=== PATIENT | female | born 1960 | race Caucasian/White ===

== ENCOUNTER 2016-06-09 12:05 | Inpatient (IN) | payer OTHER ==
[~2016-06-09] VITALS: Ht 165.1 cm; Wt 110.5 kg
[2016-06-09] VITALS (10 sets, daily range): BP systolic 129–184; BP diastolic 62–92; PULSE 62–98; RESP 18–23; TEMP 96.6–98.3; O2SAT 95–98
[~2016-06-09 12:05] MED LIST: GLIP5 PO; GLUM500T PO; HYDR-3535 PO; IBUP800T23 PO; LOSA50TA PO; OMEP20TA39 PO; TAMS0.4C67 PO; ZOFR4TAB3 SL
[2016-06-09] MEDS ORDERED: ASPIRIN 81 MG CHEW TAB PO ONE (12:30)
--- NOTE | 2016-06-09 12:34 | PD ---
HPI Chief Complaint: Chest Pain Time Seen by Provider: 12:31 Travel History International Travel<30 days: No Contact w/Intl Traveler<30days: No Traveled to known affect area: No History of Present Illness HPI 55-year-old female presents to the emergency department for evaluation of anterior chest pain that started 2 days ago. She states it only occurs with movement. She reports associated shortness of breath. Patient with history of hypertension, hyperlipidemia, diabetes, aortic stenosis. Her heat treater apprentice is Dr. Crespo. Primary care physician is Dr. Galan. She states she has not had a recent stress test or cardiac catheterization. She denies any history of [place]. Patient denies any recent surgery or travel. No leg edema. No hemoptysis. No history DVT/PE. Patient states she has not had this pain before. She took a baby aspirin last night, but has not had any aspirin today. Patient was a previous tobacco smoker, quit 2 years ago. PFSH Past Medical History Hx Anticoagulant Therapy: Yes (ASA ) Blood Disorders: No Depression: Yes Heart Rhythm Problems: Yes (HAD HEART MURMUR AND PALPITATIONS) Cancer: No Cardiac Catheterization: Yes (X2) Cardiovascular Problems: Yes (AORTIC STENOSIS , HTN ) High Cholesterol: Yes Chemotherapy: No Chest Pain: Yes Diabetes: Yes Diminished Hearing: No Endocrine: No GERD: Yes Headaches: Yes Hiatal Hernia: Yes Hypertension: Yes Kidney Stones: Yes Musculoskeletal: No Respiratory: No Radiation Therapy: No Menopausal: Yes Past Surgical History Abdominal Surgery: Yes (C SECTION, GALLBLADDER) Section: Yes Cholecystectomy: Yes Tonsillectomy: Yes Other Surgery: Yes ("NOSE & CHEEK ANANYA") Social History Alcohol Use: Yes (OCCASIONAL) Tobacco Use: Yes Substance Use: No Allergies-Medications (Allergen,Severity, Reaction): Coded Allergies: No Known Allergies (Verified , 06/29/15) Reported Meds & Prescriptions Reported Meds & Active Scripts Active Reported Metformin ER (Metformin HCl) 750 Mg Perfecto 750 Mg PO DAILY With evening meal Glimepiride 4 Mg Tab 4 Mg PO BIDAC Losartan (Losartan Potassium) 50 Mg Tab 50 Mg PO DAILY Review of Systems Except as stated in HPI: all other systems reviewed are Neg Physical Exam Narrative GENERAL: Well-nourished, well-developed female patient, ambulatory. Afebrile. SKIN: Focused skin assessment warm/dry. HEAD: Normocephalic. Atraumatic. EYES: No scleral icterus. No injection or drainage. NECK: Supple, trachea midline. No JVD or lymphadenopathy. CARDIOVASCULAR: Regular rate and rhythm without murmurs, gallops, or rubs. Bilateral radial and pedal pulses 2+. RESPIRATORY: Breath sounds equal bilaterally. No accessory muscle use. Lungs sounds clear to auscultation. GASTROINTESTINAL: Abdomen soft, non-tender, nondistended. MUSCULOSKELETAL: No cyanosis, or edema. Anterior chest pain is reproducible with palpation. BACK: Nontender without obvious deformity. No CVA tenderness. Data Data Last Documented VS Vital Signs Date Time Temp Pulse Resp B/P Pulse Ox O2 Delivery O2 Flow Rate FiO2 06/09/16 12:33 96 06/09/16 12:33 06/09/16 12:10 98.2 98 18 Orders Electrocardiogram (06/09/16 12:30) Basic Metabolic Panel (Bmp) (06/09/16 12:30) Ckmb (Isoenzyme) Profile (06/09/16 12:30) Complete Blood Count With Diff (06/09/16 12:30) Magnesium (Mg) (06/09/16 12:30) Prothrombin Time / Inr (Pt) (06/09/16 12:30) Act Partial Throm Time (Ptt) (06/09/16 12:30) Troponin I (06/09/16 12:30) Chest, Single Ap (06/09/16 12:30) Ecg Monitoring (06/09/16 12:30) Bilateral Bp Monitoring (06/09/16 12:30) Iv Access Insert/Monitor (06/09/16 12:30) Oximetry (06/09/16 12:30) Oxygen Administration (06/09/16 12:30) Aspirin Chew (Aspirin Chew) (06/09/16 12:30) Sodium Chloride 0.9% Flush (Ns Flush) (06/09/16 12:30) Admit Order (Ed Use Only) (06/09/16 13:50) Labs Laboratory Tests Test 06/09/16 12:30 White Blood Count 11.7 TH/MM3 Red Blood Count 4.24 MIL/MM3 Hemoglobin 11.0 GM/DL Hematocrit 33.2 % Mean Corpuscular Volume 78.4 FL Mean Corpuscular Hemoglobin 25.9 PG Mean Corpuscular Hemoglobin 33.0 % Concent Red Cell Distribution Width 17.1 % Platelet Count 411 TH/MM3 Mean Platelet Volume 7.5 FL Neutrophils (%) (Auto) 61.3 % Lymphocytes (%) (Auto) 29.4 % Monocytes (%) (Auto) 6.1 % Eosinophils (%) (Auto) 1.9 % Basophils (%) (Auto) 1.3 % Neutrophils # (Auto) 7.2 TH/MM3 Lymphocytes # (Auto) 3.4 TH/MM3 Monocytes # (Auto) 0.7 TH/MM3 Eosinophils # (Auto) 0.2 TH/MM3 Basophils # (Auto) 0.2 TH/MM3 CBC Comment DIFF FINAL Differential Comment Prothrombin Time 10.1 SEC Prothromb Time International 0.9 RATIO Ratio Activated Partial 25.0 SEC Thromboplast Time Sodium Level 139 MEQ/L Potassium Level 4.0 MEQ/L Chloride Level 106 MEQ/L Carbon Dioxide Level 22.6 MEQ/L Anion Gap 10 MEQ/L Blood Urea Nitrogen 18 MG/DL Creatinine 0.70 MG/DL Estimat Glomerular Filtration 87 ML/MIN Rate Random Glucose 225 MG/DL Calcium Level 9.3 MG/DL Magnesium Level 1.8 MG/DL Total Creatine Kinase 87 U/L Troponin I LESS THAN 0.02 NG/ML [facility] Medical Decision Making Medical Screen Exam Complete: Yes Emergency Medical Condition: Yes Medical Record Reviewed: Yes Interpretation(s) chest x-ray - CONCLUSION: No acute cardiopulmonary abnormality is identified. There is atelectasis at the lung bases. Differential Diagnosis ACS versus chest wall pain versus pleurisy versus pneumonia versus pneumothorax Narrative Course 55-year-old female presents to the emergency department for evaluation of anterior chest pain with movement. She has no pain at rest and denies any pain at this time. EKG shows sinus bradycardia, heart rate 51. CBC, BMP, CK, troponin, magnesium, PTT, PTT/INR, chest x-ray ordered and pending. Patient is given aspirin 162 mg by mouth. CBC shows leukocytosis of 11.7, hemoglobin 11.0, hematocrit 33.2. BMP shows elevated glucose 225. CK is 87. Troponin is less than 0.02. Magnesium is 1.8. Coags are unremarkable. Chest x-ray shows no acute cardiopulmonary abnormality is identified. There is atelectasis at the lung bases. I discussed the case with my attending physician, Dr. Alonso, who agrees with plan and disposition. Patient will be brought into the [facility] for further evaluation. Dr. Ahuja, heat treater apprentice, saw patient who would like patient to be admitted to the hospital. He spoke to Dr. Crespo who will see the patient. Diagnosis Primary Impression: Chest pain Qualified Code: R07.9 - Chest pain, unspecified type Admitting Information Admitting Physician Requests: Admit Roxie Carbajal June 09, 2016 12:34 Roxie Carbajal June 09, 2016 12:34
[2016-06-09 12:47] LABS: AUTOMATED NEUTROPHIL # 7.2 TH/MM3 (1.8-7.7); BASOPHIL # 0.2 TH/MM3 (0-0.2); BASOPHIL % 1.3 % (0.0-2.0); EOSINOPHIL # 0.2 TH/MM3 (0-0.4); EOSINOPHIL % 1.9 % (0.0-4.0); HEMATOCRIT 33.2 % (35.0-46.0); HEMO FLAGS DIFF FINAL; LYMPH % 29.4 % (9.0-44.0); LYMPHOCYTE # 3.4 TH/MM3 (1.0-4.8); MEAN CELL VOLUME 78.4 FL (80.0-100.0); MEAN CORPUSCULAR HEMOGLOBIN 25.9 PG (27.0-34.0); MONO % 6.1 % (0.0-8.0); NEUT % 61.3 % (16.0-70.0); PLATELET COUNT 411 TH/MM3 (150-450); RED BLOOD COUNT 4.24 MIL/MM3 (4.00-5.30); RED CELL DISTRIBUTION WIDTH 17.1 % (11.6-17.2); WHITE BLOOD COUNT 11.7 TH/MM3 (4.0-11.0)
[2016-06-09 12:59] LABS: INTERNATIONAL NORMALIZED RATIO 0.9 RATIO; PROTHROMBIN TIME - PATIENT 10.1 SEC (9.8-11.6)
[2016-06-09 13:01] LABS: ANION GAP 10 MEQ/L (5-15); BICARBONATE 22.6 MEQ/L (21.0-32.0); BLOOD UREA NITROGEN 18 MG/DL (7-18); CHLORIDE 106 MEQ/L (98-107); GLOMERULAR FILTRATION RATE 87 ML/MIN (>89); MAGNESIUM 1.8 MG/DL (1.5-2.5); SODIUM (NA) 139 MEQ/L (136-145)
[2016-06-09 13:13] LABS: CREATINE KINASE 87 U/L (26-192)
--- NOTE | 2016-06-09 13:22 | RADRPT ---
EXAM DATE/TIME: 06/09/2016 12:37 [place] COMPARISON: No previous studies available for comparison. INDICATIONS : Chest pain, shortness of breath. MEDICAL HISTORY : Hypertension. Diabetes mellitus type II. Smoker. SURGICAL HISTORY : None. ENCOUNTER: Initial ACUITY: 1 day PAIN SCORE: 3/10 LOCATION: Bilateral chest FINDINGS: Portable AP view of the chest demonstrates a normal-sized cardiac silhouette. Multiple EKG lines over lie the patient. Lungs are underinflated with likely atelectasis at the bases. No effusion, consolida tion, or pneumothorax is visualized. The bones and soft tissues demonstrate no acute finding. CONCLUSION: No acute cardiopulmonary abnormality is identified. There is atelectasis at the lung bases. John Jaime MD on June 09, 2016 at 13:19 Board Certified Radiologist. This report was verified electronically.
[2016-06-09] MEDS ORDERED: OMEP20TA PO (15:25)
[2016-06-09] MEDS ORDERED: ASPI1TAB69 PO (15:25)
[2016-06-09] MEDS ORDERED: GLIM4TAB PO (15:25)
[2016-06-09] MEDS ORDERED: LOSA50TA PO (15:25)
[2016-06-09] MEDS ORDERED: METF750T PO (15:25)
[2016-06-09] MEDS ORDERED: CARV6.252 PO (15:25)
[2016-06-09] MEDS ORDERED: ERGO1CAP10 PO (15:25)
[2016-06-09] MEDS ORDERED: NITROGLYCERIN 2% OINT 1 GM PACKET TOPICAL ONE (15:45)
[2016-06-09] MEDS: NITROGLYCERIN 2% OINT 1 GM PACKET TOPICAL SCH (16:28)
[2016-06-09] MEDS ORDERED: INSU1INJ14 SQ (18:19)
[2016-06-09] MEDS ORDERED: cloNIDine HCL 0.1 MG TAB PO PRN (18:30)
--- NOTE | 2016-06-09 18:30 | HHI.HP ---
HPI Service [facility] Hospitalists Primary Care Physician Cee Ortiz MD Admission Diagnosis chest pain Chief Complaint: cp Travel History International Travel<30 Days: No Contact w/Intl Traveler <30 Da: No Traveled to Known Affected Are: No History of Present Illness Pt is 55 yo with dm, htn, gives hx of at least mod AVS follows with dr Crespo. Over past 3 days was having more ant chest pressure and sob with minimal exertion. no vomiting. Seen in ED and initially was going to center. Her card doffer was contacted and she is admitted for [facility] on Sunday. Review of Systems Other ant chest pressure sob with exertion. Past Family Social History Past Medical History AVS. "mod" htn dm 2 right arthroscopic knee cholecystectomy obesity. abdomen wall hernia kidney stones c section Reported Medications Tresiba Flextouch Pen Inj (Insulin Degludec Inj) 300 unit/3 ML Pen 14 Units SQ DAILY Vitamin D (Ergocalciferol) 50,000 Unit Cap 50,000 Units PO Q7D Aspirin 81 Mg Tabdr 81 Mg PO DAILY Carvedilol 6.25 Mg Tab 6.25 Mg PO BID Omeprazole 20 Mg Tab 20 Mg PO DAILY Losartan (Losartan Potassium) 50 Mg Tab 50 Mg PO DAILY Metformin ER (Metformin HCl) 750 Mg Perfecto 750 Mg PO DAILY With evening meal Glimepiride 4 Mg Tab 4 Mg PO BIDAC Allergies: Coded Allergies: No Known Allergies (Verified , 06/29/15) Family History nc Social History 1/2 ppd off/on for at least 25yrs. not smoking now. Physical Exam Vital Signs heart reg. anni AV area lung cta abd s/nt ext no edema Vital Signs Date Time Temp Pulse Resp B/P Pulse Ox O2 Delivery O2 Flow Rate FiO2 06/09/16 17:25 98.3 81 23 173/79 95 06/09/16 16:45 85 18 166/72 97 06/09/16 16:00 77 18 184/92 98 06/09/16 14:00 89 18 171/76 97 06/09/16 12:33 96 06/09/16 12:33 96 06/09/16 12:10 98.2 98 18 164/74 97 Laboratory Laboratory Tests Test 06/09/16 12:30 White Blood Count 11.7 Red Blood Count 4.24 Hemoglobin 11.0 Hematocrit 33.2 Mean Corpuscular Volume 78.4 Mean Corpuscular Hemoglobin 25.9 Mean Corpuscular Hemoglobin 33.0 Concent Red Cell Distribution Width 17.1 Platelet Count 411 Mean Platelet Volume 7.5 Neutrophils (%) (Auto) 61.3 Lymphocytes (%) (Auto) 29.4 Monocytes (%) (Auto) 6.1 Eosinophils (%) (Auto) 1.9 Basophils (%) (Auto) 1.3 Neutrophils # (Auto) 7.2 Lymphocytes # (Auto) 3.4 Monocytes # (Auto) 0.7 Eosinophils # (Auto) 0.2 Basophils # (Auto) 0.2 CBC Comment DIFF FINAL Differential Comment Prothrombin Time 10.1 Prothromb Time International 0.9 Ratio Activated Partial 25.0 Thromboplast Time Sodium Level 139 Potassium Level 4.0 Chloride Level 106 Carbon Dioxide Level 22.6 Anion Gap 10 Blood Urea Nitrogen 18 Creatinine 0.70 Estimat Glomerular Filtration 87 Rate Random Glucose 225 Calcium Level 9.3 Magnesium Level 1.8 Total Creatine Kinase 87 Troponin I LESS THAN 0.02 Result Diagram: 06/09/16 1230 06/09/16 1230 Assessment and Plan Problem List: (1) Chest pain Status: Acute Plan: Pt is 55 yo with dm, htn, AVS. presents with chest pressure/sob with exertion x 3 days mild microcytic anemia on admitting labs. Pt's card doffer contacted. [facility] planned on Sunday cont home meds prn ntg dvt prophylaxis telemetry. iron studies. check stool guiac.\\ ssi prn bp control (2) Aortic valve stenosis Status: Chronic (3) DM (diabetes mellitus) Status: Chronic Plan: see above (4) HTN (hypertension) Status: Chronic Plan: see above Physician Certification 2 Midnight Certification Type: Admission for Inpatient Services Order for Inpatient Services 3The services are ordered in accordance with Medicare regulations or non- Medicare payer requirements, as applicable. In the case of services not specified as inpatient-only, they are appropriately provided as inpatient services in accordance with the 2-midnight benchmark. Estimated LOS (days): 3 3 days is the estimated time the patient will need to remain in the hospital, assuming treatment plan goals are met and no additional complications. Post-Hospital Plan: Home Problem Qualifiers (1) Chest pain: Qualified Code: R07.9 - Chest pain, unspecified type Jayme Yu MD June 09, 2016 18:30
[2016-06-09] MEDS ORDERED: NITROGLYCERIN 0.4 MG SL 25 TABS/BTL SL PRN (19:30)
[2016-06-09] MEDS: CARVEDILOL 6.25 MG TAB PO SCH (19:57)
[2016-06-10] VITALS (8 sets, daily range): BP systolic 119–147; BP diastolic 58–74; PULSE 69–105; RESP 16–19; TEMP 96.6–98.6; O2SAT 95–99
[2016-06-10] MEDS: NITROGLYCERIN 2% OINT 1 GM PACKET TOPICAL SCH ×4 (00:05→17:16)
[2016-06-10] MEDS: INSULIN ASPART SUPPLEMENTAL SCALE SQ SCH ×3 (00:08→23:06)
[2016-06-10] MEDS: ACETAMINOPHEN 325 MG TAB PO PRN ×3 (00:54→19:59)
[2016-06-10 08:04] LABS: FERRITIN 11 NG/ML (8-252); TRANSFERRIN IRON PROFILE 312 MG/DL (200-360)
[2016-06-10] MEDS: INSULIN DETEMIR 100 UNITS/ML VIAL SQ SCH ×2 (09:00→23:08)
[2016-06-10] MEDS: LOSARTAN 50 MG TAB PO SCH (09:32)
[2016-06-10] MEDS: PANTOPRAZOLE SOD 20 MG DELAYED RELEASE TAB PO SCH (09:32)
[2016-06-10] MEDS: GLIMEPIRIDE 4 MG TAB PO SCH ×2 (09:32→17:09)
[2016-06-10] MEDS: CARVEDILOL 6.25 MG TAB PO SCH ×2 (09:32→20:00)
[2016-06-10] MEDS: ASPIRIN EC 81 MG TABEC PO SCH ×2 (09:32→11:51)
[2016-06-10] MEDS: ENOXAPARIN SODIUM 40 MG/0.4 ML SYRINGE SQ SCH (09:34)
--- NOTE | 2016-06-10 10:13 | HHI.PR ---
Subjective Remarks No events overnight. Objective Vitals heart . anni lung cta abd s/nt ext no edema Vital Signs Date Time Temp Pulse Resp B/P Pulse Ox O2 Delivery O2 Flow Rate FiO2 06/10/16 08:02 96.6 69 18 120/61 99 06/10/16 04:00 96.9 100 18 119/58 97 06/10/16 01:57 20 06/10/16 00:00 96.7 105 17 124/66 95 06/09/16 21:00 62 06/09/16 20:00 96.6 62 18 129/62 96 168/70 06/09/16 19:01 70 179/78 06/09/16 18:30 70 06/09/16 17:25 98.3 81 23 173/79 95 06/09/16 16:45 85 18 166/72 97 06/09/16 16:00 77 18 184/92 98 06/09/16 14:00 89 18 171/76 97 06/09/16 12:33 96 06/09/16 12:33 96 06/09/16 12:10 98.2 98 18 164/74 97 06/09/16 06/09/16 06/10/16 15:00 23:00 07:00 Intake Total 480 ml 480 ml Balance 480 ml 480 ml Intake Oral 480 ml 480 ml # Voids 4 3 # Bowel Movements 1 Result Diagram: 06/09/16 1230 06/09/16 1230 A/P Problem List: (1) Chest pain Status: Acute Plan: Pt is 55 yo with dm, htn, AVS. presents with chest pressure/sob with exertion x 3 days mild microcytic anemia on admitting labs. 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 [facility] planned on Sunday cont home meds prn ntg dvt prophylaxis telemetry. holter ordered. some arrhythmia/ectopy overnight. iron studies show iron def . stool guiac neg. ssi. basal insulin added. titrate prn bp control (2) Aortic valve stenosis Status: Chronic (3) DM (diabetes mellitus) Status: Chronic Plan: see above (4) HTN (hypertension) Status: Chronic Plan: see above Problem Qualifiers (1) Chest pain: Qualified Code: R07.9 - Chest pain, unspecified type Jayme Yu MD June 10, 2016 10:13
[2016-06-10 13:42] LABS: HEMOGLOBIN A1a 1.2 %; HEMOGLOBIN A1b 1.5 %; HEMOGLOBIN Ao 78.2 %; HEMOGLOBIN F 1.5 %; HEMOGLOBIN LA1C 2.8 %; HEMOGLOBIN P3 4.8 %
[2016-06-10] MEDS ORDERED: GLUCAGON 1 MG/ML VIAL OTHER PRN (17:30)
[2016-06-10] MEDS ORDERED: DEXTROSE 50% IN WATER 50 ML VIAL(D50) IV PUSH PRN (17:30)
--- NOTE | 2016-06-10 21:58 | EKG ---
Date Performed: 06/10/2016 Time Performed: 09:51:40 PTAGE: 55 years EKG: Sinus rhythm WITH OCCASIONAL VENTRICULAR PREMATURE COMPLEXES WITH OCCASIONAL SUPRAVENTRICULAR PREMATURE COMPLEXES BORDERLINE ECG PREVIOUS TRACING : 06/09/2016 12.25 DOCTOR: Carlo Doyle Interpretating Date/Time 06/10/2016 21:52:04
--- NOTE | 2016-06-10 22:01 | EKG ---
Date Performed: 06/09/2016 Time Performed: 12:25:02 PTAGE: 55 years EKG: SINUS BRADYCARDIA POSSIBLE LEFT ATRIAL ENLARGEMENT POSSIBLE LEFT VENTRICULAR HYPERTROPHY MO DERATE ST DEPRESSION ABNORMAL ECG PREVIOUS TRACING : 08/19/2012 14.45 DOCTOR: Carlo Doyle Interpretating Date/Time 06/10/2016 21:53:19
[2016-06-11] VITALS (8 sets, daily range): BP systolic 106–147; BP diastolic 55–85; PULSE 80–100; RESP 17–19; TEMP 96.3–97.5; O2SAT 94–99
[2016-06-11] MEDS: NITROGLYCERIN 2% OINT 1 GM PACKET TOPICAL SCH ×4 (00:13→17:41)
[2016-06-11] MEDS: ACETAMINOPHEN/HYDROcodone 325 MG/5 MG TAB PO PRN ×3 (00:46→15:27)
[2016-06-11 02:34] LABS: BACTERIA, URINE RARE /hpf; BLOOD, URINE MOD (NEG); COMMENT (UR) CULTURE INDICATED; CULTURE IF INDICATED CULTURE INDICATED; GLUCOSE,URINE NEG (NEG); KETONE, URINE NEG (NEG); MUCUS URINE FEW /lpf (OCC); NITRITE,URINE NEG (NEG); SQUAMOUS EPITHELIAL CELL URINE 1 /hpf (0-5); URINE COLOR LIGHT-YELLOW (YELLW/STRAW)
[2016-06-11] MEDS: ACETAMINOPHEN 325 MG TAB PO PRN (05:48)
[2016-06-11] MEDS: INSULIN ASPART SUPPLEMENTAL SCALE SQ SCH ×4 (05:52→20:34)
[2016-06-11] MEDS: INSULIN DETEMIR 100 UNITS/ML VIAL SQ SCH ×2 (09:04→20:34)
[2016-06-11] MEDS: PANTOPRAZOLE SOD 20 MG DELAYED RELEASE TAB PO SCH (09:04)
[2016-06-11] MEDS: GLIMEPIRIDE 4 MG TAB PO SCH ×2 (09:04→15:27)
[2016-06-11] MEDS: CARVEDILOL 6.25 MG TAB PO SCH ×2 (09:04→20:34)
[2016-06-11] MEDS: LOSARTAN 50 MG TAB PO SCH (09:04)
[2016-06-11] MEDS: SODIUM CHLORIDE 0.9% FLUSH 10 ML FLUSH IVF PRN ×2 (09:06→20:36)
[2016-06-11] MEDS: ASPIRIN EC 81 MG TABEC PO SCH (09:06)
[2016-06-11] MEDS: ENOXAPARIN SODIUM 40 MG/0.4 ML SYRINGE SQ SCH (09:13)
--- NOTE | 2016-06-11 11:59 | HHI.PR ---
Subjective Remarks increase urinary frequency no blood in stool. no vaginal bleeding Objective Vitals heart reg.anni lung cta abd s/nt ext no edema Vital Signs Date Time Temp Pulse Resp B/P Pulse Ox O2 Delivery O2 Flow Rate FiO2 06/11/16 10:32 86 06/11/16 08:00 80 145/72 97 06/11/16 04:00 97.0 88 17 106/55 97 06/11/16 02:38 19 06/11/16 00:00 97.2 97 18 136/85 94 06/10/16 21:00 98 06/10/16 21:00 20 06/10/16 19:59 98.6 98 19 138/70 96 06/10/16 16:02 98.1 98 16 147/74 97 06/10/16 12:20 98.2 86 16 137/65 96 06/10/16 06/10/16 06/11/16 15:00 23:00 07:00 Intake Total 360 ml 960 ml 240 ml Balance 360 ml 960 ml 240 ml Intake Oral 360 ml 960 ml 240 ml IV Total 0 ml # Voids 2 5 2 # Bowel Movements 1 1 Result Diagram: 06/09/16 1230 06/09/16 1230 A/P Problem List: (1) Chest pain Status: Acute Plan: Pt is 55 yo with dm, htn, AVS. presents with chest pressure/sob with exertion x 3 days mild microcytic anemia on admitting labs. no gib/vaginal bleed.guiac neg. uti Pt's hospital cna contacted. [facility] planned on Sunday cont home meds prn ntg dvt prophylaxis telemetry. holter ordered. some arrhythmia/ectopy iron studies show iron def . stool guiac neg. ssi. basal insulin added. titrate prn bp control cipro for uti. f/u cx (2) Aortic valve stenosis Status: Chronic (3) DM (diabetes mellitus) Status: Chronic Plan: see above (4) HTN (hypertension) Status: Chronic Plan: see above Problem Qualifiers (1) Chest pain: Qualified Code: R07.9 - Chest pain, unspecified type Jayme Yu MD June 11, 2016 11:59
[2016-06-11] MEDS ORDERED: CIPROFLOXACIN 250 MG TAB PO ONE (13:00)
[2016-06-11] MEDS: CIPROFLOXACIN 250 MG TAB PO SCH (20:34)
[2016-06-12] VITALS: BP 132/63; PULSE 98; RESP 18; TEMP 97.2; O2SAT 96
[2016-06-12 00:15] VITALS: BP 120/67; PULSE 102; RESP 18; TEMP 96.9; O2SAT 96
[2016-06-12] MEDS: NITROGLYCERIN 2% OINT 1 GM PACKET TOPICAL SCH ×4 (00:26→17:24)
[2016-06-12] MEDS: ACETAMINOPHEN/HYDROcodone 325 MG/5 MG TAB PO PRN ×2 (01:24→11:21)
[2016-06-12 04:00] VITALS: BP 110/57; PULSE 98; RESP 19; TEMP 96.6; O2SAT 96
[2016-06-12] MEDS: INSULIN ASPART SUPPLEMENTAL SCALE SQ SCH ×4 (06:20→21:42)
[2016-06-12] MEDS: GLIMEPIRIDE 4 MG TAB PO SCH ×2 (07:00→17:24)
[2016-06-12] MEDS ORDERED: HEPARIN-NS/PF INJ 500 ML ONE (07:13)
[2016-06-12] MEDS ORDERED: MIDAZOLAM HCL 2 MG/2 ML VIAL ONE (07:13)
[2016-06-12] MEDS ORDERED: NITROGLYCERIN INJ 5 ML ONE (07:14)
[2016-06-12] MEDS ORDERED: HEPARIN SODIUM - IV 10,000 UNITS/10 ML VIAL ONE (07:14)
[2016-06-12] MEDS ORDERED: BIVALIRUDIN 250 MG VIAL ONE (07:40)
[2016-06-12] MEDS ORDERED: CLOPIDOGREL 300 MG TAB ONE (07:52)
[2016-06-12] MEDS ORDERED: BIVALIRUDIN INJ 250 MG in SODIUM CHLORIDE 0.9% INJ 50 ML IV SCH (07:58)
[2016-06-12] MEDS ORDERED: LIDOCAINE 2% JELLY 30 ML TUBE TOP PRN (08:00)
[2016-06-12] MEDS ORDERED: MORPHINE SULFATE 4 MG/ML INJ IV PUSH PRN (08:00)
[2016-06-12] MEDS ORDERED: CLOPIDOGREL 300 MG TAB PO ONE (08:00)
[2016-06-12] MEDS ORDERED: MISC INFORMATION XX ONE (08:00)
--- NOTE | 2016-06-12 08:03 | CATHPROC ---
[email or web address] HIS Report Study Information Study Number Admission Scheduled Start Study Start [id number] 06/09/2016 06/12/2016 Jun 12 2016 6:50AM Referring Institution Admit Source Facility Department 1 Emergency department [facility] - Radar Technician Physician and Clinical Staff Initial Maikel Dunlap Diesel Bus Mechanic Claudia Walsh,RN Recorder Nayely Cadet RCIS TECH2 Recorder Harshil Ritter,PRATIK Scrub Jillian Jones,CRAB MEAT PROCESSOR TECH2 Procedures Performed Procedure Location (Site) Vessel Name Coronary Angiograms LCA Left Coronary Coronary Angiograms RCA Right Coronary Drug Eluting Inflatio RCA Mid Right Coronary PTCA RCA Mid Right Coronary Wire insertion Radial (right) Radial Art. Equipment Time Installers Mechanical Description Size Mfg Part Number Used/Scraped TRANSDUCER, TRUWAVE 07:19 [employer] * [id number] Used W/eIQnetworks CONCEPT DRAPE, RADIAL FEMORAL FULL 07:19 * [id number] Used DEVELOPMENT BODY 07:19 Frugoton PACK, CCL CUSTOM * [id number] Used 07:19 [employer]rugoton SUPPORT, ARTERIAL ADULT [id number] Used 07:19 Clone PACER PEN, SKIN DUAL W/ RULER * [id number] Used 07:48 MEDTRONIC BALLOON, 2.5 X 15MM EUPHORA 15MM [id number] Used STENT, 3.0 22 RESOLUTE 07:50 MEDTRONIC 3.0 22 [id number] Used INTEGRITY RX [id number] 07:48 Health Plotter 30 YOLIS INDEFLATOR Used *[id number] SHEATH, FR6 RADIAL PRELUDE 07:19 Health Plotter FR 6 [id number] Used EASE 11CM 07:19 Myreks MEDICAL WIRE, EXCHANGE 260CM 3MMJ 260CM [id number] Used 07:19 NYCOMED OMNIPAQUE, 350 MG, 100ML 100ML [id number] Used 07:19 NYE MEDICAL BLANKET,WARM AIR CCL * [id number] Used BAND, RADIAL COMPRESSION TR 07:19 TERAgentPiggy 29CM [id number] Used LARGE WIRE, RUNTHROUGH NS FLOPPY 07:44 TERUMO MEDICAL 180CM [id number] Used .014 180CM Equipment Model, Serial, Lot Number and Expiration Data Description Model Number Serial Number Lot Number Expiration Date STENT, 3.0 22 RESOLUTE [id number] 04-14-2018 INTEGRITY RX History: Allergies Allergy Reaction No Known Allergies History: Risk Factors Family History of Hypertension Dyslipidemia Previous NC Previous Heart Failure Premature CAD Yes Yes No No No Prior Valve Prior PCI Prior CABG Surgery No No No Cerebrovascular Peripheral Artery Chronic Lung On Dialysis Diabetes Diabetes Therapy Disease Disease Disease No No No No Yes Oral History: Risk Factors Selection Items Current Smoker History: Symptoms/Diagnosis Selection Items Chest pain GRACE History: Stress Tests Stress or Imaging Studies Performed No History: Other Disease Selection Items HTN History: Other Current Smoker Method Packs a Day Years Used Pack Years Yes Cigarettes 1 25 25 Labs Hgb (g/dl) Hct (%) WBC (l/cumm) Platelets (thousands) 12.00-18.00 37.00-55.00 4.80-10.80 140.00-450.00 11.0 33.2 11.7 411 Glucose (mg/dl) BUN (mg/dl) Creatinine (mg/dl) BUN:Creatinine (1:x) 60.00-110.00 8.00-20.00 0.10-9.00 10.00-20.00 225 18 0.7 25.7 Na (meq/l) K (meq/l) 138.00-146.00 3.80-5.10 139 4 INR (PTT:PT) 0.50-2.00 0.9 CPK-MB (ng/ML) 0.00-7.00 Not Drawn Medication Medication Total Dose (Bolus/Oral) Medication Total Dosage/Unit 1% XYLOCAINE 10 mL ANGIOMAX BOLUS 16.5 mL FENTANYL 50 mcg HEPARIN 5000 units NTG (IC) 200 mcg PLAVIX 600 mg VERSED 2 mg Medications (Bolus/Oral) Medication Time Given Dosage/Unit Administered By Reason VERSED 06/12/2016 7:28:00 AM 2 mg Claudia Walsh 2 mg VERSED given in lab by Claudia Walsh, RN via Peripheral IV. FENTANYL 06/12/2016 7:29:00 AM 50 mcg Claudia Walsh 50 mcg FENTANYL given in lab by Claudia Walsh, RN via Peripheral IV. 1% XYLOCAINE 06/12/2016 7:32:08 AM 10 mL Maikel Crespo 10 mL 1% XYLOCAINE given in lab by Maikel Crespo in Right Radial via Subcutaneous. NTG (IC) 06/12/2016 7:33:19 AM 200 mcg Maikel Crespo 200 mcg NTG (IC) given in lab by Maikel Crespo via Intra-arterial. HEPARIN 06/12/2016 7:33:39 AM 5000 units Claudia Walsh 5000 units HEPARIN given in lab by Claudia Walsh RN via Peripheral IV. ANGIOMAX BOLUS 06/12/2016 7:44:00 AM 16.5 mL Claudia Walsh 16.5 mL ANGIOMAX BOLUS given in lab by Claudia Walsh RN via Peripheral IV. PLAVIX 06/12/2016 7:55:49 AM 600 mg Claudia Walsh 600 mg PLAVIX given in lab by Claudia Walsh RN via Oral. Medication (Drip) Medication Time Given Dosage/Unit Concentration/Unit Diluent (ml) Solution ANGIOMAX DRIP 06/12/2016 7:46:06 AM 1.75 mg/kg/hr 250 mg 50 NaCl .9 1.75 mg/kg/hr ANGIOMAX DRIP given in lab by Claudia Walsh RN via Peripheral IV. Pump/Drip Flow = 38.5 ml/hr using NaCl .9 with a concentration of 250 mg in 50 ml. IV Solutions 06/12/2016 7:13:25 AM 0 mL (IV) 500 NaCl .9 Patient arrived on IV Solutions in Left Hand via Peripheral IV. Pump/Drip Flow = 20 ml/hr using NaCl .9. Initial Case Assessment Cardiovascular HR Rhythm NIBP Chest Pain 96 SR 123/69 0 Neurological State Oriented to time-place- Alert Moves all extremities person Respiration - General Respiration Rate SpO2 (%) (B/min) 15 97 Final Case Assessment Cardiovascular HR Rhythm Chest Pain 80 sr 0 Edema Present Skin color Skin None Normal Warm Dry Circulatory - Right Pulses Dorsalis Pedis Femoral Radial 3 3 3 Scale (0,1,2,3,4,d) Scale (0,1,2,3,4,d) Neurological State Oriented to time-place- Alert Moves all extremities person Respiration - General Respiration Rate SpO2 (%) O2 (lpm) (B/min) 18 100 0 Chronological Log Time Study Chronological Log 7:05:54 Patient arrived via Bed. 7:05:59 Patient Name, D.O.B, / Armband Verified By R.N. 7:06:20 Pre-op and post- op instructions given; patient acknowledges understanding of instructions. 7:12:49 MD arrived. 7:12:58 A # 20 IV was noted in the Hand (left). Grade = patent 7:13:25 Patient arrived on IV Solutions in Left Hand via Peripheral IV. Pump/Drip Flow = 20 ml/hr u sing NaCl .9. 7:13:51 History and physical on the chart or being dictated. Vitals capture started with the following parameters, Patient=Adult, Interval=5 min, Initial Pr ykueby=784 mmHg, 7:18:49 Deflation Rate=5 mmHg 7:19:42 HR=97 bpm, GXKI=263/69 mmhg, SpO2=97.0 %, Resp=15 B/min 7:20:33 Allens test performed on the right radial and ulnar artery. 7:20:38 Patient has been NPO for More than 6Hrs. 7:20:39 Skin Breakdown-none 7:20:41 Talno Prominences Protected Assessment: Initial Case, HR=96 BPM, Rhythm=SR, MZWE=468/69 mmhg, Chest Pain=0 7:21:09 Neurological: State=Alert, Ox3, COLLADO Respiration: Resp=15 B/min, SpO2=97 % 7:22:11 Right wrist and right groin prepped with 2% chlorhexidine, and draped after a 3 min. waiting time. 7:24:43 HR=93 bpm, MLER=737/65 mmhg, SpO2=98.0 %, Resp=18 B/min, Pain=0, Pawan=10, Mahmood=2 7:26:19 Reference ECG taken 7:28:00 2 mg VERSED given in lab by Claudia Walsh, PRATIK via Peripheral IV. 7:29:00 50 mcg FENTANYL given in lab by Claudia Walsh, PRATIK via Peripheral IV. 7:29:10 Pressure channel 1 zero failed. 7:29:25 Pressure channel 1 zero failed. 7:29:37 Pressure channel 1 zeroed. 7:29:42 HR=95 bpm, JBBB=704/66 mmhg, SpO2=94.0 %, Resp=20 B/min, Pain=0, Pawan=10, Mahmood=2 Time Out. Correct patient, correct procedure,correct physician, ,power injector loaded or not lo aded with contrast with 7:31:34 surgical team present. Time Out Concurred by MD, individual staff and APARTMENT GROUNDSKEEPER in procedure 7:31:35 Case Start 7:32:08 10 mL 1% XYLOCAINE given in lab by Maikel Crespo in Right Radial via Subcutaneous. 7:33:19 200 mcg NTG (IC) given in lab by Maikel Crespo via Intra-arterial. 7:33:39 5000 units HEPARIN given in lab by Claudia Walsh, RN via Peripheral IV. A SHEATH, FR6 RADIAL PRELUDE EASE 11CM FR 6 was advanced into the Radial (right) using the Modif ied Seldinger 7:34:44 technique. 7:34:45 HR=98 bpm, CMEP=145/62 mmhg, SpO2=94.0 %, Resp=22 B/min, Pain=0, Pawan=10, Mahmood=2 A JR 5.0 INFINITI CATHETER FR 6 was advanced over a wire. OMNIPAQUE, 350 MG, 100ML 100ML was use d for 7:34:50 injections. Recorded Pressure: LV, HR=92, Condition=Condition 1 7:35:05 (Left Ventricle) LV 168/6/12 Recorded Pressure: LV, Ao, HR=92, Condition=Condition 1 7:36:22 (Left Ventricle) LV 179/9/18, (Aorta) Ao 118/74/92 7:37:13 The RCA was injected and visualized at various angles. OMNIPAQUE, 350 MG, 100ML 100ML used. After removing the current catheter a JL 3.5 INFINITI CATHETER FR 6 was advanced over a WIRE, EX CHANGE 260CM 7:39:26 3MMJ 260CM. 7:40:27 HR=91 bpm, PRRX=610/68 mmhg, SpO2=93.0 %, Resp=27 B/min, Pain=0, Pawan=10, Mahmood=2 7:40:37 The LCA was injected and visualized at various angles. OMNIPAQUE, 350 MG, 100ML 100ML used. 7:44:00 16.5 mL ANGIOMAX BOLUS given in lab by Claudia Walsh, RN via Peripheral IV. After removing the current catheter a JR 5.0 GUIDE CATHETER FR 6 was advanced over a WIRE, EXCHA NGE 260CM 7:44:12 3MMJ 260CM. 7:44:43 HR=94 bpm, LTBG=064/61 mmhg, SpO2=95.0 %, Resp=41 B/min, Mahmood=2 7:45:39 A WIRE, RUNTHROUGH NS FLOPPY .014 180CM 180CM was inserted via Radial (right). 1.75 mg/kg/hr ANGIOMAX DRIP given in lab by Claudia Walsh, RN via Peripheral IV. Pump/Drip F low = 38.5 7:46:06 ml/hr using NaCl .9 with a concentration of 250 mg in 50 ml. 7:47:08 Interventional wire has crossed the lesion A BALLOON, 2.5 X 15MM EUPHORA 15MM was inserted over WIRE, RUNTHROUGH NS FLOPPY .014 180CM 180CM via 7:47:53 the RCA Mid. A BALLOON, 2.5 X 15MM EUPHORA 15MM over a WIRE, RUNTHROUGH NS FLOPPY .014 180CM 180CM in the RCA Mid 7:48:09 was inflated using a 30 YOLIS INDEFLATOR at 10 yolis for 20 sec. A BALLOON, 2.5 X 15MM EUPHORA 15MM over a WIRE, RUNTHROUGH NS FLOPPY .014 180CM 180CM in the R CA Mid 7:48:38 was inflated using a 30 YOLIS INDEFLATOR at 12 yolis for 20 sec. 7:49:12 Balloon Removed. 7:49:40 HR=95 bpm, RNMY=558/64 mmhg, SpO2=95.0 %, Resp=46 B/min, Mahmood=2 A STENT, 3.0 22 RESOLUTE INTEGRITY RX 3.0 22 was advanced through a JR 5.0 GUIDE CATHETER FR 6 over a WIRE, 7:50:54 RUNTHROUGH NS FLOPPY .014 180CM 180CM. A STENT, 3.0 22 RESOLUTE INTEGRITY RX 3.0 22 was deployed using a 30 YOLIS INDEFLATOR at 16 atmo spheres for 7:51:09 20 seconds in the RCA Mid. 7:52:24 Wire removed 7:52:26 Catheter was removed OTW. 7:54:39 HR=96 bpm, QITP=402/61 mmhg, SpO2=97.0 %, Resp=27 B/min, Mahmood=2 7:55:49 600 mg PLAVIX given in lab by Claudia Walsh, RN via Oral. Assessment: Final Case, HR=80 BPM, Rhythm=sr, Chest Pain=0, Edema=None, Color=Normal, Skin = W arm, Dry Right Pulses: Jayro Ped=3, Femoral=3, Radial=3 7:59:21 Neurological: State=Alert, Ox3, COLLADO Respiration: Resp=18 B/min, XhV7=229 %, O2=0 lpm 8:00:00 Catheter(s) removed without difficulty Radial Compression Device Used. 12 mLs of air placed in BAND, RADIAL COMPRESSION TR LARGE 29CM . Affected hand 8:00:03 95 % O2 saturation. 8:00:23 Case End 8:00:25 No case complications noted. 8:00:27 Cine recording checked. 8:00:29 Bedside Report will be given. 8:00:35 Implantable Device card placed in patient's chart. 8:00:38 Contrast Scanned 8:00:51 Patient moved to stretcher End Study - Contrast Media Used In Study Contrast Total Opened (mL) Total Used (mL) Total Wasted (mL) Omnipaque 110 110 0 End Study - Maximum Contrast Load Max Contrast Load (mL) 785.7 End Study - Radiation Exposure Fluoro Time (minutes) 4.7 End Study - Patient Disposition Complications Transferred To Interventional Outcome No Telemetry Bed successful
--- NOTE | 2016-06-12 08:09 | PD.CARD.PN ---
Subjective Subjective Remarks doing well no complaints Objective Medications Active Medications Atorvastatin Calcium (Lipitor) 40 mg HS PO; Start 06/12/16 at 21:00; Status UNV Bacitracin (Bacitracin Oint Packet) 0.9 gm ONCE ONCE TOP; Start 06/12/16 at 08: 00; Stop 06/12/16 at 08:01; Status UNV Bivalirudin (Angiomax Inj) 250 mg STK-MED ONCE .ROUTE; Start 06/12/16 at 07:40; Stop 06/12/16 at 07:41; Status DC Bivalirudin/ Sodium Chloride (Angiomax Inj/NS Inj) 50 ml @ 0 mls/hr Q0M IV; Start 06/12/16 at 07:58; Stop 06/12/16 at 11:57; Status UNV Ciprofloxacin (Cipro) 250 mg Q12HR PO Last administered on 06/11/16t 20:34; Admin Dose 250 MG; Start 06/11/16 at 21:00 Ciprofloxacin 250 mg 250 mg ONCE ONCE PO Last administered on 06/11/16t 15:27; Admin Dose 250 MG; Start 06/11/16 at 13:00; Stop 06/11/16 at 13:01; Status DC Clopidogrel Bisulfate (Plavix) 75 mg DAILY PO; Start 06/13/16 at 09:00; Status UNV Clopidogrel Bisulfate (Plavix) 600 mg NOW ONCE PO; Start 06/12/16 at 08:00; Stop 06/12/16 at 08:01; Status UNV Clopidogrel Bisulfate (Plavix) 600 mg STK-MED ONCE .ROUTE; Start 06/12/16 at 07: 52; Stop 06/12/16 at 07:53; Status DC Fentanyl Citrate (fentaNYL INJ) 100 mcg STK-MED ONCE .ROUTE; Start 06/12/16 at 07 :13; Stop 06/12/16 at 07:14; Status DC Heparin Sodium (Porcine) 03627 units 10,000 units STK-MED ONCE .ROUTE; Start 06/12/16 at 07:14; Stop 06/12/16 at 07:15; Status DC Heparin Sodium/ Sodium Chloride (Heparin-NS/Pf Inj) 500 ml @ As Directed STK- MED ONCE .ROUTE; Start 06/12/16 at 07:13; Stop 06/12/16 at 07:14; Status DC Insulin Detemir (Levemir Inj) 10 units Q12HR SQ Last administered on 06/11/16t 20 :34; Admin Dose 10 UNITS; Start 06/11/16 at 09:00 Midazolam HCl (Versed Inj) 2 mg STK-MED ONCE .ROUTE; Start 06/12/16 at 07:13; Stop 06/12/16 at 07:14; Status DC Miscellaneous Information 1 1 ONCE ONCE XX; Start 06/12/16 at 08:00; Stop at 08:01; Status UNV Morphine Sulfate (Morphine Inj) 2 mg Q30M PRN IV PUSH; Start 06/12/16 at 08:00; Status UNV Nitroglycerin (Nitroglycerin Inj) 5 ml @ As Directed STK-MED ONCE .ROUTE; Start 06/12/16 at 07:14; Stop 06/12/16 at 07:15; Status DC Vital Signs / I&O Vital Signs Date Time Temp Pulse Resp B/P Pulse Ox O2 Delivery O2 Flow Rate FiO2 06/12/16 04:00 96.6 98 19 110/57 96 06/12/16 00:15 96.9 102 18 120/67 96 06/12/16 00:00 97.2 98 18 132/63 96 06/11/16 21:09 100 06/11/16 20:00 97.5 94 19 144/73 97 06/11/16 17:00 97.4 91 18 147/71 96 06/11/16 12:00 96.3 88 137/72 99 06/11/16 10:32 86 I/O 06/11/16 06/11/16 06/11/16 06/12/16 06/12/16 06/12/16 07:00 15:00 23:00 07:00 15:00 23:00 Intake Total 240 ml 720 ml 480 ml Balance 240 ml 720 ml 480 ml Intake Oral 240 ml 720 ml 480 ml # Voids 2 3 4 2 # Bowel Movements 1 1 Physical Exam GENERAL: SKIN: Warm and dry. HEAD: Normocephalic. EYES: No scleral icterus. No injection or drainage. NECK: Supple, trachea midline. No JVD or lymphadenopathy. CARDIOVASCULAR: Regular rate and rhythm without murmurs, gallops, or rubs. RESPIRATORY: Breath sounds equal bilaterally. No accessory muscle use. GASTROINTESTINAL: Abdomen soft, non-tender, nondistended. MUSCULOSKELETAL: No cyanosis, or edema. BACK: Nontender without obvious deformity. No CVA tenderness. Imaging Last Impressions Chest X-Ray 06/09/16 1230 Signed Impressions: Service Date/Time: Thursday, June 09, 2016 12:37 - CONCLUSION: No acute cardiopulmonary abnormality is identified. There is atelectasis at the lung bases. John Jaime MD Assessment and Plan Assessment and Plan unstable angina - s/p [facility]. CHAVEZ mid RCA. asa plavix bb statin aortic stenosis - moderate. fu outpatient echo DC planning today Maikel Crespo MD June 12, 2016 08:09
--- NOTE | 2016-06-12 08:52 | MA ---
cc: ALEJANDRA PARRISH DATE: 06/12/2016 PROCEDURE PERFORMED 1. Fluoroscopy with interpretation. 2. Left heart catheterization. 3. Left ventriculography. 4. Coronary angiography. 5. Percutaneous intervention with drug-eluting stent to the mid-right coronary artery. METHOD Risks, benefits and alternatives were discussed with the patient. The patient understood and consented to the procedure. PROCEDURE The patient was brought to the catheterization lab and placed on the catheterization table. The right wrist was prepped and draped in sterile fashion. Right wrist was anesthetized with 2% lidocaine. Right radial artery was cannulated. A 6-Irish 7 cm sheath was placed without difficulty. LEFT HEART CATHETERIZATION A 6-Irish JR-5 catheter was advanced across the aortic valve without difficulty. Intraventricular hemodynamics measured 190/10 mmHg. There was a 50 mmHg [id number] pullback gradient.. This was suggestive of at least moderate aortic stenosis. We had no difficulty crossing the valve with the J wire. LEFT VENTRICULOGRAPHY The left ventriculography was performed in the right anterior oblique view using a 6-Irish JR-5 catheter and a 12 cc contrast injection with good opacification. Left ventricular ejection fraction visually estimated at 65% without regional wall motion abnormalities. CORONARY ANGIOGRAPHY 1. Left main coronary is angiographically normal. 2. Left anterior descending coronary has a 30% stenosis in the mid segment, there is a large diagonal branch at that level of the bifurcation, has a 40% proximal stenosis. The remainder of the left anterior descending and diagonal branch are widely patent. 3. Left circumflex is a codominant vessel giving rise to a large posterior descending and obtuse marginal branch. Left circumflex is angiographically normal. 4. The right coronary is a dominant vessel giving rise to a posterior descending, posterolateral branch. Right coronary has a mid 80% tubular stenosis. PERCUTANEOUS INTERVENTION The right coronary is selectively engaged. A 6-Irish JR-5 catheter 0.014 inch 180 cm [employer] run-through wire was navigated down the distal posterior descending branch. Angiomax was administered throughout the entire procedure to maintain appropriate anticoagulation. A 2.5 x 15 mm RX balloon was deployed in the right coronary artery to 12 atmospheres. Repeat angiography shows severe residual stenosis. 3.0 x 22 mm RX Resolute drug-eluting stent advanced down to the mid-right coronary and deployed. Repeat angiography showed no residual stenosis. Catheter was removed, HemoBand was applied. CONCLUSION 1. Severe single-vessel coronary artery disease involving the mid-right coronary artery. 2. Moderate aortic stenosis. PLAN Hopefully this will translate well with symptomatic improvement. Will monitor closely for any postprocedure complications. Will follow with outpatient echocardiogram. Will monitor the aortic valve in the outpatient setting. MD BIANCA Alford/JESUS /8:13 AM 8:37 AM
[2016-06-12] MEDS ORDERED: BACITRACIN OINT 0.9 GM PKT TOP ONE (09:00)
[2016-06-12] MEDS: INSULIN DETEMIR 100 UNITS/ML VIAL SQ SCH ×2 (09:00→21:42)
[2016-06-12] MEDS: CARVEDILOL 6.25 MG TAB PO SCH ×2 (09:00→21:43)
[2016-06-12] MEDS: CIPROFLOXACIN 250 MG TAB PO SCH ×2 (09:00→21:43)
[2016-06-12] MEDS ORDERED: CIPR250T52 PO (11:21)
[2016-06-12] MEDS ORDERED: PLAV75TA29 PO (11:21)
--- NOTE | 2016-06-12 11:23 | HHI.DCPOC ---
Discharge Care Plan Diagnosis: (1) Chest pain (2) CAD (coronary artery disease) (3) DM (diabetes mellitus) (4) HTN (hypertension) (5) Aortic valve stenosis Goals to Promote Your Health * To prevent worsening of your condition and complications * To maintain your health at the optimal level Directions to Meet Your Goals Take your medications as prescribed Follow your dietary instruction Follow activity as directed Keep your appointments as scheduled Take your immunizations and boosters as scheduled If your symptoms worsen call your PCP, if no PCP go to Urgent Care Center or Emergency Room Smoking is Dangerous to Your Health. Avoid second hand smoke Call the 24-hour hour crisis hotline for domestic abuse at [facility] June 12, 2016 11:23 Luis Enrique Borja DO June 12, 2016 13:21
[2016-06-12] MEDS ORDERED: ATOR40TA16 PO (11:25)
--- NOTE | 2016-06-12 11:31 | HM ---
Date Performed: 06/10/2016 Time Performed: 08:16:00 HOOKUP DATE: 06/10/16 08:16:00 AM Sat ANALYSIS START TIME: 06/10/2016 8:21:00 AM ANALYSIS END TIME: 06/11/2016 8:24:59 AM PATIENT AGE: 55 PATIENT HEIGHT PATIENT WEIGHT DRUG LIST PATIENT DIAGNOSIS: CHEST PAIN TEST NARRATIVE: The patient's average heart rate was 89 BPM. No episodes of tachycardia wer e noted. No episodes of bradycardia were noted. No pauses exceeding 2.0 seconds were noted. 395 ventricular ectopics, which represented < 1% of the total beat count, were noted. The highest ve ntricular ectopic frequency occurred from 12:00 PM to 01:00 PM Sat. During this time 119 VE(s) occur red. Ventricular ectopics were observed as 391 isolated beat(s) and as 1 run(s). 7739 supraventr icular ectopics, which represented 6% of the total beat count, were noted. The highest supraventricu lar ectopic frequency occurred from 09:00 AM to 10:00 AM Sat. During this time 1592 SVE(s) occurred. In channel 1, a single episode of ST depression (defined as -1.0 mm or more) occurred at 02:42:5 7 PM Sat with a maximum depression of -1.7 mm. In channel 2, a single episode of ST depression (defi jacinto as -1.0 mm or more) occurred at 02:45:45 PM Sat with a maximum depression of -1.7 mm. No episode s of ST depression (defined as -1.0 mm or more) were noted in channel 3. TEST INTERPRETATION: Underlying Sinus rhythm Frequest PAC's Signed by : Nate Beck
--- NOTE | 2016-06-12 12:47 | HHI.PR ---
Subjective Remarks Pt had LHC today with Dr. Crespo and was found to have severe single-vessel coronary artery disease involving the mid-right coronary artery s/p CHAVEZ placement and moderate aortic stenosis Pt apprehensive about bleeding post-procedurally. Objective Vitals Vital Signs Date Time Temp Pulse Resp B/P Pulse Ox O2 Delivery O2 Flow Rate FiO2 06/12/16 08:08 95 Room Air 06/12/16 04:00 96.6 98 19 110/57 96 06/12/16 00:15 96.9 102 18 120/67 96 06/12/16 00:00 97.2 98 18 132/63 96 06/11/16 21:09 100 06/11/16 20:00 97.5 94 19 144/73 97 06/11/16 17:00 97.4 91 18 147/71 96 06/11/16 06/11/16 06/12/16 15:00 23:00 07:00 Intake Total 720 ml 480 ml Balance 720 ml 480 ml Intake Oral 720 ml 480 ml # Voids 3 4 2 # Bowel Movements 1 Result Diagram: 06/09/16 1230 06/09/16 1230 Other Results Laboratory Tests Test 06/11/16 00:50 Urine Color LIGHT-YELLOW Urine Turbidity HAZY Urine pH 5.0 Urine Specific [place] 1.021 Urine Protein 30 mg/dL Urine Glucose (UA) NEG mg/dL Urine Ketones NEG mg/dL Urine Occult Blood MOD Urine Nitrite NEG Urine Bilirubin NEG Urine Urobilinogen LESS THAN 2.0 MG/DL Urine Leukocyte Esterase LARGE Urine RBC 30 /hpf Urine WBC /hpf Urine Squamous Epithelial 1 /hpf Cells Urine Bacteria RARE /hpf Urine Mucus FEW /lpf Urine Yeast (Budding) OCC Microscopic Urinalysis Comment CULTURE INDICATED Imaging Last Impressions Chest X-Ray 06/09/16 1230 Signed Impressions: Service Date/Time: Thursday, June 09, 2016 12:37 - CONCLUSION: No acute cardiopulmonary abnormality is identified. There is atelectasis at the lung bases. John Jaime MD Objective Remarks General: NAD, AAOx3 Chest: CTA Cardiac: Regular Abd: +BS, soft ND/NT Ext: No edema, right wrist stabilizer in place. A/P Problem List: (1) Chest pain Status: Acute Plan: - Pt is 55 yo with DM, HTN, and AVS. - She presented with chest pressure/sob with exertion x 3 days - Pt noted to have mild microcytic anemia on admitting labs. No GIB/vaginal bleed and noted to be Guaiac neg. 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 - [facility] planned on Sunday which noted severe single-vessel coronary artery disease involving the mid-right coronary artery s/p CHAVEZ and moderate aortic stenosis. - BB/ARB/Statin/Plavix/ASA - NTG PRN - Holter pending. - Cont. telemetry - DVT prophylaxis (2) Aortic valve stenosis Status: Chronic Plan: - To be further assessed outpt per Cardiology (3) DM (diabetes mellitus) Status: Chronic Plan: - NovoLog SSI - Levemir 10 units Q12H - Accu checks (4) HTN (hypertension) Status: Chronic Plan: - See above Assessment and Plan Patient examined. Assessment and plan formulated with [facility] PA-C. I agree with the above. Pt will be home alone upon discharge. Pt concerned about possibility of bleed from site of [facility]. Will observe overnight. Anticipate d/c to home in AM 06/13/16 Problem Qualifiers (1) Chest pain: Qualified Code: R07.9 - Chest pain, unspecified type [facility] June 12, 2016 12:47 Luis Enrique Borja DO June 12, 2016 13:22
[2016-06-12] MEDS: PANTOPRAZOLE SOD 20 MG DELAYED RELEASE TAB PO SCH (14:39)
[2016-06-12] MEDS: ASPIRIN EC 81 MG TABEC PO SCH (14:39)
[2016-06-12] MEDS ORDERED: IOHEXOL 350 MG/ML 100 ML BTL (for Cath Lab) OTHER ONE (15:26)
[2016-06-12 16:00] VITALS: BP 136/79; PULSE 101; RESP 20; TEMP 97.5; O2SAT 95
[2016-06-12] MEDS: LOSARTAN 50 MG TAB PO SCH (17:24)
[2016-06-12] MEDS: ACETAMINOPHEN 325 MG TAB PO PRN (17:30)
[2016-06-12 20:00] VITALS: BP 139/70; PULSE 100; RESP 18; TEMP 99.4; O2SAT 97
[2016-06-12] MEDS ORDERED: ATORVASTATIN 40 MG TAB PO SCH (21:00)
[2016-06-13] VITALS: BP 135/71; PULSE 99; RESP 18; TEMP 97.2; O2SAT 96
[2016-06-13] MEDS: NITROGLYCERIN 2% OINT 1 GM PACKET TOPICAL SCH ×3 (00:14→12:00)
[2016-06-13 04:00] VITALS: BP 120/58; PULSE 92; RESP 16; TEMP 97.5; O2SAT 97
[2016-06-13 04:43] LABS: AUTOMATED NEUTROPHIL # 7.4 TH/MM3 (1.8-7.7); BASOPHIL # 0.1 TH/MM3 (0-0.2); BASOPHIL % 0.5 % (0.0-2.0); EOSINOPHIL # 0.3 TH/MM3 (0-0.4); EOSINOPHIL % 2.7 % (0.0-4.0); HEMATOCRIT 31.4 % (35.0-46.0); HEMO FLAGS DIFF FINAL; LYMPH % 27.6 % (9.0-44.0); LYMPHOCYTE # 3.2 TH/MM3 (1.0-4.8); MEAN CELL VOLUME 79.2 FL (80.0-100.0); MEAN CORPUSCULAR HEMOGLOBIN 26.2 PG (27.0-34.0); MONO % 6.4 % (0.0-8.0); NEUT % 62.8 % (16.0-70.0); PLATELET COUNT 391 TH/MM3 (150-450); RED BLOOD COUNT 3.97 MIL/MM3 (4.00-5.30); RED CELL DISTRIBUTION WIDTH 16.9 % (11.6-17.2); WHITE BLOOD COUNT 11.8 TH/MM3 (4.0-11.0)
[2016-06-13 05:08] LABS: BICARBONATE 24.7 MEQ/L (21.0-32.0); HDL CHOLESTEROL 25.7 MG/DL (40.0-60.0); POTASSIUM 3.8 MEQ/L (3.5-5.1)
[2016-06-13] MEDS: INSULIN ASPART SUPPLEMENTAL SCALE SQ SCH ×3 (06:17→16:22)
[2016-06-13] MEDS: GLIMEPIRIDE 4 MG TAB PO SCH ×2 (06:17→16:20)
[2016-06-13 08:00] VITALS: BP 119/65; PULSE 91; RESP 18; TEMP 96.7; O2SAT 95
--- NOTE | 2016-06-13 08:16 | PD.CARD.PN ---
Subjective Subjective Remarks no complaints doing well Objective Medications Active Medications Atorvastatin Calcium (Lipitor) 40 mg HS PO Last administered on 06/12/16t 21:43; Admin Dose 40 MG; Start 06/12/16 at 21:00 Bacitracin (Bacitracin Oint Packet) 0.9 gm ONCE ONCE TOP; Start 06/12/16 at 09: 00; Stop 06/12/16 at 09:01; Status DC Clopidogrel Bisulfate (Plavix) 75 mg DAILY PO; Start 06/13/16 at 09:00 Iohexol (OMNIPAQUE 350 INJ (Ingot Buggy Operator)) 100 ml STK-MED ONCE OTHER; Start 06/12/16 at 15:26; Stop 06/12/16 at 15:27; Status DC Vital Signs / I&O Vital Signs Date Time Temp Pulse Resp B/P Pulse Ox O2 Delivery O2 Flow Rate FiO2 06/13/16 04:00 97.5 92 16 120/58 97 06/13/16 00:00 97.2 99 18 135/71 96 06/12/16 20:00 99.4 100 18 139/70 97 06/12/16 16:00 97.5 101 20 136/79 95 I/O 06/12/16 06/12/16 06/12/16 06/13/16 06/13/16 06/13/16 07:00 15:00 23:00 07:00 15:00 23:00 Intake Total 1440 ml 480 ml Balance 1440 ml 480 ml Intake Oral 1440 ml 480 ml # Voids 2 4 1 Physical Exam GENERAL: SKIN: Warm and dry. HEAD: Normocephalic. EYES: No scleral icterus. No injection or drainage. NECK: Supple, trachea midline. No JVD or lymphadenopathy. CARDIOVASCULAR: Regular rate and rhythm 3/6 SM RESPIRATORY: Breath sounds equal bilaterally. No accessory muscle use. GASTROINTESTINAL: Abdomen soft, non-tender, nondistended. MUSCULOSKELETAL: No cyanosis, or edema. BACK: Nontender without obvious deformity. No CVA tenderness. Laboratory Laboratory Tests Test 06/13/16 04:24 White Blood Count 11.8 TH/MM3 Red Blood Count 3.97 MIL/MM3 Hemoglobin 10.4 GM/DL Hematocrit 31.4 % Mean Corpuscular Volume 79.2 FL Mean Corpuscular Hemoglobin 26.2 PG Mean Corpuscular Hemoglobin 33.0 % Concent Red Cell Distribution Width 16.9 % Platelet Count 391 TH/MM3 Mean Platelet Volume 7.2 FL Neutrophils (%) (Auto) 62.8 % Lymphocytes (%) (Auto) 27.6 % Monocytes (%) (Auto) 6.4 % Eosinophils (%) (Auto) 2.7 % Basophils (%) (Auto) 0.5 % Neutrophils # (Auto) 7.4 TH/MM3 Lymphocytes # (Auto) 3.2 TH/MM3 Monocytes # (Auto) 0.8 TH/MM3 Eosinophils # (Auto) 0.3 TH/MM3 Basophils # (Auto) 0.1 TH/MM3 CBC Comment DIFF FINAL Differential Comment Sodium Level 138 MEQ/L Potassium Level 3.8 MEQ/L Chloride Level 105 MEQ/L Carbon Dioxide Level 24.7 MEQ/L Anion Gap 8 MEQ/L Blood Urea Nitrogen 19 MG/DL Creatinine 0.64 MG/DL Estimat Glomerular Filtration 97 ML/MIN Rate Random Glucose 186 MG/DL Calcium Level 8.4 MG/DL Total Creatine Kinase 74 U/L Triglycerides Level 378 MG/DL Cholesterol Level 165 MG/DL LDL Cholesterol 64 MG/DL HDL Cholesterol 25.7 MG/DL Cholesterol/HDL Ratio 6.42 RATIO Imaging Last Impressions Chest X-Ray 06/09/16 1230 Signed Impressions: Service Date/Time: Thursday, June 09, 2016 12:37 - CONCLUSION: No acute cardiopulmonary abnormality is identified. There is atelectasis at the lung bases. John Jaime MD Assessment and Plan Assessment and Plan unstable angina - s/p LHC. CHAVEZ mid RCA. asa plavix bb statin aortic stenosis - moderate. fu outpatient echo DC planning today Maikel Crespo MD June 13, 2016 08:16
[2016-06-13] MEDS: CIPROFLOXACIN 250 MG TAB PO SCH (08:39)
[2016-06-13] MEDS: CARVEDILOL 6.25 MG TAB PO SCH (08:40)
[2016-06-13] MEDS: LOSARTAN 50 MG TAB PO SCH (08:40)
[2016-06-13] MEDS: ASPIRIN EC 81 MG TABEC PO SCH (08:40)
[2016-06-13] MEDS: PANTOPRAZOLE SOD 20 MG DELAYED RELEASE TAB PO SCH (08:40)
[2016-06-13] MEDS: INSULIN DETEMIR 100 UNITS/ML VIAL SQ SCH (08:45)
[2016-06-13] MEDS ORDERED: CLOPIDOGREL 75 MG TAB PO SCH (09:00)
--- NOTE | 2016-06-13 10:57 | HHI.DS ---
Discharge Summary Admission Date June 09, 2016 at 18:32 Discharge Date: June 13, 2016 Admitting Diagnosis chest pain (1) CAD (coronary artery disease) Diagnosis: Principal (2) Chest pain Diagnosis: Principal (3) Aortic valve stenosis Diagnosis: Secondary (4) DM (diabetes mellitus) Diagnosis: Secondary (5) HTN (hypertension) Diagnosis: Secondary Consultants Dr. Maikel Crespo - Cardiology Brief History Pt is 55 yo with dm, htn, gives hx of at least mod AVS follows with dr Crespo. Over past 3 days was having more ant chest pressure and sob with minimal exertion. no vomiting. Seen in ED and initially was going to center. Her lumber handler was contacted and she is admitted for [facility] on Sunday. CBC/BMP: 06/13/16 0424 06/13/16 0424 Significant Findings Laboratory Tests Test 06/11/16 06/13/16 00:50 04:24 Urine Turbidity HAZY (CLEAR) Urine Protein 30 mg/dL (NEG-TRACE) Urine Occult Blood MOD (NEG) Urine Leukocyte Esterase LARGE (NEG) Urine RBC 30 /hpf (0-3) Urine Bacteria RARE /hpf (NONE) Urine Mucus FEW /lpf (OCC) Urine Yeast (Budding) OCC (NONE) White Blood Count 11.8 TH/MM3 (4.0-11.0) Red Blood Count 3.97 MIL/MM3 (4.00-5.30) Hemoglobin 10.4 GM/DL (11.6-15.3) Hematocrit 31.4 % (35.0-46.0) Mean Corpuscular Volume 79.2 FL (80.0-100.0) Mean Corpuscular Hemoglobin 26.2 PG (27.0-34.0) Blood Urea Nitrogen 19 MG/DL (7-18) Random Glucose 186 MG/DL (74-106) Calcium Level 8.4 MG/DL (8.5-10.1) Triglycerides Level 378 MG/DL (42-150) HDL Cholesterol 25.7 MG/DL (40.0-60.0) Imaging Last Impressions Chest X-Ray 06/09/16 1230 Signed Impressions: Service Date/Time: Thursday, June 09, 2016 12:37 - CONCLUSION: No acute cardiopulmonary abnormality is identified. There is atelectasis at the lung bases. John Jaime MD PE at Discharge General: NAD, AAOx3 Chest: CTA Cardiac: Regular Abd: +BS, soft ND/NT Ext: No edema, right wrist stabilizer in place. Hospital Course Pt is 55 yo with DM, HTN, and AVS. She presented with chest pressure/sob with exertion x 3 days. Pt was noted to have mild microcytic anemia on admitting labs. There was no reported GIB/vaginal bleed and pt was noted to be Guaiac negative. Pt's lumber handler was contacted. Pt underwent LHC on 06/12/16 which noted severe single-vessel coronary artery disease involving the mid-right coronary artery s/p CHAVEZ and moderate aortic stenosis.. Pt will be continued on BB/ARB/Statin/Plavix/ASA and NTG PRN. Holter noted Underlying sinus rhythm with frequent PACs. Per Cardiology notes the pts aortic stenosis will be further assessed outpt. Pt was noted ot have an abnormal UA during admission but culture grew out probable contaminants. She was treated with Cipro 250mg po BID from 06/11-06/13. She will not be discharged on antibiotics. Pt will resume Metformin on 06/14 Pt will need to followup with Dr. Crespo in 1 week and will need outpt 2D echo. She will need to followup with her PCP, Dr. Cee Ortiz, in 1 week. Pt Condition on Discharge: Stable Discharge Disposition: Discharge Home Discharge Instructions DIET: Follow Instructions for: Heart Healthy Diet Activities you can perform: Regular-No Restrictions Other Activity Instructions: Any restriction per Dr. Crespo post-procedure protochol Follow up Referrals: Cardiology - [address] Crespo PCP Follow-up - [address] Cee Ortiz New Medications: Atorvastatin (Atorvastatin) 40 Mg Tab 40 MG PO HS CAD #30 TAB Clopidogrel (Plavix) 75 Mg Tab 75 MG PO DAILY CAD #30 TAB Continued Medications: Aspirin (Aspirin) 81 Mg Tabdr 81 MG PO DAILY TAB Carvedilol (Carvedilol) 6.25 Mg Tab 6.25 MG PO BID #60 Ref 0 TAB Ergocalciferol (Vitamin D) 50,000 Unit Cap 29900 UNITS PO Q7D Nutritional Supplement #30 Ref 0 CAP Glimepiride (Glimepiride) 4 Mg Tab 4 MG PO BIDAC Blood Sugar Management #60 Ref 0 TAB Insulin Degludec Inj (Tresiba Flextouch Pen Inj) 300 unit/3 ML Pen 14 UNITS SQ DAILY Blood Sugar Management #15 Ref 0 ML Losartan (Losartan) 50 Mg Tab 50 MG PO DAILY Blood Pressure Management #30 Ref 0 TAB Metformin ER (Metformin ER) 750 Mg Perfecto 750 MG PO DAILY With evening meal Blood Sugar Management Ref 0 TAB Omeprazole (Omeprazole) 20 Mg Tab 20 MG PO DAILY #30 Ref 0 TAB Additional Information Patient examined. Assessment and plan formulated with Simran Plaza PA-C. I agree with the above. Pt denied any chest pain, palpitations, sob, or n/v. Pt eager for discharge. Pt understands that she must take plavix daily. Pt unsure if she would take lipitor, she believes that she may have had difficulties tolerating this in the past. Pt wanted to ask Dr. Crespo about using an older statin, but could NOT recall the name. Pt to discuss this with Dr. Crespo at her f/u appointment. Simran Plaza June 13, 2016 10:57 Luis Enrique Borja DO June 13, 2016 11:57
[2016-06-13 12:00] VITALS: BP 145/69; PULSE 90; RESP 18; TEMP 97.2; O2SAT 94
--- NOTE | 2016-06-13 15:45 | EKG ---
Date Performed: 06/13/2016 Time Performed: 07:14:17 PTAGE: 55 years EKG: Sinus rhythm MODERATE VOLTAGE CRITERIA FOR LVH, CONSIDER NORMAL VARIANT Compared to prior tracing no significant change BORDERLINE ECG PREVIOUS TRACING : 06/10/2016 09.51 DOCTOR: Susy Cid Interpretating Date/Time 06/13/2016 15:44:07
[2016-06-13 16:00] VITALS: BP 148/67; PULSE 99; RESP 18; TEMP 98.7; O2SAT 97
[2016-06-13 19:15] VITALS: BP 155/80; PULSE 99; RESP 18; TEMP 97.5; O2SAT 95
== END 2016-06-13 19:30 | disposition home or self-care (01) | DRG 247 ==
LOC: NEPC 12:05 → NEDA 13:51 → HOCA 17:10 → OBSVTOIN 18:32
PROVIDERS: ADMIT Hospitalist; ATTEND Hospitalist
PROC: 4A023N7 Measurement of Cardiac Sampling and Pressure, Left Heart, Percutaneous Approach (ICD-10-PCS; 2016-06-12)
PROC: B2151ZZ Fluoroscopy of Left Heart using Low Osmolar Contrast (ICD-10-PCS; 2016-06-12)
PROC: B2111ZZ Fluoroscopy of Multiple Coronary Arteries using Low Osmolar Contrast (ICD-10-PCS; 2016-06-12)
PROC: B3101ZZ Fluoroscopy of Thoracic Aorta using Low Osmolar Contrast (ICD-10-PCS; 2016-06-12)
PROC: 027034Z Dilation of Coronary Artery, One Artery with Drug-eluting Intraluminal Device, Percutaneous Approach (ICD-10-PCS; principal; 2016-06-12 07:15)
DX: I25.110 Atherosclerotic heart disease of native coronary artery with unstable angina pectoris (principal); Z68.41 Body mass index [BMI] 40.0-44.9, adult; I10 Essential (primary) hypertension; R82.71 Bacteriuria; E11.9 Type 2 diabetes mellitus without complications; D50.9 Iron deficiency anemia, unspecified; E66.9 Obesity, unspecified; Z79.4 Long term (current) use of insulin; Z79.84 Long term (current) use of oral hypoglycemic drugs; I35.0 Nonrheumatic aortic (valve) stenosis; Z79.82 Long term (current) use of aspirin; Z87.891 Personal history of nicotine dependence
CPT/HCPCS: 71010; 80048; 80061; 81001; 82272; 82550; 82728; 82948; 83036; 83540; 83550; 83735; 84484; 85025; 85610; 85730; 87086; 92928; 93005; 93225; 93226; 93458; C1725; C1769; C1874; C1887; C1893; J0583; J1644; J1650; J1815; J2250; J3010; Q9967

== ENCOUNTER 2016-11-28 06:09 | Day surgery (SDC) | payer OTHER ==
[~2016-11-28] VITALS: Ht 165.1 cm; Wt 107.6 kg
[~2016-11-28 06:09] MED LIST changes: +ASPI-110 PO; +ATOR40TA16 PO; +CARV6.252 PO; +ERGO1CAP30 PO; +GLIM4TAB PO; -GLIP5 PO; -GLUM500T PO; -HYDR-3535 PO; -IBUP800T23 PO; +INSU1INJ14 SQ; +METF750T PO; +OMEP20TA PO; -OMEP20TA39 PO; +PLAV75TA29 PO; -TAMS0.4C67 PO; -ZOFR4TAB3 SL
[2016-11-28] MEDS ORDERED: IOHEXOL 350 MG/ML 50 ML BTL (for Cath Lab) OTHER ONE (06:10)
[2016-11-28] MEDS ORDERED: IOHEXOL 350 MG/ML 10 ML VIAL (for RAD DIAG) IVCONTRAST ONE (06:10)
[2016-11-28] MEDS ORDERED: NS 1000P @30 MLS/HR (KVO) IV SCH (06:30)
[2016-11-28 06:53] VITALS: BP 148/80; PULSE 97; RESP 17; TEMP 98.8; O2SAT 94
[2016-11-28] MEDS ORDERED: VITA250T3 PO (06:58)
[2016-11-28] MEDS ORDERED: ASPI81TA5 PO (06:58)
[2016-11-28] MEDS ORDERED: OMEGCAP PO (06:58)
[2016-11-28] MEDS ORDERED: VITATAB43 PO (06:58)
[2016-11-28] MEDS ORDERED: GARL400T4 PO (06:58)
[2016-11-28] MEDS ORDERED: FERR325C PO (06:58)
[2016-11-28] MEDS ORDERED: DULA10IN SQ (06:58)
[2016-11-28] MEDS ORDERED: PANT20TA2 PO (06:58)
[2016-11-28] MEDS ORDERED: FLAV3.7O PO (06:58)
[2016-11-28] MEDS ORDERED: LOSA100T PO (06:58)
[2016-11-28] MEDS ORDERED: NITR0.4S SL (06:58)
[2016-11-28] MEDS ORDERED: ERGO1CAP30 PO (07:00)
[2016-11-28] MEDS ORDERED: MAGN250T11 PO (07:01)
[2016-11-28] MEDS ORDERED: HEPARIN-NS/PF INJ 1,000 ML ONE (09:22)
[2016-11-28] MEDS ORDERED: SODIUM CHLORID 0.9% 500 ML INJ 500 ML ONE (09:22)
[2016-11-28] MEDS ORDERED: MIDAZOLAM HCL 2 MG/2 ML VIAL ONE ×2 (09:23→10:19)
[2016-11-28] MEDS ORDERED: BACITRACIN OINT 0.9 GM PKT TOP ONE (10:30)
[2016-11-28] MEDS ORDERED: SODIUM CHLOR 0.9% 250 ML INJ 250 ML IV PRN (10:30)
[2016-11-28] MEDS ORDERED: ATROPINE SULFATE 1 MG/ML VIAL IV PUSH PRN (10:30)
[2016-11-28] MEDS ORDERED: LORazepam 2 MG/ML VIAL IV PUSH PRN (10:30)
[2016-11-28] MEDS ORDERED: LIDOCAINE HCL 1% 50 ML VIAL INFIL PRN (10:30)
[2016-11-28] MEDS ORDERED: MISC INFORMATION XX ONE (10:30)
--- NOTE | 2016-11-28 10:34 | CATHPROC ---
[facility] HIS Report Study Information Study Number Admission Scheduled Start Study Start [id number] Nov 28 2016 6:09AM 11/28/2016 Nov 28 2016 9:19AM [facility] Cardiac Catheterization Admit Source Facility Department Other [facility] - Elevator Pilot Physician and Clinical Staff Initial Maikel Dunlap Digital Media Buyer Doroteo Martinez Recorder Nayely Cadet RCIS TECH2 Scrub Nnamdi Hook RCIS(BS) Procedures Performed Procedure Location (Site) Vessel Name Coronary Angiograms LCA Left Coronary Coronary Angiograms RCA Right Coronary Wire insertion Fem Art (right) Femoral Art Wire insertion Fem Vein (right) Femoral Vein Equipment Time Parole Hearing Officer Description Size Mfg Part Number Used/Scraped ARROW INTERNATIONAL CATHETER, FR.7 BALLOON [id number] 09:20 FR 7 Used INC. WEDGE PRESSURE *[id number] TRANSDUCER, TRIndependent SpaceAVE [id number] 09:20 SUAZO MEAD * Used W/STOCKCOCK *[id number] 10:18 CARDIVA MEDICAL VASCADE, FR6 CLOSURE SYSTEM FR 6\7 Used *[id number] [id number] *[id number] [id number] *[id number] [id number] *[id number] [id number] *[id number] 10:16 DAIG/ST. ITZEL MEDICAL ANGIOSEAL, FR6 VIP FR 6 Used *[id number] 09:20 MEDLINE INDUSTRIES PACK, CCL CUSTOM * Used *[id number] 09:20 MEDLINE PACER PEN, SKIN DUAL W/ RULER * Used *[id number] 09:20 [employer] MEDICAL WIRE, 3MMJ .035 180CM 180CM Used *[id number] 10:06 [employer] MEDICAL WIRE, EXCHANGE 260CM 3MMJ 260CM Used *[id number] 09:57 [employer] MEDICAL WIRE, STRAIGHT TIP .035 * Used *[id number] 09:20 NAMIC MANIFOLD, 2 PORT * Used *[id number] 09:20 NAMIC MANIFOLD, 4 PORT * Used *[id number] 09:20 NYCOMED OMNIPAQUE, 350 MG, 150ML 150ML [id number] Used [id number] 09:20 NYE MEDICAL BLANKET,WARM AIR CCL * Used *[id number] 09:20 TERUMO MEDICAL SHEATH, FR5 TERUMO (10CM) FR 5 Used *[id number] 09:43 TERUMO MEDICAL SHEATH, FR5 TERUMO (10CM) FR 5 Used *[id number] 09:20 TERUMO MEDICAL SHEATH, FR7 TERUMO (10CM) FR 7 Used *[id number] Equipment Model, Serial, Lot Number and Expiration Data Description Model Number Serial Number Lot Number Expiration Date ANGIOSEAL, FR6 VIP [id number] 09-04-2017 WIRE, EXCHANGE 260CM 3MMJ [id number] 11-05-2019 History: Current Medications Medication Dosage/Unit Route Frequency Last Date/Time Taken ASA Statins (any) CARVEDILOL PLAVIX Glucophage COZAAR NTG SL VITAMIN D History: Allergies Allergy Reaction No Known Allergies History: Risk Factors Family History of Hypertension Dyslipidemia Previous DE Previous Heart Failure Premature CAD Yes Yes No No No Prior Valve Prior PCI Prior PCIDate Prior CABG Surgery No Yes 06/05/2016 No Cerebrovascular Peripheral Artery Chronic Lung On Dialysis Diabetes Diabetes Therapy Disease Disease Disease No No No No Yes Oral History: Stress Tests Stress or Imaging Studies Performed No History: Other Disease Selection Items Gerd History: Other Current Smoker Method Quit Packs a Day Years Used Pack Years No Cigarettes 1 Years Ago 1 20 20 Labs Hgb (g/dl) Hct (%) WBC (l/cumm) Platelets (thousands) 11.60-17.00 35.00-51.00 4.00-11.00 150.00-450.00 10.4 34.2 12.6 441 Glucose (mg/dl) BUN (mg/dl) Creatinine (mg/dl) BUN:Creatinine (1:x) 74.00-106.00 7.00-18.00 0.50-1.30 10.00-20.00 215 25 0.8 31.3 Na (meq/l) K (meq/l) 136.00-145.00 3.50-5.10 137 4.5 INR (PTT:PT) 0.90-1.10 0.9 CPK-MB (ng/ML) 0.50-3.60 Not Drawn Medication Medication Total Dose (Bolus/Oral) Medication Total Dosage/Unit 1% XYLOCAINE 20 mL FENTANYL 100 mcg VERSED 3 mg Medications (Bolus/Oral) Medication Time Given Dosage/Unit Administered By Reason VERSED 11/28/2016 9:45:53 AM 1.5 mg Doroteo Martinez 1.5 mg VERSED given in lab by Doroteo Martinez in Left Forearm via Peripheral IV. Ordered by Phil Crespo. FENTANYL 11/28/2016 9:46:54 AM 25 mcg Doroteo Martinez 25 mcg FENTANYL given in lab by Doroteo Martinez in Left Forearm via Peripheral IV. Ordered by Maikel Crespo. 1% XYLOCAINE 11/28/2016 9:48:50 AM 20 mL Maikel Crespo 20 mL 1% XYLOCAINE given in lab by Maikel Crespo in Right Groin via Subcutaneous. Ordered by Maikel Crespo. VERSED 11/28/2016 9:50:40 AM 0.5 mg Doroteo Martinez 0.5 mg VERSED given in lab by Doroteo Martinez in Left Forearm via Peripheral IV. Ordered by Phil Crespo. FENTANYL 11/28/2016 9:51:07 AM 50 mcg Doroteo Martinez 50 mcg FENTANYL given in lab by Doroteo Martinez in Left Forearm via Peripheral IV. Ordered by Maikel Crespo. 11/28/2016 10:21:34 VERSED 1 mg Doroteo Martinez AM 1 mg VERSED given in lab by Doroteo Martinez in Left Forearm via Peripheral IV. Ordered by Kana Crespo. 11/28/2016 10:22:45 FENTANYL 25 mcg Doroteo Martinez AM 25 mcg FENTANYL given in lab by Doroteo Martinez in Left Forearm via Peripheral IV. Ordered by Maikel Crespo. Medication (Drip) Medication Time Given Dosage/Unit Concentration/Unit Diluent (ml) Solution IV Solutions 11/28/2016 9:23:23 AM 0 mL (IV) 500 NaCl .9 Patient arrived on IV Solutions in Left Forearm via Peripheral IV. Pump/Drip Flow = 20 ml/hr using Na Cl .9. Initial Case Assessment Cardiovascular HR Rhythm NIBP Chest Pain 91 sr 144/95 0 Circulatory - Right Pulses Dorsalis Pedis Femoral 1 2 Scale (0,1,2,3,4,d) Circulatory - Left Pulses Dorsalis Pedis Femoral 1 2 Scale (0,1,2,3,4,d) Neurological State Oriented to time-place- Alert Moves all extremities person Respiration - General Respiration Rate SpO2 (%) (B/min) 13 98 Final Case Assessment Cardiovascular HR Rhythm NIBP Chest Pain 94 sr 131/76 0 Circulatory - Right Pulses Dorsalis Pedis Femoral 1 2 Scale (0,1,2,3,4,d) Circulatory - Left Pulses Dorsalis Pedis Femoral 1 2 Scale (0,1,2,3,4,d) Neurological State Oriented to time-place- Alert Moves all extremities person Respiration - General Respiration Rate SpO2 (%) (B/min) 11 92 Chronological Log Time Study Chronological Log 9:15:07 Patient arrived via Bed. 9:15:09 Patient Name, D.O.B, / Armband Verified By R.N. Vitals capture started with the following parameters, Patient=Adult, Interval=5 min, Initial Pre sskse=723 mmHg, 9:15:25 Deflation Rate=5 mmHg, Cuff placed on Left Arm 9:16:10 Pre-op and post- op instructions given; patient acknowledges understanding of instructions. 9:16:11 Verbal Stimulation=2 Physical Stimulation=2 Airway=2 Respiration=2 TOTAL=8. (0=absent, 1=gutiérrez ited, 2=present) 9:16:19 Consent signed by the physician and the patient and verified by the Elevator Pilot staff. 9:17:13 Presedation assessment performed by Elevator Pilot RN. 9:23:15 Patient has been NPO for More than 6Hrs. 9:23:17 Skin Breakdown-none 9:23:19 Talon Prominences Protected 9:23:22 A # 20 IV was noted in the Forearm (left). Grade = 0 9:23:23 Patient arrived on IV Solutions in Left Forearm via Peripheral IV. Pump/Drip Flow = 20 ml/hr using NaCl .9. 9:23:24 History and physical on the chart or being dictated. 9:24:27 HR=91 bpm, NTCG=660/95 mmhg, SpO2=95.0 %, Resp=12 B/min, Pain=0, Pawan=10, Mahmood=2 Assessment: Initial Case, HR=91 BPM, Rhythm=sr, YDRF=099/95 mmhg, Chest Pain=0 Right Pulses: Jayro Ped=1, Femoral=2 9:24:37 Left Pulses: Jayro Ped=1, Femoral=2 Neurological: State=Alert, Ox3, COLLADO Respiration: Resp=13 B/min, SpO2=98 % 9:28:49 HR=93 bpm, RKHT=293/87 mmhg, SpO2=95.0 %, Resp=8 B/min 9:33:20 Bilateral groins prepped with 2% chlorhexidine, and draped after a 3 minute waiting time. 9:33:50 HR=94 bpm, FGJN=013/83 mmhg, SpO2=97.0 %, Resp=16 B/min 9:34:44 Pressure channel 1 zeroed. 9:35:03 Reference ECG taken 9:35:07 Reference ECG taken 9:35:08 Reference ECG taken 9:35:54 Pressure channel 2 zeroed. 9:37:39 MD paged 9:38:49 HR=91 bpm, BZXD=368/92 mmhg, SpO2=95.0 %, Resp=16 B/min 9:43:48 HR=96 bpm, PRBZ=156/88 mmhg, SpO2=94.0 %, Resp=18 B/min, Pain=0, Pawan=10, Mahmood=2 9:45:27 MD arrived. Time Out. Correct patient, correct procedure, correct physician, power injector not used, surgic al team present. Time 9:45:32 Out Concurred by MD and individual staff in procedure. 9:45:53 1.5 mg VERSED given in lab by Doroteo Martinez in Left Forearm via Peripheral IV. Ordered by Maikel Crespo. 9:46:54 25 mcg FENTANYL given in lab by Doroteo Martinez in Left Forearm via Peripheral IV. Ordered by Maikel Crespo. 9:48:46 Case Start 9:48:47 KU=606 bpm, KONU=078/87 mmhg, SpO2=93 %, Resp=21 B/min, Pain=0, Pawan=10, Mahmood=2 9:48:50 20 mL 1% XYLOCAINE given in lab by Maikel Crespo in Right Groin via Subcutaneous. Ordered b y Maikel Crespo. 9:50:40 0.5 mg VERSED given in lab by Doroteo Martinez in Left Forearm via Peripheral IV. Ordered by Maikel Crespo. 9:51:07 50 mcg FENTANYL given in lab by Doroteo Martinez in Left Forearm via Peripheral IV. Ordered by Maikel Crespo. 9:52:46 Access site was Right Femoral Vein. 9:53:01 A WIRE, 3MMJ .035 180CM 180CM was inserted via Fem Vein (right). 9:53:51 HR=98 bpm, VNRT=361/80 mmhg, SpO2=91.0 %, Resp=33 B/min 9:55:34 Access site was Right Femoral Artery. 9:55:42 A SHEATH, FR5 TERUMO (10CM) FR 5 was advanced into the Fem Art (right) using the Percutaneou s technique. 9:55:59 A SHEATH, FR7 TERUMO (10CM) FR 7 was advanced into the Fem Vein (right) using the Percutaneo us technique. 9:57:45 A CATHETER, FR.7 BALLOON WEDGE PRESSURE FR 7 was inserted via Fem Vein (right) Recorded Pressure: RA, HR=97, Condition=Condition 1 9:58:38 (Right Atrium) RA 17/11 9:58:48 HR=99 bpm, ZMPP=146/94 mmhg, SpO2=93.0 %, Resp=27 B/min Recorded Pressure: RV, HR=97, Condition=Condition 1 9:59:09 (Right Ventricle) RV 46/914 Recorded Pressure: MPA, HR=99, Condition=Condition 1 10:00:10 (Main Pulmonary Artery) MPA 44/17/32 Recorded Pressure: PCW, HR=96, Condition=Condition 1 10:00:44 (Pulmonary Capillary Wedge) PCW 30 10:01:12 Saturation: Site=Ao (Aorta) , O2=94.5 %, Hgb=10.4 gm/dl, Condition=Condition 1. Used in essie culation. 10:02:33 Saturation: Site=PA (Pulmonary Artery) , O2=67.3 %, Hgb=10.4 gm/dl, Condition=Condition 1. Used in calculation. A AL 1 INFINITI CATHETER FR 5 was advanced over a wire. OMNIPAQUE, 350 MG, 150ML 150ML was used for 10:02:55 injections. 10:03:38 A WIRE, STRAIGHT TIP .035 * was inserted via Fem Art (right). 10:03:49 HR=98 bpm, GTVK=270/83 mmhg, SpO2=91.0 %, Pain=0, Pawan=10, Mahmood=2 10:04:12 Wire removed Recorded Pressure: Ao, HR=92, Condition=Condition 1 10:04:56 (Aorta) Ao 120/74/93 10:05:13 A WIRE, STRAIGHT TIP .035 * was inserted via Fem Art (right). 10:06:06 The previous wire was exchanged for a WIRE, EXCHANGE 260CM 3MMJ 260CM. A PIGTAIL ANG. INFINITI CATHETER FR 5 was advanced over a wire. OMNIPAQUE, 350 MG, 150ML 150ML was used 10:07:41 for injections. 10:07:49 [place] Aiden Catheter Removed 10:08:46 HR=92 bpm, XTQY=929/81 mmhg, SpO2=94 %, Resp=24 B/min Recorded Pressure: LV, HR=99, Condition=Condition 1 10:08:49 (Left Ventricle) LV 183/12/18 Recorded Pressure: LV, Ao, HR=98, Condition=Condition 1 10:09:07 (Left Ventricle) LV 176/10/17, (Aorta) Ao 150/82/111 10:09:51 Catheter was removed A JL 4.0 INFINITI CATHETER FR 5 was advanced over a wire. OMNIPAQUE, 350 MG, 150ML 150ML was us ed for 10:10:47 injections. 10:11:32 The LCA was injected and visualized at various angles. OMNIPAQUE, 350 MG, 150ML 150ML used . After removing the current catheter a JR 4.0 INFINITI CATHETER FR 5 was advanced over a WIRE, 3 MMJ .035 180CM 10:13:26 180CM. 10:13:47 HR=94 bpm, ASWL=699/79 mmhg, SpO2=93 %, Resp=23 B/min, Pain=0, Pawan=10, Mahmood=2 10:14:29 The RCA was injected and visualized at various angles. OMNIPAQUE, 350 MG, 150ML 150ML used . 10:15:04 Catheter was removed 10:16:56 ANGIOSEAL, FR6 VIP FR 6 placement in the Fem Art (right) 10:18:00 VASCADE, FR6 CLOSURE SYSTEM FR 6\7 placement in the Fem Vein (right) 10:18:50 HR=93 bpm, TCCU=881/87 mmhg, SpO2=94 %, Pain=0, Pawan=10, Mahmood=2 10:19:47 Case End 10:21:34 1 mg VERSED given in lab by Doroteo Martinez in Left Forearm via Peripheral IV. Ordered by Maikel Crespo. 10:22:45 25 mcg FENTANYL given in lab by Doroteo Martinez in Left Forearm via Peripheral IV. Ordere d by Maikel Crespo. 10:23:51 HR=94 bpm, QSLZ=875/76 mmhg, SpO2=92.0 %, Resp=11 B/min, Pain=0, Pawan=10, Mahmood=2 10:25:02 Sterile dressing applied to site 10:28:27 Vitals capture stopped. 10:29:15 No case complications noted. 10:29:16 Cine recording checked. 10:29:17 Bedside Report will be given. Assessment: Final Case, HR=94 BPM, Rhythm=sr, GSSV=773/76 mmhg, Chest Pain=0 Right Pulses: Jayro Ped=1, Femoral=2 10:29:22 Left Pulses: Jayro Ped=1, Femoral=2 Neurological: State=Alert, Ox3, COLLADO Respiration: Resp=11 B/min, SpO2=92 % 10:30:57 Patient transported to DOCU End Study - Contrast Media Used In Study Contrast Total Opened (mL) Total Used (mL) Total Wasted (mL) Omnipaque 45 45 0 End Study - Maximum Contrast Load Max Contrast Load (mL) 672.4 End Study - Radiation Exposure Fluoro Time (minutes) 5.9 End Study - Sheaths Sheaths Pulled By Sheath Hold Time (min) Maikel Crespo End Study - Patient Disposition Complications Transferred To Interventional Outcome No Telemetry Bed No attempt made
--- NOTE | 2016-11-28 10:52 | MA ---
cc: ALEJANDRA PARRISH DATE 11/28/2016 INDICATION Aortic stenosis. PROCEDURE PERFORMED 1. Fluoroscopy with interpretation. 2. Right heart catheterization. 3. Left heart catheterization. 4. Coronary angiography. METHOD The risks, benefits and alternatives were discussed with the patient. The patient understood and consented to the procedure. PROCEDURE The patient was brought into the catheterization lab, placed on the catheterization table. The right groin was prepped and draped in sterile fashion. The right groin was anesthetized with 2% lidocaine. The common femoral artery was cannulated and the 5-Finnish, 11-cm sheath was placed without difficulty. The right femoral vein was accessed and a 7-Finnish sheath was passed without difficulty. RIGHT HEART CATHETERIZATION 1. Right atrial pressure measured 17 mmHg. 2. Right ventricular pressure measured 46/9 mmHg. 3. Pulmonary arterial pressure measured 44/17 mmHg. CARDIAC OUTPUT 6.9 liters per minute. CARDIAC INDEX 3.2 liters per minute/meter2. LEFT HEART CATHETERIZATION Intraventricular hemodynamics measured 176/10 mmHg with a left end-diastolic pressure of 17 mmHg. Aortic pressure measured at 115/82 mmHg for a mean gradient of 35 mmHg. CORONARY ANGIOGRAPHY 1. Left main coronary is angiographically normal. 2. The left anterior descending coronary artery is angiographically normal. 3. Left circumflex has minor luminal irregularities. 4. Right coronary has minor luminal irregularities. Dominant vessel giving rise to a posterior descending branch. CONCLUSIONS 1. Normal cardiac output and index. 2. Minimal nonobstructive coronary disease. 3. Severe aortic stenosis. 4. Mild pulmonary hypertension. PLAN 1. We will monitor the patient closely for any post-procedural complications. 2. We will get a cardiothoracic surgical evaluation. She is likely a better candidate for traditional surgical aortic valve replacement than for TAVR. MD BIANCA Alford/MAGGY /10:25 AM /10:37 AM
[2016-11-28 11:04] LABS: BACTERIA, URINE OCC /hpf; BLOOD, URINE SMALL (NEG); GLUCOSE,URINE 300 mg/dL (NEG); KETONE, URINE NEG (NEG); MUCUS URINE FEW /lpf (OCC); NITRITE,URINE NEG (NEG); PH, URINE 5.5 (5.0-8.5); SQUAMOUS EPITHELIAL CELL URINE 1 /hpf (0-5); URINE COLOR YELLOW (YELLW/STRAW)
[2016-11-28 11:08] LABS: COMMENT (UR) CATH-CULTURE IND; CULTURE IF INDICATED CATH CULTURE IND
[2016-11-28] MEDS ORDERED: NITROGLYCERIN 0.4 MG SL 25 TABS/BTL SL ONE (11:57)
[2016-11-28] MEDS ORDERED: MORPHINE SULFATE 2 MG/ML INJ ONE (12:16)
[2016-11-28] MEDS ORDERED: MORPHINE SULFATE 2 MG/ML INJ IV ONE (12:45)
--- NOTE | 2016-11-28 13:55 | PD.CAR.PN ---
CVT Progress Note Subjective/Hospital Course: sts data discussed with pt RISK SCORES About the STS Risk Calculator Procedure: AV Replacement Risk of Mortality: 1.64% Morbidity or Mortality: 12.32% Long Length of Stay: 5.133% Short Length of Stay: 41.356% Permanent Stroke: 0.586% Prolonged Ventilation: 7.54% DSW Infection: 0.315% Renal Failure: 3.173% Reoperation: 4.894% Objective: Vital Signs Date Time Temp Pulse Resp B/P (MAP) Pulse Ox O2 Delivery O2 Flow Rate FiO2 11/28/16 10:35 96 Room Air 11/28/16 06:53 98.8 97 17 148/80 (102) 94 Labs: Laboratory Tests Test 11/28/16 06:38 11/28/16 09:15 11/28/16 12:20 Random Glucose 278 MG/DL (74-106) Albumin 3.6 GM/DL (3.4-5.0) Urine Color YELLOW (YELLW/STRAW) Urine Turbidity HAZY (CLEAR) Urine pH 5.5 (5.0-8.5) Urine Specific [facility] 1.021 (1.002-1.035) Urine Protein TRACE mg/dL (NEG-TRACE) Urine Glucose (UA) 300 mg/dL (NEG) Urine Ketones NEG mg/dL (NEG) Urine Occult Blood SMALL (NEG) Urine Nitrite NEG (NEG) Urine Bilirubin NEG (NEG) Urine Urobilinogen LESS THAN 2.0 MG/DL (LESS Urine Leukocyte Esterase LARGE (NEG) Urine RBC 25 /hpf (0-3) Urine WBC 98 /hpf (0-5) Urine Squamous Epithelial Cells 1 /hpf (0-5) Urine Bacteria OCC /hpf (NONE) Urine Mucus FEW /lpf (OCC) Urine Yeast (Budding) RARE (NONE) Microscopic Urinalysis Comment CATH-CULTURE IND Result Diagram: 11/28/16 0638 Janeth Villeda Nov 28, 2016 13:55
[2016-11-28 14:14] LABS: MRSA PCR NEGATIVE (NEGATIVE); STAPH AUREUS PCR NEGATIVE (NEGATIVE)
[2016-11-28 15:39] LABS: BACTERIA, URINE OCC /hpf; BLOOD, URINE SMALL (NEG); GLUCOSE,URINE 300 mg/dL (NEG); KETONE, URINE NEG (NEG); NITRITE,URINE NEG (NEG); URINE COLOR LIGHT-YELLOW (YELLW/STRAW)
[2016-11-28 15:41] LABS: COMMENT (UR) CATH-CULTURE IND; CULTURE IF INDICATED CATH CULTURE IND
--- NOTE | 2016-11-28 15:55 | EKG ---
Date Performed: 11/28/2016 Time Performed: 06:52:26 PTAGE: 56 years EKG: Sinus rhythm . Normal ECG Compared to prior tracing no significant change PREVIOUS TRACING : 06/13/2016 07.14 DOCTOR: Isaias Evans Interpretating Date/Time 11/28/2016 15:54:16
--- NOTE | 2016-11-28 17:04 | RADRPT ---
EXAM DATE/TIME: 11/28/2016 16:10 [facility] COMPARISON: No previous studies available for comparison. INDICATIONS : Preop aortic valve replacement. MEDICAL HISTORY : Hypercholesterolemia. Diabetes mellitus type 2. Renal calculi. Coronary artery disease. Aortic stenos is. Headaches. Numbness. Chest pain. Heart murmur and palpitations. Dyspnea. Gallstones. Hiatal herni a. GERD. HTN. Herniated disk. Anticoagulant therapy, Aspirin. SURGICAL HISTORY : Tonsillectomy. section. Cardiac cath x2. Right knee arthroscopy. Genitourinary ostomy. ENCOUNTER: Initial ACUITY: 1 day PAIN SCORE: 0/10 LOCATION: Bilateral neck PEAK SYSTOLIC VELOCITIES (cm/sec): ICA/CCA RATIO: Right: 1.1 Left: 1.2 ICA: Right: 94 Left: 114 CCA: Right: 85 Left: 97 ECA: Right: 86 Left: 122 VERTEBRAL: Right: 68 antegrade Left: 80 antegrade Elevated flow velocities and ICA/CCA ratios have been found to correlate with increased degrees of vessel stenosis, calculated as percentage of diameter relative to a normal segment of distal ICA/CCA FINDINGS: RIGHT CAROTID: Minimal calcified plaquing in the right carotid bulb. The waveforms are within normal limits. LEFT CAROTID: Minimal plaquing in the left carotid bulb extending up into the ICA. The waveforms are within normal limits. VERTEBRAL ARTERIES: Antegrade flow is seen in both vertebral arteries. MISCELLANEOUS: 3.2 x 2.0 x 2.2 cm complex nodule in the left lobe of the thyroid. CONCLUSION: 1. Minimal atherosclerotic calcification in both carotid bulbs with some extension into the proximal left internal. 2. However, no sonographic or Doppler findings of a hemodynamically significant stenosis. Antegrade f low in both vertebrals. 3. A 3.2 x 2.0 x 2.2 cm complex nodule in the left lobe of the thyroid. Findings are nonspecific. Carlito Duran MD on November 28, 2016 at 16:56 Board Certified Radiologist. This report was verified electronically.
[2016-11-28 17:48] LABS: AUTOMATED NEUTROPHIL # 6.7 TH/MM3 (1.8-7.7); BASOPHIL # 0.1 TH/MM3 (0-0.2); BASOPHIL % 0.5 % (0.0-2.0); EOSINOPHIL # 0.3 TH/MM3 (0-0.4); EOSINOPHIL % 2.6 % (0.0-4.0); HEMATOCRIT 31.5 % (35.0-46.0); HEMO FLAGS DIFF FINAL; LYMPH % 25.5 % (9.0-44.0); LYMPHOCYTE # 2.7 TH/MM3 (1.0-4.8); MEAN CELL VOLUME 80.6 FL (80.0-100.0); MEAN CORPUSCULAR HEMOGLOBIN 25.6 PG (27.0-34.0); MEAN CORPUSCULAR HGB CONC 31.8 % (32.0-36.0); MONO % 7.4 % (0.0-8.0); PLATELET COUNT 407 TH/MM3 (150-450); RED BLOOD COUNT 3.91 MIL/MM3 (4.00-5.30); RED CELL DISTRIBUTION WIDTH 22.4 % (11.6-17.2); WHITE BLOOD COUNT 10.5 TH/MM3 (4.0-11.0)
[2016-11-28 17:49] LABS: INTERNATIONAL NORMALIZED RATIO 0.9 RATIO; PROTHROMBIN TIME - PATIENT 10.3 SEC (9.8-11.6)
[2016-11-28] MEDS ORDERED: BACT800T5 PO (17:50)
[2016-11-28 18:00] LABS: ALKALINE PHOSPHATASE 123 U/L (45-117); TOTAL BILIRUBIN ADULT 0.3 MG/DL (0.2-1.0)
[2016-11-28 18:27] LABS: ALT (GPT) 24 U/L (10-53); ANION GAP 7 MEQ/L (5-15); AST (GOT) 20 U/L (15-37); BLOOD UREA NITROGEN 18 MG/DL (7-18); CHLORIDE 105 MEQ/L (98-107); GLOMERULAR FILTRATION RATE 83 ML/MIN (>89); SODIUM (NA) 138 MEQ/L (136-145)
--- NOTE | 2016-11-28 18:38 | MB ---
cc: LENORE LEACH MD DATE OF CONSULTATION 11/28/16 HISTORY OF PRESENT ILLNESS A 56-year-old female of Dr. Cee Ortiz, also patient of Dr. Crespo, who apparently started having some shortness of breath off and on for the past eight or nine months. After walking about 15 feet, she has to stop and catch her breath, also some chest tightness with or without exertion. She recently underwent a PCI with stent to the RCA in June of 2016. She was brought in after undergoing echocardiogram which showed aortic valve area 0.87, mean gradient of 45, EF of 60%, mild to moderately dilated left atrium, trace aortic insufficiency, mild tricuspid valve regurgitation, PA pressures of 40, mild left ventricular hypertrophy. She underwent a cardiac cath today which showed the RCA had 20% stenosis, otherwise, nonobstructive disease. The stent was open. PAST MEDICAL HISTORY 1. Aortic stenosis, 2. Coronary artery disease, 3. Hypertension, 4. Hyperlipidemia, 5. Morbid obesity with a BMI of 40, 6. Diabetes mellitus, 7. Gastroesophageal reflux disease, 8. Irritable bowel syndrome 9. History of kidney stones, 10. Chronic back pain. 11. Prior history of UTI. 12. She has had some chronic anemia. She is followed by Dr. Sanders as an outpatient ALLERGIES No known allergies MEDICATIONS Home include. 1. Ferrous sulfate. 2. Plavix 75 mg. 3. Atorvastatin 40. 4. Nitro. 5. Coreg. 6. Losartan. 7. Aspirin. 8. Magnesium oxide. 9. Protonix. 10. Metformin 11. Trulicity injectable. 12. Trazeba injectable. 13. Glimepiride 14. Vitamin C. FAMILY HISTORY Estranged from the father. Mother has history of lung cancer, history of recently diagnosed brain cancer. 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 Smoked for 20 years remotely quit a year ago. Rare alcohol fairly sedentary. REVIEW OF SYSTEMS GENERAL: No night sweats, fever, heat and cold intolerance. SKIN: No psoriasis, itching or hives. HEENT: No blurred vision, hearing loss. RESPIRATORY: Positive for shortness of breath. CARDIOVASCULAR: Positive as above in HPI. GASTROINTESTINAL: Occasional diarrhea, constipation. GENITOURINARY: Occasional UTI ENDOCRINOLOGY: Positive for diabetes. PHYSICAL EXAMINATION VITAL SIGNS: Blood pressure 140/80, heart rate 90, temperature max 98.8. GENERAL: Patient is awake, alert in no acute distress. HEENT: Head is normocephalic, atraumatic. Pupils equal and reactive. Oral mucosa pink, moist. NECK: Supple. No JVD. HEART: Sounds S1-S2, grade 3/6 systolic murmur best heard at left sternal border. LUNGS: Clear to auscultation, no wheezes, rales or rhonchi. ABDOMEN: Soft, nontender. No masses or organomegaly. EXTREMITIES: No cyanosis, clubbing or edema. LABORATORY DATA FEV-1 is 1.35. Urinalysis did have large amount of leuko esterase. Culture indicated.. INR 0.9, albumin 3.6, hemoglobin 10, hematocrit of 34, white cell count of 12, platelet count 441. Sodium 137, potassium 4.5, BUN 25, creatinine 0.79. IMAGING STUDIES Carotid ultrasound shows 3 x 2 x 2 x 2 complex nodule in left lobe of the thyroid and some calcification both carotid bulbs, no hemodynamically significant stenosis. CT transaortic valve replacement protocol still pending. Her frailty score is 2/4, BMI is 40. Her risk of mortality 1.64, morbidity mortality 12.32. Her comorbidities include the morbid obesity with a BMI of 40, her diabetes mellitus, history of coronary artery disease. At this time, the patient will be further evaluated by Dr. Lenore Leach. She has a relatively low STS and frailty score that she may not be a candidate for transcatheter aortic valve replacement and would be more beneficial from a minimally invasive aortic valve replacement. However, the final plan will be made by Dr. Lenore Leach. Dictated by THANG Blount MD PALMIRA Asencio/ /5:39 PM /8:05 AM
[2016-11-28 18:47] LABS: POTASSIUM 4.5 MEQ/L (3.5-5.1)
--- NOTE | 2016-11-28 19:13 | RADRPT ---
EXAM DATE/TIME: 11/28/2016 18:55 [facility] COMPARISON: No previous studies available for comparison. INDICATIONS : Evaluate for pneumothorax, pneumonia and communicable disease. Pre-op for valve replacement. MEDICAL HISTORY : Hypertension. Diabetes mellitus type II. Smoker. SURGICAL HISTORY : Cholecystectomy. ENCOUNTER: Initial ACUITY: 1 day PAIN SCORE: 0/10 LOCATION: Bilateral chest FINDINGS: The lungs are clear without infiltrate, nodule, or mass except for slight linear scar and/or atelecta sis in both lungs. There is no appreciable pleural effusion for technique. Heart and mediastinum ar e unremarkable. CONCLUSION: No acute cardiopulmonary disease. Neda Andre MD on November 28, 2016 at 19:11 Board Certified Radiologist. This report was verified electronically.
--- NOTE | 2016-11-28 20:39 | RADRPT ---
EXAM DATE/TIME: 11/28/2016 18:34 [facility] COMPARISON: No previous studies available for comparison. INDICATIONS : Aortic valve IV CONTRAST: 100 cc Omnipaque 350 (iohexol) IV RADIATION DOSE: 12.38 CTDIvol (mGy) MEDICAL HISTORY : Cardiovascular disease. Hypertension. Diabetes mellitus type 2. SURGICAL HISTORY : None. ENCOUNTER: Initial ACUITY: 1 day PAIN SCALE: 0/10 LOCATION: TAVR TECHNIQUE: Volumetric scanning was performed using a multi-row detector CT scanner. The data was post processed with a variety of visualization algorithms including full volume maximum intensity projection, multi -planar sliding thin slab reformation, curved planar reformation, and surface rendering techniques. Using automated exposure control and adjustment of the mA and/or kV according to patient size, radiat ion dose was kept as low as reasonably achievable to obtain optimal diagnostic quality images. DIC OM format image data is available electronically for review and comparison. FINDINGS: CARDIAC: The coronary system is left sided dominant. There are calcifications involving the LAD and parts of t he RCA. AORTIC ROOT/VALVE: There are calcifications involving the aortic. The aortic root measures 2.7cm. Mid thoracic aorta measures 3.4 x 2.7 with no calcifications. THORACIC AORTA: Origin of the great vessels is normal. No evidence of aneurysm, mural thrombus, dissection, mural ca lcification, or stenosis. ABDOMINAL AORTA: No evidence of aneurysm, mural thrombus, dissection, mural calcification, or stenosis. CELIAC ARTERY: Celiac artery is widely patent. SMA: Superior mesenteric artery is widely patent. RIGHT RENAL ARTERY: Right renal artery is widely patent. LEFT RENAL ARTERY: Left renal artery is widely patent. RIGHT COMMON ILIAC: No evidence of aneurysm, mural thrombus, dissection or, mural calcification, or stenosis. The common femoral measures 8mm. LEFT COMMON ILIAC: No evidence of aneurysm, mural thrombus, dissection, mural calcification, or stenosis. The common fe moral measures 8mm. THORAX: Multinodular goiter is present the largest mass in the left lobe measures 2.7 cm. Scar and/or atelect asis and/or infiltrate is present in right middle lobe and lingula. There is a tiny 4 mm left lung ba se nodule. ABDOMEN: There are 2 stones in the left renal pelvis measuring 9 mm each. PELVIS: Chronic bilateral spondylolysis L5 is identified. There are cysts in the left kidney the largest prob ably 2 small cysts adjacent to one another and measure 2.6 cm conglomerate size. CONCLUSION: 1. Multinodular goiter. 2. There are 2 stones in the left renal pelvis. 3. Scar and/or atelectasis and/or infiltrate in right middle lobe and lingula with a tiny 4 mm left l ower lobe nodule and repeat noncontrast chest CT is suggested in 6 months. 4. Left renal cyst and chronic spondylolysis L5 bilaterally. Neda Andre MD on November 28, 2016 at 20:26 Board Certified Radiologist. This report was verified electronically.
[2016-11-28 21:10] LABS: HEMOGLOBIN A1a 1.2 %; HEMOGLOBIN A1b 1.2 %; HEMOGLOBIN Ao 79.1 %; HEMOGLOBIN F 1.7 %; HEMOGLOBIN LA1C 3.1 %; HEMOGLOBIN P3 6.4 %
--- NOTE | 2016-11-28 22:12 | EKG ---
Date Performed: 11/28/2016 Time Performed: 11:46:06 PTAGE: 56 years EKG: Sinus rhythm . Normal ECG PREVIOUS TRACING : 11/28/2016 06.52 Compared to prior tracing no significant change DOCTOR: Raul Rubio Interpretating Date/Time 11/28/2016 22:11:57
--- NOTE | 2016-11-30 09:41 | RSPPFT ---
DATE OF PROCEDURE: 11/28/16 COMMENTS: Spirometry with FVC of 1.6 at 51% of predicted, FEV1 of 1.3 at 52%, FEV1/FVC ratio is normal. Flow is decreased at FEF 25, FEF 50, FEF 75. Flow volume loops indicate a restrictive pattern. IMPRESSION: 1. Study is suggestive of restrictive lung disease. 2. Post-bronchodilator study was not performed. 3. Patient will need a complete pulmonary function study for further evaluation.
== END 2016-11-28 19:26 | disposition home or self-care (01) ==
LOC: HDOC 06:09 → HDIC 06:09 → HDOC 19:26
PROVIDERS: ATTEND Internal Medicine
DX: I35.0 Nonrheumatic aortic (valve) stenosis (principal); I25.10 Atherosclerotic heart disease of native coronary artery without angina pectoris; I10 Essential (primary) hypertension; K21.9 Gastro-esophageal reflux disease without esophagitis; R06.02 Shortness of breath; Z87.891 Personal history of nicotine dependence; Z98.61 Coronary angioplasty status; Z79.02 Long term (current) use of antithrombotics/antiplatelets; R82.99 Other abnormal findings in urine; I27.20 Pulmonary hypertension, unspecified; E78.00 Pure hypercholesterolemia, unspecified; Z79.01 Long term (current) use of anticoagulants; Z79.82 Long term (current) use of aspirin; D64.9 Anemia, unspecified; I70.0 Atherosclerosis of aorta; E11.40 Type 2 diabetes mellitus with diabetic neuropathy, unspecified; E05.20 Thyrotoxicosis with toxic multinodular goiter without thyrotoxic crisis or storm; R74.8 Abnormal levels of other serum enzymes; E11.21 Type 2 diabetes mellitus with diabetic nephropathy; E55.9 Vitamin D deficiency, unspecified; D47.3 Essential (hemorrhagic) thrombocythemia; G43.909 Migraine, unspecified, not intractable, without status migrainosus; E04.2 Nontoxic multinodular goiter; R42 Dizziness and giddiness; R20.0 Anesthesia of skin; R07.89 Other chest pain; G89.29 Other chronic pain; Z68.41 Body mass index [BMI] 40.0-44.9, adult; E66.01 Morbid (severe) obesity due to excess calories; K58.9 Irritable bowel syndrome, unspecified
CPT/HCPCS: 71020; 74174; 80053; 81001; 82040; 82810; 82947; 82948; 83036; 85025; 85610; 86850; 86900; 86901; 87086; 87640; 87641; 93005; 93456; 93880; 94010; 99152; 99153; C1760; C1769; C1893; G0269; J1644; J2250; J2270; J3010; J7040; Q9967

== ENCOUNTER 2017-01-03 21:50 | Emergency (ER) | payer OTHER ==
[~2017-01-03 21:50] MED LIST changes: -ASPI-110 PO; +BACT800T5 PO; +DULA10IN SQ; +ECASA81 PO; -ERGO1CAP30 PO; +FERR325C PO; +FLAV3.7O PO; +GARL400T4 PO; +LOSA100T PO; -LOSA50TA PO; +MAGN250T11 PO; +NITR0.4S SL; +OMEGCAP PO; -OMEP20TA PO; +PANT20TA2 PO; +VITA250T3 PO; +VITA500012 PO; +VITATAB43 PO
[2017-01-03 21:52] VITALS: BP 194/94; PULSE 100; RESP 16; TEMP 98.5; O2SAT 98
[2017-01-10] MEDS ORDERED: FERR325T18 PO (08:49)
== END 2017-01-03 22:25 | disposition left against medical advice (07) ==
LOC: NED 21:50
DX: Z04.1 Encounter for examination and observation following transport accident (principal); Z53.21 Procedure and treatment not carried out due to patient leaving prior to being seen by health care provider
CPT/HCPCS: 99281

== ENCOUNTER 2017-01-03 22:44 | Observation (INO) | payer OTHER ==
[~2017-01-03] VITALS: Ht 165.1 cm; Wt 106.4 kg
[2017-01-03 22:50] VITALS: BP 157/80; PULSE 94; RESP 18; TEMP 99.3; O2SAT 97
[2017-01-03 23:21] VITALS: BP 153/74; PULSE 95; RESP 16; O2SAT 94
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
[2017-01-03 23:22] LABS: AUTOMATED NEUTROPHIL # 9.6 TH/MM3 (1.8-7.7); BASOPHIL # 0.1 TH/MM3 (0-0.2); BASOPHIL % 0.6 % (0.0-2.0); EOSINOPHIL # 0.3 TH/MM3 (0-0.4); HEMATOCRIT 35.4 % (35.0-46.0); HEMO FLAGS DIFF FINAL; LYMPH % 18.8 % (9.0-44.0); LYMPHOCYTE # 2.5 TH/MM3 (1.0-4.8); MEAN CELL VOLUME 79.6 FL (80.0-100.0); MEAN CORPUSCULAR HGB CONC 32.7 % (32.0-36.0); MONO % 5.7 % (0.0-8.0); NEUT % 72.9 % (16.0-70.0); PLATELET COUNT 451 TH/MM3 (150-450); RED BLOOD COUNT 4.45 MIL/MM3 (4.00-5.30); RED CELL DISTRIBUTION WIDTH 16.8 % (11.6-17.2); WHITE BLOOD COUNT 13.3 TH/MM3 (4.0-11.0)
[2017-01-03 23:31] VITALS: O2SAT 97
[2017-01-03 23:31] LABS: CHLORIDE 106 MEQ/L (98-107); SODIUM (NA) 139 MEQ/L (136-145)
--- NOTE | 2017-01-03 23:31 | RADRPT ---
EXAM DATE/TIME: 01/03/2017 23:06 [facility] COMPARISON: CHEST SINGLE AP, June 09, 2016, 12:37. INDICATIONS : Chest pain. MEDICAL HISTORY : Hypertension. Diabetes mellitus type II. Smoker. SURGICAL HISTORY : Cholecystectomy. ENCOUNTER: Initial ACUITY: 1 day PAIN SCORE: 5/10 LOCATION: Bilateral chest FINDINGS: The heart size is borderline enlarged. There is linear suspected scarring or atelectasis seen at the lateral left mid chest and the lower right chest. These findings were present previously. A focal con solidation is not seen. No effusion is seen. CONCLUSION: No acute cardiopulmonary process. John Vila MD on January 03, 2017 at 23:29 Board Certified Radiologist. This report was verified electronically.
[2017-01-03 23:34] LABS: ANION GAP 10 MEQ/L (5-15); BICARBONATE 22.9 MEQ/L (21.0-32.0); BLOOD UREA NITROGEN 21 MG/DL (7-18)
[2017-01-03 23:37] LABS: GLOMERULAR FILTRATION RATE 76 ML/MIN (>89)
[2017-01-03 23:42] LABS: CREATINE KINASE 88 U/L (26-192)
[2017-01-04] VITALS (9 sets, daily range): BP systolic 118–160; BP diastolic 61–86; PULSE 89–98; RESP 16–20; TEMP 97.9–98.8; O2SAT 95–97
[2017-01-04] MEDS ORDERED: MORPHINE SULFATE 4 MG/ML INJ IV PUSH ONE
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
[2017-01-04] MEDS ORDERED: MORPHINE SULFATE 2 MG/ML INJ IV PUSH ONE (01:00)
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
[2017-01-04] MEDS ORDERED: SODIUM CHLORIDE 0.9% FLUSH 10 ML FLUSH IV FLUSH PRN (01:15)
[2017-01-04 03:04] LABS: CREATINE KINASE 76 U/L (26-192)
[2017-01-04] MEDS ORDERED: ACETAMINOPHEN 500 MG CPLT PO ONE (04:45)
[2017-01-04 05:52] LABS: CREATINE KINASE 67 U/L (26-192)
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
--- NOTE | 2017-01-04 08:53 | HHI.DCPOC ---
Discharge Care Plan Diagnosis: (1) Chest pain (2) CAD (coronary artery disease) (3) HTN (hypertension) (4) DM (diabetes mellitus) (5) Dyslipidemia (6) Aortic valve stenosis Your Health Problems Are: Chest Pain Goals to Promote Your Health * To prevent worsening of your condition and complications * To maintain your health at the optimal level Directions to Meet Your Goals Take your medications as prescribed Follow your dietary instruction Follow activity as directed Keep your appointments as scheduled Take your immunizations and boosters as scheduled If your symptoms worsen call your PCP, if no PCP go to Urgent Care Center or Emergency Room Smoking is Dangerous to Your Health. Avoid second hand smoke Call the 24-hour hour crisis hotline for domestic abuse at Anne Borrego Jan 04, 2017 08:53
[2017-01-04] MEDS ORDERED: ASPIRIN EC 81 MG TABEC PO SCH (09:00)
[2017-01-04] MEDS ORDERED: CYANOCOBALAMIN 1,000 MCG TAB PO SCH (09:00)
[2017-01-04] MEDS ORDERED: SODIUM CHLORIDE 0.9% FLUSH 10 ML FLUSH IV FLUSH SCH (09:00)
[2017-01-04] MEDS ORDERED: METFORMIN 750 MG PO SCH (09:00)
[2017-01-04] MEDS ORDERED: NON-FORMULARY DRUG (Fish Oil-Cholecalciferol (Omega-3 Fish Oil/Vitamin) 1 CAP) PO SCH (09:00)
[2017-01-04] MEDS ORDERED: TRULICITY 0.75 MG SQ SCH (09:00)
[2017-01-04] MEDS ORDERED: GLIMEPIRIDE 4 MG TAB PO SCH (09:00)
[2017-01-04] MEDS ORDERED: CARVEDILOL 6.25 MG TAB PO SCH (09:00)
[2017-01-04] MEDS ORDERED: FERROUS SULFATE 325 MG (65 MG ELEMENTAL IRON) TAB PO SCH (09:00)
[2017-01-04] MEDS ORDERED: LOSARTAN 50 MG TAB PO SCH (09:00)
[2017-01-04] MEDS ORDERED: CLOPIDOGREL 75 MG TAB PO SCH (09:00)
[2017-01-04] MEDS ORDERED: FOLIC ACID 1 MG TAB PO SCH (09:00)
[2017-01-04] MEDS ORDERED: PANTOPRAZOLE SOD 20 MG DELAYED RELEASE TAB PO SCH (09:00)
--- NOTE | 2017-01-04 16:21 | EKG ---
Date Performed: 01/03/2017 Time Performed: 23:21:31 PTAGE: 56 years EKG: Sinus rhythm VOLTAGE CRITERIA FOR LVH ABNORMAL ECG Since PREVIOUS TRACING , no significant change noted PREVIOUS TRACIN11/28/2016 11.46 DOCTOR: Susy Cid Interpretating Date/Time 01/04/2017 16:19:44
--- NOTE | 2017-01-04 16:22 | EKG ---
Date Performed: 01/04/2017 Time Performed: 05:24:54 PTAGE: 56 years EKG: Sinus rhythm MINIMAL VOLTAGE CRITERIA FOR LVH, CONSIDER NORMAL VARIANT BORDERLINE ECG Since PREVIOUS TRACING , no significant change noted PREVIOUS TRACIN01/04/2017 02.30 DOCTOR: Susy Cid Interpretating Date/Time 01/04/2017 16:20:21
--- NOTE | 2017-01-04 16:22 | EKG ---
Date Performed: 01/04/2017 Time Performed: 02:30:32 PTAGE: 56 years EKG: SINUS TACHYCARDIA VOLTAGE CRITERIA FOR LVH ABNORMAL ECG Since PREVIOUS TRACING , no significant change noted PREVIOUS TRACIN01/03/2017 23.21 DOCTOR: Susy Cid Interpretating Date/Time 01/04/2017 16:20:02
[2017-01-04] MEDS ORDERED: ATORVASTATIN 40 MG TAB PO SCH (21:00)
[2017-01-10] MEDS ORDERED: FERR325T18 PO (08:49)
[2017-01-10] MEDS ORDERED: ERGOCALCIFEROL (VIT D2) 50,000 UNIT CAP PO SCH (09:00)
== END 2017-01-04 13:06 | disposition home or self-care (01) ==
LOC: PHED 22:44 → PHEDA 01-04 01:14 → PHEDH 01-04 05:14 → PH3B 01-04 08:02
PROVIDERS: ADMIT Hospitalist; ATTEND Hospitalist
DX: I35.0 Nonrheumatic aortic (valve) stenosis (principal); I10 Essential (primary) hypertension; E11.9 Type 2 diabetes mellitus without complications; Y92.410 Unspecified street and highway as the place of occurrence of the external cause; V43.52XA Car driver injured in collision with other type car in traffic accident, initial encounter; M51.27 Other intervertebral disc displacement, lumbosacral region; R51 Headache; M54.2 Cervicalgia; M54.30 Sciatica, unspecified side; Z79.01 Long term (current) use of anticoagulants; R01.1 Cardiac murmur, unspecified; R00.2 Palpitations; E78.00 Pure hypercholesterolemia, unspecified; K21.9 Gastro-esophageal reflux disease without esophagitis; K44.9 Diaphragmatic hernia without obstruction or gangrene; Z79.899 Other long term (current) drug therapy; J32.0 Chronic maxillary sinusitis; E04.1 Nontoxic single thyroid nodule; I25.10 Atherosclerotic heart disease of native coronary artery without angina pectoris; Z95.5 Presence of coronary angioplasty implant and graft; R94.31 Abnormal electrocardiogram [ECG] [EKG]; Z79.4 Long term (current) use of insulin
CPT/HCPCS: 70450; 71010; 72125; 72131; 80048; 82550; 84484; 85025; 93005; 96374; 96376; 99285; G0378; J2270

== ENCOUNTER → 2017-01-10 | Outpatient (CLI) | payer OTHER ==
[~2017-01-10] MED LIST changes: +AMIO200T PO; -BACT800T5 PO; +CARV3.125 PO; +DOCU1CAP39 PO; +FERR325T18 PO; +OXYC1TAB63 PO; -VITA250T3 PO
[2017-01-10 12:30] LABS: AUTOMATED NEUTROPHIL # 7.4 TH/MM3 (1.8-7.7); BASOPHIL # 0.1 TH/MM3 (0-0.2); BASOPHIL % 0.6 % (0.0-2.0); EOSINOPHIL # 0.3 TH/MM3 (0-0.4); EOSINOPHIL % 2.5 % (0.0-4.0); HEMATOCRIT 33.6 % (35.0-46.0); HEMO FLAGS DIFF FINAL; LYMPH % 23.2 % (9.0-44.0); LYMPHOCYTE # 2.6 TH/MM3 (1.0-4.8); MEAN CELL VOLUME 81.3 FL (80.0-100.0); MONO % 6.8 % (0.0-8.0); NEUT % 66.9 % (16.0-70.0); PLATELET COUNT 461 TH/MM3 (150-450); RED BLOOD COUNT 4.14 MIL/MM3 (4.00-5.30); RED CELL DISTRIBUTION WIDTH 17.8 % (11.6-17.2); WHITE BLOOD COUNT 11.1 TH/MM3 (4.0-11.0)
[2017-01-10 12:39] LABS: APTT (PATIENT) 25.4 SEC (24.3-30.1); PROTHROMBIN TIME - PATIENT 9.7 SEC (9.8-11.6)
[2017-01-10 13:03] LABS: ANION GAP 11 MEQ/L (5-15); BICARBONATE 25.5 MEQ/L (21.0-32.0); BLOOD UREA NITROGEN 18 MG/DL (7-18); CHLORIDE 102 MEQ/L (98-107); GLOMERULAR FILTRATION RATE 63 ML/MIN (>89); GLUCOSE,FASTING 265 MG/DL (74-99); POTASSIUM 3.8 MEQ/L (3.5-5.1); SODIUM (NA) 138 MEQ/L (136-145)
[2017-01-10 13:27] LABS: BACTERIA, URINE RARE /hpf; BLOOD, URINE MOD (NEG); COMMENT (UR) CULTURE INDICATED; CULTURE IF INDICATED CULTURE INDICATED; GLUCOSE,URINE 300 mg/dL (NEG); KETONE, URINE TRACE mg/dL (NEG); MUCUS URINE FEW /lpf (OCC); NITRITE,URINE NEG (NEG); PH, URINE 5.5 (5.0-8.5); SQUAMOUS EPITHELIAL CELL URINE 3 /hpf (0-5); URINE COLOR YELLOW (YELLW/STRAW)
[2017-01-10 16:34] LABS: MRSA PCR NEGATIVE (NEGATIVE); STAPH AUREUS PCR NEGATIVE (NEGATIVE)
[2017-01-10 17:11] LABS: HEMOGLOBIN A1a 1.3 %; HEMOGLOBIN A1b 1.3 %; HEMOGLOBIN Ao 77.6 %; HEMOGLOBIN F 1.8 %; HEMOGLOBIN LA1C 3.2 %; HEMOGLOBIN P3 5.1 %
== END ==
LOC: CPRE 11:00
PROVIDERS: ATTEND Thoracic Surgery (Cardiothoracic Vascular Surgery)
DX: Z01.810 Encounter for preprocedural cardiovascular examination (principal); Z01.811 Encounter for preprocedural respiratory examination; Z01.812 Encounter for preprocedural laboratory examination; I35.0 Nonrheumatic aortic (valve) stenosis; R82.99 Other abnormal findings in urine
CPT/HCPCS: 36415; 80048; 81001; 83036; 85025; 85610; 85730; 86850; 86900; 86901; 87086; 87640; 87641

== ENCOUNTER 2017-01-16 06:28 | Inpatient (IN) | payer OTHER ==
[2017-01-16] VITALS (14 sets, daily range): BP systolic 111–148; BP diastolic 57–74; PULSE 93–112; RESP 18–26; TEMP 98–98.5; O2SAT 93–96
[~2017-01-16] VITALS: Ht 165.1 cm; Wt 110.5 kg
[~2017-01-16 06:28] MED LIST changes: -AMIO200T PO; -CARV3.125 PO; -DOCU1CAP39 PO; -FERR325C PO; -OXYC1TAB63 PO
[2017-01-16] MEDS ORDERED: POVIDONE IODINE 5% (ANTISEPSIS KIT) 4 APPLICATIONS EACH NARE PRN (07:00)
[2017-01-16] MEDS ORDERED: SODIUM CHLORIDE 0.9% FLUSH 10 ML FLUSH IV FLUSH PRN ×3 (07:00→14:00)
[2017-01-16] MEDS ORDERED: ceFAZolin 2 GM PREMIX 50 ML IV SCH (07:00)
[2017-01-16] MEDS ORDERED: SODIUM CHLORID 0.9% 500 ML IV PRN (07:00)
[2017-01-16] MEDS ORDERED: CEFAZOLIN 500 MG in NS IRR BTL 500 ML IRRIGATION SCH (07:00)
[2017-01-16] MEDS ORDERED: INSULIN REGULAR 100 UNITS in NS 100 ML IV PRN (07:00)
[2017-01-16] MEDS ORDERED: DEXTROSE 50% IN WATER 50 ML VIAL(D50) IV PUSH PRN ×2 (07:00→14:00)
[2017-01-16] MEDS ORDERED: CHLORHEXIDINE GLUCONATE 4% SOLN 120 ML BTL TOPICAL SCH (07:00)
[2017-01-16] MEDS ORDERED: METOPROLOL TARTRATE 25 MG TAB PO SCH (07:00)
[2017-01-16] MEDS ORDERED: CHLORHEXIDINE GLUCONATE 2 % 1 PACK (2 CLOTHS) TOPICAL PRN (07:00)
[2017-01-16] MEDS: LACTATED RINGER'S 1000 ML IV PRN ×2 (07:30→15:09)
[2017-01-16] MEDS ORDERED: HEPARIN SODIUM - SQ 10,000 UNITS/ML VIAL ONE (07:36)
[2017-01-16] MEDS ORDERED: methylPREDNISolone SOD SUCC 125 MG/2 ML VIAL ONE (07:36)
[2017-01-16] MEDS ORDERED: ceFAZolin 2 GM PREMIX 50 ML ONE (07:36)
[2017-01-16] MEDS ORDERED: DEXMEDETOMIDINE HCL 200 MCG/2 ML VIAL ONE (07:54)
[2017-01-16] MEDS ORDERED: ACETAMINOPHEN 1000 MG/100 ML 100 ML IV ONE (07:54)
[2017-01-16] MEDS ORDERED: CUSTODIOL HTK IRR SOLN 2,000 ML ONE (08:16)
[2017-01-16] MEDS ORDERED: POTASSIUM CHLORIDE 40 MEQ/20 ML VIAL ONE (08:16)
[2017-01-16] MEDS ORDERED: MANNITOL INJ 100 ML ONE (08:17)
[2017-01-16] MEDS ORDERED: ALBUMIN 25% INJ 50 ML IV ONE (08:17)
[2017-01-16] MEDS ORDERED: SODIUM BICARBONATE 8.4% INJ 150 ML ONE (08:18)
[2017-01-16] MEDS ORDERED: HEPARIN SODIUM - IV 10,000 UNITS/10 ML VIAL ONE (08:18)
[2017-01-16] MEDS ORDERED: INSULIN HUMAN REGULAR 1,000 UNITS/10 ML VIAL ONE (08:21)
[2017-01-16] MEDS: MUPIROCIN 2% OINT 22 GM TUBE EACH NARE SCH ×2 (09:00→21:00)
[2017-01-16] MEDS ORDERED: VECURONIUM BROMIDE 10 MG VIAL IV ONE (12:00)
[2017-01-16] MEDS ORDERED: HEPARIN SODIUM - SQ 10,000 UNITS/ML VIAL OTHER ONE (12:00)
[2017-01-16] MEDS ORDERED: GLYCOPYRROLATE 1 MG/5 ML SYRINGE IV PUSH ONE (12:00)
[2017-01-16] MEDS ORDERED: PHENYLEPHRINE HCL 10 MG/ML VIAL IV ONE (12:00)
[2017-01-16] MEDS ORDERED: LIDOCAINE HCL 1% PF 5 ML SYRINGE OTHER ONE (12:00)
[2017-01-16] MEDS ORDERED: fentaNYL CITRATE 1000 MCG/20 ML VIAL IV ONE (12:00)
[2017-01-16] MEDS ORDERED: NEOSTIGMINE 5 MG/5 ML SYRINGE IV PUSH ONE (12:00)
[2017-01-16] MEDS ORDERED: MAGNESIUM SULFATE 1 GM/2 ML VIAL IV ONE (12:00)
[2017-01-16] MEDS ORDERED: VECURONIUM BROMIDE 20 MG VIAL IV ONE (12:00)
[2017-01-16] MEDS ORDERED: TRANEXAMIC ACID INJ 1,000 MG/10 ML AMP IV ONE (12:00)
[2017-01-16] MEDS ORDERED: PROTAMINE SULFATE 250 MG/25 ML VIAL IV ONE (12:00)
[2017-01-16] MEDS ORDERED: CALCIUM CHLORIDE 10% SOLN 1 GRAM/10 ML SYR IV ONE (12:00)
[2017-01-16] MEDS ORDERED: SODIUM CHLOR 0.9% 250 ML INJ 250 ML IV ONE (12:00)
[2017-01-16] MEDS ORDERED: SUCCINYLCHOLINE CHLORIDE 100 MG/5 ML SYRINGE IV PUSH ONE (12:00)
[2017-01-16] MEDS ORDERED: MIDAZOLAM HCL 2 MG/2 ML VIAL IV ONE (12:00)
[2017-01-16] MEDS ORDERED: PROPOFOL 200 MG/20 ML AMP IV ONE (12:00)
[2017-01-16] MEDS ORDERED: SODIUM CHLORID 0.9% 500 ML INJ 500 ML IV ONE (12:00)
[2017-01-16] MEDS ORDERED: ePHEDrine/NS 25 MG/5 ML SYRINGE IV ONE ×2 (12:00)
[2017-01-16] MEDS ORDERED: NORMOSOL R INJ 1,000 ML IV ONE (12:00)
[2017-01-16] MEDS ORDERED: PHENYLEPH/NS 1000 MCG/10 ML SYR IV ONE ×2 (12:00)
[2017-01-16] MEDS ORDERED: LACTATED RINGER'S 1000 ML INJ 2,000 ML IV ONE (12:00)
[2017-01-16] MEDS ORDERED: ceFAZolin INJ 1,000 MG VIAL ONE (12:34)
[2017-01-16] MEDS ORDERED: BUPIVACAINE HCL PF 0.5% 30 ML VIAL ONE (13:11)
[2017-01-16] MEDS ORDERED: LACTATED RINGER'S 1000 ML INJ 500 ML IV PRN (13:55)
[2017-01-16] MEDS ORDERED: ALBUMIN 5% INJ 250 ML IV PRN (14:00)
[2017-01-16] MEDS ORDERED: INSULIN REGULAR (IV INFUSION) 100 UNITS in SODIUM CHLORIDE 0.9% INJ 99 ML IV PRN (14:00)
[2017-01-16] MEDS ORDERED: CALCIUM CHLORIDE INJ 1 GM in SODIUM CHLORIDE 0.9% INJ 100 ML IV PRN (14:00)
[2017-01-16] MEDS ORDERED: ACETAMINOPHEN 650 MG SUPP RECTAL PRN (14:00)
[2017-01-16] MEDS ORDERED: DEXMEDETOMIDINE INJ 200 MCG in SODIUM CHLORIDE 0.9% INJ 50 ML IV PRN (14:00)
[2017-01-16] MEDS ORDERED: RESP: ALBUTEROL 2.5 MG/IPRATROPIUM 0.5 MG NEB (PRN) NEB (14:00)
[2017-01-16] MEDS ORDERED: hydrALAZINE HCL 20 MG/ML VIAL IV PUSH PRN (14:00)
[2017-01-16] MEDS ORDERED: POTASSIUM CHLOR 20 MEQ PREMIX 100 ML IV PRN ×3 (14:00)
[2017-01-16] MEDS ORDERED: Post-op Orders (for Pharmacy) OTHER ONE (14:00)
[2017-01-16] MEDS ORDERED: ACETAMINOPHEN 325 MG TAB PO PRN (14:00)
[2017-01-16] MEDS ORDERED: RESP: RACEPINEPHRINE 2.25% 0.5 ML NEB NEB PRN (14:00)
[2017-01-16] MEDS ORDERED: MEPERIDINE HCL 25 MG/ML VIAL IV PUSH PRN (14:00)
[2017-01-16] MEDS ORDERED: METOPROLOL TARTRATE 5 MG/5 ML VIAL IV PUSH PRN (14:00)
[2017-01-16] MEDS ORDERED: MAGNESIUM SULFATE INJ 2 GM in SODIUM CHLORIDE 0.9% INJ 100 ML IV PRN ×4 (14:00)
[2017-01-16] MEDS: AMIODARONE 200 MG TAB PO SCH ×2 (14:00→23:13)
[2017-01-16] MEDS ORDERED: POTASSIUM CHLORIDE 20 MEQ CONTROLLED RELEASE TAB PO PRN ×2 (14:00)
[2017-01-16] MEDS ORDERED: SODIUM BICARBONATE 8.4% SOLN 50 MEQ/50 ML VIAL IV PUSH PRN ×2 (14:00)
[2017-01-16] MEDS ORDERED: CALCIUM CHLORIDE 10% 1 GRAM/10 ML VIAL IV PUSH PRN (14:00)
--- NOTE | 2017-01-16 14:07 | PD.OP ---
cc: Lenore Leach MD; Maikel Crespo MD Operative Report Date of Surgery: Jan 16, 2017 Preoperative Diagnosis: (1) Diastolic CHF due to valvular disease (2) Aortic valve stenosis Postoperative Diagnosis: same Procedure: Minimally invasive AVR with a 19 Intuity tissue valve Ultrasound-guided percutaneous femoral artery and vein access with Perclose closure of the artery KYLAH Anesthesia: Dr. Gonzalez Surgeon: Lenore Leach It Compliance Analyst(s): DEBBY De Los Santos Operation and Findings: The risks, benefits, complications, treatment options, and expected outcomes were discussed with the patient. The possibilities of reaction to medication, pulmonary aspiration, perforation of viscus, bleeding, recurrent infection, the need for additional procedures, failure to diagnose a condition, and creating a complication requiring transfusion or operation were discussed with the patient. The patient concurred with the proposed plan, giving informed consent. The site of surgery properly noted/marked. The patient was taken to Operating Room, identified as Azra Hodgson and the procedure verified as Minimally Invasive Aortic Valve Replacement. A Time Out was held and the above information confirmed. Standard monitoring lines and Garcia catheter were placed. General anesthesia was induced. The patient was prepped and draped in a sterile fashion. A 6 cm right anterior thoracotomy was performed and the 3rd rib was shingled. The right internal mammary artery and vein were ligated and divided. An Rafael retractor was placed followed by a small chest retractor. The pericardium was opened and a pericardial sling was created using interrupted 0 silk sutures. A small 1 cm incision was made at the 6th intercostal space and an LV vent and pericardial suction were placed through this access port. The aorta was dissected posteriorly for crossclamp placement. The left femoral artery and vein were percutaneously accessed using ultrasound guidance. The patient was heparinized for cardiopulmonary bypass. The left femoral artery was cannulated with a 17F [employer] arterial cannula. The left femoral vein was cannulated with a 21 [employer] cannula under KYLAH guidance. Three Perclose devices were placed in the artery for later closure. Antegrade Custodiol cardioplegia was employed. The patient was placed on cardiopulmonary bypass. An aortic cross-clamp was applied and the heart was arrested using cold Custodiol cardioplegia delivered through a 14F catheter. The aorta was opened above the sinotubular ridge and the aortic valve was exposed. On opening the aorta, the valve appeared rheumatic with moderate calcification. The valve was resected as well as all annular calcification, sized for a 19 mm Intuity tissue valve which was placed with 3, 2-0 Tycron valve sutures. The valve seated well, and was balloon deployed to 4.5 annie. The aorta was closed with running 4-0 Prolene suture. The patient systemically rewarmed and placed in Trendelenburg position. The heart was vigorously deaired with a clamp on. The clamp was removed, deairing continued. The patient was easily weaned from cardiopulmonary bypass. Decannulation was carried out without incident and both artery was secured with the Perclose sutures. The vein was controlled with manual compression. Protamine was given. There was no adverse reaction. Intraoperative KYLAH following the procedure showed a well-seated aortic valve with no perivalvular leak and preserved ventricular function. Wound was checked for hemostasis was obtained using electrocautery. A 32F right pleural chest tube was placed and secured to the skin with a 0 silk suture. The fascia and pectoralis were closed with 0 Vicryl. The subcutaneous tissue was closed using a running 3-0 Monocryl suture. The skin was closed with 4-0 Monocryl. Sterile dressings were placed. At the end of the operation, all sponge, instruments, and needle counts were correct. The patient was transferred to the CVICU in stable condition. Lenore Leach MD Jan 16, 2017 14:07
--- NOTE | 2017-01-16 14:47 | RADRPT ---
EXAM DATE/TIME: 01/16/2017 14:16 [facility] COMPARISON: CHEST SINGLE AP, January 03, 2017, 23:06. INDICATIONS : Post mini AVR. MEDICAL HISTORY : Hypertension. HNP. SURGICAL HISTORY : None. ENCOUNTER: Initial ACUITY: 1 day PAIN SCORE: Non-responsive. LOCATION: Bilateral chest FINDINGS: There is an ETT 3 sinus above the kel. There is an NGT with tip near the fundus and side hole in t he distal esophagus. There is a left subclavian catheter with tip in the proximal SVC. There is a rig ht-sided apical chest tube in place. Increased lucency in the left lung base concerning for a loculat ed subpleural pneumothorax. Bilateral lower lung zone central airspace consolidation. Remainder of ex am is unchanged. CONCLUSION: 1. Tubes and lines, as above. 2. Left lung base lucency concerning for loculated subpleural pneumothorax. 3. Bilateral lower lung zone Central airspace consolidation. Ricky Demarco MD on January 16, 2017 at 14:42 Board Certified Radiologist. This report was verified electronically.
[2017-01-16] MEDS: ACETAMINOPHEN 1000 MG/100 ML 100 ML IV SCH ×2 (15:06→20:25)
[2017-01-16] MEDS: MORPHINE SULFATE 4 MG/ML INJ IV PUSH PRN ×4 (15:27→16:37)
[2017-01-16] MEDS: KETOROLAC TROMETHAMINE 30 MG/ML (IVP) VIAL IV PUSH PRN (16:21)
[2017-01-16] MEDS: RESP: ALBUTEROL 2.5 MG/IPRATROPIUM 0.5 MG NEB (SCH) NEB ×2 (16:46→20:39)
[2017-01-16] MEDS ORDERED: NALOXONE HCL 0.4 MG/ML AMP IV PUSH PRN (17:00)
[2017-01-16] MEDS: MORPHINE SULFATE 30 MG/30 ML PCA IV SCH (17:16)
[2017-01-16] MEDS: FERROUS SULFATE 325 MG (65 MG ELEMENTAL IRON) TAB PO SCH (17:21)
[2017-01-16] MEDS: ATORVASTATIN 40 MG TAB PO SCH (21:00)
[2017-01-16] MEDS: SODIUM CHLORIDE 0.9% FLUSH 10 ML FLUSH IV FLUSH SCH (21:00)
[2017-01-16] MEDS: PCA - TOTAL MG MORPHINE DELIVERED PER SHIFT SCH (22:00)
[2017-01-17] VITALS (18 sets, daily range): BP systolic 89–129; BP diastolic 52–76; PULSE 88–114; RESP 17–20; TEMP 98–98.8; O2SAT 93–98
[2017-01-17] MEDS: ACETAMINOPHEN 1000 MG/100 ML 100 ML IV SCH ×2 (02:10→08:13)
[2017-01-17] MEDS: ONDANSETRON HCL 4 MG/2 ML VIAL IV PUSH PRN ×2 (02:39→08:15)
[2017-01-17] MEDS: KETOROLAC TROMETHAMINE 30 MG/ML (IVP) VIAL IV PUSH PRN ×3 (02:41→18:08)
--- NOTE | 2017-01-17 03:25 | RADRPT ---
EXAM DATE/TIME: 01/17/2017 02:32 [facility] COMPARISON: CHEST SINGLE AP, January 16, 2017, 14:16. INDICATIONS : Short of breath. MEDICAL HISTORY : Hypertension. HNP. SURGICAL HISTORY : None. ENCOUNTER: Subsequent ACUITY: 2 days PAIN SCORE: 0/10 LOCATION: Bilateral chest FINDINGS: Right chest tube stable position the upper right chest. No pneumothorax seen. Left subclavian hema ter tip projects over the proximal superior vena cava. Interval removal of ET and gastric tubes. Pa tchy right perihilar and infrahilar and left lower lung infiltrates without consolidation. Both elisa diaphragms are well delineated. CONCLUSION: Patchy infiltrates in the right infrahilar and left lower lung. Right chest tube stable in position; no pneumothorax seen. Lalo Louise MD on January 17, 2017 at 3:22 Board Certified Radiologist. This report was verified electronically.
[2017-01-17] MEDS: RESP: ALBUTEROL 2.5 MG/IPRATROPIUM 0.5 MG NEB (SCH) NEB ×4 (03:40→20:06)
[2017-01-17] MEDS: MORPHINE SULFATE 30 MG/30 ML PCA IV SCH (04:33)
[2017-01-17] MEDS: PCA - TOTAL MG MORPHINE DELIVERED PER SHIFT SCH ×3 (05:24→22:00)
[2017-01-17] MEDS: PANTOPRAZOLE SOD 40 MG DELAYED RELEASE TAB PO SCH (05:35)
[2017-01-17] MEDS: AMIODARONE 200 MG TAB PO SCH ×3 (05:35→21:17)
[2017-01-17 06:54] LABS: HEMATOCRIT 30.5 % (35.0-46.0); MEAN CELL VOLUME 82.5 FL (80.0-100.0); MEAN CORPUSCULAR HEMOGLOBIN 26.2 PG (27.0-34.0); MEAN CORPUSCULAR HGB CONC 31.7 % (32.0-36.0); PLATELET COUNT 332 TH/MM3 (150-450); RED BLOOD COUNT 3.69 MIL/MM3 (4.00-5.30); RED CELL DISTRIBUTION WIDTH 17.8 % (11.6-17.2); REVIEW FLAG FINAL; WHITE BLOOD COUNT 20.2 TH/MM3 (4.0-11.0)
[2017-01-17 07:13] LABS: BICARBONATE 25.7 MEQ/L (21.0-32.0); MAGNESIUM 2.1 MG/DL (1.5-2.5)
[2017-01-17] MEDS: FERROUS SULFATE 325 MG (65 MG ELEMENTAL IRON) TAB PO SCH ×2 (08:14→17:35)
[2017-01-17] MEDS: ASPIRIN EC 81 MG TABEC PO SCH (08:14)
[2017-01-17] MEDS: MAGNESIUM OXIDE 400 MG TAB PO SCH (08:14)
[2017-01-17] MEDS: oxyCODONE/ACETAMINOPHEN 5 MG/325 MG TAB PO PRN (08:15)
[2017-01-17] MEDS: SODIUM CHLORIDE 0.9% FLUSH 10 ML FLUSH IV FLUSH SCH ×2 (08:16→20:22)
[2017-01-17] MEDS: MUPIROCIN 2% OINT 22 GM TUBE EACH NARE SCH (08:16)
[2017-01-17] MEDS ORDERED: PANTOPRAZOLE SOD 20 MG DELAYED RELEASE TAB PO SCH (09:00)
[2017-01-17] MEDS ORDERED: NON-FORMULARY DRUG (Fish Oil-Cholecalciferol (Omega-3 Fish Oil/Vitamin) 1 CAP) PO SCH (09:00)
[2017-01-17] MEDS ORDERED: DEXTROSE 50% IN WATER 50 ML VIAL(D50) IV PUSH PRN (09:30)
[2017-01-17] MEDS ORDERED: BISACODYL 10 MG SUPP RECTAL PRN (09:30)
[2017-01-17] MEDS ORDERED: GLUCAGON 1 MG/ML VIAL OTHER PRN (09:30)
[2017-01-17] MEDS ORDERED: INSULIN DETEMIR 100 UNITS/ML VIAL SQ ONE (09:45)
[2017-01-17] MEDS: CLOPIDOGREL 75 MG TAB PO SCH (09:57)
[2017-01-17] MEDS: INSULIN ASPART SUPPLEMENTAL SCALE SQ SCH ×4 (09:58→22:57)
--- NOTE | 2017-01-17 11:33 | PD.CARD.PN ---
Subjective Subjective Remarks up to chair doing well Objective Medications Current Medications Medications (Trade) Dose Ordered Sig/Rain Route Start Time Stop Time Status Last Admin Sodium Chloride 500 ml @ 30 mls/hr [id number] PRN IV 01/16/17 07:00 01/19/17 06:59 (NS Flush) 2 ml BID IV FLUSH 01/16/17 21:00 01/16/17 21:00 (NS Flush) 2 ml UNSCH PRN IV FLUSH 01/16/17 14:00 Cefazolin Sodium 1000 mg/Sodium Chloride 100 ml @ 200 mls/hr Q8H IV 01/16/17 18:00 01/18/17 02:29 01/17/17 08:14 (Protonix) 40 mg DAILY@06 PO 01/17/17 06:00 01/17/17 05:35 (Cordarone) 400 mg Q8HR PO 01/16/17 14:00 01/17/17 05:35 (Tylenol) 650 mg Q4H PRN PO 01/16/17 14:00 (Morphine Inj) 1 mg Q10M PRN IV PUSH 01/16/17 14:00 01/16/17 16:37 (Percocet 5-325 Mg) 1 tab Q3H PRN PO 01/16/17 14:00 01/17/17 08:15 (Toradol Inj) 15 mg Q6H PRN IV PUSH 01/16/17 14:00 01/18/17 13:59 01/17/17 08:15 (Zofran Inj) 4 mg Q6H PRN IV PUSH 01/16/17 14:00 01/17/17 08:15 (Apresoline Inj) 10 mg Q4H PRN IV PUSH 01/16/17 14:00 (Duoneb Neb) 1 ampule Q2HR NEB PRN NEB 01/16/17 14:00 (Ecotrin Ec) 81 mg DAILY PO 01/17/17 09:00 01/17/17 08:14 (Lipitor) 40 mg HS PO 01/16/17 21:00 (Ferrous Sulfate) 325 mg BIDPC PO 01/16/17 18:00 01/17/17 08:14 (Mag-Ox) 200 mg DAILY PO 01/17/17 09:00 01/17/17 08:14 (Morphine 1 Mg/ ml CERTIFIED MEDICAL BILLER) 30 mg UNSCH IV 01/16/17 17:00 01/17/17 04:33 CERTIFIED MEDICAL BILLER Dosage Infused (Pha) 1 Q8HR .XX 01/16/17 22:00 01/17/17 05:24 (Narcan Inj) 0.4 mg UNSCH PRN IV PUSH 01/16/17 17:00 (Duoneb Neb) 1 ampule Q6HR WHILE AWAKE NEB NEB 01/17/17 14:00 01/19/17 13:59 (Colace) 100 mg BID PO 01/17/17 21:00 (Plavix) 75 mg DAILY PO 01/17/17 10:00 01/17/17 09:57 (Theragran M Tab) 1 tab DAILY PO 01/18/17 09:00 (Milk Of Magnesia Liq) 30 ml DAILY PO 01/18/17 09:00 (Dulcolax Supp) 10 mg UNSCH PRN RECTAL 01/17/17 09:30 (Miralax) 17 gm DAILY PO 01/18/17 09:00 (Senokot) 8.6 mg HS PO 01/17/17 21:00 (Fleets Enema (Adult)) 118 ml UNSCH PRN RECTAL 01/19/17 06:00 (NovoLOG SUPPLEMENTAL SCALE) 1 02,06,10,14,18,22 SQ 01/17/17 10:00 01/18/17 06:01 (D50w (Vial) Inj) 50 ml UNSCH PRN IV PUSH 01/17/17 09:30 (Glucagon Inj) 1 mg UNSCH PRN OTHER 01/17/17 09:30 (Levemir Inj) 5 units Q12HR SQ 01/17/17 21:00 (Coreg) 3.125 mg Q12HR PO 01/17/17 21:00 (NovoLOG SUPPLEMENTAL SCALE) 1 ACHS SLIDING SCALE SQ 01/18/17 12:00 Vital Signs / I&O Vital Signs Date Time Temp Pulse Resp B/P (MAP) Pulse Ox O2 Delivery O2 Flow Rate FiO2 01/17/17 11:00 98.8 102 20 118/69 (85) 95 01/17/17 11:00 102 01/17/17 09:26 98.8 103 18 101/54 (70) 97 01/17/17 08:38 95 Nasal Cannula 4.00 01/17/17 08:00 Nasal Cannula 4.00 01/17/17 07:00 102 01/17/17 07:00 98.8 102 20 118/69 (85) 95 01/17/17 05:24 20 01/17/17 04:40 20 01/17/17 04:33 20 01/17/17 04:00 98.7 92 20 107/59 (75) 96 01/17/17 04:00 95 Nasal Cannula 4.00 01/17/17 03:45 20 01/17/17 03:00 91 01/17/17 02:45 20 01/17/17 00:30 98 01/17/17 00:30 98.0 112 20 116/63 (80) 97 01/17/17 00:00 95 Nasal Cannula 4.00 01/16/17 22:00 20 01/16/17 20:39 96 Nasal Cannula 5.00 01/16/17 19:30 92 Nasal Cannula 5.00 01/16/17 19:00 107 01/16/17 19:00 98.0 112 18 111/57 (75) 94 01/16/17 17:59 98.5 105 18 132/69 (90) 94 01/16/17 17:16 25 01/16/17 16:59 98.5 100 26 148/74 (98) 01/16/17 16:33 93 Nasal Cannula 5.00 01/16/17 16:33 93 Nasal Cannula 5 01/16/17 16:00 98.5 01/16/17 16:00 100 01/16/17 16:00 Nasal Cannula 5.00 01/16/17 15:59 98.5 100 26 148/74 (98) 95 01/16/17 15:26 94 60 01/16/17 15:00 93 01/16/17 15:00 93 01/16/17 14:59 98.5 93 26 135/71 (92) 93 01/16/17 14:30 98.5 01/16/17 14:06 94 60 01/16/17 14:00 93 01/16/17 13:59 98.5 93 18 130/66 (87) 93 I/O 01/16/17 01/16/17 01/16/17 01/17/17 01/17/17 01/17/17 06:59 14:59 22:59 06:59 14:59 22:59 Intake Total 3500 ml 1210 ml 1120 ml 200 ml Output Total 1450 ml 540 ml 1160 ml Balance 2050 ml 670 ml -40 ml 200 ml Intake Oral 920 ml IV Total 1210 ml 200 ml 200 ml Autotransfusion 500 ml Other 3000 ml Output Urine Total 450 ml 450 ml 880 ml Emesis 100 ml Chest Tube Drainage Total 90 ml 180 ml Estimated Blood Loss 1000 ml # Bowel Movements 0 Physical Exam NECK: Supple, trachea midline. No JVD or lymphadenopathy. CARDIOVASCULAR: Regular rate and rhythm 1/6 SM RESPIRATORY: Breath sounds equal bilaterally. No accessory muscle use. GASTROINTESTINAL: Abdomen soft, non-tender, nondistended. Laboratory Laboratory Tests Test 01/17/17 05:15 White Blood Count 20.2 TH/MM3 Red Blood Count 3.69 MIL/MM3 Hemoglobin 9.7 GM/DL Hematocrit 30.5 % Mean Corpuscular Volume 82.5 FL Mean Corpuscular Hemoglobin 26.2 PG Mean Corpuscular Hemoglobin Concent 31.7 % Red Cell Distribution Width 17.8 % Platelet Count 332 TH/MM3 Mean Platelet Volume 7.3 FL Blood Urea Nitrogen 18 MG/DL Creatinine 0.68 MG/DL Random Glucose 128 MG/DL Calcium Level 8.4 MG/DL Magnesium Level 2.1 MG/DL Sodium Level 140 MEQ/L Potassium Level 4.0 MEQ/L Chloride Level 107 MEQ/L Carbon Dioxide Level 25.7 MEQ/L Anion Gap 7 MEQ/L Estimat Glomerular Filtration Rate 90 ML/MIN Imaging Last 24 hours Impressions Chest X-Ray 01/17/17 0500 Signed Impressions: Service Date/Time: Tuesday, January 17, 2017 02:32 - CONCLUSION: Patchy infiltrates in the right infrahilar and left lower lung. Right chest tube stable in position; no pneumothorax seen. Lalo Louise MD Assessment and Plan Assessment and Plan --------- severe - s/p mini AVR. stable. POD #1. CAD - PCI 06/[address] [facility]KG with [address] elevation compared to preoperative EKGs no complaints. probably inflammatory. repeat ekg. 2d echo for regional wall motion abnormality. Maikel Crespo MD Jan 17, 2017 11:33
--- NOTE | 2017-01-17 11:44 | HHI.FF ---
Face to Face Verification Diagnosis: (1) S/P AVR (aortic valve replacement) Home Health Nursing Order: Signs/symptoms of disease process Diabetic education Medication education-adverse effect Wound care and dressing changes Nursing assessment with vital signs Instructions: Heart and Vascular Surgery patients *Special attention to sternal dressing Mandatory frequency Assess and evaluation, 4 days in a row The next week 3X week 2 times a week for 4 weeks 1 time a week for 5 weeks Schedule Heart and Vascular patients for full 60 day certification period Initial visit Review Open Heart Surgery Discharge Instructions (Sternal precautions, Activity, Elastic hose, Incision care, Driving, Incentive spirometry, Smoking, [place], Work and other) Need Betadine to paint incision Medication reconciliation Importance of follow up care/ check on appointments Make calendar record temperature daily When to call [facility] at Home nurse, review instructions, phone list Incentive Spirometry, demonstration Visit 1- Begin discharge instruction for patient family and/ or caregiver using teach back method- Signs and symptoms of infection Disease characteristics Medicines and side effects Foods and nutrition/ appetite Infection control/ hand washing/ hygiene Visit 2- Continue teaching Discharge instructions- include additional information on smoking cessation , sternal dressing (sternal vac) Visit 3- Continue teaching- Cough and deep breathing, incision monitoring. Choose my plate Visit 4- Continue teaching- Discuss limitations Discuss how they are feeling Discuss progress toward goals Remaining visits- continue teaching and monitoring Incentive spirometry Q1 hr x 10, while awake, also use acapella device hourly whole awake Sternal Breast Bone Precautions: NO pushing or pulling, ( pt must use sternal pillow to support chest with all activities and with coughing ( takes up to 3 months breast bone to heal ) All females to wear sternal bra , launder as needed Daily incision care: ok to shower daily, no tub bath. Wash all incisions with liquid dial soap, clean wash cloth to each site, rinse and pat dry. Observe for any signs of infection, such as drainage which is dark yellow, arellano, green or foul smelling. Immediately report to the surgeon any drainage from the chest incision, or legs, and for any abnormal drainage from the chest tube sites. Notify surgeon if any temp >101.5 degrees F. When specialty dressing removed/ or if you do not have one, continue to shower daily as above, then rinse and pat incision dry and paint with betadine daily x 5 days. Allow steri strips to fall off if you have any. Avoid lotions, creams, salves, oils, etc. for the first month For Dr. Leach patients , please obtain CBC, BMP, PA & Lat CXR in 2 weeks, results to Dr. Leach ( prescription will be given) ( ) (Tele: [phone]) , Valve replacement pts will need 2decho in 2 weeks with results to Dr. Leach . Please obtain 2 d echo at your dye range tender office if possible F/U appointment: as per DC instructions: PCP in 2 weeks, CV surgeon 2 weeks, Outsole Beveler 3-4 weeks For any questions regarding incisions/ dressing / meds / post op care or above Symptoms, Sunday 8am-5pm Heart & Vascular Surgery Office ( Dr. Borrero & Dr. Leach), After Hours / Nights (5pm -8am) Weekends and Holidays Please call [facility] ([facility]) Charge Nurse I have seen patient Azra Hodgson on 01/17/17. My clinical findings support the need for the requested home health care services because: Deconditioned w/ increased weakness I certify that my clinical findings support that this patient is homebound because: Post-op weakness Janeth Villeda Jan 17, 2017 11:44
--- NOTE | 2017-01-17 12:10 | PD.CAR.PN ---
CVT Progress Note Subjective/Hospital Course: 56-year-old female of Dr. Cee Ortiz, also patient of Dr. Crespo, who we saw after Heart cath 11/28/16 who apparently started having some shortness of breath off and on for the past eight or nine months. After walking about 15 feet , she has to stop and catch her breath, also some chest tightness with or without exertion. She underwent a PCI with stent to the RCA in June of 2016. She was brought in after undergoing echocardiogram which showed aortic valve area 0.87, mean gradient of 45, EF of 60%, mild to moderately dilated left atrium, trace aortic insufficiency, mild tricuspid valve regurgitation, PA pressures of 40, mild left ventricular hypertrophy. She underwent a cardiac cath today which showed the RCA had 20% stenosis, otherwise, nonobstructive disease. The stent was open. She required eval by dentistry and underwent teeth extraction prior to eval for surgery PAST MEDICAL HISTORY: Aortic stenosis, Coronary artery disease ( stent ) Hypertension, Hyperlipidemia, Morbid obesity with a BMI of 40, Diabetes mellitus ( Hgb A1c 9.2) Gastroesophageal reflux disease, 8. 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 repeat ekg. 2d echo for regional wall motion abnormality/ discussed with Dr Crespo has HX of drug eluting stent 06/24/16 to RCA ,will restart plavix continue pulm toileting / OOB ambulate DC IV insulin gtt, start Levemir Bid , resume po meds in am / HGB Aic 9.2/ will need hematology nurse educator transfer to stepdown Objective: Vital Signs Date Time Temp Pulse Resp B/P (MAP) Pulse Ox O2 Delivery O2 Flow Rate FiO2 01/17/17 11:00 98.8 102 20 118/69 (85) 95 01/17/17 11:00 102 01/17/17 09:26 98.8 103 18 101/54 (70) 97 01/17/17 08:38 95 Nasal Cannula 4.00 12/13/17 08:00 Nasal Cannula 4.00 01/17/17 07:00 102 01/17/17 07:00 98.8 102 20 118/69 (85) 95 01/17/17 05:24 20 01/17/17 04:40 20 01/17/17 04:33 20 01/17/17 04:00 98.7 92 20 107/59 (75) 96 01/17/17 04:00 95 Nasal Cannula 4.00 01/17/17 03:45 20 01/17/17 03:00 91 01/17/17 02:45 20 01/17/17 00:30 98 01/17/17 00:30 98.0 112 20 116/63 (80) 97 01/17/17 00:00 95 Nasal Cannula 4.00 01/16/17 22:00 20 01/16/17 20:39 96 Nasal Cannula 5.00 01/16/17 19:30 92 Nasal Cannula 5.00 01/16/17 19:00 107 01/16/17 19:00 98.0 112 18 111/57 (75) 94 01/16/17 17:59 98.5 105 18 132/69 (90) 94 01/16/17 17:16 25 01/16/17 16:59 98.5 100 26 148/74 (98) 01/16/17 16:33 93 Nasal Cannula 5.00 01/16/17 16:33 93 Nasal Cannula 5 01/16/17 16:00 98.5 01/16/17 16:00 100 01/16/17 16:00 Nasal Cannula 5.00 01/16/17 15:59 98.5 100 26 148/74 (98) 95 01/16/17 15:26 94 60 01/16/17 15:00 93 01/16/17 15:00 93 01/16/17 14:59 98.5 93 26 135/71 (92) 93 01/16/17 14:30 98.5 01/16/17 14:06 94 60 01/16/17 14:00 93 01/16/17 13:59 98.5 93 18 130/66 (87) 93 Labs: Laboratory Tests Test 01/17/17 05:15 White Blood Count 20.2 TH/MM3 (4.0-11.0) Red Blood Count 3.69 MIL/MM3 (4.00-5.30) Hemoglobin 9.7 GM/DL (11.6-15.3) Hematocrit 30.5 % (35.0-46.0) Mean Corpuscular Volume 82.5 FL (80.0-100.0) Mean Corpuscular Hemoglobin 26.2 PG (27.0-34.0) Mean Corpuscular Hemoglobin Concent 31.7 % (32.0-36.0) Red Cell Distribution Width 17.8 % (11.6-17.2) Platelet Count 332 TH/MM3 (150-450) Mean Platelet Volume 7.3 FL (7.0-11.0) Blood Urea Nitrogen 18 MG/DL (7-18) Creatinine 0.68 MG/DL (0.50-1.00) Random Glucose 128 MG/DL (74-106) Calcium Level 8.4 MG/DL (8.5-10.1) Magnesium Level 2.1 MG/DL (1.5-2.5) Sodium Level 140 MEQ/L (136-145) Potassium Level 4.0 MEQ/L (3.5-5.1) Chloride Level 107 MEQ/L (98-107) Carbon Dioxide Level 25.7 MEQ/L (21.0-32.0) Anion Gap 7 MEQ/L (5-15) Estimat Glomerular Filtration Rate 90 ML/MIN (>89) Result Diagram: 01/17/1751401/17/17514 Telemetry: NSR (1) CAD (coronary artery disease) Plan: hx of drug eluting stent to RCA 06/24/16 st elevation in Inf leads/ ? inflammatory will resume plavix, 2d echo for wall motion abnormality on ASA, statin , BB (2) Aortic valve stenosis Plan: on amiodarone OOB , ambulate pulm toileting nebs , ezpap acapella (3) HTN (hypertension) Plan: controlled (4) S/P AVR (aortic valve replacement) (5) DM (diabetes mellitus) Plan: consult hematology nurse educator resume po meds in am on levemir (6) Diastolic CHF due to valvular disease (7) Chronic anemia Plan: resume ferrous sulfate Janeth Villeda Jan 17, 2017 12:10
--- NOTE | 2017-01-17 15:06 | EKG ---
Date Performed: 01/17/2017 Time Performed: 05:13:18 PTAGE: 56 years EKG: CONSIDER ACUTE ST ELEVATION LA Sinus tachycardia QRS changes V3/V4 may be due to LV H but cannot rule out anterior infarct Extensive ST elevation, CONSIDER ACUTE INFARCT Abnormal ECG PREVIOUS TRACING : 01/04/2017 05.24 DOCTOR: Maikel Crespo Interpretating Date/Time 01/17/2017 15:05:30
--- NOTE | 2017-01-17 15:26 | ECHRPT ---
Indication: Wall motion abnormality CONCLUSIONS The left ventricular systolic function is normal with an estimated ejection fraction in the range of 55-60%. Wall thickness is normal. Normal left ventricular size. There is mild tricuspid valve regurgitation. The estimated pulmonary arterial pressure is 35 mmHg. Status-post percutaneous aortic valve replacement, normal valve function. BP: 118 / 69 HR: 97 Rhythm: Sinus MEASUREMENTS (Male / Female) Normal Values Technical Quality:Good 2D ECHO LV Diastolic Diameter PLAX 4.7 cm 4.2 - 5.9 / 3.9 - 5.3 cm LV Systolic Diameter PLAX 3.5 cm IVS Diastolic Thickness 1.1 cm 0.6 - 1.0 / 0.6 - 0.9 cm LVPW Diastolic Thickness 1.1 cm 0.6 - 1.0 / 0.6 - 0.9 cm LV Relative Wall Thickness 0.5 LVOT Diameter 2.0 cm M-MODE Aortic Root Diameter MM 2.3 cm LA Systolic Diameter MM 4.3 cm LA Ao Ratio MM 1.9 AV Cusp Separation MM 1.6 cm DOPPLER AV Peak Velocity 269.0 cm/s AV Peak Gradient 28.9 mmHg AV Mean Gradient 16.7 mmHg AV Velocity Time Integral 48.2 cm LVOT Peak Velocity 51.7 cm/s LVOT Peak Gradient 1.1 mmHg AV Area Cont Eq pk 0.6 cm Mitral E Point Velocity 120.0 cm/s Mitral A Point Velocity 70.6 cm/s Mitral E to A Ratio 1.7 LV E' Lateral Velocity 7.8 cm/s Mitral E to LV E' Lateral Ratio 15.4 TR Peak Velocity 248.0 cm/s TR Peak Gradient 24.6 mmHg Right Atrial Pressure 10.0 mmHg Pulmonary Artery Systolic Pressu 34.6 mmHg Right Ventricular Systolic Press 34.6 mmHg PV Peak Velocity 113.0 cm/s PV Peak Gradient 5.1 mmHg FINDINGS LEFT VENTRICLE The left ventricular systolic function is normal with an estimated ejection fraction in the range of 55-60%. Wall thickness is normal. Normal left ventricular size. RIGHT VENTRICLE Normal right ventricular size and systolic function. LEFT ATRIUM The left atrial size is normal. RIGHT ATRIUM The right atrial size is normal. ATRIAL SEPTUM Normal atrial septal thickness without atrial level shunting by limited color doppler interrogation. AORTA The aortic root and proximal ascending aorta are normal in size on limited imaging. MITRAL VALVE Structurally normal mitral valve. No mitral valve stenosis or regurgitation. AORTIC VALVE Status-post percutaneous aortic valve replacement. TRICUSPID VALVE There is mild tricuspid valve regurgitation. The estimated pulmonary arterial pressure is 34.6 mmHg. PULMONARY VALVE No pulmonary valve regurgitation or stenosis. VESSELS The inferior vena cava is normal in size. PERICARDIUM No pericardial effusion. Raul Rubio MD, FACC (Electronically Signed) Final Date:17 January 2017 15:26
[2017-01-17] MEDS: ATORVASTATIN 40 MG TAB PO SCH (20:21)
[2017-01-17] MEDS: INSULIN DETEMIR 100 UNITS/ML VIAL SQ SCH (20:22)
[2017-01-17] MEDS: CARVEDILOL 3.125 MG TAB PO SCH (20:22)
[2017-01-17] MEDS: SENNOSIDES 8.6 MG TAB PO SCH (20:22)
[2017-01-17] MEDS: DOCUSATE SODIUM 100 MG CAP PO SCH (20:22)
[2017-01-18] VITALS (30 sets, daily range): BP systolic 92–110; BP diastolic 53–63; PULSE 80–102; RESP 16–20; TEMP 97.2–99.1; O2SAT 92–95
[2017-01-18] MEDS: KETOROLAC TROMETHAMINE 30 MG/ML (IVP) VIAL IV PUSH PRN ×2 (00:05→12:03)
[2017-01-18] MEDS: INSULIN ASPART SUPPLEMENTAL SCALE SQ SCH ×5 (02:55→20:55)
[2017-01-18 04:13] LABS: AUTOMATED NEUTROPHIL # 10.1 TH/MM3 (1.8-7.7); BASOPHIL % 0.2 % (0.0-2.0); EOSINOPHIL # 0.1 TH/MM3 (0-0.4); EOSINOPHIL % 0.9 % (0.0-4.0); HEMO FLAGS DIFF FINAL; LYMPH % 18.2 % (9.0-44.0); LYMPHOCYTE # 2.6 TH/MM3 (1.0-4.8); MEAN CORPUSCULAR HEMOGLOBIN 26.1 PG (27.0-34.0); MEAN CORPUSCULAR HGB CONC 31.8 % (32.0-36.0); MONO % 8.8 % (0.0-8.0); NEUT % 71.9 % (16.0-70.0); PLATELET COUNT 268 TH/MM3 (150-450); RED BLOOD COUNT 3.18 MIL/MM3 (4.00-5.30); RED CELL DISTRIBUTION WIDTH 18.1 % (11.6-17.2); WHITE BLOOD COUNT 14.1 TH/MM3 (4.0-11.0)
[2017-01-18 04:50] LABS: BICARBONATE 25.7 MEQ/L (21.0-32.0); POTASSIUM 3.9 MEQ/L (3.5-5.1)
[2017-01-18] MEDS: PCA - TOTAL MG MORPHINE DELIVERED PER SHIFT SCH (06:00)
[2017-01-18] MEDS: AMIODARONE 200 MG TAB PO SCH ×3 (06:31→20:57)
[2017-01-18] MEDS: PANTOPRAZOLE SOD 40 MG DELAYED RELEASE TAB PO SCH (06:31)
[2017-01-18] MEDS: RESP: ALBUTEROL 2.5 MG/IPRATROPIUM 0.5 MG NEB (SCH) NEB ×3 (08:12→19:49)
--- NOTE | 2017-01-18 08:17 | PD.CARD.PN ---
Subjective Subjective Remarks feeling sore to chest and back. Sitting up out out of bed. breathing well. Objective Medications Current Medications Medications (Trade) Dose Ordered Sig/Rain Route Start Time Stop Time Status Last Admin Sodium Chloride 500 ml @ 30 mls/hr [id number] PRN IV 01/16/17 07:00 01/19/17 06:59 (NS Flush) 2 ml BID IV FLUSH 01/16/17 21:00 01/17/17 20:22 (NS Flush) 2 ml UNSCH PRN IV FLUSH 01/16/17 14:00 (Protonix) 40 mg DAILY@06 PO 01/17/17 06:00 01/18/17 06:31 (Cordarone) 400 mg Q8HR PO 01/16/17 14:00 01/18/17 06:31 (Tylenol) 650 mg Q4H PRN PO 01/16/17 14:00 (Morphine Inj) 1 mg Q10M PRN IV PUSH 01/16/17 14:00 01/16/17 16:37 (Percocet 5-325 Mg) 1 tab Q3H PRN PO 01/16/17 14:00 01/17/17 08:15 (Toradol Inj) 15 mg Q6H PRN IV PUSH 01/16/17 14:00 01/18/17 13:59 01/18/17 00:05 (Zofran Inj) 4 mg Q6H PRN IV PUSH 01/16/17 14:00 01/17/17 08:15 (Apresoline Inj) 10 mg Q4H PRN IV PUSH 01/16/17 14:00 (Duoneb Neb) 1 ampule Q2HR NEB PRN NEB 01/16/17 14:00 01/17/17 18:18 (Ecotrin Ec) 81 mg DAILY PO 01/17/17 09:00 01/17/17 08:14 (Lipitor) 40 mg HS PO 01/16/17 21:00 01/17/17 20:21 (Ferrous Sulfate) 325 mg BIDPC PO 01/16/17 18:00 01/17/17 17:35 (Mag-Ox) 200 mg DAILY PO 01/17/17 09:00 01/17/17 08:14 (Morphine 1 Mg/ ml X RAY CONSULTANT) 30 mg UNSCH IV 01/16/17 17:00 01/17/17 04:33 X RAY CONSULTANT Dosage Infused (Pha) 1 Q8HR .XX 01/16/17 22:00 01/18/17 06:00 (Narcan Inj) 0.4 mg UNSCH PRN IV PUSH 01/16/17 17:00 (Duoneb Neb) 1 ampule Q6HR WHILE AWAKE NEB NEB 01/17/17 14:00 01/19/17 13:59 01/17/17 20:06 (Colace) 100 mg BID PO 01/17/17 21:00 01/17/17 20:22 (Plavix) 75 mg DAILY PO 01/17/17 10:00 01/17/17 09:57 (Theragran M Tab) 1 tab DAILY PO 01/18/17 09:00 (Milk Of Magnesia Liq) 30 ml DAILY PO 01/18/17 09:00 (Dulcolax Supp) 10 mg UNSCH PRN RECTAL 01/17/17 09:30 (Miralax) 17 gm DAILY PO 01/18/17 09:00 (Senokot) 8.6 mg HS PO 01/17/17 21:00 01/17/17 20:22 (Fleets Enema (Adult)) 118 ml UNSCH PRN RECTAL 01/19/17 06:00 (D50w (Vial) Inj) 50 ml UNSCH PRN IV PUSH 01/17/17 09:30 (Glucagon Inj) 1 mg UNSCH PRN OTHER 01/17/17 09:30 (Levemir Inj) 5 units Q12HR SQ 01/17/17 21:00 01/17/17 20:22 (Coreg) 3.125 mg Q12HR PO 01/17/17 21:00 01/17/17 20:22 (NovoLOG SUPPLEMENTAL SCALE) 1 ACHS SLIDING SCALE SQ 01/18/17 12:00 Vital Signs / I&O Vital Signs Date Time Temp Pulse Resp B/P (MAP) Pulse Ox O2 Delivery O2 Flow Rate FiO2 01/18/17 06:19 96 01/18/17 06:00 19 01/18/17 05:16 94 01/18/17 04:23 94 01/18/17 03:16 89 01/18/17 03:16 98.4 95 17 92/56 (68) 95 01/18/17 03:16 92 Room Air 01/18/17 02:20 94 01/18/17 01:16 102 01/18/17 00:22 99 01/17/17 23:50 98.6 103 18 89/52 (64) 93 01/17/17 23:50 93 Room Air 01/17/17 23:00 101 01/17/17 22:00 114 01/17/17 22:00 18 01/17/17 21:00 90 01/17/17 20:12 94 01/17/17 20:00 88 01/17/17 19:30 105 01/17/17 19:30 98.6 96 17 117/58 (77) 98 01/17/17 18:00 88 01/17/17 16:59 95 Nasal Cannula 2.00 01/17/17 16:00 99 01/17/17 15:58 99 17 129/74 (92) 95 01/17/17 15:00 102 01/17/17 14:00 18 01/17/17 12:00 Nasal Cannula 4.00 01/17/17 11:00 98.8 102 20 118/69 (85) 95 01/17/17 11:00 102 01/17/17 11:00 98.0 106 20 128/76 (93) 96 01/17/17 09:26 98.8 103 18 101/54 (70) 97 01/17/17 08:38 95 Nasal Cannula 4.00 I/O 01/17/17 01/17/17 01/17/17 01/18/17 01/18/17 01/18/17 07:00 15:00 23:00 07:00 15:00 23:00 Intake Total 1120 ml 200 ml 480 ml 580 ml Output Total 1160 ml 195 ml 530 ml Balance -40 ml 200 ml 285 ml 50 ml Intake Oral 920 ml 480 ml 480 ml IV Total 200 ml 200 ml 100 ml Output Urine Total 880 ml 15 ml 400 ml Emesis 100 ml Chest Tube Drainage Total 180 ml 180 ml 130 ml Bladder Scan Volume Amount 70 ml # Voids 3 # Bowel Movements 0 0 Physical Exam GENERAL: SKIN: Warm and dry. HEAD: Atraumatic. Normocephalic. EYES: Pupils equal and round. No scleral icterus. No injection or drainage. ENT: No nasal bleeding or discharge. NECK: Trachea midline. No JVD. CARDIOVASCULAR: Regular rate and rhythm. systolic murmur RESPIRATORY: No accessory muscle use. Clear to auscultation. Breath sounds equal bilaterally. GASTROINTESTINAL: Abdomen soft, non-tender, nondistended. MUSCULOSKELETAL: Extremities without clubbing, cyanosis, or edema. No obvious deformities. NEUROLOGICAL: Awake and alert. No obvious cranial nerve deficits. Normal speech. PSYCHIATRIC: Appropriate mood and affect; insight and judgment normal. Laboratory Laboratory Tests Test 01/18/17 03:55 White Blood Count 14.1 TH/MM3 Red Blood Count 3.18 MIL/MM3 Hemoglobin 8.3 GM/DL Hematocrit 26.0 % Mean Corpuscular Volume 82.0 FL Mean Corpuscular Hemoglobin 26.1 PG Mean Corpuscular Hemoglobin Concent 31.8 % Red Cell Distribution Width 18.1 % Platelet Count 268 TH/MM3 Mean Platelet Volume 7.1 FL Neutrophils (%) (Auto) 71.9 % Lymphocytes (%) (Auto) 18.2 % Monocytes (%) (Auto) 8.8 % Eosinophils (%) (Auto) 0.9 % Basophils (%) (Auto) 0.2 % Neutrophils # (Auto) 10.1 TH/MM3 Lymphocytes # (Auto) 2.6 TH/MM3 Monocytes # (Auto) 1.2 TH/MM3 Eosinophils # (Auto) 0.1 TH/MM3 Basophils # (Auto) 0.0 TH/MM3 CBC Comment DIFF FINAL Differential Comment Blood Urea Nitrogen 29 MG/DL Creatinine 0.76 MG/DL Random Glucose 230 MG/DL Calcium Level 8.0 MG/DL Magnesium Level 2.0 MG/DL Sodium Level 136 MEQ/L Potassium Level 3.9 MEQ/L Chloride Level 103 MEQ/L Carbon Dioxide Level 25.7 MEQ/L Anion Gap 7 MEQ/L Estimat Glomerular Filtration Rate 79 ML/MIN Assessment and Plan Problem List: (1) CAD (coronary artery disease) ICD Codes: I25.10 - Atherosclerotic heart disease of [place] coronary artery without angina pectoris Status: Acute (2) Aortic valve stenosis ICD Codes: I35.0 - Nonrheumatic aortic (valve) stenosis Status: Chronic (3) HTN (hypertension) ICD Codes: I10 - Essential (primary) hypertension Status: Chronic (4) S/P AVR (aortic valve replacement) ICD Codes: Z95.2 - Presence of prosthetic heart valve (5) DM (diabetes mellitus) ICD Codes: E11.9 - Type 2 diabetes mellitus without complications Status: Chronic (6) Diastolic CHF due to valvular disease ICD Codes: I38 - Endocarditis, valve unspecified; I50.30 - Unspecified diastolic (congestive) heart failure (7) Chronic anemia ICD Codes: D64.9 - Anemia, unspecified Assessment and Plan 56 yo F with history of CAD s/p CHAVEZ RCA (06/2016), HTN, HLD and diabetes s/p minimally invasive aortic valve replacement on 01/16/17 severe aortic stenosis- s/p minimally invasive AVR, POD #2, doing well. CAD- PCI CHAVEZ RCA (06/2016), EKG shows ST elevation, likely inflammatory. echo shows EF 55-60% will sign off. call with questions. Kami Gamez Jan 18, 2017 08:17
[2017-01-18] MEDS: INSULIN DETEMIR 100 UNITS/ML VIAL SQ SCH ×2 (09:17→20:55)
[2017-01-18] MEDS: POLYETHYLENE GLYCOL 17 GM PKG PO SCH (09:17)
[2017-01-18] MEDS: MAGNESIUM HYDROXIDE SUSP 30 ML CUP PO SCH (09:17)
[2017-01-18] MEDS: CARVEDILOL 3.125 MG TAB PO SCH ×2 (09:18→20:57)
[2017-01-18] MEDS: DOCUSATE SODIUM 100 MG CAP PO SCH ×2 (09:18→20:54)
[2017-01-18] MEDS: MULTIVITAMINS/MINERALS THERAPEUTIC TAB PO SCH (09:19)
[2017-01-18] MEDS: CLOPIDOGREL 75 MG TAB PO SCH (09:19)
[2017-01-18] MEDS: MAGNESIUM OXIDE 400 MG TAB PO SCH (09:19)
[2017-01-18] MEDS: ASPIRIN EC 81 MG TABEC PO SCH (09:19)
[2017-01-18] MEDS: FERROUS SULFATE 325 MG (65 MG ELEMENTAL IRON) TAB PO SCH ×2 (09:19→17:02)
[2017-01-18] MEDS: SODIUM CHLORIDE 0.9% FLUSH 10 ML FLUSH IV FLUSH SCH ×2 (09:22→21:00)
--- NOTE | 2017-01-18 10:25 | PD.CAR.PN ---
CVT Progress Note Subjective/Hospital Course: 56-year-old female of Dr. Cee Ortiz, also patient of Dr. Crespo, who we saw after Heart cath 11/28/16 who apparently started having some shortness of breath off and on for the past eight or nine months. After walking about 15 feet , she has to stop and catch her breath, also some chest tightness with or without exertion. She underwent a PCI with stent to the RCA in June of 2016. She was brought in after undergoing echocardiogram which showed aortic valve area 0.87, mean gradient of 45, EF of 60%, mild to moderately dilated left atrium, trace aortic insufficiency, mild tricuspid valve regurgitation, PA pressures of 40, mild left ventricular hypertrophy. She underwent a cardiac cath today which showed the RCA had 20% stenosis, otherwise, nonobstructive disease. The stent was open. She required eval by dentistry and underwent teeth extraction prior to eval for surgery PAST MEDICAL HISTORY: Aortic stenosis, Coronary artery disease ( stent ) Hypertension, Hyperlipidemia, Morbid obesity with a BMI of 40, Diabetes mellitus ( Hgb A1c 9.2) Gastroesophageal reflux disease, 8. Irritable bowel syndrome, History of kidney stones, Chronic back pain, frequent UTI's , chronic anemia, diastolic CHF 2/2 valvular disease surgery: 01/16 Minimally invasive AVR with a 19 Intuity tissue valve Ultrasound-guided percutaneous femoral artery and vein access with Perclose closure of the artery KYLAH crystalloid 3000cc, 500cc cell saver, EBL 1000cc 01/17 pt very painful last pm / [employer] morphine started EKG with inferior ST elevation compared to preoperative EKGs, probably inflammatory. repeat ekg. 2d echo for regional wall motion abnormality/ discussed with Dr Crespo has HX of drug eluting stent 06/24/16 to RCA ,will restart plavix continue pulm toileting / OOB ambulate DC IV insulin gtt, start Levemir Bid , resume po meds in am / HGB Aic 9.2/ will need school vocational educator transfer to stepdown 01/18 remains in NSR very painful, using [employer] eval for chest tube removal later today will need walker at discharge ECHO noted, normal aortic valve function, Normal EF 60% need aggressive pulm toileting Objective: GENERAL: SKIN: Warm and dry. incision intact right upper chest wall HEAD: Normocephalic. EYES: No scleral icterus. No injection or drainage. NECK: Supple, trachea midline. No JVD or lymphadenopathy. CARDIOVASCULAR: Regular rate and rhythm without murmurs, gallops, or rubs. RESPIRATORY: Breath sounds equal bilaterally. No accessory muscle use. chest tube in place, no air leak / drained 130cc/ 12 hrs GASTROINTESTINAL: Abdomen soft, non-tender, nondistended. MUSCULOSKELETAL: No cyanosis, or edema. BACK: Nontender without obvious deformity. No CVA tenderness. Vital Signs Date Time Temp Pulse Resp B/P (MAP) Pulse Ox O2 Delivery O2 Flow Rate FiO2 01/18/17 09:15 110/57 (74) 01/18/17 08:21 94 Nasal Cannula 2.00 01/18/17 07:35 99.1 92 16 94/53 (67) 93 01/18/17 06:19 96 01/18/17 06:00 19 01/18/17 05:16 94 01/18/17 04:23 94 01/18/17 03:16 89 01/18/17 03:16 98.4 95 17 92/56 (68) 95 01/18/17 03:16 92 Room Air 01/18/17 02:20 94 01/18/17 01:16 102 01/18/17 00:22 99 01/17/17 23:50 98.6 103 18 89/52 (64) 93 01/17/17 23:50 93 Room Air 01/17/17 23:00 101 01/17/17 22:00 114 01/17/17 22:00 18 01/17/17 21:00 90 01/17/17 20:12 94 01/17/17 20:00 88 01/17/17 19:30 105 01/17/17 19:30 98.6 96 17 117/58 (77) 98 01/17/17 18:00 88 01/17/17 16:59 95 Nasal Cannula 2.00 01/17/17 16:00 99 01/17/17 15:58 99 17 129/74 (92) 95 01/17/17 15:00 102 01/17/17 14:00 18 01/17/17 12:00 Nasal Cannula 4.00 01/17/17 11:00 98.8 102 20 118/69 (85) 95 01/17/17 11:00 102 01/17/17 11:00 98.0 106 20 128/76 (93) 96 Labs: Laboratory Tests Test 01/18/17 03:55 White Blood Count 14.1 TH/MM3 (4.0-11.0) Red Blood Count 3.18 MIL/MM3 (4.00-5.30) Hemoglobin 8.3 GM/DL (11.6-15.3) Hematocrit 26.0 % (35.0-46.0) Mean Corpuscular Volume 82.0 FL (80.0-100.0) Mean Corpuscular Hemoglobin 26.1 PG (27.0-34.0) Mean Corpuscular Hemoglobin Concent 31.8 % (32.0-36.0) Red Cell Distribution Width 18.1 % (11.6-17.2) Platelet Count 268 TH/MM3 (150-450) Mean Platelet Volume 7.1 FL (7.0-11.0) Neutrophils (%) (Auto) 71.9 % (16.0-70.0) Lymphocytes (%) (Auto) 18.2 % (9.0-44.0) Monocytes (%) (Auto) 8.8 % (0.0-8.0) Eosinophils (%) (Auto) 0.9 % (0.0-4.0) Basophils (%) (Auto) 0.2 % (0.0-2.0) Neutrophils # (Auto) 10.1 TH/MM3 (1.8-7.7) Lymphocytes # (Auto) 2.6 TH/MM3 (1.0-4.8) Monocytes # (Auto) 1.2 TH/MM3 (0-0.9) Eosinophils # (Auto) 0.1 TH/MM3 (0-0.4) Basophils # (Auto) 0.0 TH/MM3 (0-0.2) CBC Comment DIFF FINAL Differential Comment Blood Urea Nitrogen 29 MG/DL (7-18) Creatinine 0.76 MG/DL (0.50-1.00) Random Glucose 230 MG/DL (74-106) Calcium Level 8.0 MG/DL (8.5-10.1) Magnesium Level 2.0 MG/DL (1.5-2.5) Sodium Level 136 MEQ/L (136-145) Potassium Level 3.9 MEQ/L (3.5-5.1) Chloride Level 103 MEQ/L (98-107) Carbon Dioxide Level 25.7 MEQ/L (21.0-32.0) Anion Gap 7 MEQ/L (5-15) Estimat Glomerular Filtration Rate 79 ML/MIN (>89) Result Diagram: 01/18/17 03501/18/17 035 Telemetry: NSR (1) CAD (coronary artery disease) Plan: hx of drug eluting stent to RCA 06/24/16 st elevation in Inf leads/ ? inflammatory plavix, 2d echo stable on ASA, statin , BB (2) Aortic valve stenosis Plan: on amiodarone OOB , ambulate pulm toileting nebs , ezpap acapella (3) HTN (hypertension) Plan: controlled (4) S/P AVR (aortic valve replacement) (5) DM (diabetes mellitus) Plan: consult school vocational educator on levemir , resume po meds (6) Diastolic CHF due to valvular disease (7) Chronic anemia Plan: resume ferrous sulfate Janeth Villeda Jan 18, 2017 10:25
[2017-01-18] MEDS: MORPHINE SULFATE 30 MG/30 ML PCA IV SCH (11:11)
[2017-01-18] MEDS: GLIMEPIRIDE 4 MG TAB PO SCH ×2 (12:05→17:02)
[2017-01-18] MEDS: oxyCODONE/ACETAMINOPHEN 5 MG/325 MG TAB PO PRN ×2 (15:10→20:57)
[2017-01-18] MEDS: metFORMIN HCL 500 MG TAB PO SCH (17:02)
[2017-01-18] MEDS: SENNOSIDES 8.6 MG TAB PO SCH (20:54)
[2017-01-18] MEDS: ATORVASTATIN 40 MG TAB PO SCH (20:54)
[2017-01-19] VITALS (27 sets, daily range): BP systolic 87–128; BP diastolic 50–70; PULSE 78–94; RESP 16–18; TEMP 97.7–98.2; O2SAT 92–96
[2017-01-19] MEDS: oxyCODONE/ACETAMINOPHEN 5 MG/325 MG TAB PO PRN ×4 (03:33→20:25)
[2017-01-19] MEDS: PANTOPRAZOLE SOD 40 MG DELAYED RELEASE TAB PO SCH (05:25)
[2017-01-19] MEDS: AMIODARONE 200 MG TAB PO SCH ×3 (05:25→21:59)
[2017-01-19] MEDS ORDERED: SOD PHOSPHATE/SOD BIPHOSPHATE (ADULT) ENEMA 133ML RECTAL PRN (06:00)
[2017-01-19] MEDS: GLIMEPIRIDE 4 MG TAB PO SCH ×2 (06:12→16:28)
[2017-01-19] MEDS: RESP: ALBUTEROL 2.5 MG/IPRATROPIUM 0.5 MG NEB (SCH) NEB (07:52)
[2017-01-19] MEDS: INSULIN DETEMIR 100 UNITS/ML VIAL SQ SCH ×2 (08:27→21:59)
[2017-01-19] MEDS: INSULIN ASPART SUPPLEMENTAL SCALE SQ SCH ×4 (08:27→22:00)
[2017-01-19] MEDS: ASPIRIN EC 81 MG TABEC PO SCH (08:27)
[2017-01-19] MEDS: DOCUSATE SODIUM 100 MG CAP PO SCH ×2 (08:27→20:25)
[2017-01-19] MEDS: FERROUS SULFATE 325 MG (65 MG ELEMENTAL IRON) TAB PO SCH ×2 (08:28→17:23)
[2017-01-19] MEDS: MAGNESIUM OXIDE 400 MG TAB PO SCH (08:28)
[2017-01-19] MEDS: POLYETHYLENE GLYCOL 17 GM PKG PO SCH (08:28)
[2017-01-19] MEDS: CARVEDILOL 3.125 MG TAB PO SCH ×2 (08:28→20:25)
[2017-01-19] MEDS: CLOPIDOGREL 75 MG TAB PO SCH (08:28)
[2017-01-19] MEDS: MAGNESIUM HYDROXIDE SUSP 30 ML CUP PO SCH (08:28)
[2017-01-19] MEDS: SODIUM CHLORIDE 0.9% FLUSH 10 ML FLUSH IV FLUSH SCH ×2 (08:28→20:25)
[2017-01-19] MEDS: MULTIVITAMINS/MINERALS THERAPEUTIC TAB PO SCH (08:28)
[2017-01-19] MEDS: metFORMIN HCL 500 MG TAB PO SCH ×2 (08:34→17:21)
--- NOTE | 2017-01-19 10:10 | RADRPT ---
EXAM DATE/TIME: 01/19/2017 09:08 [facility] COMPARISON: CHEST SINGLE AP, January 17, 2017, 2:32. INDICATIONS : Difficulty breathing. MEDICAL HISTORY : Hypertension. HNP SURGICAL HISTORY : None. ENCOUNTER: Subsequent ACUITY: 3 days PAIN SCORE: 0/10 LOCATION: Bilateral chest FINDINGS: There is a tiny 2 mm pneumothorax upper right apex. There are multiple bilateral linear infiltrates t hroughout both lung zhou suggestive of atelectasis. No definite pleural effusions. The heart size i s mildly enlarged but stable. The previously noted right-sided chest tube has been removed. The left- sided central line has been removed. The bony structures are stable. CONCLUSION: 1. Tiny 2 mm right apical pneumothorax. 2. Bilateral linear infiltrates characteristic of atelectasis. Charles Salinas MD on January 19, 2017 at 10:07 Board Certified Radiologist. This report was verified electronically.
--- NOTE | 2017-01-19 15:41 | PD.CAR.PN ---
CVT Progress Note Subjective/Hospital Course: 56-year-old female of Dr. Cee Ortiz, also patient of Dr. Crespo, who we saw after Heart cath 11/28/16 who apparently started having some shortness of breath off and on for the past eight or nine months. After walking about 15 feet , she has to stop and catch her breath, also some chest tightness with or without exertion. She underwent a PCI with stent to the RCA in June of 2016. She was brought in after undergoing echocardiogram which showed aortic valve area 0.87, mean gradient of 45, EF of 60%, mild to moderately dilated left atrium, trace aortic insufficiency, mild tricuspid valve regurgitation, PA pressures of 40, mild left ventricular hypertrophy. She underwent a cardiac cath today which showed the RCA had 20% stenosis, otherwise, nonobstructive disease. The stent was open. She required eval by dentistry and underwent teeth extraction prior to eval for surgery PAST MEDICAL HISTORY: Aortic stenosis, Coronary artery disease ( stent ) Hypertension, Hyperlipidemia, Morbid obesity with a BMI of 40, Diabetes mellitus ( Hgb A1c 9.2) Gastroesophageal reflux disease, 8. Irritable bowel syndrome, History of kidney stones, Chronic back pain, frequent UTI's , chronic anemia, diastolic CHF 2/2 valvular disease surgery: 01/16 Minimally invasive AVR with a 19 Intuity tissue valve Ultrasound-guided percutaneous femoral artery and vein access with Perclose closure of the artery KYLAH crystalloid 3000cc, 500cc cell saver, EBL 1000cc 01/17 pt very painful last pm / [employer] morphine started EKG with inferior ST elevation compared to preoperative EKGs, probably inflammatory. repeat ekg. 2d echo for regional wall motion abnormality/ discussed with Dr Crespo has HX of drug eluting stent 06/24/16 to RCA ,will restart plavix continue pulm toileting / OOB ambulate DC IV insulin gtt, start Levemir Bid , resume po meds in am / HGB Aic 9.2/ will need clinical educator transfer to stepdown 01/18 remains in NSR very painful, using [employer] eval for chest tube removal later today will need walker at discharge ECHO noted, normal aortic valve function, Normal EF 60% need aggressive pulm toileting 01/19 CXR noted, tiny right right apical 2mm PTX/ f/u CXR in am will eval for dc in am gentle diuresis HGB noted 8.3/ on ferrous sulfate f/u CBC in am Objective: GENERAL: SKIN: Warm and dry.incision intact and well approximated right upper chest wall , dressing in place over chest tube rig site engineer: Normocephalic. EYES: No scleral icterus. No injection or drainage. NECK: Supple, trachea midline. No JVD or lymphadenopathy. CARDIOVASCULAR: Regular rate and rhythm without murmurs, gallops, or rubs. RESPIRATORY: Breath sounds equal bilaterally. No accessory muscle use. GASTROINTESTINAL: Abdomen soft, non-tender, nondistended. MUSCULOSKELETAL: No cyanosis, or edema. BACK: Nontender without obvious deformity. No CVA tenderness. Vital Signs Date Time Temp Pulse Resp B/P (MAP) Pulse Ox O2 Delivery O2 Flow Rate FiO2 01/19/17 15:00 98.1 92 18 113/56 (75) 92 01/19/17 15:00 87 01/19/17 14:00 82 01/19/17 13:00 86 01/19/17 12:00 87 01/19/17 11:00 98.1 91 18 90/54 (66) 93 01/19/17 11:00 87 01/19/17 10:00 88 01/19/17 09:00 92 01/19/17 08:03 94 Nasal Cannula 1.00 01/19/17 08:00 88 01/19/17 07:00 97.9 93 16 105/55 (72) 93 01/19/17 07:00 87 01/19/17 06:06 90 01/19/17 05:03 91 01/19/17 04:21 87 01/19/17 03:36 89 01/19/17 03:36 97.9 91 17 92/50 (64) 93 01/19/17 02:11 94 01/19/17 01:35 85 01/19/17 00:42 89 01/18/17 23:55 98.0 89 18 101/63 (76) 95 01/18/17 23:55 86 01/18/17 23:55 95 Room Air 01/18/17 22:37 87 01/18/17 21:00 80 01/18/17 20:00 88 01/18/17 19:51 94 21 01/18/17 19:00 91 01/18/17 19:00 97.2 90 19 99/53 (68) 93 01/18/17 19:00 93 Room Air 01/18/17 18:18 92 01/18/17 17:34 90 01/18/17 16:28 88 Result Diagram: 01/18/17 0355 01/18/17 0355 (1) CAD (coronary artery disease) Plan: hx of drug eluting stent to RCA 06/24/16 st elevation in Inf leads/ ? inflammatory plavix, 2d echo stable on ASA, statin , BB (2) Aortic valve stenosis Plan: on amiodarone OOB , ambulate pulm toileting nebs , ezpap acapella (3) HTN (hypertension) Plan: controlled (4) S/P AVR (aortic valve replacement) (5) DM (diabetes mellitus) Plan: pt seen by clinical educator, glucometer given to pt on tresiba at home increase metformin , increase levemir (6) Diastolic CHF due to valvular disease (7) Chronic anemia Plan: resume ferrous sulfate Janeth Villeda Jan 19, 2017 15:41
[2017-01-19] MEDS ORDERED: FUROSEMIDE 40 MG/4 ML VIAL IV PUSH ONE (15:45)
[2017-01-19] MEDS ORDERED: POTASSIUM CHLORIDE 10 MEQ CONTROLLED RELEASE TAB PO ONE (15:45)
[2017-01-19] MEDS ORDERED: AMIO200T PO (15:53)
[2017-01-19] MEDS ORDERED: OXYC1TAB63 PO (15:53)
[2017-01-19] MEDS ORDERED: CARV3.125 PO (15:53)
[2017-01-19] MEDS ORDERED: DOCU1CAP39 PO (15:53)
--- NOTE | 2017-01-19 16:03 | HHI.DS ---
Discharge Summary Admission Date Jan 16, 2017 at 06:28 Discharge Date: Jan 20, 2017 Admitting Diagnosis severe aortic stenosis (1) Dyslipidemia ICD Codes: E78.5 - Hyperlipidemia, unspecified (2) Aortic valve stenosis ICD Codes: I35.0 - Nonrheumatic aortic (valve) stenosis Status: Chronic (3) Diastolic CHF due to valvular disease ICD Codes: I38 - Endocarditis, valve unspecified; I50.30 - Unspecified diastolic (congestive) heart failure (4) Chest pain ICD Codes: R07.9 - Chest pain, unspecified Status: Acute (5) CAD (coronary artery disease) ICD Codes: I25.10 - Atherosclerotic heart disease of [place] coronary artery without angina pectoris Status: Acute (6) HTN (hypertension) ICD Codes: I10 - Essential (primary) hypertension Status: Chronic (7) DM (diabetes mellitus) ICD Codes: E11.9 - Type 2 diabetes mellitus without complications Status: Chronic (8) Chronic anemia ICD Codes: D64.9 - Anemia, unspecified (9) S/P AVR (aortic valve replacement) Diagnosis: Secondary ICD Codes: Z95.2 - Presence of prosthetic heart valve Procedures Minimally invasive AVR with a 19 Intuity tissue valve 01/16 Ultrasound-guided percutaneous femoral artery and vein access with Perclose closure of the artery KYLAH Brief History 56-year-old female of Dr. Cee Ortiz, also patient of Dr. Crespo, who we saw after Heart cath 11/28/16 who apparently started having some shortness of breath off and on for the past eight or nine months. After walking about 15 feet , she has to stop and catch her breath, also some chest tightness with or without exertion. She underwent a PCI with stent to the RCA in June of 2016. She was brought in after undergoing echocardiogram which showed aortic valve area 0.87, mean gradient of 45, EF of 60%, mild to moderately dilated left atrium, trace aortic insufficiency, mild tricuspid valve regurgitation, PA pressures of 40, mild left ventricular hypertrophy. She underwent a cardiac cath today which showed the RCA had 20% stenosis, otherwise, nonobstructive disease. The stent was open. She required eval by dentistry and underwent teeth extraction prior to eval for surgery PAST MEDICAL HISTORY: Aortic stenosis, Coronary artery disease ( stent ) Hypertension, Hyperlipidemia, Morbid obesity with a BMI of 40, Diabetes mellitus ( Hgb A1c 9.2) Gastroesophageal reflux disease, 8. Irritable bowel syndrome, History of kidney stones, Chronic back pain, frequent UTI's , chronic anemia, diastolic CHF 2/2 valvular disease CBC/BMP: 01/18/17 0355 01/18/17 0355 Significant Findings Laboratory Tests Test 01/17/17 05:15 01/18/17 03:55 White Blood Count 20.2 TH/MM3 (4.0-11.0) 14.1 TH/MM3 (4.0-11.0) Red Blood Count 3.69 MIL/MM3 (4.00-5.30) 3.18 MIL/MM3 (4.00-5.30) Hemoglobin 9.7 GM/DL (11.6-15.3) 8.3 GM/DL (11.6-15.3) Hematocrit 30.5 % (35.0-46.0) 26.0 % (35.0-46.0) Mean Corpuscular Hemoglobin 26.2 PG (27.0-34.0) 26.1 PG (27.0-34.0) Mean Corpuscular Hemoglobin Concent 31.7 % (32.0-36.0) 31.8 % (32.0-36.0) Red Cell Distribution Width 17.8 % (11.6-17.2) 18.1 % (11.6-17.2) Random Glucose 128 MG/DL (74-106) 230 MG/DL (74-106) Calcium Level 8.4 MG/DL (8.5-10.1) 8.0 MG/DL (8.5-10.1) Neutrophils (%) (Auto) 71.9 % (16.0-70.0) Monocytes (%) (Auto) 8.8 % (0.0-8.0) Neutrophils # (Auto) 10.1 TH/MM3 (1.8-7.7) Monocytes # (Auto) 1.2 TH/MM3 (0-0.9) Blood Urea Nitrogen 29 MG/DL (7-18) Estimat Glomerular Filtration Rate 79 ML/MIN (>89) Imaging Last Impressions Chest X-Ray 01/19/17 0600 Signed Impressions: Service Date/Time: Thursday, January 19, 2017 09:08 - CONCLUSION: 1. Tiny 2 mm right apical pneumothorax. 2. Bilateral linear infiltrates characteristic of atelectasis. Charles Salinas MD PE at Discharge GENERAL: SKIN: Warm and dry. incision intact and well approximated right upper chest wall HEAD: Normocephalic. EYES: No scleral icterus. No injection or drainage. NECK: Supple, trachea midline. No JVD or lymphadenopathy. CARDIOVASCULAR: Regular rate and rhythm without murmurs, gallops, or rubs. RESPIRATORY: Breath sounds equal bilaterally. No accessory muscle use. GASTROINTESTINAL: Abdomen soft, non-tender, nondistended. MUSCULOSKELETAL: No cyanosis, or edema. BACK: Nontender without obvious deformity. No CVA tenderness. Hospital Course surgery: 01/16 Minimally invasive AVR with a 19 Intuity tissue valve Ultrasound-guided percutaneous femoral artery and vein access with Perclose closure of the artery KYLAH crystalloid 3000cc, 500cc cell saver, EBL 1000cc 01/17 pt very painful last pm / [employer] morphine started EKG with inferior ST elevation compared to preoperative EKGs, probably inflammatory. repeat ekg. 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 f/u cxr in am for dc needs HGB 8.3, on ferrous sulfate, gentle diuresis , f/u CBC in am eval for dc in am OOB ambulate Pt Condition on Discharge: Good Discharge Disposition: Disch w/ Home Health Serv Discharge Instructions DIET: Follow Instructions for: Diabetic Diet Activities you can perform: Full Weight Bearing, Shower Only-No Bath Activities to avoid: Strenuous Activity, Driving Additional Activity Instructio: no lifting > 8 lbs or gallon of milk Follow up Referrals: Cardiology - 4 Weeks with Maikel Crespo MD PCP Follow-up - 2 Weeks with Cee Ortiz MD Surgical - 2 Weeks with Christiana,Janeth R. [facility] CONSULTANT New Orders: 2D ECHO - 2 Weeks BASIC METABOLIC PROF - 2 Weeks CBC NO DIFF - 2 Weeks X-RAY CHEST PA & LAT - 2 Weeks New Medications: Amiodarone (Amiodarone) 200 Mg Tab 200 MG PO Q12HR for heart rhythm, #28 TAB 0 Refills Carvedilol (Coreg) 3.125 Mg Tab 3.125 MG PO Q12HR for Blood Pressure Management, #60 TAB 2 Refills Docusate Sodium (Dok) 100 Mg Cap 100 MG PO BID for Constipation, #60 CAP 0 Refills Oxycodone HCl/Acetaminophen (Oxycodone-Acetaminophen 5-325) 5 Mg-325 Mg Tablet 1 TAB PO Q4HR PRN for PAIN SCALE 1 TO 5, #40 TAB 0 Refills Continued Medications: Aspirin DR (Aspirin DR) 81 Mg Tabdr 81 MG PO DAILY, TAB 0 Refills Atorvastatin (Atorvastatin) 40 Mg Tab 40 MG PO HS for CAD, #30 TAB Clopidogrel (Plavix) 75 Mg Tab 75 MG PO DAILY for CAD, #30 TAB Cobalamine Combinations (Vitamin W17-Gxdll Acid) 500-400 Mcg Tab 1 TAB PO DAILY for Nutritional Supplement, TAB 0 Refills Dulaglutide Inj (Trulicity Inj) 0.75 Mg/0.5 Ml Pen 0.75 MG SQ Q7D for Blood Sugar Management, #4 PEN 0 Refills Ferrous Sulfate (Ferrous Sulfate) 325 Mg (65 Mg Iron) Tablet 325 MG PO BIDPC for Nutritional Supplement, #60 TAB 0 Refills Fish Oil-Cholecalciferol ([place]-3 Fish Oil/Vitamin) 1,000-1,000 Mg Cap 1 CAP PO DAILY for Nutritional Supplement, CAP 0 Refills Flavoring Agent (Cinnamon) 3.7 Ml Oil 1 MG PO DAILY Garlic (Garlique) 5,000 Mcg Tab 1 MG PO DAILY Glimepiride (Glimepiride) 4 Mg Tab 4 MG PO BIDAC for Blood Sugar Management, #60 TAB 0 Refills Insulin Degludec Inj (Tresiba Flextouch Pen Inj) 300 unit/3 ML Pen 14 UNITS SQ DAILY for Blood Sugar Management, #15 ML 0 Refills Magnesium Oxide (Magnesium Oxide) 250 Mg Tab 250 MG PO DAILY, TAB 0 Refills Metformin ER (Metformin ER) 750 Mg Perfecto 750 MG PO BID for Blood Sugar Management, TAB 0 Refills Resume on 06/14/16 Pantoprazole (Pantoprazole) 20 Mg Tab 20 MG PO DAILY for Reflux, #30 TAB 0 Refills Discontinued Medications: Carvedilol (Carvedilol) 6.25 Mg Tab 6.25 MG PO BID, #60 TAB 0 Refills Losartan (Losartan) 100 Mg Tab 100 MG PO DAILY for Blood Pressure Management, #30 TAB 0 Refills Janeth Villeda Jan 19, 2017 16:03
[2017-01-19] MEDS: ATORVASTATIN 40 MG TAB PO SCH (20:25)
[2017-01-19] MEDS: SENNOSIDES 8.6 MG TAB PO SCH (20:25)
[2017-01-20] VITALS (24 sets, daily range): BP systolic 90–154; BP diastolic 52–69; PULSE 68–91; RESP 18–20; TEMP 98.2–98.4; O2SAT 93–96
[2017-01-20] MEDS: oxyCODONE/ACETAMINOPHEN 5 MG/325 MG TAB PO PRN ×2 (03:26→11:33)
[2017-01-20] MEDS: AMIODARONE 200 MG TAB PO SCH ×2 (05:50→13:22)
[2017-01-20] MEDS: PANTOPRAZOLE SOD 40 MG DELAYED RELEASE TAB PO SCH (05:50)
--- NOTE | 2017-01-20 06:21 | RADRPT ---
EXAM DATE/TIME: 01/20/2017 05:35 [facility] COMPARISON: CHEST SINGLE AP, January 19, 2017, 9:08. INDICATIONS : Evaluate for pneumothorax MEDICAL HISTORY : Hypertension. HNP SURGICAL HISTORY : None. ENCOUNTER: Subsequent ACUITY: 4 - 6 days PAIN SCORE: 7/10 LOCATION: Bilateral chest FINDINGS: Single AP view of the chest. Linear opacity lung bases unchanged. Cardiomediastinal silhouette unchan ged. No evidence of pleural effusion or pneumothorax. CONCLUSION: No significant interval change with persistent bilateral lower lung zone atelectasis. Franklyn Solano MD on January 20, 2017 at 6:18 Board Certified Radiologist. This report was verified electronically.
[2017-01-20 06:30] LABS: HEMATOCRIT 26.1 % (35.0-46.0); MEAN CELL VOLUME 82.7 FL (80.0-100.0); MEAN CORPUSCULAR HEMOGLOBIN 26.3 PG (27.0-34.0); MEAN CORPUSCULAR HGB CONC 31.9 % (32.0-36.0); PLATELET COUNT 263 TH/MM3 (150-450); RED BLOOD COUNT 3.16 MIL/MM3 (4.00-5.30); RED CELL DISTRIBUTION WIDTH 18.5 % (11.6-17.2); REVIEW FLAG FINAL; WHITE BLOOD COUNT 14.7 TH/MM3 (4.0-11.0)
[2017-01-20] MEDS: GLIMEPIRIDE 4 MG TAB PO SCH ×2 (08:02→15:53)
[2017-01-20] MEDS: MAGNESIUM HYDROXIDE SUSP 30 ML CUP PO SCH (09:00)
[2017-01-20] MEDS: INSULIN ASPART SUPPLEMENTAL SCALE SQ SCH ×3 (09:00→17:00)
[2017-01-20] MEDS: DOCUSATE SODIUM 100 MG CAP PO SCH (09:00)
[2017-01-20] MEDS: FERROUS SULFATE 325 MG (65 MG ELEMENTAL IRON) TAB PO SCH ×2 (09:19→17:48)
[2017-01-20] MEDS: POLYETHYLENE GLYCOL 17 GM PKG PO SCH (09:22)
[2017-01-20] MEDS: MAGNESIUM OXIDE 400 MG TAB PO SCH (09:22)
[2017-01-20] MEDS: MULTIVITAMINS/MINERALS THERAPEUTIC TAB PO SCH (09:23)
[2017-01-20] MEDS: CLOPIDOGREL 75 MG TAB PO SCH (09:23)
[2017-01-20] MEDS: CARVEDILOL 3.125 MG TAB PO SCH (09:23)
[2017-01-20] MEDS: INSULIN DETEMIR 100 UNITS/ML VIAL SQ SCH (09:24)
[2017-01-20] MEDS: SODIUM CHLORIDE 0.9% FLUSH 10 ML FLUSH IV FLUSH SCH (09:24)
[2017-01-20] MEDS: ASPIRIN EC 81 MG TABEC PO SCH (09:24)
[2017-01-20] MEDS: metFORMIN HCL 500 MG TAB PO SCH ×2 (09:30→17:48)
[2017-01-20] MEDS ORDERED: GETGO ROLLING W1 MI1 ×2 (11:50→11:51)
[2017-01-20] MEDS ORDERED: WALKER WHEELS/F1 MIS (12:15)
[2017-01-20] MEDS ORDERED: WALKER GLIDE WH1 MI2 (12:38)
== END 2017-01-20 19:35 | disposition home health service (06) | DRG 220 ==
LOC: HSDI 06:28 → EDSTATUS 08:30 → HCVI 14:05 → HCPC 01-17 15:33
PROVIDERS: ADMIT Thoracic Surgery (Cardiothoracic Vascular Surgery); ATTEND Thoracic Surgery (Cardiothoracic Vascular Surgery)
PROC: B246ZZ4 Ultrasonography of Right and Left Heart, Transesophageal (ICD-10-PCS; 2017-01-16)
PROC: 02RF08Z Replacement of Aortic Valve with Zooplastic Tissue, Open Approach (ICD-10-PCS; principal; 2017-01-16 08:30)
PROC: 5A1221Z Performance of Cardiac Output, Continuous (ICD-10-PCS; 2017-01-16 08:30)
DX: I06.0 Rheumatic aortic stenosis (principal); Z68.41 Body mass index [BMI] 40.0-44.9, adult; I09.81 Rheumatic heart failure; I50.30 Unspecified diastolic (congestive) heart failure; E11.9 Type 2 diabetes mellitus without complications; D64.9 Anemia, unspecified; E78.5 Hyperlipidemia, unspecified; G89.29 Other chronic pain; I11.0 Hypertensive heart disease with heart failure; I25.10 Atherosclerotic heart disease of native coronary artery without angina pectoris; E66.01 Morbid (severe) obesity due to excess calories; R94.31 Abnormal electrocardiogram [ECG] [EKG]; K21.9 Gastro-esophageal reflux disease without esophagitis; K58.9 Irritable bowel syndrome, unspecified; Z95.5 Presence of coronary angioplasty implant and graft; Z79.84 Long term (current) use of oral hypoglycemic drugs
CPT/HCPCS: 71010; 76937; 80048; 82948; 83735; 85025; 85027; 86850; 86900; 86901; 86920; 88305; 88311; 93005; 93306; 93318; 94002; 94150; 94640; 94664; 94667; 94668; J0131; J0330; J0690; J1644; J1815; J1817; J1885; J1940; J2150; J2250; J2270; J2370; J2405; J2710; J2720; J2930; J3010; J3475; J3480; J7040; J7050; J7120; P9047

== ENCOUNTER 2017-03-23 03:41 | Emergency (ER) | payer OTHER ==
[~2017-03-23] VITALS: Ht 165.1 cm; Wt 104.5 kg
[~2017-03-23 03:41] MED LIST changes: +AMIO200T PO; +CARV3.125 PO; -CARV6.252 PO; +DOCU1CAP39 PO; +GETGO ROLLING W1 MI1; -LOSA100T PO; -NITR0.4S SL; +OXYC1TAB63 PO; -VITA500012 PO; +WALKER GLIDE WH1 MI2; +WALKER WHEELS/F1 MIS
[2017-03-23 03:43] VITALS: BP 230/110; PULSE 114; RESP 20; TEMP 99; O2SAT 97
[2017-03-23] MEDS ORDERED: SODIUM CHLOR 0.9% 1000 ML INJ 1,000 ML IV ONE ×2 (04:15→06:15)
[2017-03-23] MEDS ORDERED: ONDANSETRON HCL 4 MG/2 ML VIAL IV PUSH ONE (04:15)
[2017-03-23] MEDS ORDERED: KETOROLAC TROMETHAMINE 30 MG/ML (IVP) VIAL IV PUSH ONE (04:15)
[2017-03-23] MEDS ORDERED: MORPHINE SULFATE 2 MG/ML INJ IV PUSH ONE ×2 (04:15→06:15)
[2017-03-23] MEDS ORDERED: CARV6.252 PO (04:20)
[2017-03-23 04:21] VITALS: BP 173/86; PULSE 107; RESP 20; O2SAT 90
[2017-03-23 04:21] LABS: AUTOMATED NEUTROPHIL # 11.9 TH/MM3 (1.8-7.7); BASOPHIL # 0.1 TH/MM3 (0-0.2); BASOPHIL % 0.6 % (0.0-2.0); EOSINOPHIL # 0.2 TH/MM3 (0-0.4); EOSINOPHIL % 1.5 % (0.0-4.0); HEMATOCRIT 34.1 % (35.0-46.0); HEMOGLOBIN 11.2 GM/DL (11.6-15.3); LYMPH % 15.4 % (9.0-44.0); LYMPHOCYTE # 2.4 TH/MM3 (1.0-4.8); MEAN CELL VOLUME 80.4 FL (80.0-100.0); MEAN CORPUSCULAR HEMOGLOBIN 26.4 PG (27.0-34.0); MEAN CORPUSCULAR HGB CONC 32.9 % (32.0-36.0); MEAN PLATELET VOLUME 7.1 FL (7.0-11.0); MONO % 5.3 % (0.0-8.0); MONOCYTE # 0.8 TH/MM3 (0-0.9); NEUT % 77.2 % (16.0-70.0); PLATELET COUNT 474 TH/MM3 (150-450); RED BLOOD COUNT 4.25 MIL/MM3 (4.00-5.30); RED CELL DISTRIBUTION WIDTH 17.6 % (11.6-17.2); WHITE BLOOD COUNT 15.3 TH/MM3 (4.0-11.0)
[2017-03-23 04:42] LABS: ALKALINE PHOSPHATASE 176 U/L (45-117); TOTAL BILIRUBIN ADULT 0.2 MG/DL (0.2-1.0)
[2017-03-23 04:44] LABS: ALBUMIN 3.7 GM/DL (3.4-5.0); ALT (GPT) 29 U/L (10-53); AST (GOT) 23 U/L (15-37); BICARBONATE 24.1 MEQ/L (21.0-32.0); BLOOD UREA NITROGEN 20 MG/DL (7-18); CALCIUM 9.1 MG/DL (8.5-10.1); CHLORIDE 103 MEQ/L (98-107); GLOMERULAR FILTRATION RATE 65 ML/MIN (>89); GLUCOSE,RANDOM 346 MG/DL (74-106); SODIUM (NA) 137 MEQ/L (136-145)
--- NOTE | 2017-03-23 05:44 | RADRPT ---
EXAM DATE/TIME: 03/23/2017 04:56 [facility] COMPARISON: CT ABDOMEN & PELVIS W/O CONTRAST, June 29, 2015, 12:18. INDICATIONS : Right flank pain. ORAL CONTRAST: No oral contrast ingested. RADIATION DOSE: 33.47 CTDIvol (mGy) MEDICAL HISTORY : Renal calculi. Hernia, hiatal. Gastroesophageal reflux disease.Diabetes. SURGICAL HISTORY : Cholecystectomy. ENCOUNTER: Initial ACUITY: 1 day PAIN SCALE: 9/10 LOCATION: Right flank TECHNIQUE: Volumetric scanning of the abdomen and pelvis was performed. Using automated exposure control and adjustment of the mA and/or kV according to patient size, radiation dose was kept as low as reasonably achievable to obtain optimal diagnostic quality images. DICOM format image data is av ailable electronically for review and comparison. FINDINGS: CT Abdomen: The visualized liver, spleen, pancreas, adrenals are unremarkable. There is hydronephros is in the right kidney to a moderate degree due to an approximate 4 mm right UVJ stone. There are cou ple of tiny 1-2 mm stones in right kidney as well. There is an approximate 1 cm stone in the left kid pedro in addition to 1.1 cm stone in the left renal pelvis. There is no evidence for any appreciable pa thological adenopathy, free fluid, or bowel obstruction. CT pelvis: There is no evidence for mass, abscess formation, or any significant adenopathy within the pelvis. There is chronic spondylolysis bilateral L5 and Grade I anterolisthesis L5-S1. CONCLUSION: Moderate hydronephrosis and hydroureter on the right side due to an approximate 4 mm stone with additional stones in both kidneys and left renal pelvis. Neda Andre MD on March 23, 2017 at 5:37 Board Certified Radiologist. This report was verified electronically.
--- NOTE | 2017-03-23 05:55 | PD ---
HPI Chief Complaint: Abdominal Pain Time Seen by Provider: 04:03 Travel History International Travel<30 days: No Contact w/Intl Traveler<30days: No Traveled to known affect area: No History of Present Illness HPI Pt has sudden onset of severe right flank to abdo pain, severe 10/10 associated with nausea and vomit-- wretching from pain , started just prior to arrival . She has not taken anything to alleviate the pain and she has not seen a urologist in years . She has had other renal stones that never needed uro intervention nor lithotripsy . I reviewed her CT in [place] , she has had prior obstructing stones , pt severe sudden stabbing and continues in ER PFSH Past Medical History Hx Anticoagulant Therapy: Yes Arthritis: No Asthma: No Blood Disorders: No Anxiety: No Depression: No Heart Rhythm Problems: Yes (HAD HEART MURMUR AND PALPITATIONS) Cancer: No Cardiac Catheterization: Yes (X2) Cardiovascular Problems: Yes High Cholesterol: Yes Chemotherapy: No Chest Pain: Yes Congestive Heart Failure: No COPD: No Diabetes: Yes Patient Takes Glucophage: Yes Diminished Hearing: No Endocrine: Yes Gastrointestinal Disorders: Yes (GERD, IBS, VERICOSE VEIN IN ABDOMEN) GERD: Yes Genitourinary: Yes (UTI, INCONTIENTS) Headaches: Yes Hepatitis: No Hiatal Hernia: Yes Heparin Induced Thrombocytopen: No Hypertension: Yes Immune Disorder: No Implanted Vascular Access Dvce: No Kidney Stones: Yes Medical other: Yes (UMBILICAL HERNIA ) Musculoskeletal: Yes (OA) Neurologic: Yes (NEUROPATHY,BILATERAL HANDS WEAK, HERNIATED DISK) Psychiatric: No Reproductive: No Respiratory: No Radiation Therapy: No Renal Failure: No Sickle Cell Disease: No Sleep Apnea: No 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) Ulcer: No Tetanus Vaccination: > 5 Years Influenza Vaccination: No ?: Not Menopausal: Yes Past Surgical History Abdominal Surgery: Yes ( GALLBLADDER) AICD: No Arteriovenous Shunt: No Body Medical Devices: STAPLE LEFT EYE ORBITAL AREA Cardiac Surgery: Yes (CARDIAC CATH X2) Section: Yes Cholecystectomy: Yes Ear Surgery: No Endocrine Surgery: No Eye Surgery: No Genitourinary Surgery: No Gynecologic Surgery: Yes () Insulin Pump: No Joint Replacement: No Oral Surgery: Yes (wisdom teeth, FACIAL FX REPAIR, TONSILLECTOMY) Pacemaker: No Thoracic Surgery: No Tonsillectomy: Yes Other Surgery: Yes ("NOSE & CHEEK ANANYA") Social History Alcohol Use: Yes Tobacco Use: No Substance Use: No Allergies-Medications (Allergen,Severity, Reaction): Coded Allergies: lisinopril (Verified Allergy, Severe, COUGH, 01/16/17) Reported Meds & Prescriptions Reported Meds & Active Scripts Active Zofran Odt (Ondansetron Odt) 4 Mg Tab 4 Mg SL Q12HR PRN Cipro (Ciprofloxacin HCl) 250 Mg Tab 250 Mg PO BID Ibuprofen 800 Mg Tab 800 Mg PO Q8H PRN Percocet (Oxycodone-Acetaminophen) 5-325 mg Tab 1-2 Tab PO Q6H PRN Flomax (Tamsulosin HCl) 0.4 Mg Cap 0.4 Mg PO HS Walker [place] Wheels/8 Adj (Device) 1 Mis Mis Ea .ROUTE DIRECTED PRN Atorvastatin (Atorvastatin Calcium) 40 Mg Tab 40 Mg PO HS Plavix (Clopidogrel Bisulfate) 75 Mg Tab 75 Mg PO DAILY Reported Carvedilol 6.25 Mg Tab 6.25 Mg PO BID Walker with Front Wheels (Device) 1 Mis Mis Ea .XX DIRECTED Walker Rolling/GetGo (Device) 1 Mis Mis Ea .ROUTE DIRECTED Walker Rolling/GetGo (Device) 1 Mis Mis Ea .ROUTE DIRECTED Ferrous Sulfate 325 Mg (65 Mg Iron) Tablet 325 Mg PO BIDPC Magnesium Oxide 250 Mg Tab 250 Mg PO DAILY [place]-3 Fish Oil/Vitamin (Fish Oil-Cholecalciferol) 1,000-1,000 Mg Cap 1 Cap PO DAILY Pantoprazole (Pantoprazole Sodium) 20 Mg Tab 20 Mg PO DAILY Cinnamon (Flavoring Agent) 3.7 Ml Oil 1 Mg PO DAILY Garlique (Garlic) 5,000 Mcg Tab 1 Mg PO DAILY Vitamin D12-Scrfm Acid (Cobalamine Combinations) 500-400 Mcg Tab 1 Tab PO DAILY Aspirin DR (Aspirin) 81 Mg Tabdr 81 Mg PO DAILY Tresiba Flextouch Pen Inj (Insulin Degludec Inj) 300 unit/3 ML Pen 20 Units SQ DAILY Metformin ER (Metformin HCl) 750 Mg Perfecto 750 Mg PO BID Resume on 06/14/16 Glimepiride 4 Mg Tab 4 Mg PO BIDAC Review of Systems Except as stated in HPI: all other systems reviewed are Neg Gastrointestinal: Positive: Vomiting, Abdominal Pain Genitourinary: Positive: Flank Pain (right cva pain) Physical Exam Narrative GENERAL: in severe pain holding side right , rocking in the bed from pain SKIN: Warm and dry. HEAD: Atraumatic. Normocephalic. EYES: Pupils equal and round. No scleral icterus. No injection or drainage. ENT: No nasal bleeding or discharge. Mucous membranes pink and moist. NECK: Trachea midline. No JVD. CARDIOVASCULAR: Regular rate and rhythm. RESPIRATORY: No accessory muscle use. Clear to auscultation. Breath sounds equal bilaterally. GASTROINTESTINAL: Abdomen OBESE and + right sided tender, nondistended. Hepatic and splenic margins not palpable. MUSCULOSKELETAL: Extremities without clubbing, cyanosis, or edema. No obvious deformities. NEUROLOGICAL: Awake and alert. No obvious cranial nerve deficits. Motor grossly within normal limits. Five out of 5 muscle strength in the arms and legs. Normal speech. PSYCHIATRIC: Aapparent pain reaction Data Data Last Documented VS Vital Signs Date Time Temp Pulse Resp B/P (MAP) Pulse Ox O2 Delivery O2 Flow Rate FiO2 03/23/17 08:00 98.0 76 17 138/81 (100) 99 03/23/17 07:12 Room Air Orders Orders Ketorolac Inj (Toradol Inj) (03/23/17 04:15) Ondansetron Inj (Zofran Inj) (03/23/17 04:15) Sodium Chlor 0.9% 1000 Ml Inj (Ns 1000 M (03/23/17 04:15) Morphine Inj (Morphine Inj) (03/23/17 04:15) Urinalysis - C+S If Indicated (03/23/17 04:08) Complete Blood Count With Diff (03/23/17 04:08) Comprehensive Metabolic Panel (03/23/17 04:08) Lipase (03/23/17 04:08) Ct Abd/Pel W/O Iv Contrast (03/23/17 ) Sodium Chlor 0.9% 1000 Ml Inj (Ns 1000 M (03/23/17 06:15) Morphine Inj (Morphine Inj) (03/23/17 06:15) Urine Culture (03/23/17 05:10) Ceftriaxone Inj (Rocephin Inj) (03/23/17 06:30) Ed Discharge Order (03/23/17 06:57) Labs Laboratory Tests Test 03/23/17 04:15 03/23/17 05:10 White Blood Count 15.3 TH/MM3 Red Blood Count 4.25 MIL/MM3 Hemoglobin 11.2 GM/DL Hematocrit 34.1 % Mean Corpuscular Volume 80.4 FL Mean Corpuscular Hemoglobin 26.4 PG Mean Corpuscular Hemoglobin Concent 32.9 % Red Cell Distribution Width 17.6 % Platelet Count 474 TH/MM3 Mean Platelet Volume 7.1 FL Neutrophils (%) (Auto) 77.2 % Lymphocytes (%) (Auto) 15.4 % Monocytes (%) (Auto) 5.3 % Eosinophils (%) (Auto) 1.5 % Basophils (%) (Auto) 0.6 % Neutrophils # (Auto) 11.9 TH/MM3 Lymphocytes # (Auto) 2.4 TH/MM3 Monocytes # (Auto) 0.8 TH/MM3 Eosinophils # (Auto) 0.2 TH/MM3 Basophils # (Auto) 0.1 TH/MM3 CBC Comment DIFF FINAL Differential Comment Blood Urea Nitrogen 20 MG/DL Creatinine 0.90 MG/DL Random Glucose 346 MG/DL Total Protein 8.0 GM/DL Albumin 3.7 GM/DL Calcium Level 9.1 MG/DL Alkaline Phosphatase 176 U/L Aspartate Amino Transf (AST/SGOT) 23 U/L Alanine Aminotransferase (ALT/SGPT) 29 U/L Total Bilirubin 0.2 MG/DL Sodium Level 137 MEQ/L Potassium Level 4.2 MEQ/L Chloride Level 103 MEQ/L Carbon Dioxide Level 24.1 MEQ/L Anion Gap 10 MEQ/L Estimat Glomerular Filtration Rate 65 ML/MIN Lipase 233 U/L Urine Color YELLOW Urine Turbidity HAZY Urine pH 5.0 Urine Specific [place] 1.020 Urine Protein TRACE mg/dL Urine Glucose (UA) 1000 mg/dL Urine Ketones 10 mg/dL Urine Occult Blood MOD Urine Nitrite NEG Urine Bilirubin NEG Urine Urobilinogen LESS THAN 2.0 MG/DL Urine Leukocyte Esterase LARGE Urine RBC /hpf Urine WBC 109 /hpf Urine WBC Clumps FEW Urine Squamous Epithelial Cells 1 /hpf Urine Transitional Epithelial Cells <1 /hpf Urine Uric Acid Crystals MOD /hpf Urine Bacteria RARE /hpf Urine Mucus FEW /lpf Urine Yeast (Budding) FEW Microscopic Urinalysis Comment CATH-CULTURE IND MDM Medical Decision Making Medical Screen Exam Complete: Yes Emergency Medical Condition: Yes Differential Diagnosis Differential diagnosis includes renal colic from kidney stone versus pyelonephritis versus gallbladder disease versus intra-abdominal pathology ischemic colitis versus mesenteric adenitis possible appendicitis all right- sided pain possibilities Narrative Course Patient's symptoms and CAT scan showed that she has a 4 mm stone at her right UV junction I have given her Toradol 2 L of normal saline IV to morphine then after slight period of time her pain is returning to give her 2 more morphine IV and another liter fluid awaiting urine results we will discharge her home with Dr. Parekh urology number he is seen in the past for kidney stones and I will give her Flomax and pain medication and antibiotics if her urine is positive for white blood cells Diagnosis Primary Impression: Renal stones Referrals: Jarod Blankenship MD Patient Instructions: General Instructions, Kidney Stones (DC), Renal Colic (ED ) Additional Instructions: Take the Flomax every night to help push through renal stone into your bladder. Take ibuprofen and the pain pill when the pain gets severe follow-up with Dr. Blankenship for definitive treatment for your kidney stone. His number has been included on the discharge papers. Return to the ER if pain gets too severe to manage or you are unable to manage pain with the meds by mouth ..or you have difficulty following up with Urology Scripts Ondansetron Odt (Zofran Odt) 4 Mg Tab 4 MG SL Q12HR Y for Nausea/Vomiting, #20 TAB 0 Refills Prov: Babatunde Dunham MD 03/23/17 Ciprofloxacin (Cipro) 250 Mg Tab 250 MG PO BID for Infection, #10 TAB 0 Refills Prov: Babatunde Dunham MD 03/23/17 Ibuprofen (Ibuprofen) 800 Mg Tab 800 MG PO Q8H Y for PAIN SCALE 4 TO 6, #20 TAB 0 Refills Prov: Babatunde Dunham MD 03/23/17 Oxycodone-Acetaminophen (Percocet) 5-325 mg Tab 1-2 TAB PO Q6H Y for PAIN, #12 TAB 0 Refills Prov: Babatunde Dunham MD 03/23/17 Tamsulosin (Flomax) 0.4 Mg Cap 0.4 MG PO HS for Manage Prostate Problems, #8 CAP 0 Refills Prov: Babatunde Dunham MD 03/23/17 Disposition: 01 DISCHARGE HOME Condition: Good Babatunde Dunham MD Mar 23, 2017 05:55
[2017-03-23 06:00] VITALS: BP 158/68; PULSE 114; RESP 20; O2SAT 95
[2017-03-23 06:13] LABS: BACTERIA, URINE RARE /hpf; BILIRUBIN, URINE NEG (NEG); BLOOD, URINE MOD (NEG); GLUCOSE,URINE 1000 mg/dL (NEG); KETONE, URINE 10 mg/dL (NEG); MUCUS URINE FEW /lpf (OCC); NITRITE,URINE NEG (NEG); SQUAMOUS EPITHELIAL CELL URINE 1 /hpf (0-5); TRANSITIONAL EPI CELLS, URINE <1 /hpf; URIC ACID CRYSTALS, URINE MOD /hpf; URINE COLOR YELLOW (YELLW/STRAW); URINE LEUKOCYTE ESTERASE LARGE (NEG); WHITE BLOOD CELL CLUMPS FEW
[2017-03-23] MEDS ORDERED: PERC5TAB12 PO (06:14)
[2017-03-23] MEDS ORDERED: TAMS5CAP PO (06:14)
[2017-03-23] MEDS ORDERED: CIPR250T52 PO (06:15)
[2017-03-23] MEDS ORDERED: IBUP1TAB7 PO (06:15)
[2017-03-23] MEDS ORDERED: ZOFR4TAB3 SL (06:19)
[2017-03-23] MEDS ORDERED: cefTRIAXone INJ 1,000 MG in SODIUM CHLORIDE 0.9% INJ 100 ML IV ONE (06:30)
[2017-03-23 07:12] VITALS: BP 152/66; PULSE 100; RESP 15; TEMP 97.7; O2SAT 96
[2017-03-23 08:00] VITALS: BP 138/81; TEMP 98
== END 2017-03-23 08:00 | disposition home or self-care (01) ==
LOC: NEPC 03:41
DX: N20.2 Calculus of kidney with calculus of ureter (principal); N13.30 Unspecified hydronephrosis; E78.00 Pure hypercholesterolemia, unspecified; E11.9 Type 2 diabetes mellitus without complications; I10 Essential (primary) hypertension; K21.9 Gastro-esophageal reflux disease without esophagitis; Z87.442 Personal history of urinary calculi; Z79.01 Long term (current) use of anticoagulants; Z79.82 Long term (current) use of aspirin; Z79.4 Long term (current) use of insulin; Z79.84 Long term (current) use of oral hypoglycemic drugs
CPT/HCPCS: 74176; 80053; 81001; 83690; 85025; 87086; 96361; 96365; 96375; 96376; 99284; J0696; J1885; J2270; J2405; J7030

== ENCOUNTER 2017-04-21 02:37 | Emergency (ER) | payer OTHER ==
[~2017-04-21] VITALS: Ht 165.1 cm; Wt 105.0 kg
[~2017-04-21 02:37] MED LIST changes: -AMIO200T PO; -CARV3.125 PO; +CARV6.252 PO; +CIPR250T52 PO; -DOCU1CAP39 PO; -DULA10IN SQ; +IBUP1TAB7 PO; -OXYC1TAB63 PO; +PERC5TAB12 PO; +TAMS5CAP PO; +ZOFR4TAB3 SL
[2017-04-21 02:49] VITALS: BP 111/64; PULSE 101; RESP 18; TEMP 98; O2SAT 95
--- NOTE | 2017-04-21 05:32 | RADRPT ---
EXAM DATE/TIME: 04/21/2017 04:42 [facility] COMPARISON: CT ABDOMEN & PELVIS W/O CONTRAST, March 23, 2017, 4:56. INDICATIONS : Left flank pain. ORAL CONTRAST: No oral contrast ingested. RADIATION DOSE: 32.50 CTDIvol (mGy) ; High dose protocol; Patient body habitus MEDICAL HISTORY : Cardiovascular disease. Gastroesophageal reflux disease. Diabetes mellitus type 2.Hypertension. SURGICAL HISTORY : Cholecystectomy. Cardiac cath. ENCOUNTER: Initial ACUITY: 2 days PAIN SCALE: 8/10 LOCATION: flank TECHNIQUE: Volumetric scanning of the abdomen and pelvis was performed. Using automated exposure control and ad justment of the mA and/or kV according to patient size, radiation dose was kept as low as reasonably achievable to obtain optimal diagnostic quality images. DICOM format image data is available electro nically for review and comparison. FINDINGS: LOWER LUNGS: The visualized lower lungs are clear. LIVER: Homogeneous density without lesion. There is no dilation of the biliary tree. No calcified gallston es. SPLEEN: Normal size without lesion. PANCREAS: Within normal limits. KIDNEYS: Previously seen stone in the distal right ureter is no longer present. Right renal collecting system and ureter are normal in caliber throughout their length. Again noted are prominent stones in the lef t renal collecting system with one in the midpole measuring approximately 9 mm in diameter and a seco nd stone in the dilated renal pelvis measuring 1 cm in diameter. Progressive pelvocaliectasis from th e prior exam with some perinephric stranding. 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 No ureteric stone. ADRENAL GLANDS: Within normal limits. VASCULAR: There is no aortic aneurysm. BOWEL/MESENTERY: The stomach, small bowel, and colon demonstrate no acute abnormality. There is no free intraperitone al air or fluid. ABDOMINAL WALL: Within normal limits. RETROPERITONEUM: There is no lymphadenopathy. BLADDER: No wall thickening or mass. REPRODUCTIVE: Stable 2.7 cm low density lesion in the left adnexa adjacent to the uterus may represent an ovarian c yst. INGUINAL: There is no lymphadenopathy or hernia. MUSCULOSKELETAL: Bilateral pars fractures at L5. CONCLUSION: 1. Previously seen right renal and ureteral stones have resolved. 2. 1 cm stones in the left mid pole collecting system and left renal pelvis. The pelvic stone may int ermittently obstruct resulting in some pelvocaliectasis and prominence of the left renal pelvis. 3. 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 4. 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 5. Stable 2.7 cm hypodensity in the left adnexal region probably represents an ovarian cyst Carlito Duran MD on April 21, 2017 at 5:21 Board Certified Radiologist. This report was verified electronically.
[2017-04-21 06:20] VITALS: BP 138/82; PULSE 78; RESP 20; O2SAT 98
[2017-04-21] MEDS: SODIUM CHLOR 0.9% 1000 ML INJ 1,000 ML IV SCH (06:22)
[2017-04-21] MEDS: MORPHINE SULFATE 4 MG/ML INJ IV PUSH ONE (06:23)
[2017-04-21] MEDS: ONDANSETRON HCL 4 MG/2 ML VIAL IVP ONE (06:23)
[2017-04-21] MEDS: KETOROLAC TROMETHAMINE 30 MG/ML (IVP) VIAL IVP ONE (06:23)
[2017-04-21] MEDS: SODIUM CHLORIDE 0.9% FLUSH 10 ML FLUSH IV FLUSH PRN (06:24)
[2017-04-21 06:50] LABS: BASOPHIL # 0.1 TH/MM3 (0-0.2); BASOPHIL % 0.6 % (0.0-2.0); EOSINOPHIL # 0.2 TH/MM3 (0-0.4); EOSINOPHIL % 1.6 % (0.0-4.0); HEMATOCRIT 33.9 % (35.0-46.0); HEMOGLOBIN 11.2 GM/DL (11.6-15.3); LYMPH % 14.6 % (9.0-44.0); LYMPHOCYTE # 1.6 TH/MM3 (1.0-4.8); MEAN CORPUSCULAR HEMOGLOBIN 26.3 PG (27.0-34.0); MEAN CORPUSCULAR HGB CONC 32.9 % (32.0-36.0); MEAN PLATELET VOLUME 8.2 FL (7.0-11.0); MONO % 11.8 % (0.0-8.0); MONOCYTE # 1.3 TH/MM3 (0-0.9); NEUT % 71.4 % (16.0-70.0); PLATELET COUNT 235 TH/MM3 (150-450); RED BLOOD COUNT 4.24 MIL/MM3 (4.00-5.30); RED CELL DISTRIBUTION WIDTH 17.8 % (11.6-17.2); WHITE BLOOD COUNT 11.2 TH/MM3 (4.0-11.0)
--- NOTE | 2017-04-21 06:55 | PD ---
HPI Chief Complaint: Flank/Kidney Pain Time Seen by Provider: 04:02 Travel History International Travel<30 days: No Contact w/Intl Traveler<30days: No Traveled to known affect area: No History of Present Illness HPI Patient is a 56 year old female who comes in complaining of left flank pain. She says it is been going on for 3 days and she is worried that she has a kidney stone. She says she has had multiple stones, but never had one on the left. She says she had nausea and vomiting a few days ago, but that has improved. She says that she thinks she might have passed the stone. She denies fever chills. She took some hydrocodone a few days ago that helped a little bit. She denies any dysuria. Severity is mild to moderate. PFSH Past Medical History Hx Anticoagulant Therapy: Yes Arthritis: No Asthma: No Blood Disorders: No Anxiety: No Depression: No Heart Rhythm Problems: Yes (HAD HEART MURMUR AND PALPITATIONS) Cancer: No Cardiac Catheterization: Yes (X2) Cardiovascular Problems: Yes High Cholesterol: Yes Chemotherapy: No Chest Pain: Yes Congestive Heart Failure: No COPD: No Diabetes: Yes Patient Takes Glucophage: Yes (04/20/2017 1600) Diminished Hearing: No Endocrine: Yes Gastrointestinal Disorders: Yes (GERD, IBS, VERICOSE VEIN IN ABDOMEN) GERD: Yes Genitourinary: Yes (UTI, INCONTIENTS) Headaches: Yes Hepatitis: No Hiatal Hernia: Yes Heparin Induced Thrombocytopen: No Hypertension: Yes Immune Disorder: No Implanted Vascular Access Dvce: No Kidney Stones: Yes Medical other: Yes (UMBILICAL HERNIA ) Musculoskeletal: Yes (OA) Neurologic: Yes (NEUROPATHY,BILATERAL HANDS WEAK, HERNIATED DISK) Psychiatric: No Reproductive: No Respiratory: No Radiation Therapy: No Renal Failure: No Sickle Cell Disease: No Sleep Apnea: No 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) Ulcer: No Tetanus Vaccination: Unknown Influenza Vaccination: Yes ?: Not LMP: menapause Menopausal: Yes Past Surgical History Abdominal Surgery: Yes ( GALLBLADDER) AICD: No Arteriovenous Shunt: No Body Medical Devices: STAPLE LEFT EYE ORBITAL AREA Cardiac Surgery: Yes (CARDIAC CATH X2) Section: Yes Cholecystectomy: Yes Ear Surgery: No Endocrine Surgery: No Eye Surgery: No Genitourinary Surgery: No Gynecologic Surgery: Yes () Insulin Pump: No Joint Replacement: No Oral Surgery: Yes (wisdom teeth, FACIAL FX REPAIR, TONSILLECTOMY) Pacemaker: No Thoracic Surgery: No Tonsillectomy: Yes Other Surgery: Yes ("NOSE & CHEEK ANANYA") Social History Alcohol Use: No Tobacco Use: No Substance Use: No Allergies-Medications (Allergen,Severity, Reaction): Coded Allergies: lisinopril (Verified Allergy, Severe, COUGH, 04/21/17) Reported Meds & Prescriptions Reported Meds & Active Scripts Active Colace (Docusate Sodium) 100 Mg Capsule 100 Mg PO BID Hydrocodone-Acetaminophen 5-325 mg Tab 1 Tab PO Q6H PRN Macrobid (Nitrofurantoin Monoh/Nitrofur Macro) 100 Mg Cap 100 Mg PO BID 10 Days Zofran Odt (Ondansetron Odt) 4 Mg Tab 4 Mg SL Q12HR PRN Ibuprofen 800 Mg Tab 800 Mg PO Q8H PRN Percocet (Oxycodone-Acetaminophen) 5-325 mg Tab 1-2 Tab PO Q6H PRN Flomax (Tamsulosin HCl) 0.4 Mg Cap 0.4 Mg PO HS Atorvastatin (Atorvastatin Calcium) 40 Mg Tab 40 Mg PO HS Plavix (Clopidogrel Bisulfate) 75 Mg Tab 75 Mg PO DAILY Reported Carvedilol 6.25 Mg Tab 6.25 Mg PO BID Ferrous Sulfate 325 Mg (65 Mg Iron) Tablet 325 Mg PO BIDPC Magnesium Oxide 250 Mg Tab 250 Mg PO DAILY Decker-3 Fish Oil/Vitamin (Fish Oil-Cholecalciferol) 1,000-1,000 Mg Cap 1 Cap PO DAILY Pantoprazole (Pantoprazole Sodium) 20 Mg Tab 20 Mg PO DAILY Cinnamon (Flavoring Agent) 3.7 Ml Oil 1 Mg PO DAILY Garlique (Garlic) 5,000 Mcg Tab 1 Mg PO DAILY Vitamin E43-[id number] Acid (Cobalamine Combinations) 500-400 Mcg Tab 1 Tab PO DAILY Aspirin DR (Aspirin) 81 Mg Tabdr 81 Mg PO DAILY Tresiba Flextouch Pen Inj (Insulin Degludec Inj) 300 unit/3 ML Pen 20 Units SQ DAILY Metformin ER (Metformin HCl) 750 Mg Perfecto 750 Mg PO BID Resume on 06/14/16 Review of Systems Except as stated in HPI: all other systems reviewed are Neg General / Constitutional: No: Fever, Chills HENT: No: Headaches, Lightheadedness Cardiovascular: No: Chest Pain or Discomfort Respiratory: No: Shortness of Breath Gastrointestinal: Positive: Nausea, Vomiting, Abdominal Pain Genitourinary: Positive: Flank Pain Skin: No Rash, No Change in Pigmentation Physical Exam Narrative GENERAL: Awake and alert, no acute distress. SKIN: Focused skin assessment warm/dry. HEAD: Atraumatic. Normocephalic. EYES: Pupils equal and round. No scleral icterus. ENT: Mucous membranes pink and moist. NECK: Trachea midline. No JVD. CARDIOVASCULAR: Regular rate and rhythm. No murmur appreciated. RESPIRATORY: No accessory muscle use. Clear to auscultation. Breath sounds equal bilaterally. GASTROINTESTINAL: Abdomen soft, nondistended. Left CVA tenderness. MUSCULOSKELETAL: No obvious deformities. No clubbing. No cyanosis. No edema. NEUROLOGICAL: Awake and alert. No obvious cranial nerve deficits. Motor grossly within normal limits. Normal speech. PSYCHIATRIC: Appropriate mood and affect; insight and judgment normal. Data Data Last Documented VS Vital Signs Date Time Temp Pulse Resp B/P (MAP) Pulse Ox O2 Delivery O2 Flow Rate FiO2 04/21/17 09:40 82 18 118/62 (80) 97 Orders Orders Complete Blood Count With Diff (04/21/17 04:15) Comprehensive Metabolic Panel (04/21/17 04:15) Urinalysis - C+S If Indicated (04/21/17 04:15) Ct Abd/Pel W/O Iv Contrast (04/21/17 04:15) Iv Access Insert/Monitor (04/21/17 04:15) Ecg Monitoring (04/21/17 04:15) Oximetry (04/21/17 04:15) Morphine Inj (Morphine Inj) (04/21/17 04:15) Ondansetron Inj (Zofran Inj) (04/21/17 04:15) Sodium Chlor 0.9% 1000 Ml Inj (Ns 1000 M (04/21/17 04:15) Sodium Chloride 0.9% Flush (Ns Flush) (04/21/17 04:15) Ketorolac Inj (Toradol Inj) (04/21/17 04:15) Blood Culture (04/21/17 07:43) Ceftriaxone Inj (Rocephin Inj) (04/21/17 07:45) Lactic Acid (04/21/17 07:54) Urine Culture (04/21/17 07:12) Ed Discharge Order (04/21/17 08:57) Labs Laboratory Tests Test 04/21/17 06:15 04/21/17 07:12 04/21/17 08:00 White Blood Count 11.2 TH/MM3 Red Blood Count 4.24 MIL/MM3 Hemoglobin 11.2 GM/DL Hematocrit 33.9 % Mean Corpuscular Volume 80.0 FL Mean Corpuscular Hemoglobin 26.3 PG Mean Corpuscular Hemoglobin Concent 32.9 % Red Cell Distribution Width 17.8 % Platelet Count 235 TH/MM3 Mean Platelet Volume 8.2 FL Neutrophils (%) (Auto) 71.4 % Lymphocytes (%) (Auto) 14.6 % Monocytes (%) (Auto) 11.8 % Eosinophils (%) (Auto) 1.6 % Basophils (%) (Auto) 0.6 % Neutrophils # (Auto) 8.0 TH/MM3 Lymphocytes # (Auto) 1.6 TH/MM3 Monocytes # (Auto) 1.3 TH/MM3 Eosinophils # (Auto) 0.2 TH/MM3 Basophils # (Auto) 0.1 TH/MM3 CBC Comment AUTO DIFF Differential Total Cells Counted 100 Neutrophils % (Manual) 43 % Band Neutrophils % 24 % Lymphocytes % 11 % Monocytes % 16 % Eosinophils % 3 % Basophils % 1 % Neutrophils # (Manual) 7.7 TH/MM3 Myelocytes 2 % Differential Comment FINAL DIFF MANUAL Platelet Estimate NORMAL Platelet Morphology Comment CLUMPED Red Cell Morphology Comment NORMAL Blood Urea Nitrogen 31 MG/DL Creatinine 1.13 MG/DL Random Glucose 372 MG/DL Total Protein 7.3 GM/DL Albumin 2.5 GM/DL Calcium Level 8.7 MG/DL Alkaline Phosphatase 320 U/L Aspartate Amino Transf (AST/SGOT) 52 U/L Alanine Aminotransferase (ALT/SGPT) 54 U/L Total Bilirubin 0.7 MG/DL Sodium Level 132 MEQ/L Potassium Level 4.5 MEQ/L Chloride Level 97 MEQ/L Carbon Dioxide Level 24.5 MEQ/L Anion Gap 11 MEQ/L Estimat Glomerular Filtration Rate 50 ML/MIN Urine Color YELLOW Urine Turbidity HAZY Urine pH 5.5 Urine Specific [place] 1.026 Urine Protein TRACE mg/dL Urine Glucose (UA) 1000 mg/dL Urine Ketones TRACE mg/dL Urine Occult Blood SMALL Urine Nitrite NEG Urine Bilirubin NEG Urine Urobilinogen 2.0 MG/DL Urine Leukocyte Esterase LARGE Urine RBC 8 /hpf Urine WBC /hpf Urine WBC Clumps FEW Urine Squamous Epithelial Cells 2 /hpf Urine Bacteria RARE /hpf Urine Mucus FEW /lpf Microscopic Urinalysis Comment CULTURE INDICATED Lactic Acid Level 1.3 mmol/L [facility] Medical Decision Making Medical Screen Exam Complete: Yes Emergency Medical Condition: Yes Medical Record Reviewed: Yes Differential Diagnosis Pyelonephritis versus UTI versus renal stone Narrative Course Patient is a 56-year-old female comes in complaining of left flank pain. Exam shows left CVA tenderness. IV established, labs sent. Labs show no acute abnormalities. CT abdomen pelvis performed shows a stone within the left kidney , no definitively obstructing stone. Last 24 hours Impressions Abdomen/Pelvis CT 04/21/17 0415 Signed Impressions: Service Date/Time: Sunday, April 21, 2017 04:42 - CONCLUSION: 1. Previously seen right renal and ureteral stones have resolved. 2. 1 cm stones in the left mid pole collecting system and left renal pelvis. The pelvic stone may intermittently obstruct resulting in some pelvocaliectasis and prominence of the left renal pelvis. 3. 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 4. 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 5. Stable 2.7 cm hypodensity in the left adnexal region probably represents an ovarian cyst Carlito Duran MD Patient is feeling better after pain medicine and fluids. Patient signed out to Dr. Gupta to follow up testing and disposition the patient. Scripts Docusate Sodium (Colace) 100 Mg Capsule 100 MG PO BID for Prevent Constipation, #20 CAP 0 Refills Prov: Fredi Gupta MD 04/21/17 Hydrocodone-Acetaminophen (Hydrocodone-Acetaminophen) 5-325 mg Tab 1 TAB PO Q6H Y for PAIN, #10 TAB 0 Refills Prov: Fredi Gupta MD 04/21/17 Nitrofurantoin Monohydrate Macrocrystals (Macrobid) 100 Mg Cap 100 MG PO BID for Infection for 10 Days, #20 CAP 0 Refills Prov: Fredi Gupta MD 04/21/17 Anne Kiran MD Apr 21, 2017 06:55
[2017-04-21 07:11] LABS: ALKALINE PHOSPHATASE 320 U/L (45-117); TOTAL BILIRUBIN ADULT 0.7 MG/DL (0.2-1.0); TOTAL PROTEIN 7.3 GM/DL (6.4-8.2)
[2017-04-21 07:18] LABS: ALBUMIN 2.5 GM/DL (3.4-5.0); ALT (GPT) 54 U/L (10-53); BICARBONATE 24.5 MEQ/L (21.0-32.0); BLOOD UREA NITROGEN 31 MG/DL (7-18); CALCIUM 8.7 MG/DL (8.5-10.1); CHLORIDE 97 MEQ/L (98-107); CREATININE 1.13 MG/DL (0.50-1.00); GLOMERULAR FILTRATION RATE 50 ML/MIN (>89); GLUCOSE,RANDOM 372 MG/DL (74-106); SODIUM (NA) 132 MEQ/L (136-145)
[2017-04-21 07:19] LABS: AST (GOT) 52 U/L (15-37)
[2017-04-21 07:35] LABS: BANDS 24 % (0-6); BASOPHILS 1 % (0-2); LYMPHOCYTES 11 % (9-44); MONOCYTES 16 % (0-8); MYELOCYTES 2 % (0-0); NEUTROPHIL # MANUAL DIFF 7.7 TH/MM3 (1.8-7.7); POLYS (SEG NEUTROPHILS) 43 % (16-70)
[2017-04-21 07:58] LABS: BACTERIA, URINE RARE /hpf; BILIRUBIN, URINE NEG (NEG); BLOOD, URINE SMALL (NEG); GLUCOSE,URINE 1000 mg/dL (NEG); KETONE, URINE TRACE mg/dL (NEG); MUCUS URINE FEW /lpf (OCC); NITRITE,URINE NEG (NEG); PH, URINE 5.5 (5.0-8.5); SQUAMOUS EPITHELIAL CELL URINE 2 /hpf (0-5); URINE COLOR YELLOW (YELLW/STRAW); URINE LEUKOCYTE ESTERASE LARGE (NEG); WHITE BLOOD CELL CLUMPS FEW
[2017-04-21] MEDS: cefTRIAXone INJ 1,000 MG in SODIUM CHLORIDE 0.9% INJ 100 ML IV ONE (08:02)
[2017-04-21] MEDS ORDERED: MACR100C2 PO (08:55)
[2017-04-21] MEDS ORDERED: COLA100C5 PO (08:56)
[2017-04-21] MEDS ORDERED: HYDR-3516 PO (08:56)
--- NOTE | 2017-04-21 08:57 | PD ---
Physical Exam Date Seen by Provider: Apr 21, 2017 Time Seen by Provider: 08:50 Narrative 56-year-old female came to the emergency room with history of flank pain. Patient has history of multiple kidney stones. She was seen by the previous ER physician. Please refer to her history and physical for further details. Signout was to follow-up on blood test and UA. The CT scan shows a 1 cm stone in the mid ureter. Blood test results came back and patient has slight leukocytosis with bandemia. UA shows significant UTI with glucosuria. Patient is a diabetic and her blood sugar was 372. I ordered for IV antibiotic and patient was given IV fluid initially. Lactic acid is within normal limits. I discussed the CT scan finding in the blood test results with the urologist Dr. Morales and as per him since the leukocytosis is not immense and she does not have fever he is okay discharging her home on p.o. antibiotic. He wants to see her in his office on Sunday to perform a shockwave lithotripsy. I explained all this to the patient and she understands. She is comfortable going home. I will discharge her home on Macrobid prescription. I have asked her to return to the emergency room if her symptoms worsens. Data Data Last Documented VS Orders Orders Complete Blood Count With Diff (04/21/17 04:15) Comprehensive Metabolic Panel (04/21/17 04:15) Urinalysis - C+S If Indicated (04/21/17 04:15) Ct Abd/Pel W/O Iv Contrast (04/21/17 04:15) Iv Access Insert/Monitor (04/21/17 04:15) Ecg Monitoring (04/21/17 04:15) Oximetry (04/21/17 04:15) Morphine Inj (Morphine Inj) (04/21/17 04:15) Ondansetron Inj (Zofran Inj) (04/21/17 04:15) Sodium Chlor 0.9% 1000 Ml Inj (Ns 1000 M (04/21/17 04:15) Sodium Chloride 0.9% Flush (Ns Flush) (04/21/17 04:15) Ketorolac Inj (Toradol Inj) (04/21/17 04:15) Blood Culture (04/21/17 07:43) Ceftriaxone Inj (Rocephin Inj) (04/21/17 07:45) Lactic Acid (04/21/17 07:54) Urine Culture (04/21/17 07:12) Ed Discharge Order (04/21/17 08:57) Labs Laboratory Tests Test 04/21/17 06:15 04/21/17 07:12 04/21/17 08:00 White Blood Count 11.2 TH/MM3 Red Blood Count 4.24 MIL/MM3 Hemoglobin 11.2 GM/DL Hematocrit 33.9 % Mean Corpuscular Volume 80.0 FL Mean Corpuscular Hemoglobin 26.3 PG Mean Corpuscular Hemoglobin Concent 32.9 % Red Cell Distribution Width 17.8 % Platelet Count 235 TH/MM3 Mean Platelet Volume 8.2 FL Neutrophils (%) (Auto) 71.4 % Lymphocytes (%) (Auto) 14.6 % Monocytes (%) (Auto) 11.8 % Eosinophils (%) (Auto) 1.6 % Basophils (%) (Auto) 0.6 % Neutrophils # (Auto) 8.0 TH/MM3 Lymphocytes # (Auto) 1.6 TH/MM3 Monocytes # (Auto) 1.3 TH/MM3 Eosinophils # (Auto) 0.2 TH/MM3 Basophils # (Auto) 0.1 TH/MM3 CBC Comment AUTO DIFF Differential Total Cells Counted 100 Neutrophils % (Manual) 43 % Band Neutrophils % 24 % Lymphocytes % 11 % Monocytes % 16 % Eosinophils % 3 % Basophils % 1 % Neutrophils # (Manual) 7.7 TH/MM3 Myelocytes 2 % Differential Comment FINAL DIFF MANUAL Platelet Estimate NORMAL Platelet Morphology Comment CLUMPED Red Cell Morphology Comment NORMAL Blood Urea Nitrogen 31 MG/DL Creatinine 1.13 MG/DL Random Glucose 372 MG/DL Total Protein 7.3 GM/DL Albumin 2.5 GM/DL Calcium Level 8.7 MG/DL Alkaline Phosphatase 320 U/L Aspartate Amino Transf (AST/SGOT) 52 U/L Alanine Aminotransferase (ALT/SGPT) 54 U/L Total Bilirubin 0.7 MG/DL Sodium Level 132 MEQ/L Potassium Level 4.5 MEQ/L Chloride Level 97 MEQ/L Carbon Dioxide Level 24.5 MEQ/L Anion Gap 11 MEQ/L Estimat Glomerular Filtration Rate 50 ML/MIN Urine Color YELLOW Urine Turbidity HAZY Urine pH 5.5 Urine Specific [place] 1.026 Urine Protein TRACE mg/dL Urine Glucose (UA) 1000 mg/dL Urine Ketones TRACE mg/dL Urine Occult Blood SMALL Urine Nitrite NEG Urine Bilirubin NEG Urine Urobilinogen 2.0 MG/DL Urine Leukocyte Esterase LARGE Urine RBC 8 /hpf Urine WBC /hpf Urine WBC Clumps FEW Urine Squamous Epithelial Cells 2 /hpf Urine Bacteria RARE /hpf Urine Mucus FEW /lpf Microscopic Urinalysis Comment CULTURE INDICATED Lactic Acid Level 1.3 mmol/L MDM Supervised Visit with RM: No Physician Communication Physician Communication Dr. Morales Diagnosis Primary Impression: UTI (urinary tract infection) Qualified Codes: N39.0 - Urinary tract infection, site not specified Additional Impressions: Ureteral calculus Hyperglycemia Referrals: Dorian Morales MD 2 days Additional Instruction: Please call the office of the urologist whose name and number been given to you on the discharge instruction on Sunday to get an appointment as soon as possible. Return to the emergency room if the condition worsens or any other new concerns. Continue checking your blood sugar and take your diabetes medications like you are supposed to. Take the pain medication that has been prescribed to you only if the pain is severe. You have been given additional laxative in case you do take the pain medication since it will constipate you. However if the pain is uncontrollable you should come back to the emergency room for further evaluation. Med/Other Pt SpecificInfo: Prescription(s) given Scripts Docusate Sodium (Colace) 100 Mg Capsule 100 MG PO BID for Prevent Constipation, #20 CAP 0 Refills Prov: Fredi Gupta MD 04/21/17 Hydrocodone-Acetaminophen (Hydrocodone-Acetaminophen) 5-325 mg Tab 1 TAB PO Q6H Y for PAIN, #10 TAB 0 Refills Prov: Fredi Gupta MD 04/21/17 Nitrofurantoin Monohydrate Macrocrystals (Macrobid) 100 Mg Cap 100 MG PO BID for Infection for 10 Days, #20 CAP 0 Refills Prov: Fredi Gupta MD 04/21/17 Disposition: 01 DISCHARGE HOME Condition: Stable Fredi Gupta MD Apr 21, 2017 08:57
[2017-04-21 09:40] VITALS: BP 118/62
== END 2017-04-21 09:41 | disposition home or self-care (01) ==
LOC: NEPC 02:37
DX: N39.0 Urinary tract infection, site not specified (principal); N20.9 Urinary calculus, unspecified; D72.829 Elevated white blood cell count, unspecified; D72.825 Bandemia; E11.65 Type 2 diabetes mellitus with hyperglycemia; R01.1 Cardiac murmur, unspecified; I10 Essential (primary) hypertension; Z87.19 Personal history of other diseases of the digestive system; Z87.442 Personal history of urinary calculi
CPT/HCPCS: 74176; 80053; 81001; 83605; 85007; 85027; 87040; 87077; 87086; 87186; 87205; 96361; 96365; 96375; 99284; J0696; J1885; J2270; J2405; J7030

== ENCOUNTER 2017-04-24 08:54 | Inpatient (IN) | payer OTHER ==
[2017-04-24] VITALS (7 sets, daily range): BP systolic 137–148; BP diastolic 63–80; PULSE 82–93; RESP 16–20; TEMP 97.8–97.9; O2SAT 94–97
[~2017-04-24] VITALS: Ht 162.6 cm; Wt 105.9 kg
[~2017-04-24 08:54] MED LIST changes: +COLA100C5 PO; +HYDR-3516 PO; +MACR100C2 PO
--- NOTE | 2017-04-24 09:52 | PD ---
HPI Chief Complaint: Abnormal Results Time Seen by Provider: 09:45 Travel History International Travel<30 days: No Contact w/Intl Traveler<30days: No Traveled to known affect area: No History of Present Illness HPI 56-year-old female patient with history of valvular replacement done [address] Leach, CAD, hypertension, diabetes, multiple medical issues, recently seen for kidney stones, had blood cultures which were positive and she was called by her primary care physician to come back to the ER to get IV antibiotics because they state that it could affect her heart valve. She denies any recent fevers but states that she is still having pain from the kidney stone and is currently scheduled to see the urologist in a few weeks. She denies new issues. Modifying Factors: None Associated Signs & Symptoms: Positive blood cultures Risk Factors: Recent valve replacement PFSH Past Medical History Hx Anticoagulant Therapy: Yes Arthritis: No Asthma: No Blood Disorders: No Anxiety: No Depression: No Heart Rhythm Problems: Yes (HAD HEART MURMUR AND PALPITATIONS) Cancer: No Cardiac Catheterization: Yes (X2) Cardiovascular Problems: Yes High Cholesterol: Yes Chemotherapy: No Chest Pain: Yes Congestive Heart Failure: No COPD: No Diabetes: Yes Diminished Hearing: No Endocrine: Yes Gastrointestinal Disorders: Yes (GERD, IBS, VERICOSE VEIN IN ABDOMEN) GERD: Yes Genitourinary: Yes (UTI, INCONTIENTS) Headaches: Yes Hepatitis: No Hiatal Hernia: Yes Heparin Induced Thrombocytopen: No Hypertension: Yes Immune Disorder: No Implanted Vascular Access Dvce: No Kidney Stones: Yes Musculoskeletal: Yes (OA) Neurologic: Yes (NEUROPATHY,BILATERAL HANDS WEAK, HERNIATED DISK) Psychiatric: No Reproductive: No Respiratory: No Radiation Therapy: No Renal Failure: No Sickle Cell Disease: No Sleep Apnea: No 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) Ulcer: No Menopausal: Yes Past Surgical History Abdominal Surgery: Yes ( GALLBLADDER) AICD: No Arteriovenous Shunt: No Body Medical Devices: STAPLE LEFT EYE ORBITAL AREA Cardiac Surgery: Yes (CARDIAC CATH X2) Section: Yes Cholecystectomy: Yes Ear Surgery: No Endocrine Surgery: No Eye Surgery: No Genitourinary Surgery: No Gynecologic Surgery: Yes () Insulin Pump: No Joint Replacement: No Oral Surgery: Yes (wisdom teeth, FACIAL FX REPAIR, TONSILLECTOMY) Pacemaker: No Thoracic Surgery: No Tonsillectomy: Yes Other Surgery: Yes ("NOSE & CHEEK ANANYA") Social History Alcohol Use: No Tobacco Use: No Substance Use: No Allergies-Medications (Allergen,Severity, Reaction): Coded Allergies: lisinopril (Verified Allergy, Severe, COUGH, 04/21/17) Reported Meds & Prescriptions Reported Meds & Active Scripts Active Colace (Docusate Sodium) 100 Mg Capsule 100 Mg PO BID Hydrocodone-Acetaminophen 5-325 mg Tab 1 Tab PO Q6H PRN Macrobid (Nitrofurantoin Monoh/Nitrofur Macro) 100 Mg Cap 100 Mg PO BID 10 Days Zofran Odt (Ondansetron Odt) 4 Mg Tab 4 Mg SL Q12HR PRN Ibuprofen 800 Mg Tab 800 Mg PO Q8H PRN Percocet (Oxycodone-Acetaminophen) 5-325 mg Tab 1-2 Tab PO Q6H PRN Flomax (Tamsulosin HCl) 0.4 Mg Cap 0.4 Mg PO HS Atorvastatin (Atorvastatin Calcium) 40 Mg Tab 40 Mg PO HS Plavix (Clopidogrel Bisulfate) 75 Mg Tab 75 Mg PO DAILY Reported Carvedilol 6.25 Mg Tab 6.25 Mg PO BID Ferrous Sulfate 325 Mg (65 Mg Iron) Tablet 325 Mg PO BIDPC Magnesium Oxide 250 Mg Tab 250 Mg PO DAILY [place]-3 Fish Oil/Vitamin (Fish Oil-Cholecalciferol) 1,000-1,000 Mg Cap 1 Cap PO DAILY Pantoprazole (Pantoprazole Sodium) 20 Mg Tab 20 Mg PO DAILY Cinnamon (Flavoring Agent) 3.7 Ml Oil 1 Mg PO DAILY Garlique (Garlic) 5,000 Mcg Tab 1 Mg PO DAILY Vitamin B59-[id number] Acid (Cobalamine Combinations) 500-400 Mcg Tab 1 Tab PO DAILY Aspirin DR (Aspirin) 81 Mg Tabdr 81 Mg PO DAILY Tresiba Flextouch Pen Inj (Insulin Degludec Inj) 300 unit/3 ML Pen 20 Units SQ DAILY Metformin ER (Metformin HCl) 750 Mg Perfecto 750 Mg PO BID Resume on 06/14/16 Review of Systems Except as stated in HPI: all other systems reviewed are Neg Physical Exam Narrative GENERAL: Well-developed middle-age female patient currently in mild distress. Awake and oriented 3. SKIN: Focused skin assessment warm/dry. HEAD: Atraumatic. Normocephalic. EYES: Pupils equal and round. No scleral icterus. No injection or drainage. ENT: No nasal bleeding or discharge. Mucous membranes pink and moist. NECK: Trachea midline. No JVD. CARDIOVASCULAR: Regular rate and rhythm. No murmur appreciated. RESPIRATORY: No accessory muscle use. Clear to auscultation. Breath sounds equal bilaterally. GASTROINTESTINAL: Abdomen soft, non-tender, nondistended. Hepatic and splenic margins not palpable. MUSCULOSKELETAL: No obvious deformities. No clubbing. No cyanosis. No edema. NEUROLOGICAL: Awake and alert. No obvious cranial nerve deficits. Motor grossly within normal limits. Normal speech. PSYCHIATRIC: Appropriate mood and affect; insight and judgment normal. Data Data Last Documented VS Vital Signs Date Time Temp Pulse Resp B/P (MAP) Pulse Ox O2 Delivery O2 Flow Rate FiO2 04/24/17 11:47 96 Room Air 04/24/17 11:47 86 18 138/66 (90) 04/24/17 09:15 97.9 Orders Orders Sepsis Workup Initiated (04/24/17 ) Complete Blood Count With Diff (04/24/17 09:45) Comprehensive Metabolic Panel (04/24/17 09:45) Lactic Acid Sepsis Protocol (04/24/17 09:45) Urinalysis - C+S If Indicated (04/24/17 09:45) Blood Culture (04/24/17 09:45) Blood Glucose (04/24/17 09:45) Ecg Monitoring (04/24/17 09:45) Iv Access Insert/Monitor (04/24/17 09:45) Oximetry (04/24/17 09:45) Oxygen Administration (04/24/17 09:45) Piperacil-Tazo 4.5 Gm Premix (Zosyn 4.5 (04/24/17 11:58) Urine Culture (04/24/17 11:25) Admit Order (Ed Use Only) (04/24/17 12:18) Labs Laboratory Tests Test 04/24/17 10:45 04/24/17 11:25 White Blood Count 14.3 TH/MM3 Red Blood Count 4.04 MIL/MM3 Hemoglobin 10.3 GM/DL Hematocrit 32.4 % Mean Corpuscular Volume 80.2 FL Mean Corpuscular Hemoglobin 25.4 PG Mean Corpuscular Hemoglobin Concent 31.7 % Red Cell Distribution Width 18.0 % Platelet Count 374 TH/MM3 Mean Platelet Volume 7.6 FL Neutrophils (%) (Auto) 71.7 % Lymphocytes (%) (Auto) 18.5 % Monocytes (%) (Auto) 7.7 % Eosinophils (%) (Auto) 1.4 % Basophils (%) (Auto) 0.7 % Neutrophils # (Auto) 10.3 TH/MM3 Lymphocytes # (Auto) 2.6 TH/MM3 Monocytes # (Auto) 1.1 TH/MM3 Eosinophils # (Auto) 0.2 TH/MM3 Basophils # (Auto) 0.1 TH/MM3 CBC Comment AUTO DIFF Differential Total Cells Counted 100 Neutrophils % (Manual) 66 % Band Neutrophils % 8 % Lymphocytes % 14 % Monocytes % 3 % Eosinophils % 2 % Basophils % 1 % Neutrophils # (Manual) 11.4 TH/MM3 Metamyelocytes 5 % Myelocytes 1 % Differential Comment FINAL DIFF MANUAL Toxic Granulation 1+ Toxic Vacuolation PRESENT Platelet Estimate NORMAL Platelet Morphology Comment NORMAL Blood Urea Nitrogen 20 MG/DL Creatinine 0.89 MG/DL Random Glucose 310 MG/DL Total Protein 7.1 GM/DL Albumin 2.5 GM/DL Calcium Level 8.6 MG/DL Alkaline Phosphatase 356 U/L Aspartate Amino Transf (AST/SGOT) 48 U/L Alanine Aminotransferase (ALT/SGPT) 62 U/L Total Bilirubin 0.4 MG/DL Sodium Level 135 MEQ/L Potassium Level 4.2 MEQ/L Chloride Level 101 MEQ/L Carbon Dioxide Level 25.9 MEQ/L Anion Gap 8 MEQ/L Estimat Glomerular Filtration Rate 66 ML/MIN Lactic Acid Level 1.0 mmol/L Urine Color YELLOW Urine Turbidity CLOUDY Urine pH 6.0 Urine Specific [place] 1.023 Urine Protein 30 mg/dL Urine Glucose (UA) 1000 mg/dL Urine Ketones NEG mg/dL Urine Occult Blood MOD Urine Nitrite NEG Urine Bilirubin NEG Urine Urobilinogen LESS THAN 2.0 MG/DL Urine Leukocyte Esterase LARGE Urine RBC /hpf Urine WBC /hpf Urine WBC Clumps OCC Urine Squamous Epithelial Cells 6 /hpf Urine Bacteria MANY /hpf Urine Yeast (Budding) OCC Microscopic Urinalysis Comment CATH-CULTURE IND MDM Medical Decision Making Medical Screen Exam Complete: Yes Emergency Medical Condition: Yes Medical Record Reviewed: Yes Interpretation(s) Laboratory Tests Test 04/24/17 10:45 04/24/17 11:25 White Blood Count 14.3 TH/MM3 (4.0-11.0) Hemoglobin 10.3 GM/DL (11.6-15.3) Hematocrit 32.4 % (35.0-46.0) Mean Corpuscular Hemoglobin 25.4 PG (27.0-34.0) Mean Corpuscular Hemoglobin Concent 31.7 % (32.0-36.0) Red Cell Distribution Width 18.0 % (11.6-17.2) Neutrophils (%) (Auto) 71.7 % (16.0-70.0) Neutrophils # (Auto) 10.3 TH/MM3 (1.8-7.7) Monocytes # (Auto) 1.1 TH/MM3 (0-0.9) Band Neutrophils % 8 % (0-6) Neutrophils # (Manual) 11.4 TH/MM3 (1.8-7.7) Metamyelocytes 5 % (0-1) Myelocytes 1 % (0-0) Toxic Granulation 1+ (NORMAL) Toxic Vacuolation PRESENT (NONE SEEN) Blood Urea Nitrogen 20 MG/DL (7-18) Random Glucose 310 MG/DL (74-106) Albumin 2.5 GM/DL (3.4-5.0) Alkaline Phosphatase 356 U/L (45-117) Aspartate Amino Transf (AST/SGOT) 48 U/L (15-37) Alanine Aminotransferase (ALT/SGPT) 62 U/L (10-53) Sodium Level 135 MEQ/L (136-145) Estimat Glomerular Filtration Rate 66 ML/MIN (>89) Urine Turbidity CLOUDY (CLEAR) Urine Protein 30 mg/dL (NEG-TRACE) Urine Glucose (UA) 1000 mg/dL (NEG) Urine Occult Blood MOD (NEG) Urine Leukocyte Esterase LARGE (NEG) Urine WBC Clumps OCC (NONE) Urine Bacteria MANY /hpf (NONE) Urine Yeast (Budding) OCC (NONE) Differential Diagnosis Sepsis versus contaminant Narrative Course Lab work shows significant leukocytosis. Her UA shows positive UTI. IV antibiotics were initiated after blood cultures were drawn. At this point, my plan would be to admit her for further IV antibiotic treatment especially considering medical history. Plan was discussed with her and she states understanding. Case was discussed with Dr. Yu for admission. Diagnosis Primary Impression: Sepsis Additional Impressions: UTI (urinary tract infection) S/P AVR (aortic valve replacement) Admitting Information Admitting Physician Requests: Admit Aubrie Murphy MD Apr 24, 2017 09:52
[2017-04-24 11:12] LABS: AUTOMATED NEUTROPHIL # 10.3 TH/MM3 (1.8-7.7); BASOPHIL # 0.1 TH/MM3 (0-0.2); BASOPHIL % 0.7 % (0.0-2.0); EOSINOPHIL # 0.2 TH/MM3 (0-0.4); EOSINOPHIL % 1.4 % (0.0-4.0); HEMATOCRIT 32.4 % (35.0-46.0); HEMOGLOBIN 10.3 GM/DL (11.6-15.3); LYMPH % 18.5 % (9.0-44.0); LYMPHOCYTE # 2.6 TH/MM3 (1.0-4.8); MEAN CELL VOLUME 80.2 FL (80.0-100.0); MEAN CORPUSCULAR HEMOGLOBIN 25.4 PG (27.0-34.0); MEAN CORPUSCULAR HGB CONC 31.7 % (32.0-36.0); MEAN PLATELET VOLUME 7.6 FL (7.0-11.0); MONO % 7.7 % (0.0-8.0); MONOCYTE # 1.1 TH/MM3 (0-0.9); NEUT % 71.7 % (16.0-70.0); PLATELET COUNT 374 TH/MM3 (150-450); RED BLOOD COUNT 4.04 MIL/MM3 (4.00-5.30); WHITE BLOOD COUNT 14.3 TH/MM3 (4.0-11.0)
[2017-04-24 11:42] LABS: ALBUMIN 2.5 GM/DL (3.4-5.0); ALKALINE PHOSPHATASE 356 U/L (45-117); ALT (GPT) 62 U/L (10-53); AST (GOT) 48 U/L (15-37); BICARBONATE 25.9 MEQ/L (21.0-32.0); BLOOD UREA NITROGEN 20 MG/DL (7-18); CALCIUM 8.6 MG/DL (8.5-10.1); CHLORIDE 101 MEQ/L (98-107); CREATININE 0.89 MG/DL (0.50-1.00); GLOMERULAR FILTRATION RATE 66 ML/MIN (>89); GLUCOSE,RANDOM 310 MG/DL (74-106); SODIUM (NA) 135 MEQ/L (136-145); TOTAL BILIRUBIN ADULT 0.4 MG/DL (0.2-1.0); TOTAL PROTEIN 7.1 GM/DL (6.4-8.2)
[2017-04-24 11:50] LABS: BANDS 8 % (0-6); BASOPHILS 1 % (0-2); LYMPHOCYTES 14 % (9-44); METAMYELOCYTES 5 % (0-1); MONOCYTES 3 % (0-8); MYELOCYTES 1 % (0-0); NEUTROPHIL # MANUAL DIFF 11.4 TH/MM3 (1.8-7.7); POLYS (SEG NEUTROPHILS) 66 % (16-70)
[2017-04-24 11:53] LABS: TOXIC VACUOLATION PRESENT (NONE SEEN)
[2017-04-24 11:54] LABS: TOXIC GRANULATION 1+ (NORMAL)
[2017-04-24] MEDS ORDERED: PIPERACIL-TAZO 4.5 GM PREMIX 100 ML IV STA (11:58)
[2017-04-24 12:03] LABS: BACTERIA, URINE MANY /hpf; BILIRUBIN, URINE NEG (NEG); BLOOD, URINE MOD (NEG); GLUCOSE,URINE 1000 mg/dL (NEG); KETONE, URINE NEG (NEG); NITRITE,URINE NEG (NEG); SQUAMOUS EPITHELIAL CELL URINE 6 /hpf (0-5); URINE COLOR YELLOW (YELLW/STRAW); URINE LEUKOCYTE ESTERASE LARGE (NEG); WHITE BLOOD CELL CLUMPS OCC
[2017-04-24] MEDS ORDERED: ONDANSETRON HCL 4 MG/2 ML VIAL IVP PRN (13:00)
[2017-04-24] MEDS ORDERED: MAGNESIUM HYDROXIDE SUSP 30 ML CUP PO PRN (13:00)
[2017-04-24] MEDS ORDERED: NALOXONE HCL 0.4 MG/ML AMP IV PUSH PRN (13:00)
[2017-04-24] MEDS ORDERED: SODIUM CHLORIDE 0.9% FLUSH 10 ML FLUSH IV FLUSH PRN (13:00)
--- NOTE | 2017-04-24 13:33 | HHI.HP ---
HPI Service [facility] Hospitalists Primary Care Physician Cee Ortiz MD Admission Diagnosis UTI/sepsis Chief Complaint: positive blood culture Travel History International Travel<30 Days: No Contact w/Intl Traveler <30 Da: No Traveled to Known Affected Are: No History of Present Illness This is a 56 year old female patient with past medical history which includes DM , HTN, hyperlipidemia, iron deficiency anemia, toxic multinodular goiter and aortic stenosis with tissue AVR placed 01/16/17. Blood culture from 04/21/1702/06 with Enterococcus Faecalis. Patient was called by PCP and instructed to go to the ER. On 04/21/17 patient presented to the ER with left flank pain was diagnosed with urinary tract infection, ureteral calculus and hyperglycemia then DC'd home on Macrobid, flomax and instructed to follow up with Dr. Morales Patient endorses cloudy urine, chills and cold sweats at home. Patient also reports diarrhea for the past few days. Patient denies fevers, N/V, chest pain or SOB. Review of Systems Constitutional: COMPLAINS OF: Chills, DENIES: Fever Respiratory: DENIES: Cough, Shortness of breath Cardiovascular: DENIES: Chest pain Gastrointestinal: COMPLAINS OF: Diarrhea Musculoskeletal: COMPLAINS OF: Back pain Neurologic: DENIES: Headache, Localized weakness Psychiatric: DENIES: Anxiety, Confusion, Depression Past Family Social History Past Medical History DM, HTN, hyperlipidemia, iron deficiency anemia, toxic multinodular goiter and aortic stenosis with tissue AVR Past Surgical History Aortic valve replacement Left knee replacement C section laparoscopic Cholecystectomy EGD facial surgery left breast lumpectomy T&A Umbilical hernia repair Reported Medications Colace (Docusate Sodium) 100 Mg Capsule 100 Mg PO BID Hydrocodone-Acetaminophen 5-325 mg Tab 1 Tab PO Q6H PRN Macrobid (Nitrofurantoin Monoh/Nitrofur Macro) 100 Mg Cap 100 Mg PO BID 10 Days Zofran Odt (Ondansetron Odt) 4 Mg Tab 4 Mg SL Q12HR PRN Ibuprofen 800 Mg Tab 800 Mg PO Q8H PRN Percocet (Oxycodone-Acetaminophen) 5-325 mg Tab 1-2 Tab PO Q6H PRN Flomax (Tamsulosin HCl) 0.4 Mg Cap 0.4 Mg PO HS Atorvastatin (Atorvastatin Calcium) 40 Mg Tab 40 Mg PO HS Plavix (Clopidogrel Bisulfate) 75 Mg Tab 75 Mg PO DAILY Carvedilol 6.25 Mg Tab 6.25 Mg PO BID Ferrous Sulfate 325 Mg (65 Mg Iron) Tablet 325 Mg PO BIDPC Magnesium Oxide 250 Mg Tab 250 Mg PO DAILY [place]-3 Fish Oil/Vitamin (Fish Oil-Cholecalciferol) 1,000-1,000 Mg Cap 1 Cap PO DAILY Pantoprazole (Pantoprazole Sodium) 20 Mg Tab 20 Mg PO DAILY Cinnamon (Flavoring Agent) 3.7 Ml Oil 1 Mg PO DAILY Garlique (Garlic) 5,000 Mcg Tab 1 Mg PO DAILY Vitamin V42-Afznf Acid (Cobalamine Combinations) 500-400 Mcg Tab 1 Tab PO DAILY Aspirin DR (Aspirin) 81 Mg Tabdr 81 Mg PO DAILY Tresiba Flextouch Pen Inj (Insulin Degludec Inj) 300 unit/3 ML Pen 20 Units SQ DAILY Metformin ER (Metformin HCl) 750 Mg Perfecto 750 Mg PO BID Resume on 06/14/16 Allergies: Coded Allergies: lisinopril (Verified Allergy, Severe, COUGH, 04/21/17) Family History noncontributory Social History denies ETOH use, tobacco use or illicit drug use Physical Exam Vital Signs Vital Signs Date Time Temp Pulse Resp B/P (MAP) Pulse Ox O2 Delivery O2 Flow Rate FiO2 04/24/17 11:47 96 Room Air 04/24/17 11:47 86 18 138/66 (90) 96 Room Air 04/24/17 11:47 96 Room Air 04/24/17 09:15 97.9 93 16 148/63 (91) 97 Physical Exam GENERAL: This is a well-nourished, well-developed patient, in no apparent distress. SKIN: No rashes, ecchymoses or lesions. Cool and dry. HEAD: Atraumatic. Normocephalic. No temporal or scalp tenderness. EYES: Pupils equal round and reactive. Extraocular motions intact. No scleral icterus. No injection or drainage. ENT: Nose without bleeding, purulent drainage or septal hematoma. Throat without erythema, tonsillar hypertrophy or exudate. Uvula midline. Airway patent. NECK: Trachea midline. No JVD or lymphadenopathy. Supple, nontender, no meningeal signs. CARDIOVASCULAR: Regular rate and rhythm without murmurs, gallops, or rubs. RESPIRATORY: Clear to auscultation. Breath sounds equal bilaterally. No wheezes , rales, or rhonchi. GASTROINTESTINAL: Abdomen soft, non-tender, nondistended. No hepato-splenomegaly , or palpable masses. No guarding. MUSCULOSKELETAL: Extremities without clubbing, cyanosis, or edema. No joint tenderness, effusion, or edema noted. No calf tenderness. Negative Homans sign bilaterally. NEUROLOGICAL: Awake and alert. Cranial nerves II through XII intact. Motor and sensory grossly within normal limits. Five out of 5 muscle strength in all muscle groups. Normal speech. Laboratory Laboratory Tests Test 04/24/17 10:45 04/24/17 11:25 White Blood Count 14.3 Red Blood Count 4.04 Hemoglobin 10.3 Hematocrit 32.4 Mean Corpuscular Volume 80.2 Mean Corpuscular Hemoglobin 25.4 Mean Corpuscular Hemoglobin Concent 31.7 Red Cell Distribution Width 18.0 Platelet Count 374 Mean Platelet Volume 7.6 Neutrophils (%) (Auto) 71.7 Lymphocytes (%) (Auto) 18.5 Monocytes (%) (Auto) 7.7 Eosinophils (%) (Auto) 1.4 Basophils (%) (Auto) 0.7 Neutrophils # (Auto) 10.3 Lymphocytes # (Auto) 2.6 Monocytes # (Auto) 1.1 Eosinophils # (Auto) 0.2 Basophils # (Auto) 0.1 CBC Comment AUTO DIFF Differential Total Cells Counted 100 Neutrophils % (Manual) 66 Band Neutrophils % 8 Lymphocytes % 14 Monocytes % 3 Eosinophils % 2 Basophils % 1 Neutrophils # (Manual) 11.4 Metamyelocytes 5 Myelocytes 1 Differential Comment FINAL DIFF MANUAL Toxic Granulation 1+ Toxic Vacuolation PRESENT Platelet Estimate NORMAL Platelet Morphology Comment NORMAL Blood Urea Nitrogen 20 Creatinine 0.89 Random Glucose 310 Total Protein 7.1 Albumin 2.5 Calcium Level 8.6 Alkaline Phosphatase 356 Aspartate Amino Transf (AST/SGOT) 48 Alanine Aminotransferase (ALT/SGPT) 62 Total Bilirubin 0.4 Sodium Level 135 Potassium Level 4.2 Chloride Level 101 Carbon Dioxide Level 25.9 Anion Gap 8 Estimat Glomerular Filtration Rate 66 Lactic Acid Level 1.0 Urine Color YELLOW Urine Turbidity CLOUDY Urine pH 6.0 Urine Specific [place] 1.023 Urine Protein 30 Urine Glucose (UA) 1000 Urine Ketones NEG Urine Occult Blood MOD Urine Nitrite NEG Urine Bilirubin NEG Urine Urobilinogen LESS THAN 2.0 Urine Leukocyte Esterase LARGE Urine RBC Urine WBC Urine WBC Clumps OCC Urine Squamous Epithelial Cells 6 Urine Bacteria MANY Urine Yeast (Budding) OCC Microscopic Urinalysis Comment CATH-CULTURE IND Date/Time Source Procedure Growth Status 04/24/17 10:45 Blood Peripheral Aerobic Blood Culture Pending Received 04/24/17 10:45 Blood Peripheral Anaerobic Blood Culture Pending Received 04/24/17 11:25 Urine Catheterized Urine Urine Culture Pending Received Result Diagram: 04/24/17 1045 04/24/17 1045 Caprini VTE Risk Assessment Caprini VTE Risk Assessment: No/Low Risk (score <= 1) Caprini Risk Assessment Model Point Value = 1 Point Value = 2 Point Value = 3 Point Value = 5 Age 41-60 Minor surgery BMI > 25 kg/m2 Swollen legs Varicose veins or History of unexplained or recurrent spontaneous Oral contraceptives or hormone replacement Sepsis (< 1 month) Serious lung disease, including pneumonia (< 1 month) Abnormal pulmonary function Acute myocardial infarction Congestive heart failure (< 1 month) History of inflammatory bowel disease Medical patient at bed rest Age 61-74 Arthroscopic surgery Major open surgery (> 45 min) Laparoscopic surgery (> 45 min) Malignancy Confined to bed (> 72 hours) Immobilizing plaster cast Central venous access Age >= 75 History of VTE Family history of VTE Factor V Leiden Prothrombin [id number] Lupus anticoagulant Anticardiolipin antibodies Elevated serum homocysteine Heparin-induced thrombocytopenia Other congenital or acquired thrombophilia Stroke (< 1 month) Elective arthroplasty Hip, pelvis, or leg fracture Acute spinal cord injury (< 1 month) Prophylaxis Regimen Total Risk Factor Score Risk Level Prophylaxis Regimen 0-1 Low Early ambulation 2 Moderate Order ONE of the following: *Sequential Compression Device (SCD) *Heparin 5000 units SQ BID 3-4 Higher Order ONE of the following medications: *Heparin 5000 units SQ TID *Enoxaparin/Lovenox 40 mg SQ daily (WT < 150 kg, CrCl > 30 mL/min) *Enoxaparin/Lovenox 30 mg SQ daily (WT < 150 kg, CrCl > 10-29 mL/min) *Enoxaparin/Lovenox 30 mg SQ BID (WT < 150 kg, CrCl > 30 mL/min) AND/OR *Sequential Compression Device (SCD) 5 or more Highest Order ONE of the following medications: *Heparin 5000 units SQ TID (Preferred with Epidurals) *Enoxaparin/Lovenox 40 mg SQ daily (WT < 150 kg, CrCl > 30 mL/min) *Enoxaparin/Lovenox 30 mg SQ daily (WT < 150 kg, CrCl > 10-29 mL/min) *Enoxaparin/Lovenox 30 mg SQ BID (WT < 150 kg, CrCl > 30 mL/min) AND *Sequential Compression Device (SCD) Assessment and Plan Problem List: (1) Positive blood culture ICD Codes: R78.81 - Bacteremia Plan: Positive blood culture This is a 56 year old female patient with past medical history which includes DM , HTN, hyperlipidemia, iron deficiency anemia, toxic multinodular goiter and aortic stenosis with tissue AVR. Blood culture from 04/21/1702/06 with Enterococcus Faecalis Repeat blood culture obtains Patient given Zosyn in the ER Consult to ID UTI UA reviewed large Leukocyte esterase, WBC with clumps, many bacteria, yeast budding Urine culture pending Diarrhea check stool for C diff CAD Continue patient's home Plavix and aspirin HTN Continue patient's home Carvedilol 6.26 BID DM continue Metformin 750 mg PO BID Patient takes Tresiba 20 units SQ daily accu checks ACHS diabetic diet chronic iron deficiency anemia Continue home iron supplement hyperlipidemia Continue patient's home Atorvastatin DVT prophylaxis with SCDs (2) Aortic valve stenosis ICD Codes: I35.0 - Nonrheumatic aortic (valve) stenosis Status: Chronic (3) HTN (hypertension) ICD Codes: I10 - Essential (primary) hypertension Status: Chronic (4) DM (diabetes mellitus) ICD Codes: E11.9 - Type 2 diabetes mellitus without complications Status: Chronic (5) Dyslipidemia ICD Codes: E78.5 - Hyperlipidemia, unspecified (6) Chronic anemia ICD Codes: D64.9 - Anemia, unspecified Assessment and Plan Patient examined. Assessment and plan formulated with Cheryl Napier PA-C. I agree with the above. left nephrolithiasis x 2. enterococcus bacteremia related to kidney stones. recent AVR. going for cysto and stent in AM. ID eval and cont iv abx repeat blood and urine cx. Physician Certification 2 Midnight Certification Type: Admission for Inpatient Services Order for Inpatient Services 3The services are ordered in accordance with Medicare regulations or non- Medicare payer requirements, as applicable. In the case of services not specified as inpatient-only, they are appropriately provided as inpatient services in accordance with the 2-midnight benchmark. Estimated LOS (days): 3 3 days is the estimated time the patient will need to remain in the hospital, assuming treatment plan goals are met and no additional complications. Post-Hospital Plan: Home Cheryl Napier Apr 24, 2017 13:33 Jayme Yu MD Apr 24, 2017 20:08
--- NOTE | 2017-04-24 16:01 | PD.CONS ---
History of Present Illness Service Infectious disease Consult Requested By Dr Maria Reason for Consult Evaluate patient with bacteremia, status post aVR Primary Care Physician Cee Ortiz MD Diagnoses: History of Present Illness Patient seen and examined. Records reviewed. Patient is a 56-year-old female, presented to the hospital after she was called in to come back because of positive blood culture. Patient has been having problem for about a week prior to admission with body aches chills. She has had left flank pain, and has had on and off sweats, and probably some undocumented fevers. She also had some vomiting for several days during the early part of her illness. Patient has not been able to work, and stayed in bed , and on April 21 she decided to present to the hospital for further evaluation and treatment. She was afebrile in the emergency room. Her white count was 11, 000. Her urinalysis did show significant pyuria. Lactic acid was normal. 2 blood cultures were done at that time. CT of the abdomen and pelvis was done and it showed multiple stones in the left pelvis, and the previous stone in the right and hydronephrosis has resolved. Patient was discharged on Macrobid, and she was instructed to follow-up with the urologist. Her blood cultures came back positive today with enterococcus, so the patient was called into the hospital for further evaluation and treatment. She states she is not better. She still has diffuse body aches. She has some suprapubic pressure sensation, and denies any dysuria. She stated that she had some hematuria previously but that has resolved. She's also had one loose bowel movement a day. She is afebrile. Her white count is elevated at 14. Urinalysis still showing significant pyuria. Infectious disease consultation has been requested to evaluate the patient with positive blood culture, status post aVR last January. Review of Systems Constitutional: COMPLAINS OF: Fatigue, Fever, Chills, Dizziness, Change in appetite, Night Sweats Eyes: DENIES: Eye pain, Vision loss Ears, nose, mouth, throat: DENIES: Nasal discharge, Oral lesions, Throat pain, Hoarseness, Sinus Pain Respiratory: DENIES: Cough, Sputum production, Shortness of breath Cardiovascular: DENIES: Chest pain, Palpitations, Syncope, Dyspnea on Exertion Gastrointestinal: COMPLAINS OF: Abdominal pain, Diarrhea, Nausea, Anorexia, DENIES: Vomiting Genitourinary: COMPLAINS OF: Hematuria, Dysuria, DENIES: Urinary frequency Musculoskeletal: COMPLAINS OF: Muscle aches Integumentary: DENIES: Rash Hematologic/lymphatic: DENIES: Lymphadenopathy Immunologic/allergic: DENIES: Urticaria Neurologic: DENIES: Headache, Localized weakness Psychiatric: DENIES: Hallucinations Past Family Social History Allergies: Coded Allergies: lisinopril (Verified Allergy, Severe, COUGH, 04/21/17) Past Medical History DM Hypertension Hyperlipidemia Iron deficiency anemia Toxic multinodular goiter Aortic stenosis with tissue AVR Frequent kidney stones Past Surgical History Aortic valve replacement Left knee replacement C section Laparoscopic Cholecystectomy EGD Facial surgery Left breast lumpectomy T&A Umbilical hernia repair Active Ordered Medications Current Medications Medications (Trade) Dose Ordered Sig/Rain Route Start Time Stop Time Status Last Admin (NS Flush) 2 ml UNSCH PRN IV FLUSH 04/24/17 13:00 (NS Flush) 2 ml BID IV FLUSH 04/24/17 21:00 (Tylenol) 650 mg Q4H PRN PO 04/24/17 13:00 (Zofran Inj) 4 mg Q6H PRN IVP 04/24/17 13:00 (Narcan Inj) 0.4 mg UNSCH PRN IV PUSH 04/24/17 13:00 (Aga-Colace) 1 tab BID PO 04/24/17 21:00 (Milk Of Magnesia Liq) 30 ml Q12H PRN PO 04/24/17 13:00 (Ecotrin Ec) 81 mg DAILY PO 04/25/17 09:00 UNV (Lipitor) 40 mg HS PO 04/24/17 21:00 UNV (Coreg) 6.25 mg BID PO 04/24/17 21:00 UNV (Plavix) 75 mg DAILY PO 04/25/17 09:00 UNV (Colace) 100 mg BID PO 04/24/17 21:00 UNV (Ferrous Sulfate) 325 mg BIDPC PO 04/24/17 18:00 UNV (Protonix) 20 mg DAILY PO 04/25/17 09:00 UNV Non-Formulary Medication 750 mg BID PO 04/24/17 21:00 UNV Family History Noncontributory Social History No smoking No alcohol abuse No illicit drugs Physical Exam Vital Signs Vital Signs Date Time Temp Pulse Resp B/P (MAP) Pulse Ox O2 Delivery O2 Flow Rate FiO2 04/24/17 13:20 89 16 143/63 (89) 94 Room Air 04/24/17 11:47 96 Room Air 04/24/17 11:47 86 18 138/66 (90) 96 Room Air 04/24/17 11:47 96 Room Air 04/24/17 09:15 97.9 93 16 148/63 (91) 97 Physical Exam GENERAL: Patient is an obese, well-developed female, awake and alert, not in respiratory distress. SKIN: Cool and dry. No generalized rash, no ecchymoses and no evidence of embolic lesions. HEAD: Atraumatic. Normocephalic. No temporal wasting, or tenderness. EYES: [place] conjunctiva. No petechia or hemorrhage. Pupils equal, round and reactive to light. Extraocular movements full and intact. No scleral icterus. No injection or drainage. EARS, NOSE AND THROAT: Nose without bleeding or purulent nasal discharge. No sinus tenderness. Mucous membranes pink and moist. No oral lesions noted.. NECK: Trachea midline. Supple and not tender, no meningeal signs CARDIOVASCULAR: Regular rate and rhythm. No murmurs, rubs or gallops heard. RESPIRATORY: Clear to auscultation. Breath sounds equal bilaterally. No rales , wheezing or rhonchi ABDOMEN: Soft, non-tender, nondistended. Bowel sounds present and normoactive. No guarding. No rebound. No organomegaly. EXTREMITIES: No clubbing, cyanosis, or edema. No joint effusion, has good ROM. No calf tenderness. Well perfused and warm. BACK: NO significant CVA tenderness, no spine tenderness NEUROLOGICAL: Awake and alert. Cranial nerves grossly intact. Motor grossly within normal limits. PSYCHIATRIC: Normal affect, calm and cooperative. LINE: No evidence of infection Laboratory Laboratory Tests Test 04/24/17 10:45 04/24/17 11:25 White Blood Count 14.3 Red Blood Count 4.04 Hemoglobin 10.3 Hematocrit 32.4 Mean Corpuscular Volume 80.2 Mean Corpuscular Hemoglobin 25.4 Mean Corpuscular Hemoglobin Concent 31.7 Red Cell Distribution Width 18.0 Platelet Count 374 Mean Platelet Volume 7.6 Neutrophils (%) (Auto) 71.7 Lymphocytes (%) (Auto) 18.5 Monocytes (%) (Auto) 7.7 Eosinophils (%) (Auto) 1.4 Basophils (%) (Auto) 0.7 Neutrophils # (Auto) 10.3 Lymphocytes # (Auto) 2.6 Monocytes # (Auto) 1.1 Eosinophils # (Auto) 0.2 Basophils # (Auto) 0.1 CBC Comment AUTO DIFF Differential Total Cells Counted 100 Neutrophils % (Manual) 66 Band Neutrophils % 8 Lymphocytes % 14 Monocytes % 3 Eosinophils % 2 Basophils % 1 Neutrophils # (Manual) 11.4 Metamyelocytes 5 Myelocytes 1 Differential Comment FINAL DIFF MANUAL Toxic Granulation 1+ Toxic Vacuolation PRESENT Platelet Estimate NORMAL Platelet Morphology Comment NORMAL Blood Urea Nitrogen 20 Creatinine 0.89 Random Glucose 310 Total Protein 7.1 Albumin 2.5 Calcium Level 8.6 Alkaline Phosphatase 356 Aspartate Amino Transf (AST/SGOT) 48 Alanine Aminotransferase (ALT/SGPT) 62 Total Bilirubin 0.4 Sodium Level 135 Potassium Level 4.2 Chloride Level 101 Carbon Dioxide Level 25.9 Anion Gap 8 Estimat Glomerular Filtration Rate 66 Lactic Acid Level 1.0 Urine Color YELLOW Urine Turbidity CLOUDY Urine pH 6.0 Urine Specific [place] 1.023 Urine Protein 30 Urine Glucose (UA) 1000 Urine Ketones NEG Urine Occult Blood MOD Urine Nitrite NEG Urine Bilirubin NEG Urine Urobilinogen LESS THAN 2.0 Urine Leukocyte Esterase LARGE Urine RBC Urine WBC Urine WBC Clumps OCC Urine Squamous Epithelial Cells 6 Urine Bacteria MANY Urine Yeast (Budding) OCC Microscopic Urinalysis Comment CATH-CULTURE IND Date/Time Source Procedure Growth Status 04/24/17 10:45 Blood Peripheral Aerobic Blood Culture Pending Received 04/24/17 10:45 Blood Peripheral Anaerobic Blood Culture Pending Received 04/24/17 11:25 Urine Catheterized Urine Urine Culture Pending Received Result Diagram: 04/24/17 1045 04/24/[address] A/P from March and April 2017 reviewed by me personally Assessment and Plan Assessment and Plan IMPRESSION Enterococcal bacteremia 1/2 BC 04/21 likely source UTI, complicated, has multple kidney stones, previously obstructed on R but passes, has multiple stone in L, no hydro but with pelvocaliectasis and prominent L pelvis S/P AVR for , certainly a concern if with high grade bacteremia RECOMMENDATION IV Unasyn for the Enterococcus and broader GNR coverage Repeat UA and UC - get straight cath Urology consult Bladder scan Follow C/S Monitor progress Eill determine course of Rx once workup completed I will follow along with you Thank you for this consultation Discussed Condition With D/W Shirley Mitchell MD Apr 24, 2017 16:01
[2017-04-24 17:54] LABS: BACTERIA, URINE FEW /hpf; BILIRUBIN, URINE NEG (NEG); BLOOD, URINE SMALL (NEG); GLUCOSE,URINE 1000 mg/dL (NEG); KETONE, URINE NEG (NEG); NITRITE,URINE NEG (NEG); PH, URINE 5.5 (5.0-8.5); SQUAMOUS EPITHELIAL CELL URINE 3 /hpf (0-5); URINE COLOR YELLOW (YELLW/STRAW); URINE LEUKOCYTE ESTERASE LARGE (NEG); WHITE BLOOD CELL CLUMPS FEW
[2017-04-24] MEDS: FERROUS SULFATE 325 MG (65 MG ELEMENTAL IRON) TAB PO SCH (18:12)
[2017-04-24] MEDS: AMPICILLIN-SULBACTAM INJ 3 GM in SODIUM CHLORIDE 0.9% INJ 100 ML IV SCH ×2 (18:12→23:23)
[2017-04-24] MEDS: ATORVASTATIN 40 MG TAB PO SCH (20:52)
[2017-04-24] MEDS: SODIUM CHLORIDE 0.9% FLUSH 10 ML FLUSH IV FLUSH SCH (20:52)
[2017-04-24] MEDS: metFORMIN HCL 500 MG TAB PO SCH (20:53)
[2017-04-24] MEDS: CARVEDILOL 6.25 MG TAB PO SCH (20:54)
[2017-04-24] MEDS: TAMSULOSIN HCL 0.4 MG CAP PO SCH (20:54)
[2017-04-24] MEDS: DOCUSATE SODIUM 100 MG CAP PO SCH (20:55)
[2017-04-24] MEDS: DOCUSATE SODIUM 50 MG/SENNA 8.6 MG TAB PO SCH (20:55)
[2017-04-25] VITALS (7 sets, daily range): BP systolic 119–144; BP diastolic 57–85; PULSE 77–98; RESP 16–22; TEMP 97.1–98.5; O2SAT 94–96
[2017-04-25] MEDS ORDERED: METOPROLOL TARTRATE 25 MG TAB PO PRN (00:15)
[2017-04-25] MEDS ORDERED: CHLORHEXIDINE GLUCONATE 2 % 1 PACK (2 CLOTHS) TOPICAL PRN (00:15)
[2017-04-25] MEDS ORDERED: SODIUM CHLORID 0.9% 500 ML IV PRN (00:15)
[2017-04-25] MEDS ORDERED: POVIDONE IODINE 5% (ANTISEPSIS KIT) 4 APPLICATIONS EACH NARE PRN (00:15)
[2017-04-25] MEDS ORDERED: LACTATED RINGER'S 1000 ML IV PRN (00:15)
[2017-04-25] MEDS: MORPHINE SULFATE 4 MG/ML INJ IV PUSH PRN ×5 (00:41→21:01)
[2017-04-25] MEDS: AMPICILLIN-SULBACTAM INJ 3 GM in SODIUM CHLORIDE 0.9% INJ 100 ML IV SCH ×4 (04:37→23:22)
[2017-04-25] MEDS: metFORMIN HCL 500 MG TAB PO SCH ×2 (08:47→21:03)
[2017-04-25] MEDS: FERROUS SULFATE 325 MG (65 MG ELEMENTAL IRON) TAB PO SCH ×2 (08:47→17:29)
[2017-04-25] MEDS: PANTOPRAZOLE SOD 20 MG DELAYED RELEASE TAB PO SCH (08:47)
[2017-04-25] MEDS: CARVEDILOL 6.25 MG TAB PO SCH ×2 (08:47→21:01)
[2017-04-25] MEDS: SODIUM CHLORIDE 0.9% FLUSH 10 ML FLUSH IV FLUSH SCH ×2 (08:47→21:00)
[2017-04-25] MEDS: DOCUSATE SODIUM 100 MG CAP PO SCH ×2 (08:47→21:02)
[2017-04-25] MEDS: DOCUSATE SODIUM 50 MG/SENNA 8.6 MG TAB PO SCH ×2 (08:47→21:02)
[2017-04-25] MEDS: CLOPIDOGREL 75 MG TAB PO SCH (08:48)
[2017-04-25] MEDS: ASPIRIN EC 81 MG TABEC PO SCH (08:48)
[2017-04-25 09:50] LABS: AUTOMATED NEUTROPHIL # 8.9 TH/MM3 (1.8-7.7); BASOPHIL # 0.1 TH/MM3 (0-0.2); BASOPHIL % 0.6 % (0.0-2.0); EOSINOPHIL # 0.3 TH/MM3 (0-0.4); EOSINOPHIL % 2.1 % (0.0-4.0); HEMATOCRIT 32.3 % (35.0-46.0); HEMOGLOBIN 10.2 GM/DL (11.6-15.3); LYMPHOCYTE # 3.3 TH/MM3 (1.0-4.8); MEAN CELL VOLUME 78.9 FL (80.0-100.0); MEAN CORPUSCULAR HGB CONC 31.7 % (32.0-36.0); MEAN PLATELET VOLUME 7.6 FL (7.0-11.0); MONOCYTE # 1.1 TH/MM3 (0-0.9); NEUT % 65.3 % (16.0-70.0); PLATELET COUNT 469 TH/MM3 (150-450); RED BLOOD COUNT 4.09 MIL/MM3 (4.00-5.30); RED CELL DISTRIBUTION WIDTH 17.8 % (11.6-17.2); WHITE BLOOD COUNT 13.6 TH/MM3 (4.0-11.0)
[2017-04-25 09:56] LABS: PROTHROMBIN TIME - PATIENT 10.1 SEC (9.8-11.6)
--- NOTE | 2017-04-25 10:10 | HHI.PR ---
Subjective Remarks seems comfortable. Objective Vitals heart reg lung cta abd s/nt ext no edema Vital Signs Date Time Temp Pulse Resp B/P (MAP) Pulse Ox O2 Delivery O2 Flow Rate FiO2 04/25/17 08:00 98.5 87 20 144/84 (104) 95 04/25/17 04:04 90 04/25/17 04:00 97.8 77 20 133/74 (93) 95 04/25/17 00:00 97.8 94 20 135/85 (102) 96 04/24/17 23:59 87 04/24/17 20:00 97.8 84 20 137/73 (94) 96 04/24/17 19:43 82 04/24/17 17:51 87 18 142/80 (100) 96 04/24/17 13:20 89 16 143/63 (89) 94 Room Air 04/24/17 11:47 96 Room Air 04/24/17 11:47 86 18 138/66 (90) 96 Room Air 04/24/17 11:47 96 Room Air Result Diagram: 04/25/17 0725 04/24/17 1045 A/P Problem List: (1) Enterococcal bacteremia ICD Codes: R78.81 - Bacteremia; B95.2 - Enterococcus as the cause of diseases classified elsewhere Status: Acute Plan: Enterococcal bacteremia Left nephrolithiasis This is a 56 year old female patient with past medical history which includes DM , HTN, hyperlipidemia, iron deficiency anemia, toxic multinodular goiter and aortic stenosis with tissue AVR. Blood culture from 04/21/17 1/2 with Enterococcus Faecalis. [place] to be urinary source with left ureter/pelvic stones Repeat blood culture obtained started on Unasyn ID following Going to OR today for cysto /stent placement decide on picc line and abx/lenght of rx UTI UA reviewed large Leukocyte esterase, WBC with clumps, many bacteria, yeast budding Urine culture pending Diarrhea check stool for C diff CAD Continue patient's home Plavix and aspirin HTN Continue patient's home Carvedilol 6.26 BID DM continue Metformin 750 mg PO BID Patient takes Tresiba 20 units SQ daily accu checks ACHS diabetic diet chronic iron deficiency anemia Continue home iron supplement hyperlipidemia Continue patient's home Atorvastatin DVT prophylaxis with SCDs (2) Aortic valve stenosis ICD Codes: I35.0 - Nonrheumatic aortic (valve) stenosis Status: Chronic (3) HTN (hypertension) ICD Codes: I10 - Essential (primary) hypertension Status: Chronic (4) DM (diabetes mellitus) ICD Codes: E11.9 - Type 2 diabetes mellitus without complications Status: Chronic (5) Dyslipidemia ICD Codes: E78.5 - Hyperlipidemia, unspecified (6) Chronic anemia ICD Codes: D64.9 - Anemia, unspecified Jayme Yu MD Apr 25, 2017 10:10
[2017-04-25 10:16] LABS: BICARBONATE 23.3 MEQ/L (21.0-32.0); CALCIUM 9.2 MG/DL (8.5-10.1); CREATININE 0.73 MG/DL (0.50-1.00)
[2017-04-25 10:39] LABS: BANDS 7 % (0-6); LYMPHOCYTES 12 % (9-44); METAMYELOCYTES 5 % (0-1); MONOCYTES 12 % (0-8); MYELOCYTES 8 % (0-0); NEUTROPHIL # MANUAL DIFF 10.1 TH/MM3 (1.8-7.7); POLYS (SEG NEUTROPHILS) 54 % (16-70)
[2017-04-25] MEDS ORDERED: DEXTROSE 50% IN WATER 50 ML VIAL(D50) IV PUSH PRN (10:45)
[2017-04-25] MEDS ORDERED: GLUCAGON 1 MG/ML VIAL OTHER PRN (10:45)
--- NOTE | 2017-04-25 11:26 | HHI.IDPN ---
Subjective Subjective Remarks Patient is a 56-year-old female, presented to the hospital after she was called in to come back because of positive blood culture. Patient has been having problem for about a week prior to admission with body aches chills. She has had left flank pain, and has had on and off sweats, and probably some undocumented fevers. She also had some vomiting for several days during the early part of her illness. Patient has not been able to work, and stayed in bed , and on April 21 she decided to present to the hospital for further evaluation and treatment. She was afebrile in the emergency room. Her white count was 11, 000. Her urinalysis did show significant pyuria. Lactic acid was normal. 2 blood cultures were done at that time. CT of the abdomen and pelvis was done and it showed multiple stones in the left pelvis, and the previous stone in the right and hydronephrosis has resolved. Patient was discharged on Macrobid, and she was instructed to follow-up with the urologist. Her blood cultures came back positive today with enterococcus, so the patient was called into the hospital for further evaluation and treatment. She states she is not better. She still has diffuse body aches. She has some suprapubic pressure sensation, and denies any dysuria. She stated that she had some hematuria previously but that has resolved. She's also had one loose bowel movement a day. She is afebrile. Her white count is elevated at 14. Urinalysis still showing significant pyuria. Infectious disease consultation has been requested to evaluate the patient with positive blood culture, status post aVR last January. Antibiotics Unasyn Current Medications Medications (Trade) Dose Ordered Sig/Rain Route Start Time Stop Time Status Last Admin (NS Flush) 2 ml UNSCH PRN IV FLUSH 04/24/17 13:00 04/25/17 04:40 (NS Flush) 2 ml BID IV FLUSH 04/24/17 21:00 04/25/17 08:47 (Tylenol) 650 mg Q4H PRN PO 04/24/17 13:00 (Zofran Inj) 4 mg Q6H PRN IVP 04/24/17 13:00 (Narcan Inj) 0.4 mg UNSCH PRN IV PUSH 04/24/17 13:00 (Aga-Colace) 1 tab BID PO 04/24/17 21:00 04/25/17 08:47 (Milk Of Magnayde Liq) 30 ml Q12H PRN PO 04/24/17 13:00 (Ecotrin Ec) 81 mg DAILY PO 04/25/17 09:00 (Lipitor) 40 mg HS PO 04/24/17 21:00 04/24/17 20:52 (Coreg) 6.25 mg BID PO 04/24/17 21:00 04/25/17 08:47 (Plavix) 75 mg DAILY PO 04/25/17 09:00 (Colace) 100 mg BID PO 04/24/17 21:00 04/25/17 08:47 (Ferrous Sulfate) 325 mg BIDPC PO 04/24/17 18:00 04/25/17 08:47 (Protonix) 20 mg DAILY PO 04/25/17 09:00 04/25/17 08:47 (Glucophage) 750 mg BID PO 04/24/17 21:00 04/25/17 08:47 (Flomax) 0.4 mg HS PO 04/24/17 21:00 04/24/17 20:54 Ampicillin Sodium/ Sulbactam Sodium 3 gm/Sodium Chloride 100 ml @ 200 mls/hr Q6H IV 04/24/17 17:00 04/25/17 04:37 (Morphine Inj) 4 mg Q3H PRN IV PUSH 04/25/17 00:15 04/25/17 08:47 Lactated Ringer's 1,000 ml @ 30 mls/hr Q24H PRN IV 04/25/17 00:15 04/28/17 00:14 Sodium Chloride 500 ml @ 30 mls/hr [id number] PRN IV 04/25/17 00:15 04/28/17 00:14 (Lopressor) 25 mg [employer] PRN PO 04/25/17 00:15 04/28/17 00:14 (Betadine 5% Antisepsis Kit) 1 applic [employer] PRN EACH NARE 04/25/17 00:15 04/28/17 00:14 (Chlorhexidine 2% Cloth) 3 pack [employer] PRN TOPICAL 04/25/17 00:15 04/28/17 00:14 (NovoLOG SUPPLEMENTAL SCALE) 1 ACHS SLIDING SCALE SQ 04/25/17 12:00 (D50w (Vial) Inj) 50 ml UNSCH PRN IV PUSH 04/25/17 10:45 (Glucagon Inj) 1 mg UNSCH PRN OTHER 04/25/17 10:45 Lines PIV with no evidence of infection Past Medical History DM Hypertension Hyperlipidemia Iron deficiency anemia Toxic multinodular goiter Aortic stenosis with tissue AVR Frequent kidney stones Past Surgical History Aortic valve replacement Left knee replacement C section Laparoscopic Cholecystectomy EGD Facial surgery Left breast lumpectomy T&A Umbilical hernia repair Allergies: Coded Allergies: lisinopril (Verified Allergy, Severe, COUGH, 04/21/17) Objective . Vital Signs Date Time Temp Pulse Resp B/P (MAP) Pulse Ox O2 Delivery O2 Flow Rate FiO2 04/25/17 08:00 98.5 87 20 144/84 (104) 95 04/25/17 04:04 90 04/25/17 04:00 97.8 77 20 133/74 (93) 95 04/25/17 00:00 97.8 94 20 135/85 (102) 96 04/24/17 23:59 87 04/24/17 20:00 97.8 84 20 137/73 (94) 96 04/24/17 19:43 82 04/24/17 17:51 87 18 142/80 (100) 96 04/24/17 13:20 89 16 143/63 (89) 94 Room Air 04/24/17 11:47 96 Room Air 04/24/17 11:47 86 18 138/66 (90) 96 Room Air 04/24/17 11:47 96 Room Air . Laboratory Tests Test 04/24/17 10:45 04/25/17 07:25 White Blood Count 14.3 TH/MM3 13.6 TH/MM3 Red Blood Count 4.04 MIL/MM3 4.09 MIL/MM3 Hemoglobin 10.3 GM/DL 10.2 GM/DL Hematocrit 32.4 % 32.3 % Mean Corpuscular Volume 80.2 FL 78.9 FL Mean Corpuscular Hemoglobin 25.4 PG 25.0 PG Mean Corpuscular Hemoglobin Concent 31.7 % 31.7 % Red Cell Distribution Width 18.0 % 17.8 % Platelet Count 374 TH/MM3 469 TH/MM3 Mean Platelet Volume 7.6 FL 7.6 FL Neutrophils (%) (Auto) 71.7 % 65.3 % Lymphocytes (%) (Auto) 18.5 % 24.0 % Monocytes (%) (Auto) 7.7 % 8.0 % Eosinophils (%) (Auto) 1.4 % 2.1 % Basophils (%) (Auto) 0.7 % 0.6 % Neutrophils # (Auto) 10.3 TH/MM3 8.9 TH/MM3 Lymphocytes # (Auto) 2.6 TH/MM3 3.3 TH/MM3 Monocytes # (Auto) 1.1 TH/MM3 1.1 TH/MM3 Eosinophils # (Auto) 0.2 TH/MM3 0.3 TH/MM3 Basophils # (Auto) 0.1 TH/MM3 0.1 TH/MM3 CBC Comment AUTO DIFF AUTO DIFF Differential Total Cells Counted 100 100 Neutrophils % (Manual) 66 % 54 % Band Neutrophils % 8 % 7 % Lymphocytes % 14 % 12 % Monocytes % 3 % 12 % Eosinophils % 2 % 2 % Basophils % 1 % Neutrophils # (Manual) 11.4 TH/MM3 10.1 TH/MM3 Metamyelocytes 5 % 5 % Myelocytes 1 % 8 % Differential Comment FINAL DIFF MANUAL FINAL DIFF MANUAL Toxic Granulation 1+ Toxic Vacuolation PRESENT Platelet Estimate NORMAL HIGH Platelet Morphology Comment NORMAL NORMAL Laboratory Tests Test 04/24/17 10:45 04/25/17 07:25 Blood Urea Nitrogen 20 MG/DL 17 MG/DL Creatinine 0.89 MG/DL 0.73 MG/DL Random Glucose 310 MG/DL 278 MG/DL Total Protein 7.1 GM/DL Albumin 2.5 GM/DL Calcium Level 8.6 MG/DL 9.2 MG/DL Alkaline Phosphatase 356 U/L Aspartate Amino Transf (AST/SGOT) 48 U/L Alanine Aminotransferase (ALT/SGPT) 62 U/L Total Bilirubin 0.4 MG/DL Sodium Level 135 MEQ/L 137 MEQ/L Potassium Level 4.2 MEQ/L 3.9 MEQ/L Chloride Level 101 MEQ/L 103 MEQ/L Carbon Dioxide Level 25.9 MEQ/L 23.3 MEQ/L Anion Gap 8 MEQ/L 11 MEQ/L Estimat Glomerular Filtration Rate 66 ML/MIN 83 ML/MIN Lactic Acid Level 1.0 mmol/L Microbiology Date/Time Source Procedure Growth Status 04/24/17 10:45 Blood Peripheral Aerobic Blood Culture - Preliminary NO GROWTH IN 1 DAY Resulted 04/24/17 10:45 Blood Peripheral Anaerobic Blood Culture - Preliminary NO GROWTH IN 1 DAY Resulted 04/24/17 10:40 Blood Peripheral Aerobic Blood Culture - Preliminary NO GROWTH IN 1 DAY Resulted 04/24/17 10:40 Blood Peripheral Anaerobic Blood Culture - Preliminary NO GROWTH IN 1 DAY Resulted 04/24/17 17:20 Urine Catheterized Urine Urine Culture Pending Received 04/24/17 11:25 Urine Catheterized Urine Urine Culture - Final 50-100,000 CFU/ML MIXED GRAM POSITIVE... Complete Physical Exam GENERAL: awake and alert, not in respiratory distress. SKIN: Cool and dry. No generalized rash, no ecchymoses and no evidence of embolic lesions. HEAD: Atraumatic. Normocephalic. No temporal wasting, or tenderness. EYES: [place] conjunctiva. No petechia or hemorrhage. Pupils equal, round and reactive to light. Extraocular movements full and intact. No scleral icterus. No injection or drainage. EARS, NOSE AND THROAT: Nose without bleeding or purulent nasal discharge. No sinus tenderness. Mucous membranes pink and moist. No oral lesions noted.. NECK: Trachea midline. Supple and not tender, no meningeal signs CARDIOVASCULAR: Regular rate and rhythm. No murmurs, rubs or gallops heard. RESPIRATORY: Clear to auscultation. Breath sounds equal bilaterally. No rales , wheezing or rhonchi ABDOMEN: Soft, non-tender, nondistended. Bowel sounds present and normoactive. No guarding. No rebound. No organomegaly. EXTREMITIES: No clubbing, cyanosis, or edema. No joint effusion, has good ROM. No calf tenderness. Well perfused and warm. BACK: NO significant CVA tenderness, no spine tenderness NEUROLOGICAL: Awake and alert. Cranial nerves grossly intact. Motor grossly within normal limits. PSYCHIATRIC: Normal affect, calm and cooperative. LINE: No evidence of infection Assessment & Plan Remarks IMPRESSION Enterococcal bacteremia 1 out of 2 BC 04/21 likely source UTI, complicated, has multiple kidney stones, previously obstructed on R but passed, has multiple stone in L, no hydro but with pelvocaliectasis and prominent L pelvis S/P AVR for , certainly a concern if with high grade bacteremia RECOMMENDATION IV Unasyn for the Enterococcus and broader GNR coverage Repeat UA and UC - get straight cath To get procedure today by Follow C/S Monitor progress Will determine course of Rx once workup completed Explained plan to the patient I will be off April 26-25, other ID M.D. covering in my absence Shirley Guthrie MD Apr 25, 2017 11:26
[2017-04-25] MEDS: INSULIN ASPART SUPPLEMENTAL SCALE SQ SCH ×3 (11:58→21:34)
[2017-04-25] MEDS ORDERED: PHENYLEPH/NS 1000 MCG/10 ML SYR IV ONE (12:00)
[2017-04-25] MEDS ORDERED: LIDOCAINE HCL 1% PF 5 ML SYRINGE OTHER ONE (12:00)
[2017-04-25] MEDS ORDERED: ONDANSETRON HCL 4 MG/2 ML VIAL IV ONE (12:00)
[2017-04-25] MEDS ORDERED: DEXAMETHASONE SOD PHOS 4 MG/ML VIAL IV ONE (12:00)
[2017-04-25] MEDS ORDERED: ePHEDrine/NS 25 MG/5 ML SYRINGE IV ONE (12:00)
[2017-04-25] MEDS ORDERED: ROCURONIUM INJ 50 MG/5 ML SYRINGE IV PUSH ONE (12:00)
[2017-04-25] MEDS ORDERED: PROPOFOL 200 MG/20 ML AMP IV ONE (12:00)
--- NOTE | 2017-04-25 14:19 | MB ---
cc: LaloTonilennox iRos DO DATE: 04/25/2017 HISTORY OF PRESENT ILLNESS: Ms. Hodgson is a pleasant 56-year-old female who was found to have a 1.4 cm left UPJ stone causing obstruction and a 1 cm left renal stone. She was also noted to have some positive blood cultures and has had fever and chills at home with some evidence of vomiting at times. Blood cultures grew out Enterococcus and her white count was noted to be 14. She does note some intermittent left-sided flank pain. PAST MEDICAL HISTORY: Includes diabetes, hypertension, hyperlipidemia, anemia, toxic multinodular goiter, aortic stenosis, history of kidney stones. PAST SURGICAL HISTORY: Aortic valve replacement approximately 6 months ago, left knee replacement, , laparoscopic cholecystectomy, EGD, lumpectomy, tonsils and adenoids and umbilical hernia repair. MEDICATIONS: Please refer to the chart. FAMILY HISTORY: Noted for stones. SOCIAL HISTORY: She denies smoking, drinking or using drugs. REVIEW OF SYSTEMS: She has left-sided flank pain, intermittent fever and chills, nausea and vomiting, left-sided flank pain. Denies chest pain, shortness of breath. Denies diarrhea or constipation. Denies gait disturbances, bleeding, sores or skin lesions or psychiatric problems. Remaining review of systems were reviewed and were negative. PHYSICAL EXAMINATION: PRESENT VITAL SIGNS TODAY: Temperature 97.9, heart rate 88, respiratory rate 22, 138/78. GENERAL: She is an obese 56-year-old female in no acute distress. HEENT: Normocephalic, atraumatic. Pupils equal, round, regular, reactive to light. Extraocular movements intact. NECK: Supple. HEART: Regular rate and rhythm. LUNGS: Clear. ABDOMEN: Soft, nontender, nondistended. There is left CVA tenderness noted. : Normal female external genitalia is noted. EXTREMITIES: No cyanosis, clubbing, or edema. NEUROLOGIC: Cranial nerves 2-12 are intact. SKIN: No lesions. LABORATORY DATA: White count 13.6, hemoglobin 10.2, hematocrit 32.3, platelet count of 469. Sodium 137, potassium 3.9, chloride 103, CO2 23.3, BUN of 17, creatinine 0.73, glucose of 278. Urinalysis shows numerous red and white cells are noted. CT scan shows a 1.4 cm left UPJ stone with a 1 cm left renal stone with hydronephrosis and some perinephric stranding. ASSESSMENT: A 56-year-old female admitted with sepsis and obstructing left ureteral stone with hydronephritis. RECOMMEND: A cystoscopy with left double-J stent insertion. The patient will need to have followup left extracorporeal shockwave lithotripsy once her infection has cleared and we will need to hold her Plavix and aspirin prior if okay with Cardiology. Thank you for the consult and allowing me to participate in the care of this patient. DO SUZE Ospina/ROSEMARY , 01:59 PM , 02:17 PM
[2017-04-25] MEDS ORDERED: SUGAMMADEX SODIUM 200 MG/2 ML VIAL IV PUSH ONE (14:37)
[2017-04-25] MEDS ORDERED: IOHEXOL 300 MG/ML 100 ML BTL (for Rad CT) OTHER ONE (14:39)
[2017-04-25] MEDS ORDERED: BELLADONNA ALKALOIDS/OPIUM 60 MG SUPP RECTAL PRN (14:45)
--- NOTE | 2017-04-25 14:47 | PD.OP ---
Operative Report Date of Surgery: Apr 25, 2017 Preoperative Diagnosis: Left ureteral and renal calculi with hydronephrosis and sepsis Postoperative Diagnosis: Same Procedure: Cystoscopy with left retrograde pyelogram and left double-J stent insertion Anesthesia: LMA Surgeon: Austin May Aeronautical Project Engineer(s): None Resident Surgeon: None Operation and Findings: 56-year-old female who presented with enterococcus sepsis with findings of a 1 cm left UPJ stone as well as a left renal calculus causing obstruction. Decision made to bring the patient to the operating room and undergo cystoscopy with left double-J stent insertion. Risk and benefits were discussed preoperative she is willing to proceed. The patient was brought to the operating room and identified by myself as Azra Hodgson. She is placed in dorsal lithotomy position, prepped draped in usual sterile fashion, received preprocedure antibiotics and general LMA anesthesia was administered. 22 Maori cystoscope was inserted and the bladder subramanian cystoscopy showed some erythema within the bladder but no other abnormalities were identified. A 5 Maori opening catheter was inserted into the left ureteral orifice and a retrograde pyelogram was performed. The stone was visualized in the area of the left UPJ and his hydronephrosis noted. A 0.35 sensor wire was then passed through the open-ended catheter with a good curl in the kidney. The opening catheter was then removed. A 6 Maori 22 cm Cook urological stent was then passed over the wire with a good curl in thkidney and the bladder. The kidney was then decompressed and the bladder was evacuated. She was extubated and transferred to her room stable condition. She'll follow-up in the office in 2 weeks to undergo scheduling for possible left extracoporeal shockwave lithotripsy in the future. This is provided that she can hold her Plavix and aspirin given her history of valvular heart disease with recent replacement and history of cardiac stents. She will need cardiac clearance preoperatively. Austin May DO Apr 25, 2017 14:47
[2017-04-25] MEDS ORDERED: DO NOT ADM ANY ANTICOAGULANT DRUGS PRN (14:54)
[2017-04-25] MEDS ORDERED: MIDAZOLAM HCL 2 MG/2 ML VIAL ONE (15:02)
[2017-04-25] MEDS ORDERED: INSULIN HUMAN REGULAR 1,000 UNITS/10 ML VIAL SQ ONE (15:20)
[2017-04-25] MEDS ORDERED: INSULIN NovoLIN REGULAR SUPPLEMENTAL SCALE ONE (15:20)
[2017-04-25] MEDS: SODIUM CHLOR 0.9% 1000 ML INJ 1,000 ML IV SCH ×2 (15:40→23:23)
[2017-04-25] MEDS: PHENAZOPYRIDINE HCL 100 MG TAB PO SCH (17:29)
[2017-04-25] MEDS: TAMSULOSIN HCL 0.4 MG CAP PO SCH (21:02)
[2017-04-25] MEDS: ATORVASTATIN 40 MG TAB PO SCH (21:02)
[2017-04-25] MEDS: INSULIN DETEMIR 100 UNITS/ML VIAL SQ SCH (21:20)
[2017-04-26] VITALS (8 sets, daily range): BP systolic 122–167; BP diastolic 66–81; PULSE 71–98; RESP 18–22; TEMP 97.4–97.9; O2SAT 97–100
[2017-04-26] MEDS: PHENAZOPYRIDINE HCL 100 MG TAB PO SCH ×3 (00:48→16:44)
[2017-04-26] MEDS: MORPHINE SULFATE 4 MG/ML INJ IV PUSH PRN ×4 (00:48→21:30)
[2017-04-26] MEDS: AMPICILLIN-SULBACTAM INJ 3 GM in SODIUM CHLORIDE 0.9% INJ 100 ML IV SCH ×4 (03:59→21:28)
[2017-04-26] MEDS: INSULIN ASPART SUPPLEMENTAL SCALE SQ SCH ×4 (08:00→21:41)
[2017-04-26] MEDS: INSULIN DETEMIR 100 UNITS/ML VIAL SQ SCH ×2 (09:00→21:41)
[2017-04-26] MEDS: DOCUSATE SODIUM 50 MG/SENNA 8.6 MG TAB PO SCH ×2 (09:00→21:25)
[2017-04-26] MEDS: SODIUM CHLORIDE 0.9% FLUSH 10 ML FLUSH IV FLUSH SCH ×2 (09:00→21:27)
[2017-04-26] MEDS: CLOPIDOGREL 75 MG TAB PO SCH (09:14)
[2017-04-26] MEDS: FERROUS SULFATE 325 MG (65 MG ELEMENTAL IRON) TAB PO SCH ×2 (09:14→16:44)
[2017-04-26] MEDS: ASPIRIN EC 81 MG TABEC PO SCH (09:14)
[2017-04-26] MEDS: CARVEDILOL 6.25 MG TAB PO SCH ×2 (09:14→21:25)
[2017-04-26] MEDS: DOCUSATE SODIUM 100 MG CAP PO SCH ×2 (09:15→21:00)
[2017-04-26] MEDS: PANTOPRAZOLE SOD 20 MG DELAYED RELEASE TAB PO SCH (09:15)
--- NOTE | 2017-04-26 09:53 | HHI.PR ---
Subjective Patient symptoms today Pt seen and examined. Feels well. Some stent discomfort. Objective Vital Signs Vital Signs Date Time Temp Pulse Resp B/P (MAP) Pulse Ox O2 Delivery O2 Flow Rate FiO2 04/26/17 08:00 97.9 85 20 167/81 (109) 97 04/26/17 04:00 98 04/26/17 04:00 97.8 71 18 146/66 (92) 100 04/26/17 00:00 97.8 98 18 122/72 (89) 97 04/25/17 20:00 98 04/25/17 20:00 97.9 86 16 119/57 (77) 94 04/25/17 16:30 97.1 84 20 133/80 (97) 95 04/25/17 15:40 98.5 82 16 111/60 (77) 95 Nasal Cannula 2 04/25/17 15:30 80 15 115/61 (79) 94 Nasal Cannula 2 04/25/17 15:15 88 15 117/62 (80) 99 Nasal Cannula 3 04/25/17 15:00 91 15 119/61 (80) 97 Nasal Cannula 3 04/25/17 14:54 98.0 92 14 120/63 (82) 95 Nasal Cannula 3 04/25/17 12:00 86 04/25/17 12:00 97.9 88 22 138/78 (98) 94 Intake & Output 04/26/17 04/26/17 07:00 19:00 Intake Total 1099 ml Output Total 1200 ml Balance -101 ml IV Total 1099 ml Output Urine Total 1200 ml Result Diagram: 04/25/17 1445 04/25/17 2014 Objective Remarks Abd:soft,nt,nd Voiding well. Medications and IVs Current Medications Medications (Trade) Dose Ordered Sig/Rain Route Start Time Stop Time Status Last Admin (NS Flush) 2 ml UNSCH PRN IV FLUSH 04/24/17 13:00 04/25/17 04:40 (NS Flush) 2 ml BID IV FLUSH 04/24/17 21:00 04/25/17 08:47 (Tylenol) 650 mg Q4H PRN PO 04/24/17 13:00 (Zofran Inj) 4 mg Q6H PRN IVP 04/24/17 13:00 (Narcan Inj) 0.4 mg UNSCH PRN IV PUSH 04/24/17 13:00 (Aga-Colace) 1 tab BID PO 04/24/17 21:00 04/25/17 21:02 (Milk Of Tena Liedilberto) 30 ml Q12H PRN PO 04/24/17 13:00 (Ecotrin Ec) 81 mg DAILY PO 04/25/17 09:00 04/26/17 09:14 (Lipitor) 40 mg HS PO 04/24/17 21:00 04/25/17 21:02 (Coreg) 6.25 mg BID PO 04/24/17 21:00 04/26/17 09:14 (Plavix) 75 mg DAILY PO 04/25/17 09:00 04/26/17 09:14 (Colace) 100 mg BID PO 04/24/17 21:00 04/26/17 09:15 (Ferrous Sulfate) 325 mg BIDPC PO 04/24/17 18:00 04/26/17 09:14 (Protonix) 20 mg DAILY PO 04/25/17 09:00 04/26/17 09:15 (Glucophage) 750 mg BID PO 04/24/17 21:00 04/25/17 21:03 (Flomax) 0.4 mg HS PO 04/24/17 21:00 04/25/17 21:02 Ampicillin Sodium/ Sulbactam Sodium 3 gm/Sodium Chloride 100 ml @ 200 mls/hr Q6H IV 04/24/17 17:00 04/26/17 03:59 (Morphine Inj) 4 mg Q3H PRN IV PUSH 04/25/17 00:15 04/26/17 03:59 Lactated Ringer's 1,000 ml @ 30 mls/hr Q24H PRN IV 04/25/17 00:15 04/28/17 00:14 Sodium Chloride 500 ml @ 30 mls/hr [id number] PRN IV 04/25/17 00:15 04/28/17 00:14 (Lopressor) 25 mg METAL SORTER PRN PO 04/25/17 00:15 04/28/17 00:14 (Betadine 5% Antisepsis Kit) 1 applic METAL SORTER PRN EACH NARE 04/25/17 00:15 04/28/17 00:14 (Chlorhexidine 2% Cloth) 3 pack METAL SORTER PRN TOPICAL 04/25/17 00:15 04/28/17 00:14 (B & O Supp) 60 mg Q6HR PRN RECTAL 04/25/17 14:45 (Pyridium) 100 mg Q8H PO 04/25/17 16:00 04/26/17 09:15 Miscellaneous Information ALL NURSING DEPARTME... UNSCH PRN .XX 04/25/17 14:54 04/26/17 14:53 Sodium Chloride 1,000 ml @ 125 mls/hr Q8H IV 04/25/17 15:30 04/25/17 23:23 (NovoLOG SUPPLEMENTAL SCALE) 1 ACHS SLIDING SCALE SQ 04/26/17 08:00 04/26/17 08:00 (Levemir Inj) 15 units Q12HR SQ 04/25/17 21:15 04/25/17 21:20 Assessment and Plan Assessment and Plan 56 y.o female with sepsis and obstructing stone with hydro s/p left JJ stent insertion yesterday Continue IV Abx Will need left ESWL as outpt once infection has cleared Will need to hold Plavix/ASA one week prior to ESWL. Austin May DO Apr 26, 2017 09:53
[2017-04-26 09:54] LABS: BASOPHIL # 0.1 TH/MM3 (0-0.2); BASOPHIL % 0.5 % (0.0-2.0); EOSINOPHIL # 0.2 TH/MM3 (0-0.4); EOSINOPHIL % 0.9 % (0.0-4.0); HEMOGLOBIN 9.9 GM/DL (11.6-15.3); LYMPH % 20.2 % (9.0-44.0); LYMPHOCYTE # 3.3 TH/MM3 (1.0-4.8); MEAN CELL VOLUME 79.7 FL (80.0-100.0); MEAN CORPUSCULAR HEMOGLOBIN 25.4 PG (27.0-34.0); MEAN CORPUSCULAR HGB CONC 31.8 % (32.0-36.0); MEAN PLATELET VOLUME 7.4 FL (7.0-11.0); MONO % 6.2 % (0.0-8.0); NEUT % 72.2 % (16.0-70.0); PLATELET COUNT 543 TH/MM3 (150-450); RED BLOOD COUNT 3.88 MIL/MM3 (4.00-5.30); RED CELL DISTRIBUTION WIDTH 18.5 % (11.6-17.2); WHITE BLOOD COUNT 16.6 TH/MM3 (4.0-11.0)
[2017-04-26] MEDS: metFORMIN HCL 500 MG TAB PO SCH ×2 (09:55→21:26)
--- NOTE | 2017-04-26 10:06 | HHI.PR ---
Subjective Remarks no complaints Objective Vitals heartreg lungcta abd s/nt ext no edema Vital Signs Date Time Temp Pulse Resp B/P (MAP) Pulse Ox O2 Delivery O2 Flow Rate FiO2 04/26/17 08:00 97.9 85 20 167/81 (109) 97 04/26/17 04:00 98 04/26/17 04:00 97.8 71 18 146/66 (92) 100 04/26/17 00:00 97.8 98 18 122/72 (89) 97 04/25/17 20:00 98 04/25/17 20:00 97.9 86 16 119/57 (77) 94 04/25/17 16:30 97.1 84 20 133/80 (97) 95 04/25/17 15:40 98.5 82 16 111/60 (77) 95 Nasal Cannula 2 04/25/17 15:30 80 15 115/61 (79) 94 Nasal Cannula 2 04/25/17 15:15 88 15 117/62 (80) 99 Nasal Cannula 3 04/25/17 15:00 91 15 119/61 (80) 97 Nasal Cannula 3 04/25/17 14:54 98.0 92 14 120/63 (82) 95 Nasal Cannula 3 04/25/17 12:00 86 04/25/17 12:00 97.9 88 22 138/78 (98) 94 Result Diagram: 04/26/17 0820 04/25/17 2245 A/P Problem List: (1) Enterococcal bacteremia ICD Codes: R78.81 - Bacteremia; B95.2 - Enterococcus as the cause of diseases classified elsewhere Status: Acute Plan: Enterococcal bacteremia Left nephrolithiasis This is a 56 year old female patient with past medical history which includes DM , HTN, hyperlipidemia, iron deficiency anemia, toxic multinodular goiter and aortic stenosis with tissue AVR. Blood culture from 04/21/17 1/2 with Enterococcus Faecalis. [place] to be urinary source with left ureter/pelvic stones Repeat blood culture ngtd started on Unasyn ID following and will await final picc/iv abx orders...will d/c once obtained will have f/u pcp,,,hold asa/plavix 1 week prior to outpt eswl with urology s/p stent left ureter 04/25 CAD Continue patient's home Plavix and aspirin HTN Continue patient's home Carvedilol 6.26 BID DM continue Metformin 750 mg PO BID Patient takes Tresiba 20 units SQ daily ..will use levemir here accu checks ACHS diabetic diet chronic iron deficiency anemia Continue home iron supplement hyperlipidemia Continue patient's home Atorvastatin DVT prophylaxis with SCDs (2) Aortic valve stenosis ICD Codes: I35.0 - Nonrheumatic aortic (valve) stenosis Status: Chronic (3) HTN (hypertension) ICD Codes: I10 - Essential (primary) hypertension Status: Chronic (4) DM (diabetes mellitus) ICD Codes: E11.9 - Type 2 diabetes mellitus without complications Status: Chronic (5) Dyslipidemia ICD Codes: E78.5 - Hyperlipidemia, unspecified (6) Chronic anemia ICD Codes: D64.9 - Anemia, unspecified Jayme Yu MD Apr 26, 2017 10:06
[2017-04-26 10:56] LABS: BANDS 9 % (0-6); LYMPHOCYTES 24 % (9-44); MONOCYTES 11 % (0-8); MYELOCYTES 3 % (0-0); NEUTROPHIL # MANUAL DIFF 10.8 TH/MM3 (1.8-7.7); POLYS (SEG NEUTROPHILS) 53 % (16-70); TOXIC GRANULATION 1+ (NORMAL)
[2017-04-26] MEDS: SODIUM CHLOR 0.9% 1000 ML INJ 1,000 ML IV SCH ×3 (11:16→21:27)
--- NOTE | 2017-04-26 17:30 | HHI.IDPN ---
Note Infectious Disease Note ID coverage. For . Notes reviewed. Patient states she is having pain in the urinary system since placement left double-J stent. Denies chills. Afebrile. Notes mild lower abdominal pain. Repeat blood cultures no growth. Repeat urine culture has mixed abbe. Patient is a 56-year-old female, presented to the hospital after she was called in to come back because of positive blood culture. Patient has been having problem for about a week prior to admission with body aches chills. She has had left flank pain, and has had on and off sweats, and probably some undocumented fevers. She also had some vomiting for several days during the early part of her illness. Patient has not been able to work, and stayed in bed , and on April 21 she decided to present to the hospital for further evaluation and treatment. She was afebrile in the emergency room. Her white count was 11, 000. Her urinalysis did show significant pyuria. Lactic acid was normal. 2 blood cultures were done at that time. CT of the abdomen and pelvis was done and it showed multiple stones in the left pelvis, and the previous stone in the right and hydronephrosis has resolved. Patient was discharged on Macrobid, and she was instructed to follow-up with the urologist. Her blood cultures came back positive today with enterococcus, so the patient was called into the hospital for further evaluation and treatment. She states she is not better. She still has diffuse body aches. She has some suprapubic pressure sensation, and denies any dysuria. She stated that she had some hematuria previously but that has resolved. She's also had one loose bowel movement a day. She is afebrile. Her white count is elevated at 14. Urinalysis still showing significant pyuria. Infectious disease consultation has been requested to evaluate the patient with positive blood culture, status post AVR last January. Allergies: Coded Allergies: lisinopril (Verified Allergy, Severe, COUGH, 04/21/17) Past Medical History DM Hypertension Hyperlipidemia Iron deficiency anemia Toxic multinodular goiter Aortic stenosis with tissue AVR Frequent kidney stones Past Surgical History Aortic valve replacement Left knee replacement C section Laparoscopic Cholecystectomy EGD Facial surgery Left breast lumpectomy T&A Umbilical hernia repair Current Medications Medications (Trade) Dose Ordered Sig/Rain Route PRN Reason Start Time Stop Time Status Last Admin Dose Admin Sodium Chloride (NS Flush) 2 ml UNSCH PRN IV FLUSH FLUSH AFTER USING IV ACCESS 04/24/17 13:00 04/25/17 04:40 Sodium Chloride (NS Flush) 2 ml BID IV FLUSH 04/24/17 21:00 04/25/17 08:47 Acetaminophen (Tylenol) 650 mg Q4H PRN PO TEMP > 100.4 04/24/17 13:00 Ondansetron HCl (Zofran Inj) 4 mg Q6H PRN IVP NAUSEA OR VOMITING 04/24/17 13:00 Naloxone HCl (Narcan Inj) 0.4 mg UNSCH PRN IV PUSH SEE LABEL COMMENTS 04/24/17 13:00 Senna/Docusate Sodium (Aga-Colace) 1 tab BID PO 04/24/17 21:00 04/25/17 21:02 Magnesium Hydroxide (Milk Of Magnayde Liq) 30 ml Q12H PRN PO Mild constipation 04/24/17 13:00 Aspirin (Ecotrin Ec) 81 mg DAILY PO 04/25/17 09:00 04/26/17 09:14 Atorvastatin Calcium (Lipitor) 40 mg HS PO 04/24/17 21:00 04/25/17 21:02 Carvedilol (Coreg) 6.25 mg BID PO 04/24/17 21:00 04/26/17 09:14 Clopidogrel Bisulfate (Plavix) 75 mg DAILY PO 04/25/17 09:00 04/26/17 09:14 Docusate Sodium (Colace) 100 mg BID PO 04/24/17 21:00 04/26/17 09:15 Ferrous Sulfate (Ferrous Sulfate) 325 mg BIDPC PO 04/24/17 18:00 04/26/17 16:44 Pantoprazole Sodium (Protonix) 20 mg DAILY PO 04/25/17 09:00 04/26/17 09:15 Metformin HCl (Glucophage) 750 mg BID PO 04/24/17 21:00 04/26/17 09:55 Tamsulosin HCl (Flomax) 0.4 mg HS PO 04/24/17 21:00 04/25/17 21:02 Ampicillin Sodium/ Sulbactam Sodium 3 gm/Sodium Chloride 100 ml @ 200 mls/hr Q6H IV 04/24/17 17:00 04/26/17 16:44 Morphine Sulfate (Morphine Inj) 4 mg Q3H PRN IV PUSH pain level 3-10 04/25/17 00:15 04/26/17 03:59 Lactated Ringer's 1,000 ml @ 30 mls/hr Q24H PRN IV SEE LABEL COMMENTS 04/25/17 00:15 04/28/17 00:14 Sodium Chloride 500 ml @ 30 mls/hr [id number] PRN IV SEE LABEL COMMENTS 04/25/17 00:15 04/28/17 00:14 Metoprolol Tartrate (Lopressor) 25 mg GRAIN ELEVATOR SUPERINTENDENT PRN PO SEE LABEL COMMENTS 04/25/17 00:15 04/28/17 00:14 Povidone Iodine (Betadine 5% Antisepsis Kit) 1 applic GRAIN ELEVATOR SUPERINTENDENT PRN EACH NARE SEE LABEL COMMENTS 04/25/17 00:15 04/28/17 00:14 Chlorhexidine Gluconate (Chlorhexidine 2% Cloth) 3 pack GRAIN ELEVATOR SUPERINTENDENT PRN TOPICAL SEE LABEL COMMENTS 04/25/17 00:15 04/28/17 00:14 Belladonna Alkaloids/Opium (B & O Supp) 60 mg Q6HR PRN RECTAL bladder spams 04/25/17 14:45 Phenazopyridine HCl (Pyridium) 100 mg Q8H PO 04/25/17 16:00 04/26/17 16:44 Sodium Chloride 1,000 ml @ 125 mls/hr Q8H IV 04/25/17 15:30 04/26/17 11:16 Insulin Aspart (NovoLOG SUPPLEMENTAL SCALE) 1 ACHS SLIDING SCALE SQ 04/26/17 08:00 04/26/17 12:00 Insulin Detemir (Levemir Inj) 15 units Q12HR SQ 04/25/17 21:15 04/25/17 21:20 Objective. Vital Signs Date Time Temp Pulse Resp B/P (MAP) Pulse Ox O2 Delivery O2 Flow Rate FiO2 04/26/17 14:41 90 04/26/17 12:00 97.9 89 22 136/76 (96) 97 04/26/17 08:00 90 04/26/17 08:00 97.9 85 20 167/81 (109) 97 04/26/17 04:00 98 04/26/17 04:00 97.8 71 18 146/66 (92) 100 04/26/17 00:00 97.8 98 18 122/72 (89) 97 04/25/17 20:00 98 04/25/17 20:00 97.9 86 16 119/57 (77) 94 Laboratory Tests Test 04/25/17 07:25 04/26/17 08:20 White Blood Count 13.6 TH/MM3 16.6 TH/MM3 Red Blood Count 4.09 MIL/MM3 3.88 MIL/MM3 Hemoglobin 10.2 GM/DL 9.9 GM/DL Hematocrit 32.3 % 31.0 % Mean Corpuscular Volume 78.9 FL 79.7 FL Mean Corpuscular Hemoglobin 25.0 PG 25.4 PG Mean Corpuscular Hemoglobin Concent 31.7 % 31.8 % Red Cell Distribution Width 17.8 % 18.5 % Platelet Count 469 TH/MM3 543 TH/MM3 Mean Platelet Volume 7.6 FL 7.4 FL Neutrophils (%) (Auto) 65.3 % 72.2 % Lymphocytes (%) (Auto) 24.0 % 20.2 % Monocytes (%) (Auto) 8.0 % 6.2 % Eosinophils (%) (Auto) 2.1 % 0.9 % Basophils (%) (Auto) 0.6 % 0.5 % Neutrophils # (Auto) 8.9 TH/MM3 12.0 TH/MM3 Lymphocytes # (Auto) 3.3 TH/MM3 3.3 TH/MM3 Monocytes # (Auto) 1.1 TH/MM3 1.0 TH/MM3 Eosinophils # (Auto) 0.3 TH/MM3 0.2 TH/MM3 Basophils # (Auto) 0.1 TH/MM3 0.1 TH/MM3 CBC Comment AUTO DIFF AUTO DIFF Differential Total Cells Counted 100 100 Neutrophils % (Manual) 54 % 53 % Band Neutrophils % 7 % 9 % Lymphocytes % 12 % 24 % Monocytes % 12 % 11 % Eosinophils % 2 % Neutrophils # (Manual) 10.1 TH/MM3 10.8 TH/MM3 Metamyelocytes 5 % Myelocytes 8 % 3 % Differential Comment FINAL DIFF MANUAL FINAL DIFF MANUAL Platelet Estimate HIGH HIGH Platelet Morphology Comment NORMAL NORMAL Toxic Granulation 1+ Laboratory Tests Test 04/25/17 07:25 04/25/17 22:45 Blood Urea Nitrogen 17 MG/DL Creatinine 0.73 MG/DL Random Glucose 278 MG/DL 426 MG/DL Calcium Level 9.2 MG/DL Sodium Level 137 MEQ/L Potassium Level 3.9 MEQ/L Chloride Level 103 MEQ/L Carbon Dioxide Level 23.3 MEQ/L Anion Gap 11 MEQ/L Estimat Glomerular Filtration Rate 83 ML/MIN Microbiology Date/Time Source Procedure Growth Status 04/24/17 10:45 Blood Peripheral Aerobic Blood Culture - Preliminary NO GROWTH IN 2 DAYS Resulted 04/24/17 10:45 Blood Peripheral Anaerobic Blood Culture - Preliminary NO GROWTH IN 2 DAYS Resulted 04/24/17 10:40 Blood Peripheral Aerobic Blood Culture - Preliminary NO GROWTH IN 2 DAYS Resulted 04/24/17 10:40 Blood Peripheral Anaerobic Blood Culture - Preliminary NO GROWTH IN 2 DAYS Resulted 04/24/17 17:20 Urine Catheterized Urine Urine Culture - Final 50-100,000 CFU/ML MIXED GRAM POSITIVE... Complete 04/24/17 11:25 Urine Catheterized Urine Urine Culture - Final 50-100,000 CFU/ML MIXED GRAM POSITIVE... Complete Physical Exam GENERAL: Alert and oriented, no acute distress. HEENT: Pupils reactive to light. Extraocular movements intact. No icterus. Moist oral mucosa. NECK: Supple without adenopathy. No swelling. LUNGS: Clear to auscultation. HEART: Regular S1 and S2 without murmurs. ABDOMEN: Bowel sounds present, soft. EXTREMITIES: No clubbing cyanosis or edema. SKIN: No rash. NEUROLOGIC: Nonfocal. PSYCH: Calm and cooperative. IMPRESSION Enterococcal bacteremia 1/2 BC 04/21 likely source UTI, complicated, has multiple kidney stones, previously obstructed on R but passes, has multiple stone in L, no hydro but with pelvocaliectasis and prominent L pelvis S/P AVR for , certainly a concern if with high grade bacteremia Repeat blood cultures negative day 2. Anticipate treatment with IV antibiotics for 2 weeks if the repeat blood culture remains negative at day 3. PICC line and outpatient antibiotics with vancomycin will be arranged. Discussed with Dr. Maria to have the patient remain on some form of antibiotic with enterococcal coverage by mouth after the IV course until such time as she has lithotripsy performed. It is anticipated that she will have lithotripsy in the coming weeks. RECOMMENDATION Continue IV Unasyn while she is in the hospital. Begin vancomycin in anticipation of discharge on IV vancomycin for 2 weeks. PICC line to be inserted. Repeat the white blood cell count since a white count is elevated. Anticipate discharge with home health care once the blood culture is negative at 3 days. I Kendall Montoya MD Apr 26, 2017 17:30
--- NOTE | 2017-04-26 17:35 | HHI.FF ---
Infusion Therapy Location of Infusion Therapy: Home Health Care IV Infusion Order Patient Information Patient Weight 106.3 kg Diagnosis: (1) Enterococcal bacteremia Coded Allergies: lisinopril (Verified Allergy, Severe, COUGH, 04/21/17) Administer Medication Vancomycin 1 gram IV q 12 hours Stop Treatment: May 10, 2017 Additional Information Venous access: PICC Line Additional Instructions [x] Peripheral flush and dressing changes per protocol [x] Implanted port and central production line manager: * Implanted port: 10 ml Normal Saline followed by 5 ml Heparin 100 units/ml Heparin flush after each use and monthly to maintain. [] May leave port accessed during therapy. [] May leave peripheral site accessed for duration of therapy. [x] If patient has SOB or respiratory distress, check oxygen saturation. If less than 90% or clinical signs of respiratory distress, administer oxygen at 2 L/min. via nasal cannula and notify physician. [x] Anaphylaxis/Reaction orders: * Stop infusion. * Keep IV line open with saline flush. * Notify physician. * Monitor vital signs every 15 minutes until symptoms resolve. * Check Oxygen saturation; Oxygen at 2 L/min. via nasal cannula if less than 90% or clinical signs of respiratory distress. * Administer diphenhydramine (Benadryl) 25 mg IV STAT, (unless patient has received as pre-med). May repeat once, if necessary. * Solu-Cortef 250 mg IVP over 30-60 seconds, use 100 mg vials for each dissolution. * Epinephrine (1mg/1 ml) 0.3 mg subcutaneously or IVP now with any signs of respiratory distress. * Check with physician for new additional pre-med orders if patient is re- challenged or re-treated. [x] May remove PICC line when treatment complete, after confirming with Physician. [x] If the patient is admitted to the hospital, the ED, or transferred via [facility] , complete transfer form including medication reconciliation order sheet. Laboratory Tests Additional Information BMP every 3 days while on vancomycin. Call with vancomycin level greater than 20 or creatinine greater than 1.6. Hold vancomycin dose if creatinine greater than 1.[address] Guthrie . Fax number [phone]. Above written by Dr. Montoya covering for Dr. Guthrie. Kendall Montoya MD Apr 26, 2017 17:35
[2017-04-26] MEDS: VANCOMYCIN INJ 1,000 MG in SODIUM CHLOR 0.9% 250 ML INJ 250 ML IV SCH (19:09)
[2017-04-26] MEDS: TAMSULOSIN HCL 0.4 MG CAP PO SCH (21:26)
[2017-04-26] MEDS: ATORVASTATIN 40 MG TAB PO SCH (21:27)
[2017-04-27] VITALS: BP 143/83; PULSE 92; PULSE 94; RESP 20; TEMP 97.5; O2SAT 93
[2017-04-27] MEDS: PHENAZOPYRIDINE HCL 100 MG TAB PO SCH ×4 (00:21→23:23)
[2017-04-27 04:00] VITALS: BP 156/91; PULSE 81; PULSE 84; RESP 20; TEMP 97.8; O2SAT 97
[2017-04-27] MEDS: AMPICILLIN-SULBACTAM INJ 3 GM in SODIUM CHLORIDE 0.9% INJ 100 ML IV SCH ×4 (05:02→23:22)
[2017-04-27] MEDS: VANCOMYCIN INJ 1,000 MG in SODIUM CHLOR 0.9% 250 ML INJ 250 ML IV SCH ×2 (05:03→17:50)
[2017-04-27 07:05] LABS: AUTOMATED NEUTROPHIL # 9.1 TH/MM3 (1.8-7.7); BASOPHIL # 0.1 TH/MM3 (0-0.2); BASOPHIL % 0.4 % (0.0-2.0); EOSINOPHIL # 0.3 TH/MM3 (0-0.4); EOSINOPHIL % 2.3 % (0.0-4.0); HEMATOCRIT 31.1 % (35.0-46.0); HEMOGLOBIN 9.8 GM/DL (11.6-15.3); LYMPH % 26.2 % (9.0-44.0); LYMPHOCYTE # 3.7 TH/MM3 (1.0-4.8); MEAN CELL VOLUME 80.9 FL (80.0-100.0); MEAN CORPUSCULAR HEMOGLOBIN 25.4 PG (27.0-34.0); MEAN CORPUSCULAR HGB CONC 31.4 % (32.0-36.0); MEAN PLATELET VOLUME 7.2 FL (7.0-11.0); MONO % 5.9 % (0.0-8.0); MONOCYTE # 0.8 TH/MM3 (0-0.9); NEUT % 65.2 % (16.0-70.0); PLATELET COUNT 574 TH/MM3 (150-450); RED BLOOD COUNT 3.85 MIL/MM3 (4.00-5.30); RED CELL DISTRIBUTION WIDTH 18.7 % (11.6-17.2)
[2017-04-27] MEDS: SODIUM CHLOR 0.9% 1000 ML INJ 1,000 ML IV SCH ×3 (07:30→23:22)
[2017-04-27 08:00] VITALS: BP 155/71; PULSE 80; PULSE 83; RESP 17; TEMP 98.4; O2SAT 95
[2017-04-27] MEDS: INSULIN ASPART SUPPLEMENTAL SCALE SQ SCH ×4 (08:00→22:02)
[2017-04-27] MEDS: SODIUM CHLORIDE 0.9% FLUSH 10 ML FLUSH IV FLUSH SCH ×2 (09:00→22:02)
[2017-04-27] MEDS: INSULIN DETEMIR 100 UNITS/ML VIAL SQ SCH ×2 (09:00→22:13)
[2017-04-27] MEDS: DOCUSATE SODIUM 50 MG/SENNA 8.6 MG TAB PO SCH ×2 (09:00→22:02)
[2017-04-27] MEDS: CARVEDILOL 6.25 MG TAB PO SCH ×2 (09:02→22:02)
[2017-04-27] MEDS: PANTOPRAZOLE SOD 20 MG DELAYED RELEASE TAB PO SCH (09:03)
[2017-04-27] MEDS: FERROUS SULFATE 325 MG (65 MG ELEMENTAL IRON) TAB PO SCH ×2 (09:03→17:49)
[2017-04-27] MEDS: CLOPIDOGREL 75 MG TAB PO SCH (09:03)
[2017-04-27] MEDS: DOCUSATE SODIUM 100 MG CAP PO SCH ×2 (09:03→22:02)
[2017-04-27] MEDS: ASPIRIN EC 81 MG TABEC PO SCH (09:04)
[2017-04-27] MEDS: metFORMIN HCL 500 MG TAB PO SCH ×2 (09:27→22:01)
[2017-04-27 11:00] LABS: BANDS 13 % (0-6); LYMPHOCYTES 24 % (9-44); METAMYELOCYTES 1 % (0-1); MONOCYTES 10 % (0-8); MYELOCYTES 3 % (0-0); NEUTROPHIL # MANUAL DIFF 9.1 TH/MM3 (1.8-7.7); POLYS (SEG NEUTROPHILS) 48 % (16-70)
[2017-04-27 11:01] LABS: OVALOCYTES 1+ (NORMAL); TOXIC GRANULATION 1+ (NORMAL)
--- NOTE | 2017-04-27 11:55 | HHI.FF ---
Face to Face Verification Diagnosis: (1) Nephrolithiasis (2) Enterococcal bacteremia Home Health Nursing Order: Medical education Signs/symptoms of disease process Medication education-adverse effect Nursing assessment with vital signs IV medication administration Instructions: assist with iv vancomycin until 05/10. lab draws as ordered on the home infusion order set. notify pcp and ID with lab results. I have seen patient Azra Hodgson on 04/27/17. My clinical findings support the need for the requested home health care services because: Injectable med education/admin I certify that my clinical findings support that this patient is homebound because: Unable to use public transportation Jayme Yu MD Apr 27, 2017 11:55
[2017-04-27 12:00] VITALS: BP 189/91; PULSE 85; RESP 20; TEMP 97.9; O2SAT 96
--- NOTE | 2017-04-27 12:02 | HHI.DS ---
Discharge Summary Admission Date Apr 24, 2017 at 12:20 Discharge Date: Apr 28, 2017 Admitting Diagnosis UTI/sepsis (1) Nephrolithiasis Diagnosis: Principal ICD Codes: N20.0 - Calculus of kidney (2) Enterococcal bacteremia Diagnosis: Principal ICD Codes: R78.81 - Bacteremia; B95.2 - Enterococcus as the cause of diseases classified elsewhere Status: Acute (3) Aortic valve stenosis Diagnosis: Secondary ICD Codes: I35.0 - Nonrheumatic aortic (valve) stenosis Status: Chronic (4) HTN (hypertension) Diagnosis: Secondary ICD Codes: I10 - Essential (primary) hypertension Status: Chronic (5) DM (diabetes mellitus) Diagnosis: Secondary ICD Codes: E11.9 - Type 2 diabetes mellitus without complications Status: Chronic (6) Dyslipidemia Diagnosis: Secondary ICD Codes: E78.5 - Hyperlipidemia, unspecified (7) Chronic anemia Diagnosis: Secondary ICD Codes: D64.9 - Anemia, unspecified Brief History This is a 56 year old female patient with past medical history which includes DM , HTN, hyperlipidemia, iron deficiency anemia, toxic multinodular goiter and aortic stenosis with tissue AVR placed 01/16/17. Blood culture from 04/21/1702/06 with Enterococcus Faecalis. Patient was called by PCP and instructed to go to the ER. On 04/21/17 patient presented to the ER with left flank pain was diagnosed with urinary tract infection, ureteral calculus and hyperglycemia then DC'd home on Macrobid, flomax and instructed to follow up with Dr. Morales Patient endorses cloudy urine, chills and cold sweats at home. Patient also reports diarrhea for the past few days. Patient denies fevers, N/V, chest pain or SOB. CBC/BMP: 04/27/17 0605 04/25/17 2245 Significant Findings Laboratory Tests Test 04/24/17 17:20 04/25/17 07:25 04/25/17 22:45 04/26/17 08:20 Urine Turbidity CLOUDY (CLEAR) Urine Glucose (UA) 1000 mg/dL (NEG) Urine Occult Blood SMALL (NEG) Urine Leukocyte Esterase LARGE (NEG) Urine RBC 57 /hpf (0-3) Urine WBC Clumps FEW (NONE) Urine Bacteria FEW /hpf (NONE) Urine Yeast (Budding) FEW (NONE) White Blood Count 13.6 TH/MM3 (4.0-11.0) 16.6 TH/MM3 (4.0-11.0) Hemoglobin 10.2 GM/DL (11.6-15.3) 9.9 GM/DL (11.6-15.3) Hematocrit 32.3 % (35.0-46.0) 31.0 % (35.0-46.0) Mean Corpuscular Volume 78.9 FL (80.0-100.0) 79.7 FL (80.0-100.0) Mean Corpuscular Hemoglobin 25.0 PG (27.0-34.0) 25.4 PG (27.0-34.0) Mean Corpuscular Hemoglobin Concent 31.7 % (32.0-36.0) 31.8 % (32.0-36.0) Red Cell Distribution Width 17.8 % (11.6-17.2) 18.5 % (11.6-17.2) Platelet Count 469 TH/MM3 (150-450) 543 TH/MM3 (150-450) Neutrophils # (Auto) 8.9 TH/MM3 (1.8-7.7) 12.0 TH/MM3 (1.8-7.7) Monocytes # (Auto) 1.1 TH/MM3 (0-0.9) 1.0 TH/MM3 (0-0.9) Band Neutrophils % 7 % (0-6) 9 % (0-6) Monocytes % 12 % (0-8) 11 % (0-8) Neutrophils # (Manual) 10.1 TH/MM3 (1.8-7.7) 10.8 TH/MM3 (1.8-7.7) Metamyelocytes 5 % (0-1) Myelocytes 8 % (0-0) 3 % (0-0) Platelet Estimate HIGH (NORMAL) HIGH (NORMAL) Random Glucose 278 MG/DL (74-106) 426 MG/DL (74-106) Estimat Glomerular Filtration Rate 83 ML/MIN (>89) Red Blood Count 3.88 MIL/MM3 (4.00-5.30) Neutrophils (%) (Auto) 72.2 % (16.0-70.0) Toxic Granulation 1+ (NORMAL) Test 04/27/17 06:05 White Blood Count 14.0 TH/MM3 (4.0-11.0) Red Blood Count 3.85 MIL/MM3 (4.00-5.30) Hemoglobin 9.8 GM/DL (11.6-15.3) Hematocrit 31.1 % (35.0-46.0) Mean Corpuscular Hemoglobin 25.4 PG (27.0-34.0) Mean Corpuscular Hemoglobin Concent 31.4 % (32.0-36.0) Red Cell Distribution Width 18.7 % (11.6-17.2) Platelet Count 574 TH/MM3 (150-450) Neutrophils # (Auto) 9.1 TH/MM3 (1.8-7.7) Band Neutrophils % 13 % (0-6) Monocytes % 10 % (0-8) Neutrophils # (Manual) 9.1 TH/MM3 (1.8-7.7) Myelocytes 3 % (0-0) Toxic Granulation 1+ (NORMAL) Platelet Estimate HIGH (NORMAL) Ovalocytes 1+ (NORMAL) Hospital Course (1) Enterococcal bacteremia Enterococcal bacteremia Left nephrolithiasis This is a 56 year old female patient with past medical history which includes DM , HTN, hyperlipidemia, iron deficiency anemia, toxic multinodular goiter and aortic stenosis with tissue AVR. Blood culture from 04/21/17 1/ with Enterococcus Faecalis. [facility] to be urinary source with left ureter/pelvic stones Repeat blood culture ngtd x 3 days started on Unasyn. I spoke with ID and changed to vanco x 2 weeks. picc placed. [facility] ordered. labs to monitor ordered with [facility] ID recommended perioprocedure augmentin when lithotripsy done. Urology wants to hold asa/plavix 1 week prior to outpt eswl with urology. she will see cardiology s/p stent left ureter 04/25 CAD Continue patient's home Plavix and aspirin HTN Continue patient's home Carvedilol 6.26 BID DM continue Metformin 750 mg PO BID Patient takes Tresiba 20 units SQ daily chronic iron deficiency anemia Continue home iron supplement hyperlipidemia Continue patient's home Atorvastatin DVT prophylaxis with SCDs (2) Aortic valve stenosis ICD Codes: I35.0 - Nonrheumatic aortic (valve) stenosis Status: Chronic (3) HTN (hypertension) ICD Codes: I10 - Essential (primary) hypertension Status: Chronic (4) DM (diabetes mellitus) ICD Codes: E11.9 - Type 2 diabetes mellitus without complications Status: Chronic (5) Dyslipidemia ICD Codes: E78.5 - Hyperlipidemia, unspecified (6) Chronic anemia Pt Condition on Discharge: Stable Discharge Disposition: Disch w/ Home Health Serv Discharge Instructions DIET: Follow Instructions for: Diabetic Diet Activities you can perform: Regular-No Restrictions Follow up Referrals: Cardiology - [address] espitia PCP Follow-up - [address] gunn Urology - 4 Weeks with Austin May DO Continued Medications: Aspirin DR (Aspirin DR) 81 Mg Tabdr 81 MG PO DAILY, TAB 0 Refills Atorvastatin (Atorvastatin) 40 Mg Tab 40 MG PO HS for CAD, #30 TAB Carvedilol (Carvedilol) 6.25 Mg Tab 6.25 MG PO BID, #60 TAB 0 Refills Clopidogrel (Plavix) 75 Mg Tab 75 MG PO DAILY for CAD, #30 TAB Cobalamine Combinations (Vitamin O09-Yvviw Acid) 500-400 Mcg Tab 1 TAB PO DAILY for Nutritional Supplement, TAB 0 Refills Docusate Sodium (Colace) 100 Mg Capsule 100 MG PO BID for Prevent Constipation, #20 CAP 0 Refills Ferrous Sulfate (Ferrous Sulfate) 325 Mg (65 Mg Iron) Tablet 325 MG PO BIDPC for Nutritional Supplement, #60 TAB 0 Refills Fish Oil-Cholecalciferol ([place]-3 Fish Oil/Vitamin) 1,000-1,000 Mg Cap 1 CAP PO DAILY for Nutritional Supplement, CAP 0 Refills Flavoring Agent (Cinnamon) 3.7 Ml Oil 1 MG PO DAILY Garlic (Garlique) 5,000 Mcg Tab 1 MG PO DAILY Hydrocodone-Acetaminophen (Hydrocodone-Acetaminophen) 5-325 mg Tab 1 TAB PO Q6H PRN for PAIN, #10 TAB 0 Refills Ibuprofen (Ibuprofen) 800 Mg Tab 800 MG PO Q8H PRN for PAIN SCALE 4 TO 6, #20 TAB 0 Refills Insulin Degludec Inj (Tresiba Flextouch Pen Inj) 300 unit/3 ML Pen 20 UNITS SQ DAILY for Blood Sugar Management, #15 ML 0 Refills Magnesium Oxide (Magnesium Oxide) 250 Mg Tab 250 MG PO DAILY, TAB 0 Refills Metformin ER (Metformin ER) 750 Mg Perfecto 750 MG PO BID for Blood Sugar Management, TAB 0 Refills Resume on 06/14/16 Ondansetron Odt (Zofran Odt) 4 Mg Tab 4 MG SL Q12HR PRN for Nausea/Vomiting, #20 TAB 0 Refills Pantoprazole (Pantoprazole) 20 Mg Tab 20 MG PO DAILY for Reflux, #30 TAB 0 Refills Tamsulosin (Flomax) 0.4 Mg Cap 0.4 MG PO HS for Manage Prostate Problems, #8 CAP 0 Refills Discontinued Medications: Nitrofurantoin Monohydrate Macrocrystals (Macrobid) 100 Mg Cap 100 MG PO BID for Infection for 10 Days, #20 CAP 0 Refills Oxycodone-Acetaminophen (Percocet) 5-325 mg Tab 1-2 TAB PO Q6H PRN for PAIN, #12 TAB 0 Refills Jayme Yu MD Apr 27, 2017 12:02
[2017-04-27] MEDS: MORPHINE SULFATE 4 MG/ML INJ IV PUSH PRN ×3 (14:04→22:01)
[2017-04-27] MEDS ORDERED: SODIUM CHLORIDE 0.9% FLUSH 10 ML FLUSH IV FLUSH PRN (14:30)
[2017-04-27 16:00] VITALS: BP 152/73; PULSE 84; PULSE 91; RESP 19; TEMP 98; O2SAT 96
[2017-04-27 20:00] VITALS: BP 163/82; PULSE 82; PULSE 84; RESP 19; TEMP 98.4; O2SAT 93
[2017-04-27] MEDS: TAMSULOSIN HCL 0.4 MG CAP PO SCH (22:02)
[2017-04-27] MEDS: ATORVASTATIN 40 MG TAB PO SCH (22:02)
[2017-04-28] VITALS (7 sets, daily range): BP systolic 138–226; BP diastolic 77–97; PULSE 70–91; RESP 18–20; TEMP 97.2–98.1; O2SAT 94–97
[2017-04-28] MEDS: AMPICILLIN-SULBACTAM INJ 3 GM in SODIUM CHLORIDE 0.9% INJ 100 ML IV SCH ×2 (04:55→11:48)
[2017-04-28] MEDS: VANCOMYCIN INJ 1,000 MG in SODIUM CHLOR 0.9% 250 ML INJ 250 ML IV SCH (04:57)
[2017-04-28] MEDS: MORPHINE SULFATE 4 MG/ML INJ IV PUSH PRN (04:58)
[2017-04-28] MEDS: SODIUM CHLOR 0.9% 1000 ML INJ 1,000 ML IV SCH ×2 (07:30→13:13)
[2017-04-28] MEDS: INSULIN ASPART SUPPLEMENTAL SCALE SQ SCH ×4 (08:00→22:05)
[2017-04-28] MEDS ORDERED: Vancomycin Consult Pharmacy 1 EA OTHER SCH (08:45)
[2017-04-28] MEDS ORDERED: cloNIDine HCL 0.2 MG TAB PO ONE (09:00)
[2017-04-28] MEDS: INSULIN DETEMIR 100 UNITS/ML VIAL SQ SCH ×2 (09:00→22:03)
[2017-04-28] MEDS: ACETAMINOPHEN 325 MG TAB PO PRN ×2 (09:04→15:48)
[2017-04-28] MEDS: SODIUM CHLORIDE 0.9% FLUSH 10 ML FLUSH IV FLUSH SCH ×3 (09:05→21:58)
[2017-04-28] MEDS: metFORMIN HCL 500 MG TAB PO SCH ×2 (09:39→21:56)
[2017-04-28] MEDS: FERROUS SULFATE 325 MG (65 MG ELEMENTAL IRON) TAB PO SCH ×2 (09:39→15:47)
[2017-04-28] MEDS: DOCUSATE SODIUM 100 MG CAP PO SCH ×2 (09:39→21:51)
[2017-04-28] MEDS: DOCUSATE SODIUM 50 MG/SENNA 8.6 MG TAB PO SCH ×2 (09:40→21:00)
[2017-04-28] MEDS: ASPIRIN EC 81 MG TABEC PO SCH (09:40)
[2017-04-28] MEDS: CLOPIDOGREL 75 MG TAB PO SCH (09:40)
[2017-04-28] MEDS: PANTOPRAZOLE SOD 20 MG DELAYED RELEASE TAB PO SCH (09:40)
[2017-04-28] MEDS: CARVEDILOL 6.25 MG TAB PO SCH ×2 (09:40→21:51)
[2017-04-28] MEDS: PHENAZOPYRIDINE HCL 100 MG TAB PO SCH ×3 (09:48→23:11)
[2017-04-28] MEDS: VANCOMYCIN 1,500 MG/NS 500 ML IV SCH ×2 (13:12)
--- NOTE | 2017-04-28 15:29 | HHI.PR ---
Subjective Remarks pt d/c held last night due to ride issues this AM she became n/v and elevated bp felt hot/sweats again as before admission Objective Vitals heart reg lung cta abd s/nt ext no edema Vital Signs Date Time Temp Pulse Resp B/P (MAP) Pulse Ox O2 Delivery O2 Flow Rate FiO2 04/28/17 12:00 73 04/28/17 10:00 Room Air 04/28/17 08:00 84 04/28/17 08:00 97.2 86 20 226/95 (138) 95 04/28/17 05:00 97.9 91 18 164/87 (112) 94 04/28/17 00:00 98.1 85 18 166/83 (110) 97 04/28/17 00:00 Room Air 04/28/17 00:00 84 04/27/17 20:00 82 04/27/17 20:00 Room Air 04/27/17 20:00 98.4 84 19 163/82 (109) 93 04/27/17 16:00 84 04/27/17 16:00 98.0 91 19 152/73 (99) 96 Result Diagram: 04/27/17 0605 04/25/17 2245 A/P Problem List: (1) Enterococcal bacteremia ICD Codes: R78.81 - Bacteremia; B95.2 - Enterococcus as the cause of diseases classified elsewhere Status: Acute Plan: Enterococcal bacteremia Left nephrolithiasis This is a 56 year old female patient with past medical history which includes DM , HTN, hyperlipidemia, iron deficiency anemia, toxic multinodular goiter and aortic stenosis with tissue AVR. Blood culture from 04/21/17 1/ with Enterococcus Faecalis. [place] to be urinary source with left ureter/pelvic stones Repeat blood culture ngtd started on Unasyn upon admission s/p stent left ureter 04/25 ID following . converted from unasyn to vanco picc placed 04/27 and [facility] orders and d/c written. d/c held due to ride issues but now she has n/v and htn with sweats Will hold d/c and observe. pharmacy consult for vanco. prn bp and nausea meds ordered. will have f/u pcp,,,hold asa/plavix 1 week prior to outpt eswl with urology CAD Continue patient's home Plavix and aspirin HTN Continue patient's home Carvedilol 6.26 BID DM continue Metformin 750 mg PO BID Patient takes Tresiba 20 units SQ daily ..will use levemir here and titrate accu checks ACHS diabetic diet chronic iron deficiency anemia Continue home iron supplement hyperlipidemia Continue patient's home Atorvastatin DVT prophylaxis with SCDs (2) Nephrolithiasis ICD Codes: N20.0 - Calculus of kidney Status: Acute (3) Aortic valve stenosis ICD Codes: I35.0 - Nonrheumatic aortic (valve) stenosis Status: Chronic (4) HTN (hypertension) ICD Codes: I10 - Essential (primary) hypertension Status: Chronic (5) DM (diabetes mellitus) ICD Codes: E11.9 - Type 2 diabetes mellitus without complications Status: Chronic (6) Dyslipidemia ICD Codes: E78.5 - Hyperlipidemia, unspecified (7) Chronic anemia ICD Codes: D64.9 - Anemia, unspecified Jayme Yu MD Apr 28, 2017 15:29
[2017-04-28] MEDS: ATORVASTATIN 40 MG TAB PO SCH (21:51)
[2017-04-28] MEDS: cloNIDine HCL 0.2 MG TAB PO PRN (21:52)
[2017-04-28] MEDS: TAMSULOSIN HCL 0.4 MG CAP PO SCH (21:54)
[2017-04-29] VITALS (10 sets, daily range): BP systolic 151–180; BP diastolic 74–98; PULSE 70–91; RESP 18–20; TEMP 97.2–98.1; O2SAT 95–97
[2017-04-29] MEDS: VANCOMYCIN 1,500 MG/NS 500 ML IV SCH ×4 (00:01→12:57)
[2017-04-29] MEDS: cloNIDine HCL 0.2 MG TAB PO PRN (04:14)
[2017-04-29 07:48] LABS: BASOPHIL % 0.3 % (0.0-2.0); EOSINOPHIL # 0.2 TH/MM3 (0-0.4); EOSINOPHIL % 1.3 % (0.0-4.0); HEMATOCRIT 30.6 % (35.0-46.0); HEMOGLOBIN 9.8 GM/DL (11.6-15.3); LYMPH % 20.2 % (9.0-44.0); LYMPHOCYTE # 2.8 TH/MM3 (1.0-4.8); MEAN CELL VOLUME 80.2 FL (80.0-100.0); MEAN CORPUSCULAR HEMOGLOBIN 25.7 PG (27.0-34.0); MEAN CORPUSCULAR HGB CONC 32.1 % (32.0-36.0); MEAN PLATELET VOLUME 7.1 FL (7.0-11.0); MONO % 6.4 % (0.0-8.0); MONOCYTE # 0.9 TH/MM3 (0-0.9); NEUT % 71.8 % (16.0-70.0); PLATELET COUNT 568 TH/MM3 (150-450); RED BLOOD COUNT 3.81 MIL/MM3 (4.00-5.30); RED CELL DISTRIBUTION WIDTH 18.6 % (11.6-17.2); WHITE BLOOD COUNT 13.9 TH/MM3 (4.0-11.0)
[2017-04-29] MEDS: INSULIN ASPART SUPPLEMENTAL SCALE SQ SCH ×4 (08:00→20:51)
[2017-04-29 08:17] LABS: BICARBONATE 26.9 MEQ/L (21.0-32.0); CALCIUM 8.9 MG/DL (8.5-10.1); CREATININE 0.73 MG/DL (0.50-1.00)
[2017-04-29] MEDS: SODIUM CHLORIDE 0.9% FLUSH 10 ML FLUSH IV FLUSH SCH ×3 (09:00→20:39)
[2017-04-29] MEDS ORDERED: CARVEDILOL 12.5 MG TAB PO SCH (09:00)
[2017-04-29] MEDS: INSULIN DETEMIR 100 UNITS/ML VIAL SQ SCH ×2 (09:00→20:50)
[2017-04-29] MEDS: ASPIRIN EC 81 MG TABEC PO SCH (09:05)
[2017-04-29] MEDS: DOCUSATE SODIUM 100 MG CAP PO SCH ×2 (09:05→20:39)
[2017-04-29] MEDS: FERROUS SULFATE 325 MG (65 MG ELEMENTAL IRON) TAB PO SCH ×2 (09:05→16:08)
[2017-04-29] MEDS: DOCUSATE SODIUM 50 MG/SENNA 8.6 MG TAB PO SCH ×2 (09:05→20:43)
[2017-04-29] MEDS: PHENAZOPYRIDINE HCL 100 MG TAB PO SCH ×3 (09:06→22:51)
[2017-04-29] MEDS: CLOPIDOGREL 75 MG TAB PO SCH (09:06)
[2017-04-29] MEDS: metFORMIN HCL 500 MG TAB PO SCH ×2 (09:06→20:42)
[2017-04-29] MEDS: PANTOPRAZOLE SOD 20 MG DELAYED RELEASE TAB PO SCH (09:06)
--- NOTE | 2017-04-29 09:59 | HHI.PR ---
Subjective Remarks d/c held yesterday due to n/v and elevated bp with sweats. no further sweats overnight. nausea better. Objective Vitals heart reg lung cta abd s/nt ext no edema Vital Signs Date Time Temp Pulse Resp B/P (MAP) Pulse Ox O2 Delivery O2 Flow Rate FiO2 04/29/17 08:00 81 04/29/17 06:18 176/80 (112) 04/29/17 04:00 97.6 81 20 172/90 (117) 96 04/29/17 03:41 76 04/29/17 00:06 88 04/29/17 00:00 97.6 70 20 170/82 (111) 97 170/82 (111) 04/28/17 20:00 Room Air 04/28/17 20:00 97.7 81 20 199/97 (131) 94 04/28/17 19:42 83 04/28/17 16:00 97.8 70 20 159/77 (104) 95 04/28/17 16:00 72 04/28/17 12:00 73 04/28/17 12:00 97.8 77 20 138/87 (104) 96 04/28/17 10:00 Room Air Result Diagram: 04/29/17 0625 04/29/17 0625 A/P Problem List: (1) Enterococcal bacteremia ICD Codes: R78.81 - Bacteremia; B95.2 - Enterococcus as the cause of diseases classified elsewhere Status: Acute Plan: Enterococcal bacteremia Left nephrolithiasis This is a 56 year old female patient with past medical history which includes DM , HTN, hyperlipidemia, iron deficiency anemia, toxic multinodular goiter and aortic stenosis with tissue AVR. Blood culture from 04/21/1702/06 with Enterococcus Faecalis. [place] to be urinary source with left ureter/pelvic stones Repeat blood culture ngtd started on Unasyn upon admission s/p stent left ureter 04/25 ID following . converted from unasyn to vanco picc placed 04/27 and c orders and d/c written. d/c held due to ride issues but then she had n/v and htn spikes with sweats Will hold d/c and observe. pharmacy consulted for vanco. will check fhcp records as she may have been taking an ARB at home and not getting here titrate up levemir here for bg and plan to convert back to her home regimen on d /c will have f/u pcp...spoke with pcp..will need perioprocedure augmentin hold asa/plavix 1 week prior to outpt eswl with urology. she will see her scallop binder prior to the procedure. CAD Continue patient's home Plavix and aspirin HTN see abvove DM continue Metformin 750 mg PO BID Patient takes Tresiba 20 units SQ daily ..will use levemir here and titrate accu checks ACHS diabetic diet chronic iron deficiency anemia Continue home iron supplement hyperlipidemia Continue patient's home Atorvastatin DVT prophylaxis with SCDs (2) Nephrolithiasis ICD Codes: N20.0 - Calculus of kidney Status: Acute (3) Aortic valve stenosis ICD Codes: I35.0 - Nonrheumatic aortic (valve) stenosis Status: Chronic (4) HTN (hypertension) ICD Codes: I10 - Essential (primary) hypertension Status: Chronic (5) DM (diabetes mellitus) ICD Codes: E11.9 - Type 2 diabetes mellitus without complications Status: Chronic (6) Dyslipidemia ICD Codes: E78.5 - Hyperlipidemia, unspecified (7) Chronic anemia ICD Codes: D64.9 - Anemia, unspecified Jayme Yu MD Apr 29, 2017 09:59
[2017-04-29] MEDS ORDERED: MAGNESIUM OXIDE 400 MG TAB PO ONE (10:00)
[2017-04-29] MEDS: TAMSULOSIN HCL 0.4 MG CAP PO SCH (20:38)
[2017-04-29] MEDS: ATORVASTATIN 40 MG TAB PO SCH (20:39)
[2017-04-29] MEDS: CARVEDILOL 6.25 MG TAB PO SCH (20:40)
[2017-04-29] MEDS ORDERED: LOSARTAN 50 MG TAB PO ONE (21:30)
[2017-04-30] VITALS (11 sets, daily range): BP systolic 131–170; BP diastolic 59–80; PULSE 80–106; RESP 18–19; TEMP 97.9–98.7; O2SAT 93–97
[2017-04-30] MEDS ORDERED: PHARMACY ORDERED LAB ONE (01:45)
[2017-04-30] MEDS: VANCOMYCIN 1,500 MG/NS 500 ML IV SCH ×4 (02:00→12:55)
[2017-04-30 06:15] LABS: AUTOMATED NEUTROPHIL # 10.5 TH/MM3 (1.8-7.7); BASOPHIL % 0.3 % (0.0-2.0); EOSINOPHIL # 0.2 TH/MM3 (0-0.4); EOSINOPHIL % 1.6 % (0.0-4.0); HEMOGLOBIN 9.6 GM/DL (11.6-15.3); LYMPH % 19.5 % (9.0-44.0); LYMPHOCYTE # 2.8 TH/MM3 (1.0-4.8); MEAN CELL VOLUME 80.3 FL (80.0-100.0); MEAN CORPUSCULAR HEMOGLOBIN 25.8 PG (27.0-34.0); MEAN CORPUSCULAR HGB CONC 32.1 % (32.0-36.0); MEAN PLATELET VOLUME 7.2 FL (7.0-11.0); MONO % 5.6 % (0.0-8.0); MONOCYTE # 0.8 TH/MM3 (0-0.9); PLATELET COUNT 589 TH/MM3 (150-450); RED BLOOD COUNT 3.73 MIL/MM3 (4.00-5.30); RED CELL DISTRIBUTION WIDTH 18.2 % (11.6-17.2); WHITE BLOOD COUNT 14.3 TH/MM3 (4.0-11.0)
[2017-04-30] MEDS: PHENAZOPYRIDINE HCL 100 MG TAB PO SCH ×3 (08:49→23:34)
[2017-04-30] MEDS: metFORMIN HCL 500 MG TAB PO SCH ×2 (08:50→21:43)
[2017-04-30] MEDS: DOCUSATE SODIUM 50 MG/SENNA 8.6 MG TAB PO SCH ×2 (08:51→21:43)
[2017-04-30] MEDS: CARVEDILOL 6.25 MG TAB PO SCH ×2 (08:51→21:44)
[2017-04-30] MEDS: DOCUSATE SODIUM 100 MG CAP PO SCH ×2 (08:51→21:43)
[2017-04-30] MEDS: LOSARTAN 50 MG TAB PO SCH (08:52)
[2017-04-30] MEDS: PANTOPRAZOLE SOD 20 MG DELAYED RELEASE TAB PO SCH (08:52)
[2017-04-30] MEDS: ASPIRIN EC 81 MG TABEC PO SCH (08:52)
[2017-04-30] MEDS: CLOPIDOGREL 75 MG TAB PO SCH (08:52)
[2017-04-30] MEDS: FERROUS SULFATE 325 MG (65 MG ELEMENTAL IRON) TAB PO SCH ×2 (08:52→18:00)
[2017-04-30] MEDS: INSULIN ASPART SUPPLEMENTAL SCALE SQ SCH ×4 (08:54→21:45)
[2017-04-30] MEDS: SODIUM CHLORIDE 0.9% FLUSH 10 ML FLUSH IV FLUSH SCH ×3 (08:54→21:46)
[2017-04-30] MEDS: INSULIN DETEMIR 100 UNITS/ML VIAL SQ SCH ×2 (08:55→21:44)
[2017-04-30] MEDS: MORPHINE SULFATE 4 MG/ML INJ IV PUSH PRN ×2 (09:01→21:47)
--- NOTE | 2017-04-30 15:55 | HHI.PR ---
Subjective Remarks Pt reports that she feels generally weak today She has not been walking around much other than going to the bathroom She denies any palpitations today Afebrile She reports that she has had a lot of vaginal itching for the last day or so Objective Vitals Vital Signs Date Time Temp Pulse Resp B/P (MAP) Pulse Ox O2 Delivery O2 Flow Rate FiO2 04/30/17 12:05 98.1 86 19 141/64 (89) 97 04/30/17 11:50 96 Room Air 04/30/17 09:09 18 04/30/17 08:05 98.7 106 19 156/73 (100) 96 04/30/17 04:32 98.7 91 18 161/70 (100) 96 04/30/17 03:42 87 04/30/17 00:00 98.5 89 18 170/79 (109) 97 160/80 (106) 04/29/17 23:41 86 04/29/17 20:00 98.1 78 18 180/98 (125) 97 04/29/17 20:00 Room Air 04/29/17 16:00 84 04/29/17 16:00 98.0 91 20 175/84 (114) 97 04/30/17 04/30/17 05/01/17 15:00 23:00 07:00 Intake Total 500 ml Balance 500 ml IV Total 500 ml Result Diagram: 04/30/17 0430 04/29/17 0625 Other Results Laboratory Tests Test 04/29/17 06:25 04/30/17 01:50 04/30/17 04:30 White Blood Count 13.9 TH/MM3 14.3 TH/MM3 Red Blood Count 3.81 MIL/MM3 3.73 MIL/MM3 Hemoglobin 9.8 GM/DL 9.6 GM/DL Hematocrit 30.6 % 30.0 % Mean Corpuscular Volume 80.2 FL 80.3 FL Mean Corpuscular Hemoglobin 25.7 PG 25.8 PG Mean Corpuscular Hemoglobin Concent 32.1 % 32.1 % Red Cell Distribution Width 18.6 % 18.2 % Platelet Count 568 TH/MM3 589 TH/MM3 Mean Platelet Volume 7.1 FL 7.2 FL Neutrophils (%) (Auto) 71.8 % 73.0 % Lymphocytes (%) (Auto) 20.2 % 19.5 % Monocytes (%) (Auto) 6.4 % 5.6 % Eosinophils (%) (Auto) 1.3 % 1.6 % Basophils (%) (Auto) 0.3 % 0.3 % Neutrophils # (Auto) 10.0 TH/MM3 10.5 TH/MM3 Lymphocytes # (Auto) 2.8 TH/MM3 2.8 TH/MM3 Monocytes # (Auto) 0.9 TH/MM3 0.8 TH/MM3 Eosinophils # (Auto) 0.2 TH/MM3 0.2 TH/MM3 Basophils # (Auto) 0.0 TH/MM3 0.0 TH/MM3 CBC Comment DIFF FINAL DIFF FINAL Differential Comment Blood Urea Nitrogen 14 MG/DL Creatinine 0.73 MG/DL Random Glucose 263 MG/DL Calcium Level 8.9 MG/DL Sodium Level 139 MEQ/L Potassium Level 3.6 MEQ/L Chloride Level 101 MEQ/L Carbon Dioxide Level 26.9 MEQ/L Anion Gap 11 MEQ/L Estimat Glomerular Filtration Rate 83 ML/MIN Vancomycin Level Trough 11.3 MCG/ML Objective Remarks General: NAD, AAOx3 Chest: CTA Cardiac: Regular Abd: +BS, soft, obese, ND/NT : No obvious external vaginal discharge, erythema or irritation Ext: No edema A/P Problem List: (1) Enterococcal bacteremia ICD Codes: R78.81 - Bacteremia; B95.2 - Enterococcus as the cause of diseases classified elsewhere Status: Acute Plan: Enterococcal bacteremia Left nephrolithiasis - This is a 56 year old female patient with past medical history which includes DM, HTN, hyperlipidemia, iron deficiency anemia, toxic multinodular goiter and aortic stenosis with tissue AVR. - Pt was seen in the ED on 04/21 with left flank pain. Pt was diagnosed with urinary tract infection, ureteral calculus and hyperglycemia then DC'd home on Macrobid, Flomax and instructed to follow up with Dr. Morales Pt had a blood culture on 04/21/17 1/ with Enterococcus Faecalis and patient was called by PCP and instructed to go to the ER. - Bacteremia felt to be urinary source with left ureter/pelvic stones - Repeat blood culture with NGTD - Pt was initially started on Unasyn upon admission - She underwent cystoscopy with left retrograde pyelogram and left double-J stent insertion on 04/[address] May - ID following - Pt was converted from Unasyn to Vanco - PICC was placed 04/27 and [facility] orders and d/c written on 04/27 but d/c was held due to ride issues but then she had n/v and htn spikes with sweats - Her Vanco trough on 04/30 was elevated and pharmacy to repeat trough tomorrow to decide on dosing upon discharge - Dr. Yu spoke with the pts PCP and was recommended to have manas- procedure Augmentin and to hold asa/plavix 1 week prior to outpt ESWL with urology. - She will see her detective prior to the procedure as well - PT evaluation for discharge planning needs CAD - Continue patient's home Plavix and aspirin HTN - Pt had issues with BP control during this admission. - We checked [facility] outpt records and was being prescribed Cozaar 50mg po daily as an outpt and was not getting it prior to 04/29 when this was resumed - Cont. Coreg 6.25mg BID - Monitor BP DM - Continue Metformin 750 mg PO BID - Patient takes Tresiba 20 units SQ daily - Levemir was titrated up to 25units Q12H on 04/29 - She will be converted back to her home regimen on d/c - Accu checks ACHS - Diabetic diet Chronic iron deficiency anemia - Continue home iron supplement Hyperlipidemia - Continue patient's home Atorvastatin DVT prophylaxis with SCDs (2) Nephrolithiasis ICD Codes: N20.0 - Calculus of kidney Status: Acute (3) Aortic valve stenosis ICD Codes: I35.0 - Nonrheumatic aortic (valve) stenosis Status: Chronic (4) HTN (hypertension) ICD Codes: I10 - Essential (primary) hypertension Status: Chronic (5) DM (diabetes mellitus) ICD Codes: E11.9 - Type 2 diabetes mellitus without complications Status: Chronic (6) Dyslipidemia ICD Codes: E78.5 - Hyperlipidemia, unspecified (7) Chronic anemia ICD Codes: D64.9 - Anemia, unspecified Assessment and Plan Patient examined. Assessment and plan formulated with Simran Plaza PA-C. I agree with the above. Await repeat Vancomycin trough level to decide appropriate dosing Anticipate d/c to home with [facility] 05/01/17 Simran Plaza Apr 30, 2017 15:55 Luis Enrique Borja DO Apr 30, 2017 23:30
[2017-04-30] MEDS ORDERED: CLOTRIMAZOLE 1% VAG CREAM 45 GM TUBE VAGINAL SCH (21:00)
[2017-04-30] MEDS: TAMSULOSIN HCL 0.4 MG CAP PO SCH (21:44)
[2017-04-30] MEDS: ATORVASTATIN 40 MG TAB PO SCH (21:44)
[2017-05-01] VITALS (7 sets, daily range): BP systolic 130–167; BP diastolic 61–78; PULSE 78–93; RESP 18–20; TEMP 97.3–98.2; O2SAT 90–96
[2017-05-01] MEDS: VANCOMYCIN 1,500 MG/NS 500 ML IV SCH ×4 (01:17→14:00)
[2017-05-01] MEDS: MORPHINE SULFATE 4 MG/ML INJ IV PUSH PRN ×3 (01:17→11:07)
[2017-05-01 06:03] LABS: AUTOMATED NEUTROPHIL # 9.2 TH/MM3 (1.8-7.7); BASOPHIL # 0.1 TH/MM3 (0-0.2); BASOPHIL % 0.6 % (0.0-2.0); EOSINOPHIL # 0.2 TH/MM3 (0-0.4); EOSINOPHIL % 1.4 % (0.0-4.0); HEMATOCRIT 30.5 % (35.0-46.0); HEMOGLOBIN 9.6 GM/DL (11.6-15.3); LYMPH % 19.9 % (9.0-44.0); LYMPHOCYTE # 2.6 TH/MM3 (1.0-4.8); MEAN CELL VOLUME 80.9 FL (80.0-100.0); MEAN CORPUSCULAR HEMOGLOBIN 25.6 PG (27.0-34.0); MEAN CORPUSCULAR HGB CONC 31.6 % (32.0-36.0); MEAN PLATELET VOLUME 6.9 FL (7.0-11.0); MONO % 6.2 % (0.0-8.0); MONOCYTE # 0.8 TH/MM3 (0-0.9); NEUT % 71.9 % (16.0-70.0); PLATELET COUNT 605 TH/MM3 (150-450); RED BLOOD COUNT 3.76 MIL/MM3 (4.00-5.30); RED CELL DISTRIBUTION WIDTH 18.4 % (11.6-17.2); WHITE BLOOD COUNT 12.8 TH/MM3 (4.0-11.0)
[2017-05-01 06:27] LABS: CREATININE 0.73 MG/DL (0.50-1.00)
[2017-05-01] MEDS: PHENAZOPYRIDINE HCL 100 MG TAB PO SCH (08:46)
[2017-05-01] MEDS: FERROUS SULFATE 325 MG (65 MG ELEMENTAL IRON) TAB PO SCH (08:47)
[2017-05-01] MEDS: INSULIN ASPART SUPPLEMENTAL SCALE SQ SCH ×2 (08:47→12:49)
[2017-05-01] MEDS: LOSARTAN 50 MG TAB PO SCH (08:47)
[2017-05-01] MEDS: DOCUSATE SODIUM 100 MG CAP PO SCH (08:47)
[2017-05-01] MEDS: PANTOPRAZOLE SOD 20 MG DELAYED RELEASE TAB PO SCH (08:47)
[2017-05-01] MEDS: CLOPIDOGREL 75 MG TAB PO SCH (08:48)
[2017-05-01] MEDS: metFORMIN HCL 500 MG TAB PO SCH (08:48)
[2017-05-01] MEDS: DOCUSATE SODIUM 50 MG/SENNA 8.6 MG TAB PO SCH (08:48)
[2017-05-01] MEDS: CARVEDILOL 6.25 MG TAB PO SCH (08:48)
[2017-05-01] MEDS: ASPIRIN EC 81 MG TABEC PO SCH (08:48)
[2017-05-01] MEDS: INSULIN DETEMIR 100 UNITS/ML VIAL SQ SCH (08:49)
[2017-05-01] MEDS: SODIUM CHLORIDE 0.9% FLUSH 10 ML FLUSH IV FLUSH SCH ×2 (08:56)
--- NOTE | 2017-05-01 10:47 | HHI.PR ---
Subjective Remarks No new complaints today Pt with better overall BP control Objective Vitals Vital Signs Date Time Temp Pulse Resp B/P (MAP) Pulse Ox O2 Delivery O2 Flow Rate FiO2 05/01/17 04:08 83 05/01/17 04:00 97.3 93 18 130/61 (84) 90 05/01/17 00:01 78 05/01/17 00:00 97.8 86 18 141/62 (88) 95 04/30/17 20:45 Room Air 04/30/17 20:16 89 04/30/17 20:00 97.9 80 19 131/60 (83) 93 04/30/17 16:05 97.9 82 19 141/59 (86) 96 04/30/17 16:00 82 04/30/17 12:05 98.1 86 19 141/64 (89) 97 04/30/17 12:00 92 04/30/17 11:50 96 Room Air Result Diagram: 05/01/17 0545 05/01/17 0545 Other Results Laboratory Tests Test 04/30/17 01:50 04/30/17 04:30 05/01/17 05:45 Vancomycin Level Trough 11.3 MCG/ML White Blood Count 14.3 TH/MM3 12.8 TH/MM3 Red Blood Count 3.73 MIL/MM3 3.76 MIL/MM3 Hemoglobin 9.6 GM/DL 9.6 GM/DL Hematocrit 30.0 % 30.5 % Mean Corpuscular Volume 80.3 FL 80.9 FL Mean Corpuscular Hemoglobin 25.8 PG 25.6 PG Mean Corpuscular Hemoglobin Concent 32.1 % 31.6 % Red Cell Distribution Width 18.2 % 18.4 % Platelet Count 589 TH/MM3 605 TH/MM3 Mean Platelet Volume 7.2 FL 6.9 FL Neutrophils (%) (Auto) 73.0 % 71.9 % Lymphocytes (%) (Auto) 19.5 % 19.9 % Monocytes (%) (Auto) 5.6 % 6.2 % Eosinophils (%) (Auto) 1.6 % 1.4 % Basophils (%) (Auto) 0.3 % 0.6 % Neutrophils # (Auto) 10.5 TH/MM3 9.2 TH/MM3 Lymphocytes # (Auto) 2.8 TH/MM3 2.6 TH/MM3 Monocytes # (Auto) 0.8 TH/MM3 0.8 TH/MM3 Eosinophils # (Auto) 0.2 TH/MM3 0.2 TH/MM3 Basophils # (Auto) 0.0 TH/MM3 0.1 TH/MM3 CBC Comment DIFF FINAL DIFF FINAL Differential Comment Creatinine 0.73 MG/DL Estimat Glomerular Filtration Rate 83 ML/MIN Objective Remarks General: NAD, AAOx3 Chest: CTA Cardiac: Regular Abd: +BS, soft, obese, ND/NT : No obvious external vaginal discharge, erythema or irritation Ext: No edema A/P Problem List: (1) Enterococcal bacteremia ICD Codes: R78.81 - Bacteremia; B95.2 - Enterococcus as the cause of diseases classified elsewhere Status: Acute Plan: Enterococcal bacteremia Left nephrolithiasis - This is a 56 year old female patient with past medical history which includes DM, HTN, hyperlipidemia, iron deficiency anemia, toxic multinodular goiter and aortic stenosis with tissue AVR. - Pt was seen in the ED on 04/21 with left flank pain. Pt was diagnosed with urinary tract infection, ureteral calculus and hyperglycemia then DC'd home on Macrobid, Flomax and instructed to follow up with Dr. Morales Pt had a blood culture on 04/21/17 1/ with Enterococcus Faecalis and patient was called by PCP and instructed to go to the ER. - Bacteremia felt to be urinary source with left ureter/pelvic stones - Repeat blood culture with NGTD - Pt was initially started on Unasyn upon admission - She underwent cystoscopy with left retrograde pyelogram and left double-J stent insertion on 04/[address] May - ID following - Pt was converted from Unasyn to Vanco - PICC was placed 04/27 and [facility] orders and d/c written on 04/27 but d/c was held due to ride issues but then she had n/v and htn spikes with sweats - Her Vanco trough on 04/30 was elevated and pharmacy to repeat trough today to decide on dosing upon discharge - Anticipate d/c later today once the dose of Vanco is determined and will touch base with Dr. Pham at that time to confirm length of treatment - Dr. Yu spoke with the pts PCP and was recommended to have manas- procedure Augmentin and to hold asa/plavix 1 week prior to outpt ESWL with urology. - She will see her manufacturing industrial engineer prior to the procedure as well - PT evaluation for discharge planning needs CAD - Continue patient's home Plavix and aspirin HTN - Pt had issues with BP control during this admission. - We checked [facility] outpt records and was being prescribed Cozaar 50mg po daily as an outpt and was not getting it prior to 04/29 when this was resumed - Cont. Coreg 6.25mg BID - Monitor BP DM - Continue Metformin 750 mg PO BID - Patient takes Tresiba 20 units SQ daily - Levemir was titrated up to 25units Q12H on 04/29 - She will be converted back to her home regimen on d/c - Accu checks ACHS - Diabetic diet Chronic iron deficiency anemia - Continue home iron supplement Hyperlipidemia - Continue patient's home Atorvastatin DVT prophylaxis with SCDs (2) Nephrolithiasis ICD Codes: N20.0 - Calculus of kidney Status: Acute (3) Aortic valve stenosis ICD Codes: I35.0 - Nonrheumatic aortic (valve) stenosis Status: Chronic (4) HTN (hypertension) ICD Codes: I10 - Essential (primary) hypertension Status: Chronic (5) DM (diabetes mellitus) ICD Codes: E11.9 - Type 2 diabetes mellitus without complications Status: Chronic (6) Dyslipidemia ICD Codes: E78.5 - Hyperlipidemia, unspecified (7) Chronic anemia ICD Codes: D64.9 - Anemia, unspecified Assessment and Plan Patient examined. Assessment and plan formulated with Simran Plaza PA-C. I agree with the above. Simran Plaza May 01, 2017 10:47 Luis Enrique Borja DO May 08, 2017 12:49
[2017-05-01] MEDS ORDERED: PHARMACY ORDERED LAB ONE (13:45)
[2017-05-01] MEDS ORDERED: COZA50TA PO (14:58)
--- NOTE | 2017-05-01 15:09 | HHI.DS ---
Discharge Summary Admission Date Apr 24, 2017 at 12:20 Discharge Date: May 01, 2017 Admitting Diagnosis UTI/sepsis (1) Enterococcal bacteremia Diagnosis: Principal ICD Codes: R78.81 - Bacteremia; B95.2 - Enterococcus as the cause of diseases classified elsewhere Status: Acute (2) Nephrolithiasis Diagnosis: Principal ICD Codes: N20.0 - Calculus of kidney Status: Acute (3) Aortic valve stenosis Diagnosis: Secondary ICD Codes: I35.0 - Nonrheumatic aortic (valve) stenosis Status: Chronic (4) HTN (hypertension) Diagnosis: Secondary ICD Codes: I10 - Essential (primary) hypertension Status: Chronic (5) DM (diabetes mellitus) Diagnosis: Secondary ICD Codes: E11.9 - Type 2 diabetes mellitus without complications Status: Chronic (6) Dyslipidemia Diagnosis: Secondary ICD Codes: E78.5 - Hyperlipidemia, unspecified (7) Chronic anemia Diagnosis: Secondary ICD Codes: D64.9 - Anemia, unspecified Consultants Dr. Austin May - Urology Dr. Shirley Guthrie - ID Brief History This is a 56 year old female patient with past medical history which includes DM , HTN, hyperlipidemia, iron deficiency anemia, toxic multinodular goiter and aortic stenosis with tissue AVR placed 01/16/17. Blood culture from 04/21/1702/06 with Enterococcus Faecalis. Patient was called by PCP and instructed to go to the ER. On 04/21/17 patient presented to the ER with left flank pain was diagnosed with urinary tract infection, ureteral calculus and hyperglycemia then DC'd home on Macrobid, flomax and instructed to follow up with Dr. Morales Patient endorses cloudy urine, chills and cold sweats at home. Patient also reports diarrhea for the past few days. Patient denies fevers, N/V, chest pain or SOB. CBC/BMP: 05/01/17 0545 05/01/17 0545 Significant Findings Laboratory Tests Test 04/29/17 06:25 04/30/17 01:50 04/30/17 04:30 05/01/17 05:45 White Blood Count 13.9 TH/MM3 (4.0-11.0) 14.3 TH/MM3 (4.0-11.0) 12.8 TH/MM3 (4.0-11.0) Red Blood Count 3.81 MIL/MM3 (4.00-5.30) 3.73 MIL/MM3 (4.00-5.30) 3.76 MIL/MM3 (4.00-5.30) Hemoglobin 9.8 GM/DL (11.6-15.3) 9.6 GM/DL (11.6-15.3) 9.6 GM/DL (11.6-15.3) Hematocrit 30.6 % (35.0-46.0) 30.0 % (35.0-46.0) 30.5 % (35.0-46.0) Mean Corpuscular Hemoglobin 25.7 PG (27.0-34.0) 25.8 PG (27.0-34.0) 25.6 PG (27.0-34.0) Red Cell Distribution Width 18.6 % (11.6-17.2) 18.2 % (11.6-17.2) 18.4 % (11.6-17.2) Platelet Count 568 TH/MM3 (150-450) 589 TH/MM3 (150-450) 605 TH/MM3 (150-450) Neutrophils (%) (Auto) 71.8 % (16.0-70.0) 73.0 % (16.0-70.0) 71.9 % (16.0-70.0) Neutrophils # (Auto) 10.0 TH/MM3 (1.8-7.7) 10.5 TH/MM3 (1.8-7.7) 9.2 TH/MM3 (1.8-7.7) Random Glucose 263 MG/DL (74-106) Estimat Glomerular Filtration Rate 83 ML/MIN (>89) 83 ML/MIN (>89) Vancomycin Level Trough 11.3 MCG/ML (5.0-10.0) Mean Corpuscular Hemoglobin Concent 31.6 % (32.0-36.0) Mean Platelet Volume 6.9 FL (7.0-11.0) Test 05/01/17 14:00 Vancomycin Level Trough 14.3 MCG/ML (5.0-10.0) PE at Discharge General: NAD, AAOx3 Chest: CTA Cardiac: Regular Abd: +BS, soft, obese, ND/NT : No obvious external vaginal discharge, erythema or irritation Ext: No edema Hospital Course Enterococcal bacteremia, acute Left nephrolithiasis, acute This is a 56 year old female patient with past medical history which includes DM , HTN, hyperlipidemia, iron deficiency anemia, toxic multinodular goiter and aortic stenosis with tissue AVR. Pt was seen in the ED on 04/21 with left flank pain. Pt was diagnosed with urinary tract infection, ureteral calculus and hyperglycemia then DC'd home on Macrobid, Flomax and instructed to follow up with Dr. Morales Pt had a blood culture on 04/21/17 1/ with Enterococcus Faecalis and patient was called by PCP and instructed to go to the ER. Bacteremia felt to be urinary source with left ureter/pelvic stones. Repeat blood culture with NGTD. Pt was initially started on Unasyn upon admission. She underwent cystoscopy with left retrograde pyelogram and left double-J stent insertion on 04/[address] May. ID following. Pt was converted from Unasyn to Vanco. PICC was placed 04/27 and [facility]HC orders and d/c written on 04/27 but d/c was held due to ride issues but then she had n/v and htn spikes with sweats. Her Vanco trough on 04/30 was 11 and pharmacy repeat trough on 05/01 was 14.3 while on Vancomycin 1500mg Q12H. Pt to be discharged on Vanco 1000mg Q12H until 05/10/17 per ID recommendations. She will have HHC come out to administer IV Vanc. ID orders: BMP every 3 days while on vancomycin. Call with vancomycin level greater than 20 or creatinine greater than 1.6. Hold vancomycin dose if creatinine greater than 1.6. Dr. Guthrie ([phone]) to follow. Dr. Yu spoke with the pts PCP and was recommended to have manas- procedure Augmentin and to hold asa/plavix 1 week prior to outpt ESWL with urology. She will see her air quality technician prior to the procedure as well. Pt will followup with PCP, Dr. Gunn in 1 week, call for an appt Followup with Dr. Espitia in 2 weeks, call for an appt Followup with Dr. May in 4 weeks, call for an appt CAD Continue patient's home Plavix and aspirin. HTN Pt had issues with BP control during this admission. We checked CP outpt records and was being prescribed Cozaar 50mg po daily as an outpt and was not getting it prior to 04/29 when this was resumed. Her BP overall is better controlled back on her home regimen. Cont. Coreg 6.25mg BID and Cozaar 50mg pod aily at discharge. DM Pt was continued on Metformin 750 mg PO BID, NovoLog SSI and Levemir at admission. She will be converted back to her home regimen on d/c. Patient takes Tresiba 20 units SQ daily and the Metformin Chronic iron deficiency anemia Continue home iron supplement Hyperlipidemia Continue patient's home Atorvastatin Pt Condition on Discharge: Stable Discharge Disposition: Disch w/ Home Health Serv Discharge Instructions DIET: Follow Instructions for: Diabetic Diet Activities you can perform: Regular-No Restrictions Follow up Referrals: Appointment for Follow Up @ UROLOGY Appointment for Follow Up - 4 Weeks @ UROLOGY Appointment for Follow Up @ UROLOGY Cardiology - [address] espitia Cardiology @ [facility] - 2 Weeks @ PCP Follow-up - [address] gunn PCP Follow-up @ [facility] PCP Follow-up - 1 Week @ [facility]/ with [facility] Urology - 4 Weeks with Austin May DO Continued Medications: Aspirin (Aspirin ) 81 Mg Tabdr 81 MG PO DAILY, TAB 0 Refills Atorvastatin (Atorvastatin) 40 Mg Tab 40 MG PO HS for CAD, #30 TAB Carvedilol (Carvedilol) 6.25 Mg Tab 6.25 MG PO BID, #60 TAB 0 Refills Clopidogrel (Plavix) 75 Mg Tab 75 MG PO DAILY for CAD, #30 TAB Cobalamine Combinations (Vitamin T73-Utrfh Acid) 500-400 Mcg Tab 1 TAB PO DAILY for Nutritional Supplement, TAB 0 Refills Docusate Sodium (Colace) 100 Mg Capsule 100 MG PO BID for Prevent Constipation, #20 CAP 0 Refills Ferrous Sulfate (Ferrous Sulfate) 325 Mg (65 Mg Iron) Tablet 325 MG PO BIDPC for Nutritional Supplement, #60 TAB 0 Refills Fish Oil-Cholecalciferol (Edna-3 Fish Oil/Vitamin) 1,000-1,000 Mg Cap 1 CAP PO DAILY for Nutritional Supplement, CAP 0 Refills Flavoring Agent (Cinnamon) 3.7 Ml Oil 1 MG PO DAILY Garlic (Garlique) 5,000 Mcg Tab 1 MG PO DAILY Hydrocodone-Acetaminophen (Hydrocodone-Acetaminophen) 5-325 mg Tab 1 TAB PO Q6H PRN for PAIN, #10 TAB 0 Refills Ibuprofen (Ibuprofen) 800 Mg Tab 800 MG PO Q8H PRN for PAIN SCALE 4 TO 6, #20 TAB 0 Refills Insulin Degludec Inj (Tresiba Flextouch Pen Inj) 300 unit/3 ML Pen 20 UNITS SQ DAILY for Blood Sugar Management, #15 ML 0 Refills Losartan (Cozaar) 50 Mg Tab 50 MG PO DAILY for Blood Pressure Management, #30 TAB 0 Refills Magnesium Oxide (Magnesium Oxide) 250 Mg Tab 250 MG PO DAILY, TAB 0 Refills Metformin ER (Metformin ER) 750 Mg Perfecto 750 MG PO BID for Blood Sugar Management, TAB 0 Refills Resume on 06/14/16 Ondansetron Odt (Zofran Odt) 4 Mg Tab 4 MG SL Q12HR PRN for Nausea/Vomiting, #20 TAB 0 Refills Pantoprazole (Pantoprazole) 20 Mg Tab 20 MG PO DAILY for Reflux, #30 TAB 0 Refills Tamsulosin (Flomax) 0.4 Mg Cap 0.4 MG PO HS for Manage Prostate Problems, #8 CAP 0 Refills Discontinued Medications: Nitrofurantoin Monohydrate Macrocrystals (Macrobid) 100 Mg Cap 100 MG PO BID for Infection for 10 Days, #20 CAP 0 Refills Oxycodone-Acetaminophen (Percocet) 5-325 mg Tab 1-2 TAB PO Q6H PRN for PAIN, #12 TAB 0 Refills Additional Information Patient examined. Assessment and plan formulated with Simran Plaza PA-C. I agree with the above. Simran Plaza May 01, 2017 15:09 Luis Enrique Borja DO May 08, 2017 12:50
== END 2017-05-01 18:05 | disposition home health service (06) | DRG 694 ==
LOC: NEPC 08:54 → NEDA 12:20 → NEDH 16:39 → N04B 18:12
PROVIDERS: ADMIT Hospitalist; ATTEND Hospitalist
PROC: BT1FZZZ Fluoroscopy of Left Kidney, Ureter and Bladder (ICD-10-PCS; 2017-04-25)
PROC: 0T778DZ Dilation of Left Ureter with Intraluminal Device, Via Natural or Artificial Opening Endoscopic (ICD-10-PCS; principal; 2017-04-25 13:57)
PROC: 02HV33Z Insertion of Infusion Device into Superior Vena Cava, Percutaneous Approach (ICD-10-PCS; 2017-04-27)
DX: N13.2 Hydronephrosis with renal and ureteral calculous obstruction (principal); E11.65 Type 2 diabetes mellitus with hyperglycemia; I10 Essential (primary) hypertension; Z68.41 Body mass index [BMI] 40.0-44.9, adult; B95.2 Enterococcus as the cause of diseases classified elsewhere; N39.0 Urinary tract infection, site not specified; D50.9 Iron deficiency anemia, unspecified; E66.01 Morbid (severe) obesity due to excess calories; E78.5 Hyperlipidemia, unspecified; K21.9 Gastro-esophageal reflux disease without esophagitis; Z96.652 Presence of left artificial knee joint; R19.7 Diarrhea, unspecified; I25.10 Atherosclerotic heart disease of native coronary artery without angina pectoris; I35.0 Nonrheumatic aortic (valve) stenosis; E05.20 Thyrotoxicosis with toxic multinodular goiter without thyrotoxic crisis or storm; Z87.442 Personal history of urinary calculi; Z79.84 Long term (current) use of oral hypoglycemic drugs; Z95.5 Presence of coronary angioplasty implant and graft; Z98.890 Other specified postprocedural states; D72.829 Elevated white blood cell count, unspecified; D72.825 Bandemia; R01.1 Cardiac murmur, unspecified
CPT/HCPCS: 36569; 74420; 76937; 80048; 80053; 80202; 81001; 82565; 82947; 82948; 83605; 85007; 85025; 85027; 85610; 87040; 87086; 96374; C1769; J0295; J1100; J1642; J1815; J2250; J2270; J2370; J2405; J2543; J3010; J3370; J7030; J7040; J7050; Q9967

== ENCOUNTER → 2017-06-20 | Day surgery (SDC) | payer OTHER ==
[~2017-06-20] VITALS: Ht 165.1 cm; Wt 105.9 kg
[~2017-06-20] MED LIST changes: +CHLORHEXIDINE GLUCONATE 2 % 1 PACK (2 CLOTHS) TOPICAL PRN; -CIPR250T52 PO; +COZA50TA PO; -FLAV3.7O PO; -GARL400T4 PO; -GETGO ROLLING W1 MI1; -GLIM4TAB PO; +INSULIN HUMAN REGULAR 1,000 UNITS/10 ML VIAL SQ PRN; +LACTATED RINGER'S 1000 ML IV PRN; -MACR100C2 PO; +METF1000 PO; -METF750T PO; +METOPROLOL TARTRATE 25 MG TAB PO PRN; +NOVORP2 SQ; -OMEGCAP PO; -PERC5TAB12 PO; +POVIDONE IODINE 5% (ANTISEPSIS KIT) 4 APPLICATIONS EACH NARE PRN; +SODIUM CHLORID 0.9% 500 ML IV PRN; -TAMS5CAP PO; -WALKER GLIDE WH1 MI2; -WALKER WHEELS/F1 MIS; +ceFAZolin 1,000 MG/NS 100 ML IV SCH
[2017-06-20 07:03] VITALS: BP 140/94; PULSE 109; RESP 24; TEMP 98.8; O2SAT 96
[2017-06-20 07:03] LABS: AUTOMATED NEUTROPHIL # 10.1 TH/MM3 (1.8-7.7); BASOPHIL # 0.1 TH/MM3 (0-0.2); BASOPHIL % 0.6 % (0.0-2.0); EOSINOPHIL # 0.4 TH/MM3 (0-0.4); EOSINOPHIL % 2.5 % (0.0-4.0); HEMATOCRIT 32.1 % (35.0-46.0); HEMOGLOBIN 9.8 GM/DL (11.6-15.3); LYMPH % 18.6 % (9.0-44.0); LYMPHOCYTE # 2.6 TH/MM3 (1.0-4.8); MEAN CELL VOLUME 76.9 FL (80.0-100.0); MEAN CORPUSCULAR HEMOGLOBIN 23.5 PG (27.0-34.0); MEAN CORPUSCULAR HGB CONC 30.6 % (32.0-36.0); MEAN PLATELET VOLUME 6.9 FL (7.0-11.0); MONO % 7.5 % (0.0-8.0); MONOCYTE # 1.1 TH/MM3 (0-0.9); NEUT % 70.8 % (16.0-70.0); PLATELET COUNT 552 TH/MM3 (150-450); RED BLOOD COUNT 4.18 MIL/MM3 (4.00-5.30); RED CELL DISTRIBUTION WIDTH 17.9 % (11.6-17.2); WHITE BLOOD COUNT 14.2 TH/MM3 (4.0-11.0)
--- NOTE | 2017-06-20 07:10 | RADRPT ---
EXAM DATE/TIME: 06/20/2017 06:43 [place] COMPARISON: No previous studies available for comparison. INDICATIONS : Pre OP lithotripsy. MEDICAL HISTORY : None. SURGICAL HISTORY : None. ENCOUNTER: Initial ACUITY: 1 day PAIN SCORE: 0/10 LOCATION: Bilateral abdomen FINDINGS: There is a left sided double-J stent in place. A double-J stent is in good position. There is a 7 mm calcification adjacent to the proximal left stent. This most likely the left renal stone. No definite calcifications are seen overlying the right kidney. The bony structures are grossly intact. The charlene l gas pattern is within normal limits. CONCLUSION: Left sided double-J stent in good position. 7 mm stone adjacent to the proximal left stent. Charles Salinas MD on June 20, 2017 at 7:07 Board Certified Radiologist. This report was verified electronically.
== END | disposition home or self-care (01) ==
LOC: HSDC 06:15
PROVIDERS: ATTEND Urology
DX: N20.0 Calculus of kidney (principal); R05 Cough; Z53.9 Procedure and treatment not carried out, unspecified reason
CPT/HCPCS: 74018; 85025; G0463; J7120; 99211

== ENCOUNTER → 2017-07-25 | Day surgery (SDC) | payer OTHER ==
[~2017-07-25] VITALS: Ht 165.1 cm; Wt 108.1 kg
[~2017-07-25] MED LIST changes: +ACETAMINOPHEN/HYDROcodone 325 MG/5 MG TAB PO PRN; +DEXAMETHASONE SOD PHOS 4 MG/ML VIAL IV ONE; +DO NOT ADM ANY ANTICOAGULANT DRUGS PRN; +GLYCOPYRROLATE 1 MG/5 ML SYRINGE IV PUSH ONE; +INSULIN HUMAN REGULAR 1,000 UNITS/10 ML VIAL ONE; +LIDOCAINE HCL 1% PF 5 ML SYRINGE OTHER ONE; +MIDAZOLAM HCL 2 MG/2 ML VIAL ONE; +MORPHINE SULFATE 4 MG/ML INJ IV PUSH PRN; +NEOSTIGMINE 5 MG/5 ML SYRINGE IV PUSH ONE; +ONDANSETRON HCL 4 MG/2 ML VIAL IV ONE; +ONDANSETRON ODT 4 MG TAB PO PRN; +PROPOFOL 200 MG/20 ML AMP IV ONE; +ROCURONIUM INJ 50 MG/5 ML SYRINGE IV PUSH ONE; +SUCCINYLCHOLINE CHLORIDE 100 MG/5 ML SYRINGE IV PUSH ONE; +SUGAMMADEX SODIUM 200 MG/2 ML VIAL IV PUSH ONE
--- NOTE | 2017-07-25 10:32 | RADRPT ---
EXAM DATE: 07/25/2017 10:25 AM EDT AGE/SEX: 56 years / Female INDICATIONS: Left kidney stones. Pre-op Lithotripsy. CLINICAL DATA: This is the patient's initial encounter. Patient reports that signs and symptoms have been present for 1 day and indicates a pain score of 0/10. MEDICAL/SURGICAL HISTORY: . Left kidney stones. . Left stent x 3 months. [place] [facility] [place]/21/2017. . FINDINGS: There is a left ureteral stent in place. Clips are seen in the right upper quadrant from prior aniket cystectomy. The bowel gas pattern is unremarkable. Calcifications are not seen. CONCLUSION: Left ureteral stent. The patient has left renal stones seen on the prior CT examination. Stones canno t clearly be seen on this plain film examination. Electronically signed by: John Vila MD 07/25/2017 10:31 AM EDT
[2017-07-25 10:54] LABS: AUTOMATED NEUTROPHIL # 6.3 TH/MM3 (1.8-7.7); BASOPHIL # 0.1 TH/MM3 (0-0.2); BASOPHIL % 0.6 % (0.0-2.0); EOSINOPHIL # 0.2 TH/MM3 (0-0.4); EOSINOPHIL % 2.2 % (0.0-4.0); HEMATOCRIT 31.1 % (35.0-46.0); HEMOGLOBIN 9.5 GM/DL (11.6-15.3); LYMPH % 24.2 % (9.0-44.0); LYMPHOCYTE # 2.4 TH/MM3 (1.0-4.8); MEAN CELL VOLUME 73.6 FL (80.0-100.0); MEAN CORPUSCULAR HEMOGLOBIN 22.6 PG (27.0-34.0); MEAN CORPUSCULAR HGB CONC 30.7 % (32.0-36.0); MEAN PLATELET VOLUME 7.1 FL (7.0-11.0); MONO % 9.2 % (0.0-8.0); MONOCYTE # 0.9 TH/MM3 (0-0.9); NEUT % 63.8 % (16.0-70.0); PLATELET COUNT 453 TH/MM3 (150-450); RED BLOOD COUNT 4.22 MIL/MM3 (4.00-5.30); RED CELL DISTRIBUTION WIDTH 17.7 % (11.6-17.2); WHITE BLOOD COUNT 9.8 TH/MM3 (4.0-11.0)
--- NOTE | 2017-07-25 12:59 | PD.OP ---
Operative Report Date of Surgery: Jul 25, 2017 Preoperative Diagnosis: Left renal calculi Postoperative Diagnosis: Same Procedure: Left extracorporeal shockwave lithotripsy Anesthesia: GETA Surgeon: Austin May Event Av Operator(s): None Resident Surgeon: None Operation and Findings: 56-year-old female with a history of a 8 mm left UPJ stone and an 8 mm left renal stone who underwent cystoscopy left double-J stent insertion in the past. She presents today to undergo left extrapleural shockwave lithotripsy. Risk and benefits were discussed preoperatively the patient was willing to proceed. The patient was brought to operating identified by myself as Azra Hodgson. She was placed in the supine position on the operating table and received preprocedure antibiotics. Under fluoroscopic imaging guidance the stones were visualized in the left kidney near the area of the UPJ. The stones were difficult to visualize however. ESWL therapy commenced with the patient receiving a total of 2500 shocks. She tolerated the procedure well and was awoken and extubated and transferred recovery in stable condition. She will follow-up in the office and obtain a CT scan prior to evaluate for any residual stones. If no stones are present we will be able to remove her stent via cystoscopy in the office. Austin May DO Jul 25, 2017 12:59
[2017-07-25 14:44] VITALS: BP 146/81; PULSE 91; RESP 16; TEMP 98; O2SAT 94
== END | disposition home or self-care (01) ==
LOC: HSDC 09:22
PROVIDERS: ATTEND Urology
DX: N20.0 Calculus of kidney (principal); Z01.818 Encounter for other preprocedural examination; E11.9 Type 2 diabetes mellitus without complications; E78.5 Hyperlipidemia, unspecified; D64.9 Anemia, unspecified; I10 Essential (primary) hypertension; I25.10 Atherosclerotic heart disease of native coronary artery without angina pectoris; I35.0 Nonrheumatic aortic (valve) stenosis; I11.0 Hypertensive heart disease with heart failure; I50.30 Unspecified diastolic (congestive) heart failure; Z95.2 Presence of prosthetic heart valve; Z79.01 Long term (current) use of anticoagulants; Z79.84 Long term (current) use of oral hypoglycemic drugs
CPT/HCPCS: 00872; 50590; 74018; 85025; J0330; J0690; J1100; J1815; J2250; J2405; J2710; J3010; J7120